=== PATIENT | female | born 1965 | race Caucasian/White ===

== ENCOUNTER 2016-02-16 12:53 | Day surgery (SDC) | payer OTHER ==
[~2016-02-16] VITALS: Ht 165.1 cm; Wt 29.9 kg
[~2016-02-16 12:53] MED LIST: AMT10 PO; ASCO10003 PO; BUSP-8 PO; CHN/1 PO; CYAN10005 PO; DAPTOmycin IV 275 MG in SODIUM CHLORIDE 0.9% 50ML 50 ML IV SCH; DIAZ2TAB PO; DRGTP50 EXT; FENT75DI2 TD; FRCT/ PO; LEVO88TA PO; LRS20 PO; MULT-506 PO; NRN/600 PO; ONDA4TAB46 PO; OXYC1TAB3 PO; PRLSR20 PO; QUET1TAB34 PO; SCPTP EXT; SERT50TA PO; SUMA100T16 PO
[2016-02-16 13:08] VITALS: BP 110/72; PULSE 82; TEMP 36.7; O2SAT 96; Ht 165.1 cm; Wt 29.9 kg
== END 2016-05-27 13:50 | disposition home or self-care (01) ==
LOC: C.MTU 12:53
PROVIDERS: ATTEND Family Medicine
DX: L72.3 Sebaceous cyst (principal)

== ENCOUNTER → 2016-08-27 | Outpatient (CLI) | payer BC, OTHER ==
[~2016-08-27] MED LIST changes: -DAPTOmycin IV 275 MG in SODIUM CHLORIDE 0.9% 50ML 50 ML IV SCH
--- NOTE | 2016-08-27 13:20 | DIAGNOSTIC IMAGING REPORT ---
LUMBAR SPINE MRI HISTORY: Pain. Congenital anomaly. DIFF AIRWAY, CONGENITAL MALFORMATION OF SPINAL COR TECHNIQUE: Multiplanar multisequence MRI of the lumbar spine was performed without the use of contrast. COMPARISON: 03/27/2010 FINDINGS: For the purpose of the report the L5-S1 disc space will be located on axial image 27 of 30. Mild disc desiccation. Moderate degenerative disc change L5-S1. L1-L2: No significant central canal or neural foraminal narrowing. L2-L3: No significant central canal or neural foraminal narrowing. L3-L4: No significant central canal or neural foraminal narrowing. L4-L5: No significant central canal or neural foraminal narrowing. L5-S1: Mild broad-based right central disc bulge. Minimal narrowing right and to lesser extent left neural foramina. Minimal impact right anterior thecal sac. IMPRESSION: Minimal disc bulge L5-S1. Mild degenerative disc change L5-S1. No change from the prior study. Electronically signed by: Aashish Loving M.D. 08/27/2016 1:19 PM Dictated Date/Time: 08/27/2016 1:15 PM
--- NOTE | 2016-08-27 13:54 | DIAGNOSTIC IMAGING REPORT ---
CERVICAL SPINE CT CT DOSE: 245.50 mGy.cm HISTORY: MALFORMATION OF SPINE TECHNIQUE: Multiaxial CT images of the cervical spine were performed and reformatted in the sagittal and coronal plane without the use of contrast. COMPARISON: Cervical spine CT 02/15/2016. FINDINGS: There are postsurgical findings consistent with a C5-C6 discectomy and anterior fusion. There are also findings consistent with a posterior craniocervical fusion with screws within the occipital condyles, C1 and C2. Resection of the posterior arch of C1 with associated bone graft material. Progressive fusion/ossification of the bone graft material. The hardware is intact. No acute fracture is present. The central canal and posterior fossa are suboptimally assessed by CT technique. There is no prevertebral edema. No acute cervical spine fractures present. There are no unexpected radiopaque foreign bodies. Straightening of the cervical spine. There appears to be evidence for prior suboccipital craniectomy. The remaining disc spaces are relatively preserved. IMPRESSION: 1.There is again noted a posterior craniocervical fusion with bilateral screws within the occipital condyles, C1 and C2. Hardware intact. Progressive fusion/ossification of the bone graft material at C1. Suboptimal evaluation of the central canal and posterior fossa due to CT technique with streak artifact. 2. No acute cervical spine fracture or subluxation. 3. Previous C5-C6 anterior discectomy and fusion. Hardware intact. Electronically signed by: John Ayala M.D. 08/27/2016 1:53 PM Dictated Date/Time: 08/27/2016 1:45 PM
--- NOTE | 2016-08-27 14:28 | DIAGNOSTIC IMAGING REPORT ---
MRI OF THE CERVICAL SPINE WITHOUT CONTRAST CLINICAL HISTORY: Malformation of spine. COMPARISON: MRI of the cervical spine May [address] of the cervical spine February 15, 2016. TECHNIQUE: Utilizing a 1.5 Meghna magnet and dedicated coil, multiplanar, multiecho imaging of the cervical spine was performed without IV contrast. FINDINGS: Postsurgical findings consistent with an anterior C5-C6 discectomy and fusion are noted. A posterior decompression is noted with bilateral screws within the occipital condyles, C1 and C2. The postoperative appearance is unchanged. Cervical cord and caliber are normal. There is no intracanalicular mass or fluid collection. Paravertebral soft tissues are unremarkable. C2-C3: Central canal and neural foramen are patent. C3-C4: The central canal and neural foramen are patent. C4-C5: The central canal and neural foramen are patent C5-C6: The central canal and neural foramen are patent. C6-C7: There is minimal disc bulge. There is minimal narrowing of the central canal. Neural foramen are patent. C7-T1: Central canal and neural foramen are patent. IMPRESSION: 1. Status post posterior decompression and fusion with bilateral screws within the occipital condyles, C1 and C2. 2. Status post C5-C6 anterior fusion. 3. Normal cervical cord and caliber. 4. Minimal disc bulge at C6-C7 with minimal central canal narrowing. Electronically signed by: Gaurang Blake M.D. 08/27/2016 2:26 PM Dictated Date/Time: 08/27/2016 2:20 PM
== END | disposition home or self-care (01) ==
LOC: C.MRI 12:00
PROVIDERS: ATTEND Family Medicine
DX: M53.2X1 Spinal instabilities, occipito-atlanto-axial region (principal); Q06.8 Other specified congenital malformations of spinal cord; Z01.818 Encounter for other preprocedural examination; Z98.1 Arthrodesis status; M47.817 Spondylosis without myelopathy or radiculopathy, lumbosacral region

== ENCOUNTER → 2016-09-17 | Outpatient (CLI) | payer BC, OTHER ==
[~2016-09-17] MED LIST changes: +GADAVIST IV PRN
--- NOTE | 2016-09-17 16:01 | DIAGNOSTIC IMAGING REPORT ---
MRI OF THE BRAIN WITHOUT AND WITH IV CONTRAST CLINICAL HISTORY: Chiari malformation status post surgery. Ataxia, memory loss, left-sided facial and arm numbness. COMPARISON STUDY: 05/21/2015 TECHNIQUE: MRI of the brain was performed from the vertex to the skull base utilizing various T1 and T2 weighted sequences. Following the IV administration of 6.5 mL of Gadavist contrast, additional enhanced images were obtained. FINDINGS: Sagittal T1, axial diffusion, proton density and T2 weighted axial, coronal FLAIR, and pre and post axial T1-weighted images were acquired. These were supplemented with post gadolinium coronal T1 weighted images. There are postsurgical changes of a suboccipital craniotomy. There is a Chiari I malformation. There is artifact secondary to occipital condylar and upper cervical screws. No intra or extra-axial mass lesions are visualized. Axial diffusion-weighted images reveal no evidence of acute or subacute infarction. There is no evidence of ventricular dilatation. Proton density T2-weighted and FLAIR images reveal no significant intraparenchymal signal abnormalities. There are no abnormal flow voids. There is no evidence of pathologic enhancement. IMPRESSION: 1. Postsurgical changes of a suboccipital craniotomy, and craniocervical fusion 2. No acute intracranial findings. No evidence of acute or subacute infarction. No evidence of intracranial mass. Electronically signed by: Carlos Ervin M.D. 09/17/2016 4:00 PM Dictated Date/Time: 09/17/2016 3:53 PM
== END | disposition home or self-care (01) ==
LOC: C.MRI 13:56
PROVIDERS: ATTEND Psychiatry & Neurology Neurology
DX: G93.5 Compression of brain (principal); R41.3 Other amnesia

== ENCOUNTER → 2016-10-30 | Outpatient (CLI) | payer BC, OTHER ==
[~2016-10-30] MED LIST changes: -GADAVIST IV PRN
[2016-10-30 18:52] LABS: URINE APPEARANCE CLEAR (CLEAR); URINE BILIRUBIN NEG (NEG); URINE COLOR YELLOW; URINE NITRITE NEG (NEG); UROBILINOGEN NEG (NEG)
[2016-10-30 19:11] LABS: MANUAL MICROSCOPIC REQUIRED? NO; REVIEW REQ? NO
== END | disposition home or self-care (01) ==
LOC: C.LABSPEC 17:29
PROVIDERS: ATTEND Family Medicine
DX: N39.0 Urinary tract infection, site not specified (principal)

== ENCOUNTER → 2016-12-30 | Outpatient (CLI) | payer BC, OTHER ==
[2016-12-30 17:03] LABS: ALT/SGPT 20 U/L (12-78); AST/SGOT 26 U/L (15-37); BLOOD UREA NITROGEN 7 mg/dl (7-18); BUN/CREATININE RATIO 10.2 (10-20); CALCIUM 8.3 mg/dl (8.5-10.1); CARBON DIOXIDE 26 mmol/L (21-32); CHLORIDE 107 mmol/L (98-107); CREATININE 0.64 mg/dl (0.60-1.20); GLUCOSE 188 mg/dl (70-99); SODIUM 139 mmol/L (136-145)
[2016-12-30 17:08] LABS: ALB/GLOB RATIO 0.7 (0.9-2); ALKALINE PHOSPHATASE 248 U/L (45-117); FERRITIN 52.1 ng/ml (8.0-388.0)
[2016-12-30 17:10] LABS: CHOLESTEROL/HDL RATIO 3.6; PHOSPHORUS 4.2 mg/dl (2.5-4.9); THYROID STIMULATING HORMONE 1.02 uIu/ml (0.300-4.500)
== END | disposition home or self-care (01) ==
LOC: C.LABPBG 13:03
PROVIDERS: ATTEND Family Medicine
DX: Z00.00 Encounter for general adult medical examination without abnormal findings (principal); E55.9 Vitamin D deficiency, unspecified; G89.29 Other chronic pain; G93.5 Compression of brain; H53.2 Diplopia; N39.0 Urinary tract infection, site not specified; M53.2X1 Spinal instabilities, occipito-atlanto-axial region; Q79.6 Ehlers-Danlos syndromes; R74.0 Nonspecific elevation of levels of transaminase and lactic acid dehydrogenase [LDH]; Z13.220 Encounter for screening for lipoid disorders

== ENCOUNTER → 2017-07-09 | Outpatient (CLI) | payer BC, OTHER ==
[2017-07-09 18:18] LABS: ALKALINE PHOSPHATASE 213 U/L (45-117); ALT/SGPT 29 U/L (12-78); AST/SGOT 30 U/L (15-37); TOTAL PROTEIN 6.4 gm/dl (6.4-8.2)
== END | disposition home or self-care (01) ==
LOC: C.LAB1850 16:27
PROVIDERS: ATTEND Internal Medicine Infectious Disease
DX: R74.0 Nonspecific elevation of levels of transaminase and lactic acid dehydrogenase [LDH] (principal); E55.9 Vitamin D deficiency, unspecified; A49.02 Methicillin resistant Staphylococcus aureus infection, unspecified site

== ENCOUNTER → 2017-08-20 | Outpatient (CLI) | payer BC, OTHER ==
--- NOTE | 2017-08-20 11:43 | DIAGNOSTIC IMAGING REPORT ---
CHEST 2 VIEWS ROUTINE CLINICAL HISTORY: Cough. COMPARISON STUDY: Chest radiograph October 13, 2015. FINDINGS: Lung volumes are normal. No pneumothorax or pleural effusion is noted. Cardiac size is normal. Mediastinal contours are normal. Postoperative findings within the upper abdomen are incidentally noted. There is asymmetric reticulonodular interstitial thickening and airspace opacities within the right lung. No cavitation is visualized. Anterior cervical spine fusion is noted. IMPRESSION: Asymmetric airspace opacities and reticulonodular interstitial thickening within the right lung which suggests an infectious process such as bronchopneumonia. Post treatment radiographs to ensure resolution are recommended. Electronically signed by: Gaurang Blake M.D. 08/20/2017 11:42 AM Dictated Date/Time: 08/20/2017 11:40 AM
== END | disposition home or self-care (01) ==
LOC: C.LAB 10:30
PROVIDERS: ATTEND Nurse Practitioner Family
DX: R05 Cough (principal)

== ENCOUNTER → 2017-11-06 | Outpatient (CLI) | payer BC, OTHER ==
[~2017-11-06] MED LIST changes: +OXYC-90 PO; -OXYC1TAB3 PO
--- NOTE | 2017-11-06 14:41 | DIAGNOSTIC IMAGING REPORT ---
CERVICAL SPINE MRI WITH FLEXION, EXTENSION, AND CSF FLOW HISTORY: NECK PAIN, HX CHIARI MALFORMATION TECHNIQUE: Utilizing 1.5 Meghna magnet axial and sagittal T2 sequences of the cervical spine were performed in the neutral, flexion, and extension views. CSF flow study was also obtained. COMPARISON STUDY: Cervical spine CT 08/27/2016 and cervical spine MRI 08/27/2016. FINDINGS: The visualized posterior fossa is unremarkable. The cervical spinal cord demonstrates a normal signal intensity. There is anterior cervical discectomy and fusion at C5-C6. There is also evidence for posterior craniocervical decompression and fusion with bilateral screws within the occipital condyles, C1, and C2. Alignment remains intact throughout flexion and extension. There is motion artifact on the flexion and extension views resulting in suboptimal evaluation. Prevertebral soft tissues and the C1-C2 interval appear intact. There is mild disc space narrowing at C4-C5 and C6-C7. C1-C2: No significant central canal narrowing. C2-C3: No significant central canal or neural foraminal narrowing. C3-C4: No significant central canal or left-sided neural foraminal narrowing. Mild right neural foraminal narrowing, unchanged. C4-C5: No severe central canal or left-sided neural foraminal narrowing. Mild right neural foraminal narrowing. C5-C6: No significant central canal or neural foraminal narrowing. C6-C7: Broad-based posterior disc bulge with ligamentum hypertrophy resulting in mild central canal narrowing. This is most pronounced on the extension views. No significant neural foraminal narrowing. C7-T1: No significant central canal or neural foraminal narrowing. CSF flow appears symmetric throughout the cervicomedullary junction and cervical spine. IMPRESSION: 1. Overall, no significant change compared to the prior study. 2. Status post posterior craniocervical decompression and fusion from the occipital condyles through C2. 3. Redemonstration of the small broad-based posterior disc bulge at C6-C7 resulting in mild central canal narrowing. This is most pronounced on the extension views. 4. The cervical spinal cord demonstrates a normal signal intensity. 4. CSF flow appears symmetric throughout the cervical medullary junction and cervical spine. Electronically signed by: John Ayala M.D. 11/06/2017 2:40 PM Dictated Date/Time: 11/06/2017 2:28 PM
== END | disposition home or self-care (01) ==
LOC: C.MRIBC 11:51
PROVIDERS: ATTEND Psychiatry & Neurology Neurology
DX: Z86.69 Personal history of other diseases of the nervous system and sense organs (principal); M50.20 Other cervical disc displacement, unspecified cervical region; M50.223 Other cervical disc displacement at C6-C7 level

== ENCOUNTER 2018-09-21 16:50 | Inpatient (IN) ==
[2018-09-21] MEDS ORDERED: SODIUM CHLORIDE 0.9% 1000ML 1,000 ML IV SCH (18:15)
[2018-09-21] MEDS ORDERED: LORazepam 0.5 MG/1 ML VIAL IV STA (18:43)
[2018-09-21 18:54] LABS: Basophils # (auto) 0.02 K/uL (0-0.2); Basophils % (auto) 0.5 %; Eosinophils # (auto) 0.06 K/uL (0-0.5); Eosinophils % (auto) 1.6 %; Hematocrit (blood only) 36.3 % (37-47); Hemoglobin 11.9 g/dL (12.0-16.0); Lymphocytes % (auto) 16.3 %; Mean Corpuscular Hgb Conc 32.8 g/dL (32-36); Mean Corpuscular Volume 94.3 fL (80-100); Mean Platelet Volume 10.3 fL (7.4-10.4); Monocytes # (auto) 0.31 K/uL (0.11-0.59); Monocytes % (auto) 8.4 %; Neutrophils # (auto) 2.69 K/uL (1.4-6.5); Neutrophils % (auto) 73.2 %; Platelet Count 332 K/uL (130-400); RDW Coefficient of Variation 13.4 % (11.5-14.5); RDW Standard Deviation 46.6 fL (36.4-46.3); Red Blood Count 3.85 M/uL (4.2-5.4); White Blood Count 3.68 K/uL (4.8-10.8)
--- NOTE | 2018-09-21 18:59 | XRay Report ---
SINGLE VIEW CHEST CLINICAL HISTORY: Fall. Weakness. FINDINGS: An AP, portable, upright chest radiograph is compared to study dated 07/30/2018. The cardiom ediastinal silhouette is unremarkable. The lungs and pleural spaces are clear. No pneumothorax is see n. The skeletal structures are osteopenic. The bony thorax is grossly intact. Fusion hardware is note d in the lower cervical spine. IMPRESSION: No active disease in the chest. Electronically signed by: Colton Henriquez M.D. 09/21/2018 6:58 PM
--- NOTE | 2018-09-21 18:59 | XRay Report ---
SINGLE VIEW PELVIS CLINICAL HISTORY: Trauma. FINDINGS: An AP, portable, supine pelvic radiograph is obtained. No prior studies are available for c omparison at the time of dictation. The skeletal structures are heterogeneously osteopenic. There is no radiographic evidence of fracture involving the hips or bony pelvis. Mild degenerative joint space narrowing is seen in the hips. There is mild degenerative sclerosis in the sacroiliac joints. The ov erlying soft tissues are normal as imaged. There are numerous pelvic phlebolith. No bowel obstruction is seen. IMPRESSION: Osteopenia with no acute bony abnormality identified. Electronically signed by: Colton Henriquez M.D. 09/21/2018 6:57 PM
[2018-09-21 19:06] LABS: INR 1.6 (0.9-1.1); Prothrombin Time 16.1 Seconds (9.0-12.0)
[2018-09-21 19:19] LABS: Alanine Aminotransferase 57 U/L (12-78); Aspartate Aminotransferase 200 U/L (15-37); BUN Creatinine Ratio 7.4 (10-20); Blood Urea Nitrogen 3 mg/dl (7-18); Calcium 7.7 mg/dl (8.5-10.1); Carbon Dioxide 19 mmol/L (21-32); Chloride 115 mmol/L (98-107); Est GFR (African American) 137.7; Est GFR (Non-African American) 118.8; Glucose 81 mg/dl (70-99); Potassium 3.8 mmol/L (3.5-5.1); Sodium 144 mmol/L (136-145)
[2018-09-21 19:30] LABS: Albumin Globulin Ratio 0.6 (0.9-2); Alkaline Phosphatase 330 U/L (45-117); Bilirubin,Total 0.5 mg/dl (0.2-1); Globulin 3.3 gm/dl (2.5-4.0); NT Pro B Type Natriuretic Pept 77 pg/ml (0-900); Total Protein 5.3 gm/dl (6.4-8.2); Troponin I < 0.015 ng/ml (0-0.045)
[2018-09-21 19:43] LABS: Lyme Ab IgG w/WB Rflx Negative (Negative); Lyme Ab IgM w/WB Rflx Negative (Negative)
--- NOTE | 2018-09-21 21:10 | Magnetic Resonance Report ---
LUMBAR SPINE MRI HISTORY: weakness, incontinence TECHNIQUE: Multiplanar multisequence MRI of the lumbar spine was performed without the use of contras t. COMPARISON: Lumbar spine MRI 08/27/2016. FINDINGS: For the purpose of the report the L5-S1 disc space will be located on axial image 27 of 30. No fracture or subluxation within the lumbar spine. Severe disc space narrowing at L5-S1 which has pr ogressed. The remaining disc spaces are preserved. The conus terminates at the T12-L1 disc space. Par aspinal soft tissues are unremarkable. No disc herniations. There is abnormal marrow edema at the S1 and S2 vertebral bodies with mild presacral edema. There is also abnormal marrow edema within the sveta ateral sacral wings. Therefore, this is consistent with a developing sacral insufficiency fracture. L1-L2: No significant central canal or neural foraminal narrowing. L2-L3: No significant central canal or neural foraminal narrowing. L3-L4: No significant central canal or neural foraminal narrowing. L4-L5: No significant central canal or neural foraminal narrowing. L5-S1: No significant central canal or neural foraminal narrowing. Small broad-based posterior disc b ulge. IMPRESSION: 1. Progressive severe disc space narrowing L5-S1. However, no significant central canal or neural for aminal narrowing. 2. There is abnormal marrow edema at the S1 and S2 vertebral bodies with mild presacral edema. There is also abnormal marrow edema within the bilateral sacral wings. Therefore, this is consistent with a developing sacral insufficiency fracture. Electronically signed by: John Ayala M.D. 09/21/2018 9:08 PM
[2018-09-21 22:25] LABS: Appearance Urine Cloudy (Clear); Bacteria Urine Automated Negative (Negative); Bilirubin Urine Negative (Negative); Blood Urine Negative (Negative); Color Urine Yellow; Epithelial Cell Urine Auto >30 /lpf (0-5); Glucose Urine UA Negative (Negative); Ketones Urine Negative (Negative); Leukocyte Esterase Urine Negative (Negative); Nitrite Urine Negative (Negative); Protein Urine Negative (Negative); Specific Gravity Urine 1.013 (1.000-1.030); Urobilinogen Urine Negative (Negative); pH Urine 5.5 (4.5-7.5)
[2018-09-21 22:47] LABS: RBC Urine Automated 0-4 /hpf (0-4)
--- NOTE | 2018-09-22 00:57 | History & Physical Report ---
Date of Service September 22, 2018 Assessment & Plan (1) Generalized weakness: Etiology unclear. Patient with diffuse progressive weakness over the last 10 days, as well as incontinence. S/P Arian en Y GBS -Check PO4, ICal, ESR, CRP, Folate -Check T4 -PT/OT evaluation -Consider Neuro evaluation - to be left to discretion of day team Present on Admission?: Yes (2) Fall: Weakness s/p fall. Patient with sacral insufficiency fracture -PT/OT evalution -Consider Ortho consult Present on Admission?: Yes (3) POTS (postural orthostatic tachycardia syndrome): Chronic -Continue home medications Present on Admission?: Yes (4) Anemia: Check iron studies. Heme negative stool in ER -CBC in AM Present on Admission?: Yes (5) EDS (Lilibeth-Danlos syndrome): Chronic. Stable -Continue to monitor Present on Admission?: Yes (6) Hypothyroid: Chronic. Low TSH -Check T4 -Continue Synthroid, may need dose adjustment (7) Abnormal LFTs: Repeat LFTs in AM Check RUQUS F/E/N- NSS at 80mL/hr, monitor electrolytes and replete as needed, regular diet as tolerated Ppx - Lovenox Code - Full Dispo - Admit to medical floor History of Present Illness Chief Complaint: weakness Primary Care Provider: Kailey Adam MD Leyla Pichardo is a 53yo C female with history of POTS, EDS presenting with diffuse weakness which started approximately 10 days ago. She had an appointment at [facility] [place] ago and afterwards felt very weak and tired which is not unusual for her following travel and doctor's appointments. She rested but continued to feel weak. Diffuse weakness, inability to walk, fall x 2. Patient also with fecal and urinary incontinence. ER Course: Ativan 0.5mg, NSS x 1L Allergies Allergy/AdvReac Type Severity Reaction Status Date / Time blue dye Allergy Intermediate joint Verified 09/21/18 19:19 swelling codeine Allergy Intermediate hives-TAKES Verified 09/21/18 19:19 OXYCONTIN AT HOME bupropion [From Wellbutrin] Allergy Unknown Unknown Verified 09/21/18 19:19 Margarine Allergy Severe ANAPHYLAXIS Uncoded 07/30/18 14:06 Home Medications Home Medications Medication Instructions Recorded Confirmed Type alprazolam [Xanax] 0.5 mg PO BID 07/30/18 09/21/18 History amitriptyline 50 mg PO HS 07/30/18 09/21/18 History ascorbic acid (vitamin C) [Vitamin 1,000 mg PO DAILY 07/30/18 09/21/18 History C] baclofen 20 mg PO TID 07/30/18 09/21/18 History bisacodyl [Dulcolax (bisacodyl)] 5 mg PO DAILY PRN 07/30/18 09/21/18 History buspirone 10 mg PO BID 07/30/18 09/21/18 History cyanocobalamin (vitamin B-12) 1,000 mcg IM MONTHLY 07/30/18 09/21/18 History fentanyl 1 patch TRANSDERMAL .[id number] 07/30/18 09/21/18 History fentanyl 1 patch TRANSDERMAL .CQ48HR 07/30/18 09/21/18 History folic acid 1 mg PO DAILY 07/30/18 09/21/18 History gabapentin 1,200 mg PO TID 07/30/18 09/21/18 History levothyroxine [Levoxyl] 100 mcg PO DAILY 07/30/18 09/21/18 History lidocaine [Lidoderm] 1 patch TOPICAL DAILY PRN 07/30/18 09/21/18 History meclizine 25 mg PO TID PRN 07/30/18 09/21/18 History midodrine 2.5 mg PO TID 07/30/18 09/21/18 History omeprazole 20 mg PO DAILY 07/30/18 09/21/18 History ondansetron 4 - 8 mg PO Q8H PRN 07/30/18 09/21/18 History oxycodone 10 mg PO 5XD PRN 07/30/18 09/21/18 History promethazine [Phenergan] 25 mg AR Q12H PRN 07/30/18 09/21/18 History sertraline 100 mg PO QAM 07/30/18 09/21/18 History sumatriptan succinate [Imitrex] 100 mg PO DIRECTED PRN MDD 200 07/30/18 09/21/18 History MG/DAY acetazolamide 250 mg PO QID 09/21/18 09/21/18 History jnebgkfaok-uiaxckfarpicp-mffe 1 tab PO Q4H PRN MDD 6 TABS 09/21/18 09/21/18 History magnesium oxide 400 mg PO BID 09/21/18 09/21/18 History pyridostigmine bromide 60 mg PO TID 09/21/18 09/21/18 History quetiapine 100 mg PO HS 09/21/18 09/21/18 History trazodone 100 mg PO HS 09/21/18 09/21/18 History Past Med/Surg History Medical History POTS (postural orthostatic tachycardia syndrome) EDS (Lilibeth-Danlos syndrome) HNP (herniated nucleus pulposus) with myelopathy, cervical (Acute 05/20/14) Surgical History History of brain surgery (Resolved) H/O: hysterectomy Hx of cholecystectomy History of Arian-en-Y gastric bypass History of abdominal surgery History of knee surgery Family History Other Cancer Diabetes Hypertension Kidney disease Lung disease Social History Feels Safe at Home: Yes Smoking Status: Current some day smoker Hx Alcohol Use: No Hx Substance Use: Yes substance use type: marijuana Review of Systems Review of Systems: All systems reviewed & are unremarkable except as noted in HPI & below + poor visual acuity with blurry vision + palpitations Patient denies chest pain, SOB, abdominal pain, nausea, vomiting, diarrhea, constipation, dysuria, myalgias, numbness/tingling/weakness, fevers, chills Physical Exam Physical Exam: General: patient resting comfortably, NAD, non-toxic in appearance, AA&O x 4 Skin: warm, dry, intact, no rashes or lesions, brown reticular pattern on abdominal wall HEENT: NC/AT, PERRL, EOMI, anicteric sclera, conjunctiva without injection, external ear normal to inspection and nontender, nares patent, moist mucus membranes, dentition intact, no oropharyngeal lesions, neck supple, trachea midline, no LAD, no thyromegaly, no JVD Heart: +S1/S2, regular, tachycardic, no m/r/g Lungs: equal air entry bilaterally, no rales/rhonchi/wheezes Abd: +BS, soft, NT/ND, no masses/organomegaly/ascites Ext: warm, 2+ pulses in UE/LE bilaterally, no clubbing/cyanosis or edema Neuro: nonfocal, patient AA&O x 4, speech intact but slow, no facial droop, moving all extremities on command with equal strength 5/5, diminished sensation to light touch on right leg medial and lateral which is baseline per patient Results & Data Vital Signs (Past 12 Hours) Vital Signs Temp Pulse Pulse Resp BP BP Pulse Ox 09/21/18 22:00 108 H 18 111/70 98 09/21/18 21:00 101 H 16 111/63 99 09/21/18 19:00 102 H 18 106/64 96 09/21/18 16:52 36.9 C 123 H 20 111/64 100 Laboratory Results Lab Results 09/21/18 09/21/18 09/21/18 Range/Units 18:50 18:50 18:50 WBC 3.68 L (4.8-10.8) K/uL RBC 3.85 L (4.2-5.4) M/uL Hgb 11.9 L (12.0-16.0) g/dL Hct 36.3 L (37-47) % MCV 94.3 (80-100) fL MCH 30.9 (25-34) pg MCHC 32.8 (32-36) g/dL RDW Std Deviation 46.6 H (36.4-46.3) fL RDW Coeff of Kevin 13.4 (11.5-14.5) % Plt Count 332 (130-400) K/uL MPV 10.3 (7.4-10.4) fL Immature Gran % (Auto) 0.0 % Neut % (Auto) 73.2 % Lymph % (Auto) 16.3 % Jasper % (Auto) 8.4 % Eos % (Auto) 1.6 % Baso % (Auto) 0.5 % Immature Gran # (Auto) 0.00 (0.00-0.02) K/uL Neut # (Auto) 2.69 (1.4-6.5) K/uL Lymph # (Auto) 0.60 L (1.2-3.4) K/uL Jasper # (Auto) 0.31 (0.11-0.59) K/uL Eos # (Auto) 0.06 (0-0.5) K/uL Baso # (Auto) 0.02 (0-0.2) K/uL PT 16.1 H (9.0-12.0) Seconds INR 1.6 H (0.9-1.1) Sodium 144 (136-145) mmol/L Potassium 3.8 (3.5-5.1) mmol/L Chloride 115 H (98-107) mmol/L Carbon Dioxide 19 L (21-32) mmol/L Anion Gap 10.0 (3-11) BUN 3 L (7-18) mg/dl Creatinine 0.41 L (0.6-1.2) mg/dl Est Cr Clr Drug Dosing Not Reportable Est GFR ( Amer) 137.7 Est GFR (Non-Af Amer) 118.8 BUN/Creatinine Ratio 7.4 L (10-20) Glucose 81 (70-99) mg/dl Calcium 7.7 L (8.5-10.1) mg/dl Magnesium 2.0 (1.8-2.4) mg/dl Total Bilirubin 0.5 (0.2-1) mg/dl AST 200 H (15-37) U/L ALT 57 (12-78) U/L Alkaline Phosphatase 330 H (45-117) U/L Troponin I < 0.015 (0-0.045) ng/ml NT-Pro-B Natriuret Pep 77 (0-900) pg/ml Total Protein 5.3 L (6.4-8.2) gm/dl Albumin 2.0 L (3.4-5.0) gm/dl Globulin 3.3 (2.5-4.0) gm/dl Albumin/Globulin Ratio 0.6 L (0.9-2) Lipase 48 L (73-393) U/L TSH 0.015 L (0.300-4.500) uIu/ml Urine Color Urine Appearance (Clear) Urine pH (4.5-7.5) Ur Specific Violet (1.000-1.030) Urine Protein (Negative) Urine Glucose (UA) (Negative) Urine Ketones (Negative) Urine Blood (Negative) Urine Nitrite (Negative) Urine Bilirubin (Negative) Urine Urobilinogen (Negative) Ur Leukocyte Esterase (Negative) Urine WBC (Auto) (0-5) /hpf Urine RBC (Auto) (0-4) /hpf U Hyaline Cast (Auto) (0-5) /lpf U Epithel Cells (Auto) (0-5) /lpf Urine Bacteria (Auto) (Negative) Urine Yeast Lyme Disease IgG Ab (Negative) Lyme Disease IgM Ab (Negative) 09/21/18 09/21/18 Range/Units 18:50 22:15 WBC (4.8-10.8) K/uL RBC (4.2-5.4) M/uL Hgb (12.0-16.0) g/dL Hct (37-47) % MCV (80-100) fL MCH (25-34) pg MCHC (32-36) g/dL RDW Std Deviation (36.4-46.3) fL RDW Coeff of Kevin (11.5-14.5) % Plt Count (130-400) K/uL MPV (7.4-10.4) fL Immature Gran % (Auto) % Neut % (Auto) % Lymph % (Auto) % Jasper % (Auto) % Eos % (Auto) % Baso % (Auto) % Immature Gran # (Auto) (0.00-0.02) K/uL Neut # (Auto) (1.4-6.5) K/uL Lymph # (Auto) (1.2-3.4) K/uL Jasper # (Auto) (0.11-0.59) K/uL Eos # (Auto) (0-0.5) K/uL Baso # (Auto) (0-0.2) K/uL PT (9.0-12.0) Seconds INR (0.9-1.1) Sodium (136-145) mmol/L Potassium (3.5-5.1) mmol/L Chloride (98-107) mmol/L Carbon Dioxide (21-32) mmol/L Anion Gap (3-11) BUN (7-18) mg/dl Creatinine (0.6-1.2) mg/dl Est Cr Clr Drug Dosing Est GFR ( Amer) Est GFR (Non-Af Amer) BUN/Creatinine Ratio (10-20) Glucose (70-99) mg/dl Calcium (8.5-10.1) mg/dl Magnesium (1.8-2.4) mg/dl Total Bilirubin (0.2-1) mg/dl AST (15-37) U/L ALT (12-78) U/L Alkaline Phosphatase (45-117) U/L Troponin I (0-0.045) ng/ml NT-Pro-B Natriuret Pep (0-900) pg/ml Total Protein (6.4-8.2) gm/dl Albumin (3.4-5.0) gm/dl Globulin (2.5-4.0) gm/dl Albumin/Globulin Ratio (0.9-2) Lipase (73-393) U/L TSH (0.300-4.500) uIu/ml Urine Color Yellow Urine Appearance Cloudy A (Clear) Urine pH 5.5 (4.5-7.5) Ur Specific Violet 1.013 (1.000-1.030) Urine Protein Negative (Negative) Urine Glucose (UA) Negative (Negative) Urine Ketones Negative (Negative) Urine Blood Negative (Negative) Urine Nitrite Negative (Negative) Urine Bilirubin Negative (Negative) Urine Urobilinogen Negative (Negative) Ur Leukocyte Esterase Negative (Negative) Urine WBC (Auto) 1-5 (0-5) /hpf Urine RBC (Auto) 0-4 (0-4) /hpf U Hyaline Cast (Auto) 1-5 (0-5) /lpf U Epithel Cells (Auto) >30 H (0-5) /lpf Urine Bacteria (Auto) Negative (Negative) Urine Yeast Not Reportable Lyme Disease IgG Ab Negative (Negative) Lyme Disease IgM Ab Negative (Negative) Diagnostic Findings SINGLE VIEW PELVIS CLINICAL HISTORY: Trauma. FINDINGS: An AP, portable, supine pelvic radiograph is obtained. No prior studies are available for comparison at the time of dictation. The skeletal structures are heterogeneously osteopenic. There is no radiographic evidence of fracture involving the hips or bony pelvis. Mild degenerative joint space narrowing is seen in the hips. There is mild degenerative sclerosis in the sacroiliac joints. The overlying soft tissues are normal as imaged. There are numerous pelvic phlebolith. No bowel obstruction is seen. IMPRESSION: Osteopenia with no acute bony abnormality identified. Electronically signed by: Colton Henriquez M.D. 09/21/2018 6:57 PM Dictated: 09/21/181855 Transcribed: 09/21/181855 LUMBAR SPINE MRI HISTORY: weakness, incontinence TECHNIQUE: Multiplanar multisequence MRI of the lumbar spine was performed without the use of contrast. COMPARISON: Lumbar spine MRI 08/27/2016. FINDINGS: For the purpose of the report the L5-S1 disc space will be located on axial image 27 of 30. No fracture or subluxation within the lumbar spine. Severe disc space narrowing at L5-S1 which has progressed. The remaining disc spaces are preserved. The conus terminates at the T12-L1 disc space. Paraspinal soft tissues are unremark able. No disc herniations. There is abnormal marrow edema at the S1 and S2 vertebral bodies with mild presacral edema. There is also abnormal marrow edema within the bilateral sacral wings. Therefore, this is consistent with a developing sacral insufficiency fracture. L1-L2: No significant central canal or neural foraminal narrowing. L2-L3: No significant central canal or neural foraminal narrowing. L3-L4: No significant central canal or neural foraminal narrowing. L4-L5: No significant central canal or neural foraminal narrowing. L5-S1: No significant central canal or neural foraminal narrowing. Small broad- based posterior disc bulge. IMPRESSION: 1. Progressive severe disc space narrowing L5-S1. However, no significant central canal or neural foraminal narrowing. 2. There is abnormal marrow edema at the S1 and S2 vertebral bodies with mild presacral edema. There is also abnormal marrow edema within the bilateral sacral wings. Therefore, this is consistent with a developing sacral insufficiency fracture. Electronically signed by: John Ayala M.D. 09/21/2018 9:08 PM Dictated: 09/21/182101 Transcribed: 09/21/182101 SINGLE VIEW CHEST CLINICAL HISTORY: Fall. Weakness. FINDINGS: An AP, portable, upright chest radiograph is compared to study dated 07/30/2018. The cardiomediastinal silhouette is unremarkable. The lungs and pleural spaces are clear. No pneumothorax is seen. The skeletal structures are osteopenic. The bony thorax is grossly intact. Fusion hardware is noted in the lower cervical spine. IMPRESSION: No active disease in the chest. Electronically signed by: Colton Henriquez M.D. 09/21/2018 6:58 PM Dictated: 09/21/181856 Transcribed: 09/21/181856 ECG Additional Comments: ST at 110, LAD, no acute ischemia Code Status & VTE Plan Code Status FULL VTE Prophylaxis Plan VTE Prophylaxis will be ordered: No (1) Fall Encounter type: initial encounter Qualified Code(s): W19.XXXA - Unspecified fall, initial encounter (2) Anemia Anemia type: unspecified type Qualified Code(s): D64.9 - Anemia, unspecified (3) Hypothyroid Hypothyroidism type: unspecified Qualified Code(s): E03.9 - Hypothyroidism, unspecified
[2018-09-22] MEDS ORDERED: MECLIZINE HCL 25 MG TAB PO PRN (02:37)
[2018-09-22] MEDS ORDERED: ONDANSETRON 4 MG OD TAB PO PRN (02:37)
[2018-09-22] MEDS ORDERED: SUMAtriptan succinate 100 MG TAB PO PRN (02:37)
[2018-09-22] MEDS ORDERED: PROMETHAZINE HCL 25 MG SUPP PR PRN (02:37)
[2018-09-22] MEDS ORDERED: BISACODYL 5 MG TABEC PO PRN (02:37)
[2018-09-22] MEDS: OXYCODONE HCL IR 5 MG TAB (IMMEDIATE RELEASE) PO PRN ×5 (03:10→21:10)
[2018-09-22] MEDS: CHECK FENTANYL PATCH PLACEMENT SCH ×6 (03:24→16:11)
[2018-09-22] MEDS: SODIUM CHLORIDE 0.9% 1000ML 1,000 ML IV SCH ×2 (03:24→16:25)
[2018-09-22] MEDS: BUTALBITAL/ACETAMIN/CAFFEINE TAB PO PRN ×4 (03:32→16:17)
[2018-09-22 03:38] LABS: C Reactive Protein 3.22 mg/dl (0-0.29); Ferritin 223.8 ng/ml (8-388); Phosphorus 3.1 mg/dl (2.5-4.9); Prealbumin 8.3 mg/dl (20-40); T4 Free Thyroxine 1.57 ng/dl (0.8-1.6)
[2018-09-22 03:56] LABS: Folate (Folic Acid) 19.86 ng/ml (>5.38)
[2018-09-22] MEDS: LEVOTHYROXINE SODIUM 100 MCG TABLET PO SCH (06:38)
[2018-09-22] MEDS: MIDODRINE HCL 2.5 MG TAB PO SCH ×3 (06:39→16:11)
--- NOTE | 2018-09-22 09:03 | Ultrasound Report ---
US liver CLINICAL HISTORY: 53 years-old Female presenting with abnormal lft. TECHNIQUE: Real-time grayscale and limited color Doppler ultrasound imaging of the abdomen limited to the right upper quadrant was performed. COMPARISON: None. FINDINGS: Pancreas: Largely obscured due to overlying bowel gas. Liver: Mildly hyperechogenic parenchyma, although the right hemidiaphragm remains visible, likely ind icating mild steatosis. The liver measures 16.4 cm in maximal sagittal dimension. No sonographic evid ence of hepatic mass. Main portal vein patent with normal directional flow. Biliary: Mild central predominant intrahepatic biliary ductal dilatation. Common bile duct measures u p to 9 mm in diameter. Gallbladder: Surgically absent. Right kidney: Normal in appearance without evidence of hydronephrosis. Ascites: None. Other: None. IMPRESSION: 1. The degree of intrahepatic and extra hepatic biliary ductal dilatation may represent a reservoir effect in the post cholecystectomy state. A distal obstruction is considered less likely. 2. Mild hepatic steatosis. Correlate with liver function tests to exclude steatohepatitis. Electronically signed by: Erik Alejo M.D. 09/22/2018 9:02 AM
[2018-09-22] MEDS: SERTRALINE HCL 100 MG TABLET PO SCH (09:45)
[2018-09-22] MEDS: acetaZOLAMIDE 250 MG TAB PO SCH ×4 (09:46→21:16)
[2018-09-22] MEDS: BACLOFEN 20 MG TAB PO SCH ×3 (09:47→21:13)
[2018-09-22] MEDS: GABAPENTIN 600 MG TAB PO SCH ×3 (09:47→21:16)
[2018-09-22] MEDS: PYRIDOSTIGMINE BROMIDE 60 MG TAB PO SCH ×3 (09:48→21:15)
[2018-09-22] MEDS: PANTOprazole 40 MG TAB PO SCH (09:49)
[2018-09-22] MEDS: ASCORBIC ACID 500 MG TAB PO SCH (09:50)
[2018-09-22] MEDS: fentaNYL 100 MCG/HR TDSY TD SCH ×2 (11:05→11:07)
[2018-09-22] MEDS: fentaNYL 12 MCG/HR TDSY TD SCH ×2 (11:06→11:07)
[2018-09-22] MEDS: ALPRAZolam 0.5 MG TABLET PO SCH ×2 (11:06→21:37)
[2018-09-22] MEDS: MAGNESIUM OXIDE 400 MG TAB PO SCH ×2 (12:31→21:13)
[2018-09-22] MEDS: FOLIC ACID 1 MG TAB PO SCH (12:32)
[2018-09-22] MEDS: ENOXAPARIN INJ 40 MG/0.4 ML SYR SQ SCH (12:45)
[2018-09-22] MEDS: QUETIAPINE FUMARATE 100 MG TABLET PO SCH (21:14)
[2018-09-22] MEDS: AMITRIPTYLINE HCL 50 MG TAB PO SCH (21:16)
[2018-09-22] MEDS: TRAZODONE HCL 100 MG TAB PO SCH (21:17)
--- NOTE | 2018-09-23 00:45 | Emergency Department Note ---
Entered by Jacob Lyons acting as a scribe for Nadine Davis DO History of Present Illness General Chief complaint: Weakness Stated complaint: WEAKNESS Time Seen by Provider: 09/21/18 17:35 Source: patient and family History of Present Illness Onset (ago): day(s) 10 Location: head (global) Pain Consistency: + other (persistent and worsening) Quality: + other (weakness) Associated symptoms: + other (fall, bladder/bowel incontinence) The patient is a 53 year old female on palliative care who presents to the Emergency Room with complaints of persistent and worsening generalized weakness for the past 10 days. The patient reports that she recently traveled for a [facility] appointment in [place]. She normally becomes weak with traveling, but the weakness has been progressively worsening. Five days ago the patient fell while in the bathroom. She states that she tried to catch herself on the doorknob with her left hand and fell onto her right hip/back region. She notes that she did not hit her head and does not think she lost consciousness. She states that she normally has physical therapy twice per week but had to cancel her second appointment last week. She also fell again but was caught by her son. She states that at baseline she is able to walk around the house, and she recently has been crawling to move around. The patient also has been having bladder incontinence for the past four days, and the at bedside reports that she had bowel incontinence this morning. The patient states that she does not feel the urge to urinate or defecate when this occurs. She notes that she has never been this weak and states that she is not eating well. She has been sleeping more often and becomes confused in the evenings per the . The patient reports chronic leg numbness and tingling unchanged from baseline, as well as chronic headaches. She notes that labs on September 16 showed low WBC. Home Medications Home Medications Medication Instructions Recorded Confirmed Type alprazolam [Xanax] 0.5 mg PO BID 07/30/18 09/21/18 History amitriptyline 50 mg PO HS 07/30/18 09/21/18 History ascorbic acid (vitamin C) [Vitamin 1,000 mg PO DAILY 07/30/18 09/21/18 History C] baclofen 20 mg PO TID 07/30/18 09/21/18 History bisacodyl [Dulcolax (bisacodyl)] 5 mg PO DAILY PRN 07/30/18 09/21/18 History buspirone 10 mg PO BID 07/30/18 09/21/18 History cyanocobalamin (vitamin B-12) 1,000 mcg IM MONTHLY 07/30/18 09/21/18 History fentanyl 1 patch TRANSDERMAL .[id number] 07/30/18 09/21/18 History fentanyl 1 patch TRANSDERMAL .[id number] 07/30/18 09/21/18 History folic acid 1 mg PO DAILY 07/30/18 09/21/18 History gabapentin 1,200 mg PO TID 07/30/18 09/21/18 History levothyroxine [Levoxyl] 100 mcg PO DAILY 07/30/18 09/21/18 History lidocaine [Lidoderm] 1 patch TOPICAL DAILY PRN 07/30/18 09/21/18 History meclizine 25 mg PO TID PRN 07/30/18 09/21/18 History midodrine 2.5 mg PO TID 07/30/18 09/21/18 History omeprazole 20 mg PO DAILY 07/30/18 09/21/18 History ondansetron 4 - 8 mg PO Q8H PRN 07/30/18 09/21/18 History oxycodone 10 mg PO 5XD PRN 07/30/18 09/21/18 History promethazine [Phenergan] 25 mg LA Q12H PRN 07/30/18 09/21/18 History sertraline 100 mg PO QAM 07/30/18 09/21/18 History sumatriptan succinate [Imitrex] 100 mg PO DIRECTED PRN MDD 200 07/30/18 09/21/18 History MG/DAY acetazolamide 250 mg PO QID 09/21/18 09/21/18 History [id number]-dcyfnnbvvlrhq-[id number] 1 tab PO Q4H PRN MDD 6 TABS 09/21/18 09/21/18 History magnesium oxide 400 mg PO BID 09/21/18 09/21/18 History pyridostigmine bromide 60 mg PO TID 09/21/18 09/21/18 History quetiapine 100 mg PO HS 09/21/18 09/21/18 History trazodone 100 mg PO HS 09/21/18 09/21/18 History Allergies Allergy/AdvReac Type Severity Reaction Status Date / Time blue dye Allergy Intermediate joint Verified 09/21/18 19:19 swelling codeine Allergy Intermediate hives-TAKES Verified 09/21/18 19:19 OXYCONTIN AT HOME bupropion [From Wellbutrin] Allergy Unknown Unknown Verified 09/21/18 19:19 Margarine Allergy Severe ANAPHYLAXIS Uncoded 07/30/18 14:06 Past Med/Surg History Family History Other Cancer Diabetes Hypertension Kidney disease Lung disease Social History Preferred Language: Kazakh Communication Ability: Effective Networker Required: No Beliefs That Will Affect Care: None Current Living Situation: Spouse and Family Other Information That Helps Us Care for You: No Feels Safe at Home: Yes Safety Concerns: Feels Safe At This Time Smoking Status: Light tobacco smoker Tobacco Type: cigarettes Do You Dip or Chew Tobacco: No Second Hand Exposure: Yes Tobacco Cessation Education Requested by Patient: No Hx Alcohol Use: No Hx Substance Use: Yes substance use type: marijuana Last Used Substance: Unknown Review of Systems See HPI for pertinent positives & negatives. and A total of 10 systems reviewed and were otherwise negative Physical Exam Vital Signs Vital Signs - 24 hr 09/21/18 16:52 09/21/18 19:00 09/21/18 21:00 Temperature 98.4 F Temperature Source Oral Sepsis Recent Fever Within 48 Hours No Sepsis New/Unexplained Change in Mental Status No Sepsis Action Taken by Nursing No Action Required Pulse Rate 123 H Pulse Rate [Finger] 102 H 101 H Pulse Rhythm [Finger] Regular Regular Pulse Strength [Finger] Normal Normal Respiratory Rate 20 18 16 Respiratory Effort / Characteristics Non-Labored Spontaneous Non-Labored Spontaneous Respiratory Depth Normal Normal Respiratory Pattern Regular Regular Blood Pressure 111/64 Blood Pressure [Right Arm] 106/64 111/63 Blood Pressure Mean 79 Blood Pressure Mean [Right Arm] 78 79 Blood Pressure Position [Right Arm] Lying Pulse Oximetry 100 96 99 Oxygen Delivery Method Room Air Room Air Room Air 09/21/18 22:00 Temperature Temperature Source Sepsis Recent Fever Within 48 Hours Sepsis New/Unexplained Change in Mental Status Sepsis Action Taken by Nursing Pulse Rate Pulse Rate [Finger] 108 H Pulse Rhythm [Finger] Regular Pulse Strength [Finger] Normal Respiratory Rate 18 Respiratory Effort / Characteristics Non-Labored Spontaneous Respiratory Depth Normal Respiratory Pattern Regular Blood Pressure Blood Pressure [Right Arm] 111/70 Blood Pressure Mean Blood Pressure Mean [Right Arm] 83 Blood Pressure Position [Right Arm] Lying Pulse Oximetry 98 Oxygen Delivery Method Room Air GENERAL: alert, well appearing, well nourished, no distress, non-toxic, wearing sunglasses HEAD: normal cephalic, atraumatic, no wagner sign, no raccoon eyes EYE EXAM: normal conjunctiva, PERRL and EOM's grossly intact OROPHARYNX: no exudate, no erythema, lips, buccal mucosa, and tongue normal and mucous membranes are dry EARS: TMs clear b/l without hemotympanum, canals without edema NECK: supple, no nuchal rigidity, no adenopathy, non-tender CHEST: stable to compression anteriorly and posteriorly LUNGS: clear to auscultation. Normal chest wall mechanics, no w/r/r HEART: no murmurs, S1 normal and S2 normal ABDOMEN: abdomen soft, non-tender, normo-active bowel sounds, no masses, no rebound or guarding. RECTAL: mildly decreased tone, no stool in rectal vault PELVIS: stable to compression anteriorly and posteriorly BACK: There is early erythema at the superior gluteal cleft suggestive of early sacral decubitus ulcer. No other evidence of trauma to the back or sacrum. UPPER EXTREMITIES: full active and passive range of motion of all joints without tenderness to palpation LOWER EXTREMITIES: full active and passive range of motion of all joints without tenderness to palpation NEURO EXAM: There is altered sensory exam of the bilateral lower extremities, however patient states this is chronic and unchanged. Otherwise cranial nerves II-XII grossly intact, normal speech, no gross weakness of arms, no gross we akness of legs. GCS: 15. Course 173: The patient was evaluated in room B10. A complete history and physical examination were performed. 2034: Patient reevaluated. No significant change. 2202: I updated the patient on results. We discussed disposition and plan. 2314: I consulted Dr. Simpson [facility] Hospitalist. The patient will be reevaluated for hospitalization. Administered Medications Acetaminophen/Butalbital/Caffeine (Fioricet) 1 tab PO Q4H PRN PRN Reason: Headache Stop: 10/22/18 02:36 Last Admin: 09/22/18 16:17 Dose: 1 tab Documented by: [id number] Admin: 09/22/18 14:34 Dose: 1 tab Documented by: [id number] Admin: 09/22/18 11:06 Dose: 1 tab Documented by: [id number] Admin: 09/22/18 03:32 Dose: 1 tab Documented by: [id number] Acetazolamide (Diamox) 250 mg PO QID CRAIG Stop: 10/22/18 08:59 Last Admin: 09/22/18 21:16 Dose: 250 mg Documented by: [id number] Admin: 09/22/18 16:18 Dose: 250 mg Documented by: [id number] Admin: 09/22/18 12:32 Dose: 250 mg Documented by: [id number] Admin: 09/22/18 09:46 Dose: 250 mg Documented by: [id number] Alprazolam (Xanax) 0.5 mg PO BID CRAIG Stop: 10/22/18 08:59 Last Admin: 09/22/18 21:37 Dose: 0.5 mg Documented by: [id number] Admin: 09/22/18 11:06 Dose: 0.5 mg Documented by: [id number] Amitriptyline HCl (Elavil) 50 mg PO HS CRAIG Stop: 10/22/18 20:59 Last Admin: 09/22/18 21:16 Dose: 50 mg Documented by: [id number] Ascorbic Acid (Vitamin C) 1,000 mg PO DAILY CRAIG Stop: 10/22/18 08:59 Last Admin: 09/22/18 09:50 Dose: 1,000 mg Documented by: [id number] Baclofen (Lioresal) 20 mg PO TID CRAIG Stop: 10/22/18 08:59 Last Admin: 09/22/18 21:13 Dose: 20 mg Documented by: [id number] Admin: 09/22/18 14:34 Dose: 20 mg Documented by: [id number] Admin: 09/22/18 09:47 Dose: 20 mg Documented by: [id number] Buspirone HCl (Buspar) 10 mg PO BID CRAIG Stop: 10/22/18 08:59 Last Admin: 09/22/18 21:14 Dose: Not Given Documented by: [id number] Admin: 09/22/18 09:46 Dose: Not Given Documented by: [id number] Enoxaparin Sodium (Lovenox) 40 mg SQ QAM CRAIG Stop: 10/22/18 08:59 Last Admin: 09/22/18 12:45 Dose: 40 mg Documented by: [id number] Fentanyl (Duragesic) 100 mcg TD Q2D@0900 CRAIG Stop: 10/06/18 08:59 Last Admin: 09/22/18 11:07 Dose: 100 mcg Documented by: [id number] Admin: 09/22/18 11:05 Dose: 100 mcg Documented by: [id number] Fentanyl (Duragesic) 12 mcg TD Q2D@0900 CRAIG Stop: 10/06/18 08:59 Last Admin: 09/22/18 11:07 Dose: 12 mcg Documented by: [id number] Admin: 09/22/18 11:06 Dose: 12 mcg Documented by: [id number] Folic Acid (Folvite) 1 mg PO DAILY CRAIG Stop: 10/22/18 08:59 Last Admin: 09/22/18 12:32 Dose: 1 mg Documented by: [id number] Gabapentin (Neurontin) 1,200 mg PO TID CRAIG Stop: 10/22/18 08:59 Last Admin: 09/22/18 21:16 Dose: 1,200 mg Documented by: [id number] Admin: 09/22/18 14:34 Dose: 1,200 mg Documented by: [id number] Admin: 09/22/18 09:47 Dose: 1,200 mg Documented by: [id number] Sodium Chloride (Nss 1000ml) 1,000 mls @ 80 mls/hr IV .[id number] CRAIG Stop: 10/22/18 02:36 Last Admin: 09/22/18 16:25 Dose: 80 mls/hr Documented by: [id number] Infusion: 09/22/18 15:54 Dose: 80 mls/hr Documented by: [id number] Admin: 09/22/18 03:24 Dose: 80 mls/hr Documented by: [id number] Levothyroxine Sodium (Synthroid) 100 mcg PO DAILYBB CRAIG Stop: 10/22/18 06:29 Last Admin: 09/22/18 06:38 Dose: 100 mcg Documented by: [id number] Magnesium Oxide (Mag-Ox) 400 mg PO BID CRAIG Stop: 10/22/18 08:59 Last Admin: 09/22/18 21:13 Dose: Not Given Documented by: [id number] Admin: 09/22/18 12:31 Dose: Not Given Documented by: [id number] Midodrine (Proamatine) 2.5 mg PO 0700,1100,1600 CRAIG Stop: 10/22/18 06:59 Last Admin: 09/22/18 16:11 Dose: 1.25 mg Documented by: [id number] Admin: 09/22/18 12:31 Dose: 1.25 mg Documented by: [id number] Admin: 09/22/18 06:39 Dose: Not Given Documented by: [id number] Miscellaneous (Fentanyl Patch Check Placement) 1 ea N/A QS [facility] Stop: 10/22/18 02:50 Last Admin: 09/22/18 16:10 Dose: 1 ea Documented by: [id number] Admin: 09/22/18 11:07 Dose: 1 ea Documented by: [id number] Admin: 09/22/18 03:24 Dose: 1 ea Documented by: [id number] Miscellaneous (Fentanyl Patch Remove & Waste) 1 ea N/A Q2D@0859 [facility] Stop: 10/22/18 08:58 Last Admin: 09/22/18 11:05 Dose: 1 ea Documented by: [id number] Cosigned by: [id number] Miscellaneous (Remove Lidoderm Patch) 1 ea N/A DAILY@2100 [facility] Stop: 10/22/18 02:49 Last Admin: 09/22/18 21:20 Dose: Not Given Documented by: [id number] Admin: 09/22/18 03:24 Dose: Not Given Documented by: [id number] Miscellaneous (Fentanyl Patch Check Placement) 1 ea N/A [facility] Stop: 10/22/18 02:50 Last Admin: 09/22/18 16:11 Dose: 1 ea Documented by: [id number] Admin: 09/22/18 11:05 Dose: 1 ea Documented by: [id number] Admin: 09/22/18 03:25 Dose: 1 ea Documented by: [id number] Miscellaneous (Fentanyl Patch Remove & Waste) 1 ea N/A Q2D@0859 [facility] Stop: 10/22/18 08:58 Last Admin: 09/22/18 11:07 Dose: 1 ea Documented by: [id number] Cosigned by: [id number] Ondansetron HCl (Zofran Odt) 4 - 8 mg PO Q8H PRN PRN Reason: Nausea Stop: 10/22/18 02:36 Last Admin: 09/22/18 14:54 Dose: 8 mg Documented by: [id number] Oxycodone HCl (Roxicodone Immediate Rel) 10 mg PO 5XDQ4H PRN PRN Reason: Pain Stop: 10/06/18 02:36 Last Admin: 09/22/18 21:10 Dose: 10 mg Documented by: [id number] Admin: 09/22/18 16:26 Dose: 10 mg Documented by: [id number] Admin: 09/22/18 12:29 Dose: 10 mg Documented by: [id number] Admin: 09/22/18 08:10 Dose: 10 mg Documented by: [id number] Admin: 09/22/18 03:10 Dose: 10 mg Documented by: [id number] Pantoprazole Sodium (Protonix) 40 mg PO DAILY CRAIG Stop: 10/22/18 08:59 Last Admin: 09/22/18 09:49 Dose: 40 mg Documented by: [id number] Pyridostigmine [place] (Mestinon) 60 mg PO TID CRAIG Stop: 10/22/18 08:59 Last Admin: 09/22/18 21:15 Dose: Not Given Documented by: [id number] Admin: 09/22/18 14:34 Dose: Not Given Documented by: [id number] Admin: 09/22/18 09:48 Dose: Not Given Documented by: [id number] Quetiapine Fumarate (Seroquel) 100 mg PO [facility] Stop: 10/22/18 20:59 Last Admin: 09/22/18 21:14 Dose: 100 mg Documented by: [id number] [facility]ert[facility]ine [facility]) [facility] [place]: 10/22/18 08:59 Last Admin: 09/22/18 09:45 Dose: Not Given Documented by: [id number] Trazodone HCl (Desyrel) 100 mg PO [facility] Stop: 10/22/18 20:59 Last Admin: 09/22/18 21:17 Dose: Not Given Documented by: [id number] Discontinued Medications Sodium Chloride (Nss 1000ml) 1,000 mls @ 125 mls/hr IV .Q8H CRAIG Stop: 10/21/18 18:14 Last Infusion: 09/22/18 01:36 Dose: 0 mls/hr Documented by: [id number] Admin: 09/21/18 18:49 Dose: 125 mls/hr Documented by: [id number] Lorazepam (Ativan) 0.5 mg in 1 mls @ 1 mls/min IV NOW STA Stop: 09/21/18 18:44 Last Admin: 09/21/18 19:40 Dose: 1 mls/min Documented by: [id number] Medical Decision Making Differential Diagnosis Differential diagnosis includes: metabolic, infection, hypo/hyperglycemia, electrolyte abnormalities, cardiac sources, intracerebral event, toxicologic, neurologic, as well as others were entertained. Medical Records Attestation: I reviewed the patient's medical records. Home Medications Current Medication List: was personally reviewed by me Laboratory Data Attestation: I reviewed the patient's lab results. Result diagrams: 09/21/18 18:50 09/21/18 18:50 Lab Results 09/21/18 09/21/18 09/21/18 Range/Units 18:50 18:50 18:50 WBC 3.68 L (4.8-10.8) K/uL RBC 3.85 L (4.2-5.4) M/uL Hgb 11.9 L (12.0-16.0) g/dL Hct 36.3 L (37-47) % MCV 94.3 (80-100) fL MCH 30.9 (25-34) pg MCHC 32.8 (32-36) g/dL RDW Std Deviation 46.6 H (36.4-46.3) fL RDW Coeff of Kevin 13.4 (11.5-14.5) % Plt Count 332 (130-400) K/uL MPV 10.3 (7.4-10.4) fL Immature Gran % (Auto) 0.0 % Neut % (Auto) 73.2 % Lymph % (Auto) 16.3 % Lamb % (Auto) 8.4 % Eos % (Auto) 1.6 % Baso % (Auto) 0.5 % Immature Gran # (Auto) 0.00 (0.00-0.02) K/uL Neut # (Auto) 2.69 (1.4-6.5) K/uL Lymph # (Auto) 0.60 L (1.2-3.4) K/uL Lamb # (Auto) 0.31 (0.11-0.59) K/uL Eos # (Auto) 0.06 (0-0.5) K/uL Baso # (Auto) 0.02 (0-0.2) K/uL PT 16.1 H (9.0-12.0) Seconds INR 1.6 H (0.9-1.1) Sodium 144 (136-145) mmol/L Potassium 3.8 (3.5-5.1) mmol/L Chloride 115 H (98-107) mmol/L Carbon Dioxide 19 L (21-32) mmol/L Anion Gap 10.0 (3-11) BUN 3 L (7-18) mg/dl Creatinine 0.41 L (0.6-1.2) mg/dl Est Cr Clr Drug Dosing Not Reportable Est GFR ( Amer) 137.7 Est GFR (Non-Af Amer) 118.8 BUN/Creatinine Ratio 7.4 L (10-20) Glucose 81 (70-99) mg/dl Calcium 7.7 L (8.5-10.1) mg/dl Magnesium 2.0 (1.8-2.4) mg/dl Total Bilirubin 0.5 (0.2-1) mg/dl AST 200 H (15-37) U/L ALT 57 (12-78) U/L Alkaline Phosphatase 330 H (45-117) U/L Troponin I < 0.015 (0-0.045) ng/ml NT-Pro-B Natriuret Pep 77 (0-900) pg/ml Total Protein 5.3 L (6.4-8.2) gm/dl Albumin 2.0 L (3.4-5.0) gm/dl Globulin 3.3 (2.5-4.0) gm/dl Albumin/Globulin Ratio 0.6 L (0.9-2) Lipase 48 L (73-393) U/L TSH 0.015 L (0.300-4.500) uIu/ml Urine Color Urine Appearance (Clear) Urine pH (4.5-7.5) Ur Specific [place] (1.000-1.030) Urine Protein (Negative) Urine Glucose (UA) (Negative) Urine Ketones (Negative) Urine Blood (Negative) Urine Nitrite (Negative) Urine Bilirubin (Negative) Urine Urobilinogen (Negative) Ur Leukocyte Esterase (Negative) Urine WBC (Auto) (0-5) /hpf Urine RBC (Auto) (0-4) /hpf U Hyaline Cast (Auto) (0-5) /lpf U Epithel Cells (Auto) (0-5) /lpf Urine Bacteria (Auto) (Negative) Urine Yeast Lyme Disease IgG Ab (Negative) Lyme Disease IgM Ab (Negative) 09/21/18 09/21/18 Range/Units 18:50 22:15 WBC (4.8-10.8) K/uL RBC (4.2-5.4) M/uL Hgb (12.0-16.0) g/dL Hct (37-47) % MCV (80-100) fL MCH (25-34) pg MCHC (32-36) g/dL RDW Std Deviation (36.4-46.3) fL RDW Coeff of Kevin (11.5-14.5) % Plt Count (130-400) K/uL MPV (7.4-10.4) fL Immature Gran % (Auto) % Neut % (Auto) % Lymph % (Auto) % Lamb % (Auto) % Eos % (Auto) % Baso % (Auto) % Immature Gran # (Auto) (0.00-0.02) K/uL Neut # (Auto) (1.4-6.5) K/uL Lymph # (Auto) (1.2-3.4) K/uL Lamb # (Auto) (0.11-0.59) K/uL Eos # (Auto) (0-0.5) K/uL Baso # (Auto) (0-0.2) K/uL PT (9.0-12.0) Seconds INR (0.9-1.1) Sodium (136-145) mmol/L Potassium (3.5-5.1) mmol/L Chloride (98-107) mmol/L Carbon Dioxide (21-32) mmol/L Anion Gap (3-11) BUN (7-18) mg/dl Creatinine (0.6-1.2) mg/dl Est Cr Clr Drug Dosing Est GFR ( Amer) Est GFR (Non-Af Amer) BUN/Creatinine Ratio (10-20) Glucose (70-99) mg/dl Calcium (8.5-10.1) mg/dl Magnesium (1.8-2.4) mg/dl Total Bilirubin (0.2-1) mg/dl AST (15-37) U/L ALT (12-78) U/L Alkaline Phosphatase (45-117) U/L Troponin I (0-0.045) ng/ml NT-Pro-B Natriuret Pep (0-900) pg/ml Total Protein (6.4-8.2) gm/dl Albumin (3.4-5.0) gm/dl Globulin (2.5-4.0) gm/dl Albumin/Globulin Ratio (0.9-2) Lipase (73-393) U/L TSH (0.300-4.500) uIu/ml Urine Color Yellow Urine Appearance Cloudy A (Clear) Urine pH 5.5 (4.5-7.5) Ur Specific [place] 1.013 (1.000-1.030) Urine Protein Negative (Negative) Urine Glucose (UA) Negative (Negative) Urine Ketones Negative (Negative) Urine Blood Negative (Negative) Urine Nitrite Negative (Negative) Urine Bilirubin Negative (Negative) Urine Urobilinogen Negative (Negative) Ur Leukocyte Esterase Negative (Negative) Urine WBC (Auto) 1-5 (0-5) /hpf Urine RBC (Auto) 0-4 (0-4) /hpf U Hyaline Cast (Auto) 1-5 (0-5) /lpf U Epithel Cells (Auto) >30 H (0-5) /lpf Urine Bacteria (Auto) Negative (Negative) Urine Yeast Not Reportable Lyme Disease IgG Ab Negative (Negative) Lyme Disease IgM Ab Negative (Negative) Imaging Data Radiologist's Impression: Radiology results as stated below per my review and the radiologist's interpretation: LUMBAR SPINE MRI HISTORY: weakness, incontinence TECHNIQUE: Multiplanar multisequence MRI of the lumbar spine was performed without the use of contrast. COMPARISON: Lumbar spine MRI 08/27/2016. FINDINGS: For the purpose of the report the L5-S1 disc space will be located on axial image 27 of 30. No fracture or subluxation within the lumbar spine. Severe disc space narrowing at L5-S1 which has progressed. The remaining disc spaces are preserved. The conus terminates at the T12-L1 disc space. Paraspinal soft tissues are unremarkable. No disc herniations. There is abnormal marrow edema at the S1 and S2 vertebral bodies with mild presacral edema. There is also abnormal marrow edema within the bilateral sacral wings. Therefore, this is consistent with a developing sacral insufficiency fracture. L1-L2: No significant central canal or neural foraminal narrowing. L2-L3: No significant central canal or neural foraminal narrowing. L3-L4: No significant central canal or neural foraminal narrowing. L4-L5: No significant central canal or neural foraminal narrowing. L5-S1: No significant central canal or neural foraminal narrowing. Small broad- based posterior disc bulge. IMPRESSION: 1. Progressive severe disc space narrowing L5-S1. However, no significant central canal or neural foraminal narrowing. 2. There is abnormal marrow edema at the S1 and S2 vertebral bodies with mild presacral edema. There is also abnormal marrow edema within the bilateral sacral wings. Therefore, this is consistent with a developing sacral insufficiency fracture. Electronically signed by: Jhon Ayala M.D. 09/21/2018 9:08 PM SINGLE VIEW CHEST CLINICAL HISTORY: Fall. Weakness. FINDINGS: An AP, portable, upright chest radiograph is compared to study dated 07/30/2018. The cardiomediastinal silhouette is unremarkable. The lungs and pleural spaces are clear. No pneumothorax is seen. The skeletal structures are osteopenic. The bony thorax is grossly intact. Fusion hardware is noted in the lower cervical spine. IMPRESSION: No active disease in the chest. Electronically signed by: Colton Henriquez M.D. 09/21/2018 6:58 PM SINGLE VIEW PELVIS CLINICAL HISTORY: Trauma. FINDINGS: An AP, portable, supine pelvic radiograph is obtained. No prior studies are available for comparison at the time of dictation. The skeletal structures are heterogeneously osteopenic. There is no radiographic evidence of fracture involving the hips or bony pelvis. Mild degenerative joint space narrowing is seen in the hips. There is mild degenerative sclerosis in the sa croiliac joints. The overlying soft tissues are normal as imaged. There are numerous pelvic phlebolith. No bowel obstruction is seen. IMPRESSION: Osteopenia with no acute bony abnormality identified. Electronically signed by: Colton Henriquez M.D. 09/21/2018 6:57 PM ECG Data Attestation: I personally reviewed and interpreted this ECG as follows: Indication: weakness Rate (beats per minute): 110 Rhythm: sinus tachycardia Findings: + other (normal intervals; T-wave flattening in V4, V5, V6, and inferior leads), + T-wave inversion (V2 and V3) and + left axis deviation; no ST elevation Comparison ECG Date: from (07/30/18) Change: the following changes noted (T-wave inversions are new) Blood Pressure Blood Pressure Findings: Normal blood pressure Blood Pressure Disposition: did not require urgent referral MDM Narrative Patient with no clear etiology of worsening weakness over the last 10 days. Patient has a long complicated medical history and multiple risk factors for weakness, however. Patient did sustain 2 subsequent falls secondary to her weakness recently. No evidence of acute infectious etiology. Given concern for possible incontinence as reported by her, patient sent for MRI of the lumbar spine. No evidence of cauda equina. No evidence of other new/acute trauma. The possible sacral fracture I suspect is more likely old. Patient's blood work does appear stable. No evidence of focal neuro deficit, I do not suspect CVA given generalized condition. Case discussed with hospitalist for additional inpatient evaluation. Patient does have prior history of thyroid dysfunction and TSH tonight was abnormal. Patient will need additional thyroid labs as a precaution. No evidence of thyroid storm or myxedema coma. Impression & Plan Generalized weakness, Fall, Back pain, Thyroid dysfunction Discharge Plan Visit Data *Final* Discharge Date/Time: 09/22/18 01:32 Chief Complaint: Weakness Stated Complaint: WEAKNESS ED Provider: Nadine Davis Discharge Problem: Generalized weakness, Fall, Back pain, Thyroid dysfunction Patient Disposition: Admitted As Inpatient Discharge Instructions Interventions: ED Discharge Assessment Last Done: 09/22/18 01:32 The scribe's documentation has been prepared under my direction and personally reviewed by me in its entirety. I confirm that the note above accurately reflects all work, treatment, procedures, and medical decision making performed by me.
[2018-09-23] MEDS: CHECK FENTANYL PATCH PLACEMENT SCH ×8 (01:16→22:12)
[2018-09-23] MEDS: SODIUM CHLORIDE 0.9% 1000ML 1,000 ML IV SCH (05:00)
[2018-09-23 06:15] LABS: Basophils # (auto) 0.02 K/uL (0-0.2); Basophils % (auto) 0.7 %; Eosinophils # (auto) 0.05 K/uL (0-0.5); Eosinophils % (auto) 1.7 %; Hematocrit (blood only) 36.4 % (37-47); Hemoglobin 11.7 g/dL (12.0-16.0); Lymphocytes # (auto) 0.69 K/uL (1.2-3.4); Lymphocytes % (auto) 24.1 %; Mean Corpuscular Hgb Conc 32.1 g/dL (32-36); Mean Corpuscular Volume 95.5 fL (80-100); Mean Platelet Volume 10.5 fL (7.4-10.4); Monocytes # (auto) 0.24 K/uL (0.11-0.59); Monocytes % (auto) 8.4 %; Neutrophils # (auto) 1.86 K/uL (1.4-6.5); Neutrophils % (auto) 65.1 %; Platelet Count 326 K/uL (130-400); RDW Coefficient of Variation 13.9 % (11.5-14.5); RDW Standard Deviation 48.7 fL (36.4-46.3); Red Blood Count 3.81 M/uL (4.2-5.4); White Blood Count 2.86 K/uL (4.8-10.8)
[2018-09-23] MEDS: MIDODRINE HCL 2.5 MG TAB PO SCH ×3 (06:45→16:01)
[2018-09-23] MEDS: LEVOTHYROXINE SODIUM 100 MCG TABLET PO SCH (06:45)
[2018-09-23 06:47] LABS: BUN Creatinine Ratio 4.7 (10-20); Calcium 7.6 mg/dl (8.5-10.1); Creatinine Clr Calc Pharmacy 157.8 ml/min; Est GFR (African American) 142.4; Est GFR (Non-African American) 122.9; Potassium 3.9 mmol/L (3.5-5.1)
--- NOTE | 2018-09-23 09:18 | Neurology Consultation ---
Date of Consultation September 23, 2018 Assessment & Plan (1) Generalized weakness: Patient presented with generalized weakness of a progressive nature over 10 days. Etiology of this is not readily apparent but on exam I do not see any focal neurologic findings. In fact, her exam had fairly intact strength and some giveaway weakness (not convinced she was giving maximum effort). I do not believe there is an underlying myopathy and her CK was largely normal (217 is not that high). Her pattern of weakness is diffuse and not proximal anyway. She does have some signs of generalized polyneuropathy as noted by some decreased sensation distally in the legs and some absent ankle reflexes. This could give her a sensory ataxia and add to her balance issues. Patient has considerable generalized fatigue and easy fatigability. There is no diagnosis of myasthenia gravis (even though she takes pyridostigmine for muscle strength). She has iron deficiency anemia which could easily add to her fatigue. Her no other specific laboratory abnormalities directly related to fatigue otherwise. Patient has a longstanding history of psychiatric issues including depression and anxiety, OCD, and bipolar disorder. She is on multiple psychiatric medications. According to the patient, her mood is stable. I cannot exclude a psychiatric origin to some of the symptoms she is displaying. (2) Incontinence: She has progressive incontinence of urine and more recently incontinence of bowel (which is new). This may be a lower motor neuron problem from her lumbosacral spine but she does not have any radicular symptomatology otherwise. This could be upper motor neuron from myelopathy. However, she does not have any other upper motor neuron signs on examination otherwise (3) Intractable headache: Patient has a longstanding history of intermittent migrainous headaches. She now has chronic comma intermittent comma mixed headache types with migraines and headaches associated with her cervical spine and intracranial pressure. She takes acetazolamide which could actually exacerbate headaches but would treat increased intracranial pressure. Overall, she feels that acetazolamide has helped. In addition acetazolamide could lead to electrolyte abnormalities. (4) History of brain surgery: Patient has a history of Chiari malformation surgery in 2010. Her lightheadedness/dizziness conceivably could be related to this as could her horizontal nystagmus, but her anatomy has been stable with subsequent imaging showing no issues that would create intracranial pressure problems. (5) Herniated nucleus pulposus with myelopathy, cervical: Patient has a history of C5-6 micro diskectomy in 2014. In 2016 she had C1 to fusion. Most recent MRI in October of 2017 showed a disc bulge at C6-7. Even though she does not have any upper motor neuron signs, a cervical myelopathy may give her incontinence and the sense of weakness and balance problems that she has been experiencing last 10 days. Her thoracic spine has never been evaluated either. (6) POTS (postural orthostatic tachycardia syndrome): Patient has a history of orthostasis/tachycardia syndrome treated with midodrine. 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 There is a relatively common syndrome of EDS, migraine headaches, and POTS. Recommendations: 1. MRI of the cervical spine with/without contrast. 2. MRI of the thoracic spine without contrast 3. Physical and occupational therapy evaluations and gait training with strengthening. 4. This patient would likely need social service evaluation and home physical therapy to help with activities of daily living and recommendations for mobility. 5. Aldolase and repeat CK 6. The patient may need EMG and nerve conduction studies of the limbs, but this would be done as an outpatient. Overall, I spent a total 160 minutes with this case including review of records, review of MRI films, direct evaluation the patient at bedside, and discussion of the case with the patient and her , who was at bedside, as well as Dr. Ng, including differential diagnosis and treatment options. History of Present Illness Reason for Consultation: Patient is a 53 year old, who i was asked to see at the [facility] of Dr. ng for neurologic consultation regarding weakness and other issues Requesting Physician: Dr. Ng Attending Physician: Franki Ng History of Present Illness This patient has a longstanding history of multiple neurologic problems, including headaches, weakness, pain in the spine and limbs, balance issues, and other. Has had migraine headaches since her teenage years. These are intermittent and variable in their intensity and frequency over time. She underwent gastric bypass procedure in 1998. She was anywhere from 280-300 lb maximum. Following this with some illnesses and gastric issues she got down to 85 lb but has been fairly stable with her weight more recently. Because of multiple symptoms such as the headaches, balance issues, spine pain, and speech issues she started seeing neurologists. She saw Dr. Waddell in early in 2010 for these symptoms. EMG and nerve conduction studies were largely unremarkable man without polyneuropathy or radiculopathy. EEG and visual evoked potentials were unremarkable. MRI of the brain showed a Chiari malformation and she underwent decompressive surgery by Dr. Garcia in June of 2010. This helped a lot of her symptoms and issues. Because of recurrence symptoms in 2013 she underwent a neurosurgical evaluation by Dr. Irving Haas a [facility] who felt there was no surgical intervention necessary and her symptoms should not be explained by the repaired Chiari anymore. In April of 2014 the patient underwent anterior cervical micro diskectomy at C5-6, by Dr. Jose acosta because of severe cervical spinal stenosis and cord compression. At that time she was having balance issues and left upper extremity radicular symptoms. These symptoms improved after the surgery as well. Patient had been seeing Dr. Noyola, in [place], over the last several years and also a Dr. Jewell, neurologist in [place]. She was given a diagnosis of a Lilibeth -Danlos syndrome, postural orthostatic tachycardic syndrome, and has been treated with midodrine which she says helps. They made the diagnosis of intermittent intracranial hypertension and have treated her with acetazolamide 250 mg 4 times a day which she says has helped. Occasionally, she has times where she feels there is intracranial hypotension. Finally, although she has not had a diagnosis of myasthenia gravis, she has been given pyridostigmine to use as needed because this occasionally helps her muscle function and strength. In October of 2015 the patient underwent a double surgery in [place], fusing C1 and C2 (for uncertain reasons), and also releasing a tethered cord in her lumbar spine. She feels these procedures have helped. I performed EMG and nerve conduction studies in August of 2013 and this revealed a right mid lumbar radiculopathy of a nonspecific, mild nature and no myasthenia gravis or generalized polyneuropathy. An MRI of the brain in August of 2016 showed no acute changes and was largely unremarkable. An MRI of the cervical spine with flexion-extension views showed a C6-7 disc bulge particularly with extension and other postoperative changes but no other significant findings. In July of 2018 EMG and nerve conduction studies by Dr. Noyola showed very mild underlying polyneuropathy but no other significant findings. Currently, the patient continues to get headaches. She will get migraine headaches about 2 times a month triggered by light or stress. She may have some spots in her vision prior to the headache but she is not clear as to how long this last (up to a day). She will get a bifrontal pressure headache feeling like it is pushing her eyes out that last up to a day or so as well. She has other kinds of headaches and has intermittent spine pain in the cervical and lumbar regions. She has a history of bipolar disorder, OCD, depression, and anxiety. She has been treated by psychiatrists and currently sees clinicians at [facility] in [facility]. She is getting buspirone, sertraline 100 mg in the morning, Seroquel 100 mg at night, and trazodone at night. She tells me that her mood has been fairly good recently and she has been stable. She gets confused particularly when she is tired. Patient has a history of fatigue which is been getting worse recently. She has a history of anemia and known iron deficiency. She claims that her clinicians will not give her iron because of her abnormal liver function tests. Patient always has a background of weakness, spine pain, balance problems and some urinary incontinence (incontinence dates to prior to the tethered cord surgery). Over the last 10 days she has been getting worse. She feels she is getting more fatigue, progressively weaker in general, having balance problems and falling more. 5 or 6 days ago she fell onto her right hip and back but did not have head trauma or loss of consciousness. Where as she was able to walk early last week, she has not been able to walk more recently. She has been crawling on the floor some. She has been a little bit short of breath more recently and her speech has been affected. She has some increased low back pain particularly after falling on her sacral spine. She arrived to the emergency room September 21 at 1652, with a temperature of 98.4, pulse 1 20s, respiratory rate 20, blood pressure 111/64, and O2 saturation 100%. Her strength is reasonable but she had some decreased sensation distally in her lower extremities. Chest x-ray was unremarkable X-ray of the pelvis showed osteopenia Lumbar spine MRI showed narrowing at L5-S1 and edema and S1-S2 bones (signifying possible early fracture versus trauma) CBC showed anemia, and Fe/TIBC was low. AST 200, AlkPhos 300, [id number], CK 217, ESR 2, TSH 0.015, Lyme neg, folate 19. Allergies Allergy/AdvReac Type Severity Reaction Status Date / Time blue dye Allergy Intermediate joint Verified 09/21/18 19:19 swelling codeine Allergy Intermediate hives-TAKES Verified 09/21/18 19:19 OXYCONTIN AT HOME bupropion [From Wellbutrin] Allergy Unknown Unknown Verified 09/21/18 19:19 Margarine Allergy Severe ANAPHYLAXIS Uncoded 07/30/18 14:06 Home Medications Home Medications Medication Instructions Recorded Confirmed Type alprazolam [Xanax] 0.5 mg PO BID 07/30/18 09/21/18 History amitriptyline 50 mg PO HS 07/30/18 09/21/18 History ascorbic acid (vitamin C) [Vitamin 1,000 mg PO DAILY 07/30/18 09/21/18 History C] baclofen 20 mg PO TID 07/30/18 09/21/18 History bisacodyl [Dulcolax (bisacodyl)] 5 mg PO DAILY PRN 07/30/18 09/21/18 History buspirone 10 mg PO BID 07/30/18 09/21/18 History cyanocobalamin (vitamin B-12) 1,000 mcg IM MONTHLY 07/30/18 09/21/18 History fentanyl 1 patch TRANSDERMAL .CQ48HR 07/30/18 09/21/18 History fentanyl 1 patch TRANSDERMAL .CQ48HR 07/30/18 09/21/18 History folic acid 1 mg PO DAILY 07/30/18 09/21/18 History gabapentin 1,200 mg PO TID 07/30/18 09/21/18 History levothyroxine [Levoxyl] 100 mcg PO DAILY 07/30/18 09/21/18 History lidocaine [Lidoderm] 1 patch TOPICAL DAILY PRN 07/30/18 09/21/18 History meclizine 25 mg PO TID PRN 07/30/18 09/21/18 History midodrine 2.5 mg PO TID 07/30/18 09/21/18 History omeprazole 20 mg PO DAILY 07/30/18 09/21/18 History ondansetron 4 - 8 mg PO Q8H PRN 07/30/18 09/21/18 History oxycodone 10 mg PO 5XD PRN 07/30/18 09/21/18 History promethazine [Phenergan] 25 mg NH Q12H PRN 07/30/18 09/21/18 History sertraline 100 mg PO QAM 07/30/18 09/21/18 History sumatriptan succinate [Imitrex] 100 mg PO DIRECTED PRN MDD 200 07/30/18 09/21/18 History MG/DAY acetazolamide 250 mg PO QID 09/21/18 09/21/18 History lsvbtyidfy-txzhwabyieswg-shyj 1 tab PO Q4H PRN MDD 6 TABS 09/21/18 09/21/18 History magnesium oxide 400 mg PO BID 09/21/18 09/21/18 History pyridostigmine bromide 60 mg PO TID 09/21/18 09/21/18 History quetiapine 100 mg PO HS 09/21/18 09/21/18 History trazodone 100 mg PO HS 09/21/18 09/21/18 History Patient History Family History Mother Seizures FH: migraines Father , in his 20s of a motor vehicle accident No problems noted. Other Cancer Diabetes Hypertension Kidney disease Lung disease Social History Preferred Language: Uzbek Communication Ability: Effective Sql Dba Required: No Beliefs That Will Affect Care: None Current Living Situation: Spouse and Family Current Living Situation Comment: Patient has 9 children ranging in age from 32-10 current occupational status: unemployed Other Information That Helps Us Care for You: No Feels Safe at Home: Yes Safety Concerns: Feels Safe At This Time Smoking Status: Light tobacco smoker Tobacco Type: cigarettes Cigarettes Per Day: One or 2 Do You Dip or Chew Tobacco: No Second Hand Exposure: Yes Tobacco Cessation Education Requested by Patient: No Hx Alcohol Use: No Hx Substance Use: Yes substance use type: marijuana Substance Use Type Other:: Medical marijuana Last Used Substance: Unknown Review of Systems Constitutional: + fatigue and + weakness; no fever Eyes: no diplopia, no eye pain and no worsening vision Ear, Nose, Mouth, Throat: no ear pain, no tinnitus, no hearing loss and no dysphagia Respiratory: no cough and no dyspnea Cardiovascular: no chest pain, no dyspnea and no palpitations Gastrointestinal: no abdominal pain, no nausea and no vomiting Genitourinary: + flank pain; no dysuria, no urinary frequency and no urinary incontinence Musculoskeletal: + back pain, + neck pain and + muscle weakness; no radicular pain, no myalgia and no muscle atrophy Integumentary: + lesions and + skin ulcer; no rash Neurologic: + gait abnormality, + falls, + generalized weakness, + tremor(s), + dizziness, + headache(s), + confusion and + memory loss; no localized weakness, no tingling, no numbness, no abnormal movements, no abnormal speech and no behavioral changes Psychiatric: no depression, no abnormal sleep pattern, no anxiety, no difficulty concentrating, no confusion and no hallucinations Endocrine: + fatigue; no flushing Hematologic / Lymphatic: no easy bleeding and no easy bruising Allergy / Immunological: no urticaria Physical Exam Physical Exam: The patient is left-handed. The patient is awake, alert, and attentive. Speech is normal without any aphasia or dysarthria. Mentation and thought processes are reasonable to conversation she does get for her to remember things.. Attention and concentration are mildly impaired and she can be tangential and lose track of the topic. Mood is normal and affect is mildly flat. General appearance and grooming are no rmal. Short and long-term memory are impaired. The discs are sharp with positive venous pulsations bilaterally. There are no exudates, hemorrhages, or blood vessel changes seen. Pupils are 4 mm bilaterally and reactive to light. Extraocular eye muscles are intact with some lateral nystagmus bilaterally. There was no rotary or horizontal nystagmus. Visual acuity and visual denton seem normal grossly to confrontation. There are no deficits to sensation in the face in all 3 distributions of the fifth cranial nerve bilaterally. Corneal reflexes are positive bilaterally. Facial strength and symmetry was normal bilaterally. Hearing seems intact grossly to voice and finger rub bilaterally. Palate moves well without asymmetry. There is normal sternocleidomastoid and trapezius (shoulder shrug) st rength bilaterally. Tongue is midline with good strength bilaterally. Neck has a full range of motion without discomfort. There are no cervical bruits bilaterally. There are no cranial or ocular bruits. Heart is without murmur. There is a regular rhythm and rate. Cervical spine is mildly tender to palpation lumbar spine is significantly tender to palpation. She has a lower lumbar spine skin ulcer which is dressed. Stance sitting up in bed is difficult for her and she has some lightheadedness. She needs the assistance of 1 to help push off to stand and her balance is very poor. Gait is very difficult and needs the assistance of at least 1. With outstretched arms there is no drift. There are no resting tremors. She has mild, course posture and action tremor bilaterally right slightly greater than left side. There is no ataxia with finger to nose testing. There is good facility in the hands. No other abnormal involuntary movements are noted. Motor strength is 4+/5 diffusely in the arms bilaterally including deltoids, biceps, triceps, brachioradialis, wrist flexors and extensors, rotor coil taper, and intrinsic hand muscles. Motor strength is 4+/5 diffusely in the legs bilaterally including hip flexors, quadriceps, hamstrings, gastrocnemius, tibialis anterior, tibialis posterior, and Peroneii muscles bilaterally. Toe extensors are normal and there is good bulk in the extensor digitorum brevis muscles bilaterally. Actually, I did not detect any true pathologic weakness and she had some giveaway weakness in various places of the arms and legs diffusely. I am not convinced she gave maximum effort. The limbs have good tone without rigidity or spasticity. There is no atrophy noted in the muscles. Muscle bulk is normal, there is no tenderness to palpation, no myotonia to percussion, and no fasciculations seen. Sensory examination reveals some decreased sensation to touch distally in the feet bilaterally. Reflexes are 1/4 in the biceps, triceps, brachioradialis, and quadriceps tendons bilaterally. Achilles tendon reflexes seem trace to absent bilaterally. Toes are downgoing with plantar stimulation bilaterally. Peripheral pulses are present and of normal quality distally in all 4 limbs. There is no peripheral edema noted in the limbs. Results & Data Vital Signs (Past 12 Hours) Vital Signs Temp Pulse Resp BP BP Pulse Ox 09/23/18 07:42 36.8 C 118 H 18 120/75 100 09/22/18 23:52 36.0 C L 107 H 20 113/75 98 Diagnostic Findings [facility] [place], [place] [phone] Magnetic Resonance Report Patient: ESTRADA WILLAMS Date: 09/21/18 MR#: [id number] [address] Acct ID:[id number]: Date: [address] Zip: [place] [id number] Age: 53Location: ED Sex: F Room/Bed: Att Phy: Diagnosis: WEAKNESS Stephanie Phy: Kailey Adam MDService Date: 09/21/18 [facility] Phy: Kailey Adam MDInterpreting Phy: John Ayala MD Admit Phy: Ordering Phy: Nadine Davis DO cc: ~ LUMBAR SPINE MRI HISTORY: weakness, incontinence TECHNIQUE: Multiplanar multisequence MRI of the lumbar spine was performed without the use of contrast. COMPARISON: Lumbar spine MRI 08/27/2016. FINDINGS: For the purpose of the report the L5-S1 disc space will be located on axial image 27 of 30. No fracture or subluxation within the lumbar spine. Severe disc space narrowing at L5-S1 which has progressed. The remaining disc spaces are preserved. The conus terminates at the T12-L1 disc space. Paraspinal soft tissues are unremarkable. No disc herniations. There is abnormal marrow edema at the S1 and S2 vertebral bodies with mild presacral edema. There is also abnormal marrow edema within the bilateral sacral wings. Therefore, this is consistent with a developing sacral insufficiency fracture. L1-L2: No significant central canal or neural foraminal narrowing. L2-L3: No significant central canal or neural foraminal narrowing. L3-L4: No significant central canal or neural foraminal narrowing. L4-L5: No significant central canal or neural foraminal narrowing. L5-S1: No significant central canal or neural foraminal narrowing. Small broad- based posterior disc bulge. IMPRESSION: 1. Progressive severe disc space narrowing L5-S1. However, no significant central canal or neural foraminal narrowing. 2. There is abnormal marrow edema at the S1 and S2 vertebral bodies with mild presacral edema. There is also abnormal marrow edema within the bilateral sacral wings. Therefore, this is consistent with a developing sacral insufficiency fracture. Electronically signed by: John Ayala M.D. 09/21/2018 9:08 PM
[2018-09-23] MEDS: acetaZOLAMIDE 250 MG TAB PO SCH ×4 (10:16→22:09)
[2018-09-23] MEDS: GABAPENTIN 600 MG TAB PO SCH ×2 (10:16→13:50)
[2018-09-23] MEDS: FOLIC ACID 1 MG TAB PO SCH (10:17)
[2018-09-23] MEDS: BACLOFEN 20 MG TAB PO SCH ×3 (10:17→22:09)
[2018-09-23] MEDS: PANTOprazole 40 MG TAB PO SCH (10:17)
[2018-09-23] MEDS: BUTALBITAL/ACETAMIN/CAFFEINE TAB PO PRN (10:21)
[2018-09-23] MEDS: OXYCODONE HCL IR 5 MG TAB (IMMEDIATE RELEASE) PO PRN ×2 (10:30→16:11)
[2018-09-23] MEDS: ALPRAZolam 0.5 MG TABLET PO SCH (10:30)
[2018-09-23] MEDS: MAGNESIUM OXIDE 400 MG TAB PO SCH ×2 (10:32→22:09)
[2018-09-23] MEDS: PYRIDOSTIGMINE BROMIDE 60 MG TAB PO SCH ×2 (10:32→13:51)
[2018-09-23] MEDS: SERTRALINE HCL 100 MG TABLET PO SCH (10:35)
[2018-09-23 10:43] LABS: Base Excess VBG -8.1 mEq/L; pH VBG 7.37 (7.36-7.41)
--- NOTE | 2018-09-23 14:15 | Orthopedic Consultation ---
Date of Consultation September 23, 2018 Assessment & Plan (1) Back pain: Long discussion with this patient's . She was sleeping during my visit. Reviewed with her her MRI findings demonstrate no evidence of any neural encroachment some normal degenerative change at L5-S1 and evidence of sacral insufficiency fracture. This clearly could account for her back pain and leg symptoms. There is nothing we can offer from a surgical standpoint. She may begin therapy most likely using a walker as tolerated. Present on Admission?: Yes History of Present Illness Reason for Consultation: Back pain Attending Physician: Franki Jordan History of Present Illness This is a 53-year-old female with significant medical history presenting with back pain and lower extremity weakness. Allergies Allergy/AdvReac Type Severity Reaction Status Date / Time blue dye Allergy Intermediate joint Verified 09/21/18 19:19 swelling codeine Allergy Intermediate hives-TAKES Verified 09/21/18 19:19 OXYCONTIN AT HOME bupropion [From Wellbutrin] Allergy Unknown Unknown Verified 09/21/18 19:19 Margarine Allergy Severe ANAPHYLAXIS Uncoded 07/30/18 14:06 Home Medications Home Medications Medication Instructions Recorded Confirmed Type alprazolam [Xanax] 0.5 mg PO BID 07/30/18 09/21/18 History amitriptyline 50 mg PO HS 07/30/18 09/21/18 History ascorbic acid (vitamin C) [Vitamin 1,000 mg PO DAILY 07/30/18 09/21/18 History C] baclofen 20 mg PO TID 07/30/18 09/21/18 History bisacodyl [Dulcolax (bisacodyl)] 5 mg PO DAILY PRN 07/30/18 09/21/18 History buspirone 10 mg PO BID 07/30/18 09/21/18 History cyanocobalamin (vitamin B-12) 1,000 mcg IM MONTHLY 07/30/18 09/21/18 History fentanyl 1 patch TRANSDERMAL .CQ48HR 07/30/18 09/21/18 History fentanyl 1 patch TRANSDERMAL .CQ48HR 07/30/18 09/21/18 History folic acid 1 mg PO DAILY 07/30/18 09/21/18 History gabapentin 1,200 mg PO TID 07/30/18 09/21/18 History levothyroxine [Levoxyl] 100 mcg PO DAILY 07/30/18 09/21/18 History lidocaine [Lidoderm] 1 patch TOPICAL DAILY PRN 07/30/18 09/21/18 History meclizine 25 mg PO TID PRN 07/30/18 09/21/18 History midodrine 2.5 mg PO TID 07/30/18 09/21/18 History omeprazole 20 mg PO DAILY 07/30/18 09/21/18 History ondansetron 4 - 8 mg PO Q8H PRN 07/30/18 09/21/18 History oxycodone 10 mg PO 5XD PRN 07/30/18 09/21/18 History promethazine [Phenergan] 25 mg UT Q12H PRN 07/30/18 09/21/18 History sertraline 100 mg PO QAM 07/30/18 09/21/18 History sumatriptan succinate [Imitrex] 100 mg PO DIRECTED PRN MDD 200 07/30/18 09/21/18 History MG/DAY acetazolamide 250 mg PO QID 09/21/18 09/21/18 History xwihtiomzy-gcwccxwqlfsgg-alxg 1 tab PO Q4H PRN MDD 6 TABS 09/21/18 09/21/18 History magnesium oxide 400 mg PO BID 09/21/18 09/21/18 History pyridostigmine bromide 60 mg PO TID 09/21/18 09/21/18 History quetiapine 100 mg PO HS 09/21/18 09/21/18 History trazodone 100 mg PO HS 09/21/18 09/21/18 History Patient History Family History Mother Seizures FH: migraines Father , in his 20s of a motor vehicle accident No problems noted. Other Cancer Diabetes Hypertension Kidney disease Lung disease Social History Preferred Language: Setswana Communication Ability: Effective Food Science Professor Required: No Beliefs That Will Affect Care: None Current Living Situation: Spouse and Family Current Living Situation Comment: Patient has 9 children ranging in age from 32-10 current occupational status: unemployed Other Information That Helps Us Care for You: No Feels Safe at Home: Yes Safety Concerns: Feels Safe At This Time Smoking Status: Light tobacco smoker Tobacco Type: cigarettes Cigarettes Per Day: One or 2 Do You Dip or Chew Tobacco: No Second Hand Exposure: Yes Tobacco Cessation Education Requested by Patient: No Hx Alcohol Use: No Hx Substance Use: Yes substance use type: marijuana Substance Use Type Other:: Medical marijuana Last Used Substance: Unknown Physical Exam Physical Exam: Patient resting comfortably at this time. Results & Data Vital Signs (Past 12 Hours) Vital Signs Temp Pulse Resp BP Pulse Ox 09/23/18 07:42 36.8 C 118 H 18 120/75 100 (1) Back pain Back pain laterality: unspecified Back pain location: back pain in unspecified location Chronicity: unspecified Qualified Code(s): M54.9 - Dorsalgia, unspecified
[2018-09-23] MEDS: ENOXAPARIN INJ 40 MG/0.4 ML SYR SQ SCH (14:20)
[2018-09-23] MEDS: ASCORBIC ACID 500 MG TAB PO SCH (14:41)
[2018-09-23 18:51] LABS: Allen Test Pos (Pos); Base Excess ABG -9.3 mEq/L (-9-1.8); HCO3 ABG 15 mmol/L (19-24); Oxygen Saturation ABG 95.8 % (90-95); PCO2 ABG 26 mmHg (35-46); PO2 ABG 81 mm/Hg (80-95); pH ABG 7.36 (7.35-7.45)
[2018-09-23 19:11] LABS: T3 Total 0.52 ng/ml (0.60-1.81)
[2018-09-23 19:12] LABS: T3 Free 2.09 pg/ml (2.3-4.2)
[2018-09-23] MEDS ORDERED: IOVERSOL 100ml IV PRN (19:17)
[2018-09-23 19:19] LABS: Albumin Level 1.9 gm/dl (3.4-5.0); Bilirubin Direct 0.4 mg/dl (0-0.2); Creatinine Clr Calc Pharmacy 153.6 ml/min; Est GFR (African American) 141.2; Est GFR (Non-African American) 121.8; Potassium 3.9 mmol/L (3.5-5.1)
[2018-09-23 19:22] LABS: Hepatitis B Surface Antigen Neg (Neg)
[2018-09-23 19:29] LABS: Bilirubin,Total 0.5 mg/dl (0.2-1); Total Protein 5.1 gm/dl (6.4-8.2)
--- NOTE | 2018-09-23 19:33 | CT Scan Report ---
CT SCAN OF THE ABDOMEN WITH IV CONTRAST CLINICAL HISTORY: Change in mental status. Biliary ductal dilatation. COMPARISON STUDY: Abdominal ultrasound dated 09/22/2018. TECHNIQUE: Following the IV administration of 94 cc of Optiray 320, CT scan of the abdomen is perfor med from the lung bases to the pelvic inlet. Images are reviewed in the axial, sagittal, and coronal planes. IV contrast was administered without complication. A dose lowering technique was utilized adh ering to the principles of ALARA. The examination is degraded by streak artifact from the arms which could not be elevated above the abdomen. CT DOSE: 216.06 mGy.cm FINDINGS: Lung bases: The heart is normal in size and without pericardial effusion. There is a small left pleur al effusion with left basilar atelectasis. The right lung base is clear. Liver: The contrast-enhanced liver is normal in size, contour, and attenuation. There is mild intrahe patic biliary ductal dilatation. The hepatic veins and portal veins are patent. Gallbladder: Surgically absent noting clips in the gallbladder fossa. Spleen: Normal in size and attenuation. Pancreas: Atrophic and grossly unremarkable. Adrenal glands: Unremarkable. Kidneys: The contrast enhanced kidneys are normal in size and without hydronephrosis. The kidneys enh ance symmetrically. Abdominal vasculature: The abdominal aorta is normal in course and caliber noting mild to moderate at herosclerotic calcification. Stomach and bowel: Postoperative changes consistent with a history of Arian-en-Y gastric bypass proced ure. No bowel obstruction is seen. Liquid stool is noted throughout the visualized colon. Peritoneum: There is no intraperitoneal free air or abdominal ascites. A midline surgical incision is noted. Lymphadenopathy: None. Skeletal structures: The skeletal structures are osteopenic. No lytic or blastic lesions are seen. Soft tissues: There is mild body wall edema. IMPRESSION: 1. Liquid stool is noted throughout the colon. Correlate clinically for evidence of a diarrheal illne ss. 2. Status post cholecystectomy. Mild intrahepatic biliary ductal dilatation is likely related to prev ious surgery. Clinical and laboratory correlation will be required. 3. Small left pleural effusion with associated left basilar atelectasis. 4. Postoperative change is consistent with a history of a Arian-en-Y gastric bypass procedure. No aida l obstruction is seen. Electronically signed by: Colton Henriquez M.D. 09/23/2018 7:32 PM
[2018-09-23 19:42] LABS: T4 Free Thyroxine 1.65 ng/dl (0.8-1.6)
[2018-09-23 19:51] LABS: Hepatitis C IgG 13Yrs+Old_Rflx Neg (Neg)
[2018-09-23] MEDS ORDERED: CEFAZOLIN 1000MG 1,000 MG/7.5 ML SYR IV SCH (21:00)
[2018-09-23] MEDS ORDERED: LACTULOSE 200 GM, WATER, STERILE IRRIG 700 ML, BARCODE IDENTIFIER 0 EA PR SCH (21:15)
[2018-09-23] MEDS: TRAZODONE HCL 100 MG TAB PO SCH (21:55)
[2018-09-23] MEDS ORDERED: LACTULOSE 200 GM, WATER, STERILE IRRIG 700 ML, BARCODE IDENTIFIER 1 EA PR SCH (22:00)
[2018-09-23] MEDS ORDERED: cefTRIAXone SODIUM 2,000 MG in DEXTROSE 5% 50 ML IV SCH (22:00)
[2018-09-23] MEDS ORDERED: UNIT DOSE COMPOUND PR SCH (22:00)
[2018-09-23] MEDS: QUETIAPINE FUMARATE 100 MG TABLET PO SCH (22:09)
--- NOTE | 2018-09-23 22:19 | Hospitalist Progress Note ---
Date of Service September 23, 2018 Assessment & Plan (1) Metabolic encephalopathy: Patient has been weak: 10 days prior to hospital stay. Etiology is unclear. Causes may be metabolic encephalopathy caused by hepatic failure, medications, or UTI Patient will be transferred to ICU for close monitoring due to low respiratory rate. ordered labs: hepatitis panel, ammonia hold fenatnyl and xanax. (2) Generalized weakness: Etiology unclear. Patient with diffuse progressive weakness over the last 10 days, as well as incontinence. S/P Arian en Y GBS -May be due to hepatic encephalopathy as during time of writing this note, ammonia level was elevated. Will order lactulose HI. D/W evening hospitalist. (3) Fall: Likely from metabolic encephalopathy (4) POTS (postural orthostatic tachycardia syndrome): Chronic -Continue home medications (5) Anemia: Check iron studies. Heme negative stool in ER will conitnue to monitor cbc (6) EDS (Lilibeth-Danlos syndrome): Chronic. Stable -Continue to monitor (7) Hypothyroid: Chronic. Low TSH -Check T4 -Continue Synthroid, may need dose adjustment (8) Abnormal LFTs: Repeat LFTs in AM Check RUQUS F/E/N- NSS at 80mL/hr, monitor electrolytes and replete as needed, regular diet as tolerated Ppx - Lovenox Spent 70 minutes of management of patient. 17:00 to 17:30 18:15: to 18:45 19:10 to 19:20 Subjective 53 yo female appears to be very confused and lethargic today. Family was not at bedside. Patient unable to provide significant history. Went to discuss case with sales project coordinator. Patient was more aroused but very confused. However moments later, she became letahrgic and RR decreased to 8 breaths/min. Patient will be transferred to ICU. Review of Systems Review of Systems: Unobtainable due to mental health condition Physical Exam Physical Exam: General: patient is lethargic, does not respond to verbal stimuli Skin: warm, dry, intact, no rashes or lesions, brown reticular pattern on abdominal wall HEENT: NC/AT, PERRL, EOMI, anicteric sclera, conjunctiva without injection, external ear normal to inspection and nontender, nares patent, moist mucus membranes, dentition intact, no oropharyngeal lesions, neck supple, trachea midline, no LAD, no thyromegaly, no JVD Heart: +S1/S2, regular, tachycardic, no m/r/g Lungs: equal air entry bilaterally, no rales/rhonchi/wheezes Abd: +BS, soft, NT/ND, no masses/organomegaly/ascites Ext: warm, 2+ pulses in UE/LE bilaterally, no clubbing/cyanosis or edema Neuro: lethargic, nonfocal, does not follow commands. Results & Data Vital Signs (Past 12 Hours) Vital Signs Temp Pulse Resp BP BP Pulse Ox 09/23/18 18:45 8 L 09/23/18 18:40 108 H 101/67 98 09/23/18 18:39 8 L 09/23/18 18:25 37.0 C 114 H 9 L 104/70 96 09/23/18 15:46 36.9 C 104 H 16 106/72 100 (1) Anemia Anemia type: unspecified type Qualified Code(s): D64.9 - Anemia, unspecified (2) Hypothyroid Hypothyroidism type: unspecified Qualified Code(s): E03.9 - Hypothyroidism, unspecified (3) Fall Encounter type: initial encounter Qualified Code(s): W19.XXXA - Unspecified fall, initial encounter
[2018-09-23 22:25] LABS: Base Excess VBG -8.6 mEq/L; HCO3 VBG 16 mmol/L; PCO2 VBG 32 mmHg (38-50); PO2 VBG 22 mmHg; pH VBG 7.33 (7.36-7.41)
[2018-09-23 22:28] LABS: Oxygen Saturation VBG < 60.0 %
[2018-09-23] MEDS ORDERED: LACTULOSE SYRUP 30 GM/45 ML UDP PO ONE (22:45)
[2018-09-23] MEDS ORDERED: ACETYLCYSTEINE 20% 200 MG/ML 30ML VIAL PO ONE (22:45)
[2018-09-23 22:47] LABS: Bilirubin Direct 0.5 mg/dl (0-0.2); Bilirubin,Total 0.8 mg/dl (0.2-1); Total Protein 5.6 gm/dl (6.4-8.2)
--- NOTE | 2018-09-23 23:15 | Critical Care Consultation ---
Date of Consultation September 23, 2018 Assessment & Plan (1) Metabolic encephalopathy: Reason Critically Ill: 53-year-old female who presents to the ICU with acute encephalopathy, metabolic acidosis, and acute liver failure. Neuro - [facility]: Negative Encephalopathy/acute liver failure/metabolic acidosis -Ammonia 106, LFTs continue to be elevated, INR 1.6 -ABG 7.36/, currently compensated metabolic acidosis, will repeat ABG in a.m. -Hepatic ultrasound showed mild steatotis -CT abdomen showed mild intrahepatic biliary ductal dilation, patient is S/P cholecystectomy from 1991 -Hepatitis panel pending, Tylenol negative - MELD 14 -Loaded with oral Mucomyst and rifaximin -Patient was unable to tolerate lactulose enema, now giving orally - will recheck VBG in a.m. - Consult to gastroenterology in a.m. -Trend LFTs and ammonia Generalized weaknesspatient has had generalized and bilateral lower extremity weakness ongoing for 2 weeks and incontinence -Unknown origin, may be secondary to metabolic encephalopathy -Sacral fracture may be contributing lower extremity weakness, Ortho consulted and not candidate for surgery per note -Cervical and thoracic MRIs pending read, will follow up -Urology consulted, will follow up recs -Patient has history of herniated nucleolus, MRI from 2018 showed Cardiac - Postural orthostatic tachycardia syndromepatient takes midodrine at home, will continue home dose - monitor on telemetry Respiratory - Maintaining sats on room air and airway, of note patient unable to be intubated with standard laryngoscope secondary to cervical herniated nucleus pulposis with myelopathy NIF of -60 2-70 per respiratory AB.36, compensated metabolic acidosis GI - See acute hepatitis above N.p.o. RENAL/LYTES - Creatinine/BUN stable, will monitor with routine BMPs Hyperchloremia IV fluids switch to lactated Ringer - Recent urinary tract with Klebsiella, antibiotics switched to Rocephin ENDO - Hypothyroidismcontinue home dose Synthroid HEME - Iron deficiency anemiaH&H stable, will monitor with routine CBCs ID - Ceftriaxone LINES/IV ACCESS - Peripheral IV x2, OGT DVT PROPHYLAXIS - Holding anticoagulants secondary to elevated INR I have personally spent 50 minutes of critical care time in the direct management of this patient. This is a life/limb threatening event. This includes time spent evaluating patient, direct bedside care, chart review, placing orders, interpretation of diagnostic studies, discussion with consultants, patient, and family members, as well as other required patient management activities. This time is exclusive of all separately billable procedures, and teaching time and separate from and in addition to any other critical care service time. Thank you for allowing us to participate in the care of this patient. Please refer to my attending physician's documentation for any further recommendations. (2) Thyroid dysfunction: (3) Abnormal LFTs: (4) Hypothyroid: (5) POTS (postural orthostatic tachycardia syndrome): (6) Herniated nucleus pulposus with myelopathy, cervical: (7) Acute liver failure: Supervising Physician Co-Signing Physician Notes I have personally evaluated and examined this patient. I agree with assessment and plan of Balbina SOTELO. I personally evaluated the patient from 1830 to 190 and I transition care to Balbina SOTELO, I am concerned of the patient's hepatic dysfunction, we will check a Tylenol level start Mucomyst and obtain advanced imaging. I have personally spent 35 minutes of critical care time in the direct management of this patient. This is a life/limb threatening event. This includes time spent evaluating patient, direct bedside care, chart review, placing orders, interpretation of diagnostic studies, discussion with consultants, patient, and/or family members regarding treatment decisions, as well as other required patient management activities. This time is exclusive of all separately billable procedures, and teaching time and separate from and in addition to any other critical care service time. History of Present Illness Attending Physician: Franki Jordan History of Present Illness Patient is a 53-year-old female with past medical history of hypothyroidism, pots, herniated nucleus pulposus, migraines, and extensive neurological and psychiatric history who initially presented to the hospital with 10-day history of generalized and bilateral lower extremity weakness and incontinence. Patient is found to have developing sacral insufficiency fracture. Ortho consulted and patient not candidate for surgical intervention. On the floor the patient was reportedly confused and in respiratory distress. Patient was also found to have elevated LFTs and ammonia, and hepatic ultrasound displayed steatosis. She now presents to the ICU with mild confusion, hemodynamically stable on room air. She denies headache, dizziness, nausea and vomiting, nuchal rigidity, shortness of breath. She does confirm reports of generalized weakness and bilateral lower extremity weakness, along with recent incontinence. She does also report generalized pain, which her confirms is chronic and she sees a specialist at the pain clinic. Patient to remain in ICU for now for evaluation and management, see plan below. Allergies Allergy/AdvReac Type Severity Reaction Status Date / Time blue dye Allergy Intermediate joint Verified 09/21/18 19:19 swelling codeine Allergy Intermediate hives-TAKES Verified 09/21/18 19:19 OXYCONTIN AT HOME bupropion [From Wellbutrin] Allergy Unknown Unknown Verified 09/21/18 19:19 Margarine Allergy Severe ANAPHYLAXIS Uncoded 07/30/18 14:06 Home Medications Home Medications Medication Instructions Recorded Confirmed Type alprazolam [Xanax] 0.5 mg PO BID 07/30/18 09/21/18 History amitriptyline 50 mg PO HS 07/30/18 09/21/18 History ascorbic acid (vitamin C) [Vitamin 1,000 mg PO DAILY 07/30/18 09/21/18 History C] baclofen 20 mg PO TID 07/30/18 09/21/18 History bisacodyl [Dulcolax (bisacodyl)] 5 mg PO DAILY PRN 07/30/18 09/21/18 History buspirone 10 mg PO BID 07/30/18 09/21/18 History cyanocobalamin (vitamin B-12) 1,000 mcg IM MONTHLY 07/30/18 09/21/18 History fentanyl 1 patch TRANSDERMAL .CQ48HR 07/30/18 09/21/18 History fentanyl 1 patch TRANSDERMAL .CQ48HR 07/30/18 09/21/18 History folic acid 1 mg PO DAILY 07/30/18 09/21/18 History gabapentin 1,200 mg PO TID 07/30/18 09/21/18 History levothyroxine [Levoxyl] 100 mcg PO DAILY 07/30/18 09/21/18 History lidocaine [Lidoderm] 1 patch TOPICAL DAILY PRN 07/30/18 09/21/18 History meclizine 25 mg PO TID PRN 07/30/18 09/21/18 History midodrine 2.5 mg PO TID 07/30/18 09/21/18 History omeprazole 20 mg PO DAILY 07/30/18 09/21/18 History ondansetron 4 - 8 mg PO Q8H PRN 07/30/18 09/21/18 History oxycodone 10 mg PO 5XD PRN 07/30/18 09/21/18 History promethazine [Phenergan] 25 mg [place] Q12H PRN 07/30/18 09/21/18 History sertraline 100 mg PO QAM 07/30/18 09/21/18 History sumatriptan succinate [Imitrex] 100 mg PO DIRECTED PRN MDD 200 07/30/18 09/21/18 History MG/DAY acetazolamide 250 mg PO QID 09/21/18 09/21/18 History lfpfjonnel-xpzboyktuwvkd-esck 1 tab PO Q4H PRN MDD 6 TABS 09/21/18 09/21/18 History magnesium oxide 400 mg PO BID 09/21/18 09/21/18 History pyridostigmine bromide 60 mg PO TID 09/21/18 09/21/18 History quetiapine 100 mg PO HS 09/21/18 09/21/18 History trazodone 100 mg PO HS 09/21/18 09/21/18 History Patient History Medical History POTS (postural orthostatic tachycardia syndrome) EDS (Lilibeth-Danlos syndrome) HNP (herniated nucleus pulposus) with myelopathy, cervical (Acute 05/20/14) Surgical History History of brain surgery (Resolved) H/O: hysterectomy Hx of cholecystectomy History of Arian-en-Y gastric bypass History of abdominal surgery History of knee surgery Family History Mother Seizures FH: migraines Father , in his 20s of a motor vehicle accident No problems noted. Other Cancer Diabetes Hypertension Kidney disease Lung disease Social History Preferred Language: Libyan Communication Ability: Effective Manager Of Regulatory Affairs Required: No Beliefs That Will Affect Care: None Current Living Situation: Spouse and Family Current Living Situation Comment: Patient has 9 children ranging in age from 32-10 current occupational status: unemployed Other Information That Helps Us Care for You: No Feels Safe at Home: Yes Safety Concerns: Feels Safe At This Time Smoking Status: Light tobacco smoker Tobacco Type: cigarettes Cigarettes Per Day: One or 2 Do You Dip or Chew Tobacco: No Second Hand Exposure: Yes Tobacco Cessation Education Requested by Patient: No Hx Alcohol Use: No Hx Substance Use: Yes substance use type: marijuana Substance Use Type Other:: Medical marijuana Last Used Substance: Unknown Review of Systems Review of Systems: All systems reviewed & are unremarkable except as noted in HPI & below Physical Exam Eyes: PERRL, conjunctivae normal, anicteric sclerae ENMT: external ear and nose normal, oropharynx normal Neck: trachea midline, no thyromegaly Respiratory: normal respiratory effort, lungs clear to auscultation symmetric chest movement Cardiovascular: Rate/Rhythm: + tachycardic Heart Sounds: normal S1 and normal S2 Vessels: no JVD Extremities: no edema Gastrointestinal (Abdomen): Abdomen is soft, flat, and nontender. Bowel sounds auscultated in all 4 quadrants Skin: no rashes, warm and dry Neurologic: PERRL, EOMI, accommodation nl, no face palsy, no dysarthria Upper extremities able to push and pull against resistance with symmetrical strength bilaterally. Lower extremities against gravity with symmetrical movement bilaterally Psychiatric: Orientation: oriented to person and oriented to place; + not oriented to time Affect: + irritable affect Results & Data Vital Signs (Past 12 Hours) Vital Signs Temp Pulse Resp BP BP Pulse Ox 09/23/18 18:45 8 L 09/23/18 18:40 108 H 101/67 98 09/23/18 18:39 8 L 09/23/18 18:25 37.0 C 114 H 9 L 104/70 96 09/23/18 15:46 36.9 C 104 H 16 106/72 100 Critical Care Time Critical Care Time: Yes (Dr. Yeh: [id number]: 35 minutes; Balbina SOTELO: 50 minutes, [id number]) Total Critical Care Time: 85 (1) Hypothyroid Hypothyroidism type: unspecified Qualified Code(s): E03.9 - Hypothyroidism, unspecified
[2018-09-23] MEDS: RIFAXIMIN 550 MG TABLET PO SCH (23:27)
[2018-09-24] MEDS: ALPRAZolam 0.5 MG TABLET PO SCH (00:12)
[2018-09-24] MEDS: GABAPENTIN 600 MG TAB PO SCH (00:12)
[2018-09-24] MEDS: AMITRIPTYLINE HCL 50 MG TAB PO SCH (00:12)
[2018-09-24] MEDS ORDERED: LACTATED RINGER'S 1,000 ML IV SCH ×2 (00:30→03:45)
--- NOTE | 2018-09-24 01:17 | Magnetic Resonance Report ---
MRI OF THE THORACIC SPINE WITHOUT IV CONTRAST CLINICAL HISTORY: Weakness. COMPARISON STUDY: MRI of the thoracic spine dated 03/28/2014. TECHNIQUE: MRI of the thoracic spine is performed utilizing various T1 and T2-weighted sequences in t he axial and sagittal planes. IV contrast was not administered for this examination. FINDINGS: Vertebral body height and alignment are maintained throughout the thoracic spine. Normal ma rrow signal intensity is preserved throughout the visualized bony structures. The transverse and spin ous processes are intact as imaged. No marrow edema or destructive bony lesion is seen. The intervert ebral discs are normal in height and signal intensity. There is no evidence of disc herniation or genie tral canal stenosis. The thoracic spinal cord is normal in morphology and signal intensity. The conus medullaris terminates at the level of L1. There is no evidence of significant neural foraminal steno sis throughout the thoracic spine. The paraspinous soft tissues are normal in appearance. There is a small left pleural effusion. The visualized lung parenchyma is grossly clear but not well assessed by MRI. IMPRESSION: 1. No osseous abnormality is identified. 2. The thoracic spinal cord is normal in morphology and signal intensity. 3. There is no disc herniation or central canal stenosis. 4. Small left pleural effusion. Electronically signed by: Colton Henriquez M.D. 09/24/2018 1:15 AM
--- NOTE | 2018-09-24 01:19 | Magnetic Resonance Report ---
MRI OF THE CERVICAL SPINE WITHOUT IV CONTRAST CLINICAL HISTORY: Weakness. COMPARISON STUDY: MRI of the cervical spine dated 11/06/2017. CT of the cervical spine dated 6. TECHNIQUE: MRI of the cervical spine is performed utilizing various T1 and T2-weighted sequences in t he axial and sagittal planes. IV contrast was not administered for this examination. FINDINGS: Cervical spine: Vertebral body height and alignment are maintained throughout the cervical spine. The atlantodental articulation appears maintained. There is straightening of the cervical lordosis. Agai n seen are postoperative changes from anterior fusion at C5-C6. There is been occipital craniectomy, with posterior fusion from the skull base through C2. The spinous processes appear intact. No destru ctive bony lesion is seen. Vertebral discs: There has been discectomy at C5-C6. Mild loss of height is noted noted at C4-C5. The remaining disc spaces are normal. Spinal cord: The cervical spinal cord is normal in morphology and signal intensity. C2-C3: Unremarkable. C3-C4: Mild facet arthropathy is of no consequence. The central canal and neural foramina are patent. C4-C5: Predominantly facet arthropathy causes mild right neural foraminal stenosis. The central canal is clear. C5-C6: The central canal and neural foramina appear clear. C6-C7: A tiny posterior disc osteophyte complex minimally effaces the ventral subarachnoid space. The re is no significant central canal stenosis. The neural foramina are clear. C7-T1: Unremarkable. Soft tissues: The prevertebral and paraspinous soft tissues are normal as imaged. Brain parenchyma: The imaged brain parenchyma at the skull base is normal in appearance. IMPRESSION: 1. There is no disc herniation or central canal stenosis. 2. The cervical spinal cord is normal in morphology and signal intensity. 3. Again seen are postoperative changes from posterior fusion at the craniocervical junction and ante rior fusion at C5-C6. Electronically signed by: Colton Henriquez M.D. 09/24/2018 1:18 AM
[2018-09-24] MEDS ORDERED: ICU PROTOCOL FOR HYPERGLYCEMIA PRN (01:52)
[2018-09-24 02:49] LABS: Basophils # (auto) 0.01 K/uL (0-0.2); Basophils % (auto) 0.2 %; Eosinophils # (auto) 0.01 K/uL (0-0.5); Eosinophils % (auto) 0.2 %; Hematocrit (blood only) 32.4 % (37-47); Hemoglobin 10.7 g/dL (12.0-16.0); Lymphocytes # (auto) 0.54 K/uL (1.2-3.4); Lymphocytes % (auto) 11.1 %; Mean Platelet Volume 10.8 fL (7.4-10.4); Monocytes # (auto) 0.32 K/uL (0.11-0.59); Monocytes % (auto) 6.6 %; Neutrophils % (auto) 81.9 %; Platelet Count 321 K/uL (130-400); RDW Coefficient of Variation 13.8 % (11.5-14.5); RDW Standard Deviation 47.7 fL (36.4-46.3); Red Blood Count 3.41 M/uL (4.2-5.4); White Blood Count 4.88 K/uL (4.8-10.8)
[2018-09-24 02:54] LABS: Base Excess VBG -7.8 mEq/L; Oxygen Saturation VBG 94.5 %; pH VBG 7.4 (7.36-7.41)
[2018-09-24 03:11] LABS: C Reactive Protein 2.42 mg/dl (0-0.29)
[2018-09-24 03:13] LABS: Alanine Aminotransferase 41 U/L (12-78); Albumin Globulin Ratio 0.5 (0.9-2); Albumin Level 1.6 gm/dl (3.4-5.0); Alkaline Phosphatase 306 U/L (45-117); BUN Creatinine Ratio 3.1 (10-20); Bilirubin,Total 0.3 mg/dl (0.2-1); Blood Urea Nitrogen 1 mg/dl (7-18); Calcium 7.2 mg/dl (8.5-10.1); Carbon Dioxide 17 mmol/L (21-32); Chloride 121 mmol/L (98-107); Creatinine Clr Calc Pharmacy 119.9 ml/min; Est GFR (African American) 130.7; Est GFR (Non-African American) 112.8; Globulin 3.2 gm/dl (2.5-4.0); Glucose 117 mg/dl (70-99); Sodium 147 mmol/L (136-145); Total Protein 4.8 gm/dl (6.4-8.2)
[2018-09-24 03:14] LABS: INR 1.9 (0.9-1.1); Prothrombin Time 18.8 Seconds (9.0-12.0)
[2018-09-24] MEDS: LACTULOSE SYRUP 30 GM/45 ML UDP PO SCH ×3 (05:17→20:53)
[2018-09-24] MEDS ORDERED: CHLORASEPTIC 1.4% SOLN 180 ML BTL MT PRN (05:22)
[2018-09-24 05:33] LABS: Potassium 3.6 mmol/L (3.5-5.1)
[2018-09-24 05:42] LABS: Bilirubin Direct 0.3 mg/dl (0-0.2)
--- NOTE | 2018-09-24 06:43 | XRay Report ---
[facility] CLINICAL HISTORY: NG tube placement COMPARISON STUDY: CT of the abdomen October 03, 2018 7:17 PM. FINDINGS: The patient status post Arian-en-Y gastric bypass. The tip of nasogastric tube projects over the gastrojejunostomy. Prominent gas-filled loops of small bowel are noted. There is gas within port ions of the colon. There are cholecystectomy clips. IMPRESSION: Tip of nasogastric tube projects over the gastrojejunostomy. Electronically signed by: Gaurang Blake M.D. 09/24/2018 6:42 AM
[2018-09-24] MEDS ORDERED: OXYCODONE HCL 5 MG/0.25 ML UDP PO PRN (07:45)
[2018-09-24] MEDS ORDERED: OXYCODONE HCL IR 5 MG TAB (IMMEDIATE RELEASE) PO STA (07:55)
[2018-09-24] MEDS: RIFAXIMIN 550 MG TABLET PO SCH ×2 (08:02→20:55)
[2018-09-24] MEDS: acetaZOLAMIDE 250 MG TAB PO SCH (08:02)
[2018-09-24] MEDS: FOLIC ACID 1 MG TAB PO SCH (08:03)
[2018-09-24] MEDS: MAGNESIUM OXIDE 400 MG TAB PO SCH ×2 (08:03→21:00)
[2018-09-24] MEDS: BACLOFEN 20 MG TAB PO SCH (08:03)
[2018-09-24] MEDS: ASCORBIC ACID 500 MG TAB PO SCH ×2 (08:04→10:48)
[2018-09-24] MEDS: ENOXAPARIN INJ 40 MG/0.4 ML SYR SQ SCH (08:05)
[2018-09-24] MEDS: SERTRALINE HCL 100 MG TABLET PO SCH ×2 (08:05→10:48)
[2018-09-24] MEDS: LEVOTHYROXINE SODIUM 100 MCG TABLET PO SCH (08:05)
[2018-09-24] MEDS: PANTOprazole 40 MG TAB PO SCH (08:05)
--- NOTE | 2018-09-24 09:03 | Neurology Progress Note ---
Date of Service September 24, 2018 Assessment & Plan (1) Generalized weakness: Patient presented with generalized weakness of a progressive nature over 10 days. Etiology of this is not readily apparent, but I suspect a general weakness from a hepatic encephalopathy and urinary tract infection. On exam I have not seen any focal neurologic findings. In fact, her exam had fairly intact strength and some giveaway weakness (not convinced she was giving maximum effort). I do not believe there is an underlying myopathy and her CK was largely normal (217 is not that high). Her pattern of weakness is diffuse and not proximal anyway. She does have some signs of generalized polyneuropathy as noted by some decreased sensation distally in the legs and some absent ankle reflexes. This could give her a sensory ataxia and add to her balance issues. Patient has considerable generalized fatigue and easy fatigability. Hepatic encephalopathy any urinary tract infection can add to this. There is no diagnosis of myasthenia gravis (even though she takes pyridostigmine for muscle strength). She has iron deficiency anemia which could easily add to her fatigue. Her no other specific laboratory abnormalities directly related to fatigue otherwise. Patient has a longstanding history of psychiatric issues including depression and anxiety, OCD, and bipolar disorder. She is on multiple psychiatric medications. According to the patient, her mood is stable. I cannot exclude a psychiatric origin to some of the symptoms she is displaying. Overall, I believe the patient is overmedicated and has significant polypharmacy. She is taking multiple narcotic medications as well in addition to benzodiazepines. (2) Incontinence: She has progressive incontinence of urine and more recently incontinence of bowel (which is new). This may be a lower motor neuron problem from her lumbosacral spine but she does not have any radicular symptomatology otherwise. She does not have any other upper motor neuron signs on examination and MRIs of the cervical and thoracic spine showed no cord lesions or myelopathy. (3) Intractable headache: Patient has a longstanding history of intermittent migrainous headaches. She now has chronic comma intermittent, mixed headache types with migraines and headaches associated with her cervical spine and intracranial pressure. She takes acetazolamide which could actually exacerbate headaches but would treat increased intracranial pressure. Overall, she feels that acetazolamide has helped. In addition acetazolamide could lead to electrolyte abnormalities. (4) History of brain surgery: Patient has a history of Chiari malformation surgery in 2010. Her lightheadedness/dizziness conceivably could be related to this as could her horizontal nystagmus, but her anatomy has been stable with subsequent imaging showing no issues that would create intracranial pressure problems. (5) Herniated nucleus pulposus with myelopathy, cervical: Patient has a history of C5-6 micro diskectomy in 2014. In 2016 she had C1 to fusion. Most recent MRI in October of 2017 showed a disc bulge at C6-7. Even though she does not have any upper motor neuron signs, a cervical myelopathy may give her incontinence and the sense of weakness and balance problems that she has been experiencing last 10 days. Her thoracic spine has never been evaluated either. (6) POTS (postural orthostatic tachycardia syndrome): Patient has a history of orthostasis/tachycardia syndrome treated with midodrine. She remains tachycardic. 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 There is a relatively common syndrome of EDS, migraine headaches, and POTS. Recommendations: 1. The patient needs to be on less medication but I will defer this to other clinicians as I did not start any of these and the patient will be going back to her regular neurologist after discharge. Caution regarding withdrawal if narcotics are decreased too much. 2. Physical and occupational therapy evaluations and gait training with strengthening. 3. This patient would likely need social service evaluation and home physical therapy to help with activities of daily living and recommendations for mobility. 4. The patient may need EMG and nerve conduction studies of the limbs (if her strength does not improve after the hepatic issues and UTI are treated), but this would be done as an outpatient and she will likely go to her regular neurologist.. Overall, I spent a total 35 minutes with this case including review of records, review of MRI films, direct evaluation the patient at bedside, and discussion of the case with the patient and her , who was at bedside, as well as Dr. Yeh, including differential diagnosis and treatment options. Subjective Overnight, the patient went to the ICU because of confusion and decreased responsiveness. Ammonia was noted to be elevated at 100 enzymes were. She also was noted to a urinary tract infection with greater than 100,000 Klebsiella pneumoniae. Patient is more alert this morning and is not complaining of pain or headache. She is not as dizzy or confused. Ammonia level was 100 has lower this morning to 81 after lactulose treatment. AST went from 200 on admission to 50 this morning and alk-phos is down from 330 to 306. She has anemia with hemoglobin of 10.7 and hematocrit of 30.4. Her pulse is in the 130s at rest. Blood pressure is 118/75 and she is afebrile. MRI of the cervical spine showed no cord impingement or significant disc abnormalities. She has postop changes at C5-6. MRI of the thoracic spine was largely unremarkable as. I reviewed all of these MRI films. Physical Exam Physical Exam: She is awake and alert. Speech is without aphasia or dysarthria. Mood seems reasonable and affect is appropriate. Thought processes are more intact today than yesterday and she is more sharp and focused. Extraocular muscles are intact without nystagmus. There is no facial droop. Coordination is normal in the limbs and strength is symmetrical. Results & Data Vital Signs (Past 12 Hours) Vital Signs Temp Pulse Resp BP Pulse Ox 09/24/18 05:01 136 H 118/75 98 09/24/18 04:00 36.5 C 134 H 116/69 99 09/24/18 03:00 36.5 C 118 H 105/65 96 09/24/18 02:35 117 H 123/68 96 09/24/18 02:00 118 H 101/64 96 09/24/18 01:00 121 H 99/67 L 100 09/24/18 00:00 36.6 C 135 H 14 119/73 98 09/23/18 23:02 136 H 11 L 112/64 100 09/23/18 23:01 139 H 21 74/59 L 90 09/23/18 22:57 36.7 C 143 H 13 120/61 100
--- NOTE | 2018-09-24 10:24 | Gastrointestinal Consultation ---
Date of Consultation September 24, 2018 Assessment & Plan (1) Generalized weakness: (2) Hyperammonemia: Given normal CT imaging, less likely cirrhosis as an etiology. Possibly medication induced or infectious etiology for encephalopathy. Will order a liver/spleen scan to evaluate portal flow to evaluate for any portal hypertension. Need to order a stat INR. If continues to rise, recommend initiation of vitamin K and consideration of referral to tertiary center. Await Hepatitis A testing as pending. Hep B and C were negative. Additional recommendations will be made pending results of testing. Supervising Physician Co-Signing Physician Notes Agree with ASHLEIGH Henson as above Patient states she is feeling better. states she is much more alert and responsive. Abd: Soft, Tender LLQ, ND, +BS Liver spleen scan was negative INR increased, but could be dietary deficiency. Need repeat INR in 4 hours Ordered PURVI, ASMA, Cerluosplamin and Anti-LKM Ab Continue supportive care History of Present Illness Reason for Consultation: encephalopathy Requesting Physician: ASHLEIGH Dixon Attending Physician: Franki Jordan History of Present Illness Patient is a 53 year-old female with a history of elevated liver panel previously evaluated by Dr. Vigil in 2016. She did become lost to follow up. GI has been consulted as the patient has been admitted to the hospital due to progressive weakness and incontinence beginning 10 days prior to admission. She has been seen by ortho as well as neurology. No acute orthopedic surgical intervention is warranted in regard to her abnormal findings on spinal imaging. Dr. Jovel has questioned possible liver etiology as well as polypharmacy. Her ammonia level was noted to be 100.4 yesterday which has decreased to 81 today with use of lactulose enema and Xifaxan. Concerning, her INR had risen to 1.9 early this morning. No repeat has been ordered. On imaging, however, she had a contrast enhanced CT that demonstrated a normal contour and attenuation of the liver not consistent with cirrhosis. Liver ultrasound with concern or steatosis. Liver panel was as follows: TB 0.8, BD 0.5, AST 74, ALT 45, and ALP 375. Currently, the patient is focused on not receiving opioid analgesics and developing pain. She denies any abdominal pain, jaundice, pruritus, dark urine, acholic stools, melena, hematochezia or n/v at present. Allergies Allergy/AdvReac Type Severity Reaction Status Date / Time blue dye Allergy Intermediate joint Verified 09/21/18 19:19 swelling codeine Allergy Intermediate hives-TAKES Verified 09/21/18 19:19 OXYCONTIN AT HOME bupropion [From Wellbutrin] Allergy Unknown Unknown Verified 09/21/18 19:19 Margarine Allergy Severe ANAPHYLAXIS Uncoded 07/30/18 14:06 Home Medications Home Medications Medication Instructions Recorded Confirmed Type alprazolam [Xanax] 0.5 mg PO BID 07/30/18 09/21/18 History amitriptyline 50 mg PO HS 07/30/18 09/21/18 History ascorbic acid (vitamin C) [Vitamin 1,000 mg PO DAILY 07/30/18 09/21/18 History C] baclofen 20 mg PO TID 07/30/18 09/21/18 History bisacodyl [Dulcolax (bisacodyl)] 5 mg PO DAILY PRN 07/30/18 09/21/18 History buspirone 10 mg PO BID 07/30/18 09/21/18 History cyanocobalamin (vitamin B-12) 1,000 mcg IM MONTHLY 07/30/18 09/21/18 History fentanyl 1 patch TRANSDERMAL .[id number] 07/30/18 09/21/18 History fentanyl 1 patch TRANSDERMAL .[id number] 07/30/18 09/21/18 History folic acid 1 mg PO DAILY 07/30/18 09/21/18 History gabapentin 1,200 mg PO TID 07/30/18 09/21/18 History levothyroxine [Levoxyl] 100 mcg PO DAILY 07/30/18 09/21/18 History lidocaine [Lidoderm] 1 patch TOPICAL DAILY PRN 07/30/18 09/21/18 History meclizine 25 mg PO TID PRN 07/30/18 09/21/18 History midodrine 2.5 mg PO TID 07/30/18 09/21/18 History omeprazole 20 mg PO DAILY 07/30/18 09/21/18 History ondansetron 4 - 8 mg PO Q8H PRN 07/30/18 09/21/18 History oxycodone 10 mg PO 5XD PRN 07/30/18 09/21/18 History promethazine [Phenergan] 25 mg IA Q12H PRN 07/30/18 09/21/18 History sertraline 100 mg PO QAM 07/30/18 09/21/18 History sumatriptan succinate [Imitrex] 100 mg PO DIRECTED PRN MDD 200 07/30/18 09/21/18 History MG/DAY acetazolamide 250 mg PO QID 09/21/18 09/21/18 History aqycrbbbwm-xmpwuixxtfmrb-zpse 1 tab PO Q4H PRN MDD 6 TABS 09/21/18 09/21/18 History magnesium oxide 400 mg PO BID 09/21/18 09/21/18 History pyridostigmine bromide 60 mg PO TID 09/21/18 09/21/18 History quetiapine 100 mg PO HS 09/21/18 09/21/18 History trazodone 100 mg PO HS 09/21/18 09/21/18 History Patient History Medical History POTS (postural orthostatic tachycardia syndrome) EDS (Lilibeth-Danlos syndrome) HNP (herniated nucleus pulposus) with myelopathy, cervical (Acute 05/20/14) Surgical History History of brain surgery (Resolved) H/O: hysterectomy Hx of cholecystectomy History of Arian-en-Y gastric bypass History of abdominal surgery History of knee surgery Family History Mother Seizures FH: migraines Father , in his 20s of a motor vehicle accident No problems noted. Other Cancer Diabetes Hypertension Kidney disease Lung disease Social History Preferred Language: Bulgarian Communication Ability: Effective Traffic Control Specialist Required: No Beliefs That Will Affect Care: None Current Living Situation: Spouse and Family Current Living Situation Comment: Patient has 9 children ranging in age from 32-10 current occupational status: unemployed Other Information That Helps Us Care for You: No Feels Safe at Home: Yes Safety Concerns: Feels Safe At This Time Smoking Status: Light tobacco smoker Tobacco Type: cigarettes Cigarettes Per Day: One or 2 Do You Dip or Chew Tobacco: No Second Hand Exposure: Yes Tobacco Cessation Education Requested by Patient: No Hx Alcohol Use: No Hx Substance Use: Yes substance use type: marijuana Substance Use Type Other:: Medical marijuana Last Used Substance: Unknown Review of Systems Constitutional: as per Subjective / HPI Eyes: no icteric sclera Ear, Nose, Mouth, Throat: no problem reported Respiratory: no cough Cardiovascular: no chest pain Gastrointestinal: as per Subjective / HPI Genitourinary: as per Subjective / HPI Musculoskeletal: as per Subjective / HPI Integumentary: no rash Neurologic: as per Subjective / HPI Psychiatric: no confusion Physical Exam Constitutional: no acute distress Eyes: + anicteric sclerae ENMT: NG intact Respiratory: normal respiratory effort, lungs clear to auscultation Cardiovascular: Rate/Rhythm: regular rhythm and + tachycardic Gastrointestinal (Abdomen): normal bowel sounds, soft, nontender, no hepatosplenomegaly Musculoskeletal: no pedal edema Skin: no rashes, warm and dry Psychiatric: A+Ox3, euthymic affect Results & Data Vital Signs (Past 12 Hours) Vital Signs Temp Pulse Resp BP Pulse Ox 09/24/18 05:01 136 H 118/75 98 09/24/18 04:00 36.5 C 134 H 116/69 99 09/24/18 03:00 36.5 C 118 H 105/65 96 09/24/18 02:35 117 H 123/68 96 09/24/18 02:00 118 H 101/64 96 09/24/18 01:00 121 H 99/67 L 100 09/24/18 00:00 36.6 C 135 H 14 119/73 98 09/23/18 23:02 136 H 11 L 112/64 100 09/23/18 23:01 139 H 21 74/59 L 90 09/23/18 22:57 36.7 C 143 H 13 120/61 100 Laboratory Results Abnormal lab results 09/23/18 09/23/18 09/23/18 Range/Units 10:31 18:34 18:34 RBC (4.2-5.4) M/uL Hgb (12.0-16.0) g/dL Hct (37-47) % RDW Std Deviation (36.4-46.3) fL MPV (7.4-10.4) fL Lymph # (Auto) (1.2-3.4) K/uL PT (9.0-12.0) Seconds INR (0.9-1.1) ABG pCO2 26 L (35-46) mmHg ABG HCO3 15 L (19-24) mmol/L ABG O2 Saturation 95.8 H (90-95) % ABG Base Excess -9.3 L (-9-1.8) mEq/L VBG pH (7.36-7.41) VBG pCO2 28 L (38-50) mmHg Sodium (136-145) mmol/L Chloride (98-107) mmol/L Carbon Dioxide (21-32) mmol/L BUN (7-18) mg/dl Creatinine (0.6-1.2) mg/dl BUN/Creatinine Ratio (10-20) Glucose (70-99) mg/dl POC Glucose (70-99) Calcium (8.5-10.1) mg/dl Direct Bilirubin (0-0.2) mg/dl AST (15-37) U/L Alkaline Phosphatase (45-117) U/L Ammonia (11-32) umol/L C-Reactive Protein (0-0.29) mg/dl Total Protein (6.4-8.2) gm/dl Albumin (3.4-5.0) gm/dl Albumin/Globulin Ratio (0.9-2) TSH (0.300-4.500) uIu/ml Free T4 (0.8-1.6) ng/dl Free T3 2.09 L (2.3-4.2) pg/ml Total T3 0.52 L (0.60-1.81) ng/ml Nasal Screen MRSA (PCR) (Negative) Acetaminophen (10-30) ug/ml 09/23/18 09/23/18 09/23/18 Range/Units 18:52 18:52 22:13 RBC (4.2-5.4) M/uL Hgb (12.0-16.0) g/dL Hct (37-47) % RDW Std Deviation (36.4-46.3) fL MPV (7.4-10.4) fL Lymph # (Auto) (1.2-3.4) K/uL PT (9.0-12.0) Seconds INR (0.9-1.1) ABG pCO2 (35-46) mmHg ABG HCO3 (19-24) mmol/L ABG O2 Saturation (90-95) % ABG Base Excess (-9-1.8) mEq/L VBG pH (7.36-7.41) VBG pCO2 (38-50) mmHg Sodium (136-145) mmol/L Chloride 121 H (98-107) mmol/L Carbon Dioxide 16 L (21-32) mmol/L BUN 2 L (7-18) mg/dl Creatinine 0.38 L (0.6-1.2) mg/dl BUN/Creatinine Ratio 5.0 L (10-20) Glucose 102 H (70-99) mg/dl POC Glucose (70-99) Calcium 8.0 L (8.5-10.1) mg/dl Direct Bilirubin 0.4 H 0.5 H (0-0.2) mg/dl AST 82 H 74 H (15-37) U/L Alkaline Phosphatase 357 H 375 H (45-117) U/L Ammonia 100.4 H (11-32) umol/L C-Reactive Protein (0-0.29) mg/dl Total Protein 5.1 L 5.6 L (6.4-8.2) gm/dl Albumin 1.9 L 2.0 L (3.4-5.0) gm/dl Albumin/Globulin Ratio (0.9-2) TSH 0.030 L (0.300-4.500) uIu/ml Free T4 1.65 H (0.8-1.6) ng/dl Free T3 (2.3-4.2) pg/ml Total T3 (0.60-1.81) ng/ml Nasal Screen MRSA (PCR) (Negative) Acetaminophen (10-30) ug/ml 09/23/18 09/23/18 09/23/18 Range/Units 22:13 22:13 23:00 RBC (4.2-5.4) M/uL Hgb (12.0-16.0) g/dL Hct (37-47) % RDW Std Deviation (36.4-46.3) fL MPV (7.4-10.4) fL Lymph # (Auto) (1.2-3.4) K/uL PT (9.0-12.0) Seconds INR (0.9-1.1) ABG pCO2 (35-46) mmHg ABG HCO3 (19-24) mmol/L ABG O2 Saturation (90-95) % ABG Base Excess (-9-1.8) mEq/L VBG pH 7.33 L (7.36-7.41) VBG pCO2 32 L (38-50) mmHg Sodium (136-145) mmol/L Chloride (98-107) mmol/L Carbon Dioxide (21-32) mmol/L BUN (7-18) mg/dl Creatinine (0.6-1.2) mg/dl BUN/Creatinine Ratio (10-20) Glucose (70-99) mg/dl POC Glucose (70-99) Calcium (8.5-10.1) mg/dl Direct Bilirubin (0-0.2) mg/dl AST (15-37) U/L Alkaline Phosphatase (45-117) U/L Ammonia (11-32) umol/L C-Reactive Protein (0-0.29) mg/dl Total Protein (6.4-8.2) gm/dl Albumin (3.4-5.0) gm/dl Albumin/Globulin Ratio (0.9-2) TSH (0.300-4.500) uIu/ml Free T4 (0.8-1.6) ng/dl Free T3 (2.3-4.2) pg/ml Total T3 (0.60-1.81) ng/ml Nasal Screen MRSA (PCR) Positive A (Negative) Acetaminophen 4 L (10-30) ug/ml 09/23/18 09/24/18 09/24/18 Range/Units 23:52 02:33 02:33 RBC 3.41 L (4.2-5.4) M/uL Hgb 10.7 L (12.0-16.0) g/dL Hct 32.4 L (37-47) % RDW Std Deviation 47.7 H (36.4-46.3) fL MPV 10.8 H (7.4-10.4) fL Lymph # (Auto) 0.54 L (1.2-3.4) K/uL PT (9.0-12.0) Seconds INR (0.9-1.1) ABG pCO2 (35-46) mmHg ABG HCO3 (19-24) mmol/L ABG O2 Saturation (90-95) % ABG Base Excess (-9-1.8) mEq/L VBG pH (7.36-7.41) VBG pCO2 (38-50) mmHg Sodium 147 H (136-145) mmol/L Chloride 121 H (98-107) mmol/L Carbon Dioxide 17 L (21-32) mmol/L BUN 1 L (7-18) mg/dl Creatinine 0.48 L (0.6-1.2) mg/dl BUN/Creatinine Ratio 3.1 L (10-20) Glucose 117 H (70-99) mg/dl POC Glucose 203 H (70-99) Calcium 7.2 L (8.5-10.1) mg/dl Direct Bilirubin (0-0.2) mg/dl AST (15-37) U/L Alkaline Phosphatase 306 H (45-117) U/L Ammonia (11-32) umol/L C-Reactive Protein 2.42 H (0-0.29) mg/dl Total Protein 4.8 L (6.4-8.2) gm/dl Albumin 1.6 L (3.4-5.0) gm/dl Albumin/Globulin Ratio 0.5 L (0.9-2) TSH (0.300-4.500) uIu/ml Free T4 (0.8-1.6) ng/dl Free T3 (2.3-4.2) pg/ml Total T3 (0.60-1.81) ng/ml Nasal Screen MRSA (PCR) (Negative) Acetaminophen (10-30) ug/ml 09/24/18 09/24/18 09/24/18 Range/Units 02:33 02:33 05:10 RBC (4.2-5.4) M/uL Hgb (12.0-16.0) g/dL Hct (37-47) % RDW Std Deviation (36.4-46.3) fL MPV (7.4-10.4) fL Lymph # (Auto) (1.2-3.4) K/uL PT 18.8 H (9.0-12.0) Seconds INR 1.9 H (0.9-1.1) ABG pCO2 (35-46) mmHg ABG HCO3 (19-24) mmol/L ABG O2 Saturation (90-95) % ABG Base Excess (-9-1.8) mEq/L VBG pH (7.36-7.41) VBG pCO2 26 L (38-50) mmHg Sodium (136-145) mmol/L Chloride (98-107) mmol/L Carbon Dioxide (21-32) mmol/L BUN (7-18) mg/dl Creatinine (0.6-1.2) mg/dl BUN/Creatinine Ratio (10-20) Glucose (70-99) mg/dl POC Glucose (70-99) Calcium (8.5-10.1) mg/dl Direct Bilirubin 0.3 H (0-0.2) mg/dl AST 50 H (15-37) U/L Alkaline Phosphatase (45-117) U/L Ammonia (11-32) umol/L C-Reactive Protein (0-0.29) mg/dl Total Protein (6.4-8.2) gm/dl Albumin (3.4-5.0) gm/dl Albumin/Globulin Ratio (0.9-2) TSH (0.300-4.500) uIu/ml Free T4 (0.8-1.6) ng/dl Free T3 (2.3-4.2) pg/ml Total T3 (0.60-1.81) ng/ml Nasal Screen MRSA (PCR) (Negative) Acetaminophen (10-30) ug/ml 09/24/18 09/24/18 Range/Units 05:10 06:10 RBC (4.2-5.4) M/uL Hgb (12.0-16.0) g/dL Hct (37-47) % RDW Std Deviation (36.4-46.3) fL MPV (7.4-10.4) fL Lymph # (Auto) (1.2-3.4) K/uL PT (9.0-12.0) Seconds INR (0.9-1.1) ABG pCO2 (35-46) mmHg ABG HCO3 (19-24) mmol/L ABG O2 Saturation (90-95) % ABG Base Excess (-9-1.8) mEq/L VBG pH (7.36-7.41) VBG pCO2 (38-50) mmHg Sodium (136-145) mmol/L Chloride (98-107) mmol/L Carbon Dioxide (21-32) mmol/L BUN (7-18) mg/dl Creatinine (0.6-1.2) mg/dl BUN/Creatinine Ratio (10-20) Glucose (70-99) mg/dl POC Glucose 105 H (70-99) Calcium (8.5-10.1) mg/dl Direct Bilirubin (0-0.2) mg/dl AST (15-37) U/L Alkaline Phosphatase (45-117) U/L Ammonia 81.0 H (11-32) umol/L C-Reactive Protein (0-0.29) mg/dl Total Protein (6.4-8.2) gm/dl Albumin (3.4-5.0) gm/dl Albumin/Globulin Ratio (0.9-2) TSH (0.300-4.500) uIu/ml Free T4 (0.8-1.6) ng/dl Free T3 (2.3-4.2) pg/ml Total T3 (0.60-1.81) ng/ml Nasal Screen MRSA (PCR) (Negative) Acetaminophen (10-30) ug/ml
--- NOTE | 2018-09-24 10:35 | Critical Care Progress Note ---
Date of Service September 24, 2018 Assessment & Plan (1) Hyperammonemia: Reason Critically Ill: 53-year-old female who presents to the ICU with acute encephalopathy, metabolic acidosis, and acute liver failure. Neuro - [facility]: Negative Encephalopathy/acute liver failure/metabolic acidosis -Ammonia 106, LFTs continue to be elevated, INR 1.6 -ABG 7.36, currently compensated metabolic acidosis, will repeat ABG in a.m. -Hepatic ultrasound showed mild steatotis -CT abdomen showed mild intrahepatic biliary ductal dilation, patient is S/P cholecystectomy from 1991 -Hepatitis panel pending, Tylenol negative - MELD 14 -Loaded with oral Mucomyst and rifaximin -Patient was unable to tolerate lactulose enema, now giving orally - will recheck VBG in a.m. - Consult to gastroenterology in a.m. -Trend LFTs and ammonia Generalized weaknesspatient has had generalized and bilateral lower extremity weakness ongoing for 2 weeks and incontinence -Unknown origin, may be secondary to metabolic encephalopathy from liver failure or from overmedication On physcial exam strength completely intact bilaterally for upper and lower limbs -Sacral fracture may be contributing lower extremity weakness, Ortho consulted and not candidate for surgery per note -Cervical and thoracic MRIs pending read, will follow up -Urology consulted, will follow up recs -Patient has history of herniated nucleolus, MRI from 2018 showed Cardiac - Postural orthostatic tachycardia syndromepatient takes midodrine at home, will continue home dose REmained tachycardic throughout day - monitor on telemetry Respiratory - Maintaining sats on room air and airway, of note patient unable to be intubated with standard laryngoscope secondary to cervical herniated nucleus pulposis with myelopathy NIF of -60 2-70 per respiratory AB.36, compensated metabolic acidosis GI - Liver Failure: Baldomero Monroe class C today, concerned for worsening hepatic failure Unknown cause, possibly NAFLD vs iatrogenic from myriad of medications she is on. Speech evaluated and recommended patient remains N.p.o. RENAL/LYTES - Creatinine/BUN stable, will monitor with routine BMPs - Recent urinary tract with Klebsiella, antibiotics switched to Rocephin ENDO - HypothyroidismDecreasing home dose of synthroid by 25% due to low TSH HEME - Iron deficiency anemiaH&H stable, will monitor with routine CBCs ID - Ceftriaxone LINES/IV ACCESS - Peripheral IV x2, OGT DVT PROPHYLAXIS - Holding anticoagulants secondary to elevated INR (2) Acute liver failure: (3) Metabolic encephalopathy: (4) Incontinence: (5) Fatigue: (6) Thyroid dysfunction: Supervising Physician Co-Signing Physician Notes Dr. Coyne was resident physician during care of patient. I separately evaluated patient for casey portions of the history and the exam. I was present during the critical portion of medical decision making, and I discussed the case with the resident. I generally agree with the findings and plan. Discontinue all acetaminophen containing medications: Concern for possible chronic Tylenol toxicity will continue Mucomyst until seen by gastroenterology Patient is not opiate tiff PDMP reviewed currently on 478 daily morphine milliequivalents Narcotic pain prescription will be based off of prescription history oxycodone 10 mg 1 tablet by mouth 3 times daily as needed with fentanyl 112 mcg/h patches Xanax 0.25 mg tablet by mouth twice daily as needed -I am very concerned of polypharmacy, there is no clear indication for high-dose chronic narcotics in the medical records at this point in addition to the benzo diazepines, she has been on half milligram of Xanax 1 tablet by mouth twice daily with monthly prescriptions for several months as well as the a forementioned narcotic prescriptions Will attempt to obtain outpatient records and prior hospitalization records Restart gabapentin at half dose, send gabapentin level, this is to prevent gabapentin withdrawal Profoundly elevated QTC: I suspect this is medication induced will stop ALL QT prolonging medications: Elavil: Zofran Discontinue all Fioricet as this is a acetaminophen containing medication In review of patient records she is taking 20 mg of baclofen 3 times daily in addition to benzodiazepines I do not feel comfortable continuing this high level dual purpose medication Discontinue BuSpar, patient currently refusing low withdrawal risk Checking post void residual volume given constellation of nonspecific neuro complaints Continue lactulose and rifaximin for hepatic encephalopathy -Hyperammonemia: We do not have carnitine, this could be secondary to Elavil which is been discontinued Unclear indication for pyridostigmine and exact diagnosis of neuromuscular disease Discontinuing Seroquel It appears patient has multiple medications for sleep: Trazodone sertraline is contraindicated in child Monroe class B and C, patient is child's class C I have reviewed the gastroenterology notes, agree if patient's synthetic function continues to climb she would benefit from transfer to tertiary/quaternary care for worsening acute liver failure. Patient reports she is on palliative care at this time we do not have an exact diagnosis of severe terminal disease that has led her to palliative care team. 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 I have personally spent 50 minutes of critical care time in the direct management of this patient. This is a life/limb threatening event. This includes time spent evaluating patient, direct bedside care, chart review, placing orders, interpretation of diagnostic studies, discussion with consultants, patient, and/or family members regarding treatment decisions, as well as other required patient management activities. This time is exclusive of all separately billable procedures, and teaching time and separate from and in addition to any other critical care service time. Subjective Leyla Pichardo is a 53 year old woman with history of cristo danlos syndrome, chiari malformation, tethered cord, chronic pain, and extreme opiate use who was sent t o the ICU for worsening hepatic failure and altered mental status. She is more oriented today, but slips in and out of being able to converse. She tells me she is having extreme back pain but denied all other symptoms this morning. acute encephalopathy" hepatic vs metabolic vs multifactorial ammonia 100.6 Compensated metabolic acidosis Metabolic acidosis likely secondary to diamox Continuing mucomyst tylenol level Review of Systems Constitutional: no fever and no chills Respiratory: no cough and no dyspnea Cardiovascular: no chest pain, no dyspnea and no palpitations Gastrointestinal: no abdominal pain, no nausea and no vomiting Physical Exam Constitutional: + thin; no acute distress and + uncomfortable Respiratory: normal respiratory effort; no respiratory distress Auscultation: lungs clear to auscultation bilaterally Gastrointestinal (Abdomen): Inspection/Auscultation: abdomen normal to inspection Percussion/Palpation: abdomen soft; abdomen nontender Results & Data Vital Signs (Past 12 Hours) Vital Signs Temp Pulse Pulse Resp BP BP Pulse Ox 09/24/18 05:01 136 H 118/75 98 09/24/18 04:00 36.5 C 134 H 116/69 99 09/24/18 03:00 36.5 C 118 H 105/65 96 09/24/18 02:35 117 H 123/68 96 09/24/18 02:00 118 H 101/64 96 09/24/18 01:00 121 H 99/67 L 100 09/24/18 00:00 36.6 C 135 H 14 119/73 98 09/23/18 23:02 136 H 11 L 112/64 100 09/23/18 23:01 139 H 21 74/59 L 90 09/23/18 22:57 36.7 C 143 H 13 120/61 100 09/23/18 18:45 8 L 09/23/18 18:40 108 H 101/67 98 09/23/18 18:39 8 L 09/23/18 18:25 37.0 C 114 H 9 L 104/70 96 Critical Care Time Critical Care Time: Yes Total Critical Care Time: 50 Time also included extensive time discussing patient transfer to [facility]. Resident Activity Tracking Resident Involvement: Resident Care Provided Care Provided: Adult Hospital Medicine
[2018-09-24] MEDS ORDERED: ALPRAZolam 0.25 MG TABLET PO PRN ×2 (10:41→10:45)
[2018-09-24] MEDS ORDERED: PHYTONADIONE 5 MG TAB PO STA (10:57)
[2018-09-24 10:58] LABS: INR 2.1 (0.9-1.1); Prothrombin Time 20.1 Seconds (9.0-12.0)
[2018-09-24] MEDS ORDERED: fentaNYL 100 MCG/HR TDSY TD SCH (11:00)
[2018-09-24] MEDS ORDERED: fentaNYL 12 MCG/HR TDSY TD SCH (11:00)
[2018-09-24] MEDS: ACETYLCYSTEINE 20% 200 MG/ML 30ML VIAL PO SCH ×4 (12:04→20:53)
[2018-09-24] MEDS: GABAPENTIN 250 MG/5 ML 470 ML BTL PO SCH ×2 (12:20→21:00)
[2018-09-24] MEDS: CHECK FENTANYL PATCH PLACEMENT SCH ×4 (13:53→16:30)
[2018-09-24] MEDS ORDERED: GABAPENTIN 250 MG/5 ML 470 ML BTL PO SCH (14:00)
[2018-09-24] MEDS ORDERED: PHYTONADIONE 5 MG in SODIUM CHLORIDE 0.9% 50 ML IV SCH (14:30)
[2018-09-24] MEDS: OXYCODONE HCL IR 5 MG TAB (IMMEDIATE RELEASE) PO PRN ×2 (15:10→23:23)
--- NOTE | 2018-09-24 16:48 | Nuclear Medicine Report ---
NM liver and spleen static CLINICAL HISTORY: 53 years-old Female presenting with encephalopathy. ?cirrhosis, history of cholecys tectomy. TECHNIQUE: Following the administration of 5.1 mCi of technetium 99m sulfur colloid, planar imaging w as performed 30 minutes after injection in multiple obliquities. COMPARISON: Correlation to CT of abdomen from 09/23/2018. FINDINGS: Expected dominant avidity of the liver with normal though lesser uptake within the splenic parenchyma . No evidence of a colloid shift to suggest hepatocellular dysfunction. No areas of photopenia or rad iotracer avidity within the liver. Faint visualization of radiotracer within the bone marrow as expected. Foci of uptake in the region o f the right antecubital fossa may relate to regional lymph node uptake. IMPRESSION: 1. No evidence of a hepatocellular dysfunction or a focal liver lesion. Electronically signed by: Erik Alejo M.D. 09/24/2018 4:46 PM
[2018-09-24 17:47] LABS: Anaplasma phagocytophila IgM <1:20 (<1:20)
[2018-09-24] MEDS: cephALEXin 500 MG CAP PO SCH (20:54)
--- NOTE | 2018-09-24 23:01 | Hospitalist Progress Note ---
Date of Service September 24, 2018 Assessment & Plan (1) Metabolic encephalopathy: This is a complex patient who has been on a gradual decline and getting weaker 10 days prior to hospitalist stay. It appears the main culprit is hepatic encephalopathy as ammonia level was elevated. Polypharmacy may be also playing a role as patient D/W intensiivist, cut back on multiple meds, such as narcotics, benzos, trazodone, sertraline (due to hepatic dysfnction) Patient is currently on lactulose. Patient's mental status has been improving. (2) Generalized weakness: May be due to early stage of hepatic encephalopathy Will continue to monitor. (3) Fall: Likely from metabolic encephalopathy (4) POTS (postural orthostatic tachycardia syndrome): Chronic Patient is currently tachycardic, may be due to withdrawal from opiates, will monitor. (5) Anemia: Check iron studies. Heme negative stool in ER will continue to monitor CBC. (6) EDS (Lilibeth-Danlos syndrome): Chronic. Stable -Continue to monitor (7) Hypothyroid: Chronic. Low TSH -Check T4 -Continue Synthroid, (8) Abnormal LFTs: Patient currently has evidence of child rizvi class B/C GI is consulted. ICU trying to transfer to tertiary center. Will continue to monitor. Ordering liver spleen test for portal hypertension. Ppx - Lovenox Spent 45 minutes in management of patient. Subjective 53 yo female currently in the ICU. Patient is more awake and alert. Patient is currently complaining of pain and is more alert today. She is concerned about being on less pain medicine. Review of Systems Review of Systems: Unobtainable due to reduced consciousness Physical Exam Physical Exam: General: patient is less lethargic today, does not appear to be in distress. Skin: warm, dry, intact, no rashes or lesions, brown reticular pattern on abdominal wall HEENT: NC/AT, PERRL, EOMI, anicteric sclera, conjunctiva without injection, external ear normal to inspection and nontender, nares patent, mucous memebranes appear dry, dentition intact, no oropharyngeal lesions, neck supple, trachea midline, no LAD, no thyromegaly, no JVD Heart: +S1/S2, regular, tachycardic, no m/r/g Lungs: equal air entry bilaterally, no rales/rhonchi/wheezes Abd: +BS, soft, NT/ND, no masses/organomegaly/ascites Ext: warm, 2+ pulses in UE/LE bilaterally, no clubbing/cyanosis or edema Neuro: more awake, nonfocal. Results & Data Vital Signs (Past 12 Hours) Vital Signs Temp Pulse BP Pulse Ox 09/24/18 18:46 121 H 09/24/18 17:00 131 H 139/72 99 09/24/18 16:29 36.8 C 124 H 132/80 100 09/24/18 16:00 123 H 09/24/18 15:00 117 H 119/71 100 09/24/18 14:00 116 H 132/65 100 09/24/18 13:00 117 H 121/75 100 09/24/18 12:01 133 H 129/78 100 (1) Anemia Anemia type: unspecified type Qualified Code(s): D64.9 - Anemia, unspecified (2) Hypothyroid Hypothyroidism type: unspecified Qualified Code(s): E03.9 - Hypothyroidism, unspecified (3) Fall Encounter type: initial encounter Qualified Code(s): W19.XXXA - Unspecified fall, initial encounter
[2018-09-25] MEDS: CHECK FENTANYL PATCH PLACEMENT SCH ×6 (00:41→16:22)
[2018-09-25] MEDS: PROMETHAZINE HCL 12.5 MG in SODIUM CHLORIDE 0.9% 50 ML IV PRN ×2 (01:45→09:43)
[2018-09-25] MEDS: ACETYLCYSTEINE 20% 200 MG/ML 30ML VIAL PO SCH ×5 (02:36→21:39)
--- NOTE | 2018-09-25 06:27 | Critical Care Progress Note ---
Date of Service September 25, 2018 Assessment & Plan (1) Opioid withdrawal: Per Dr. Yeh: Encephalopathy has largely resolved. We will continue the lactulose and rifaximin for the elevated ammonia. In discussion with [facility] and [facility] neither of which accepted patient in transfer they both believe that there is likely nutritional deficiencies which are contributing to the hepatic insufficiency as well as elevated INR. Her INR has normalized with vitamin K supplementation and her LFTs are also normalized. I am still concerned with the very significant polypharmacy and chronic heavy narcotic use without clear indication of reason for chronic opioid therapy. At this time we are continuing Xanax at half dose to prevent withdrawal, have discontinued baclofen and BuSpar we have restarted her Duragesic at home dose with oxycodone 10 mg IR for breakthrough pain at her home dose. Decreased her levothyroxine secondary to an elevated TSH and persistent tachycardia some of which I do believe is secondary to withdrawal. I have decreased her gabapentin in the setting of acute encephalopathy she was on 1200 mg 3 times daily we have cut that in half. We have discontinued Seroquel and Zoloft, we are not allowing her Imitrex which she takes as needed for headaches we have also discontinued trazodone. Now the patient complains of nausea only when she observes people inserting medication into her NG tube, when she does not realize medications are administered with the providers in the room distracting she is not nauseous. She is requesting Phenergan I am converting her Phenergan from IV to oral syrup. Again I do not believe at this time with additional laboratory analysis she is in acute liver failure and the deficiencies are likely secondary to nutritional deficiencies with poor intake secondary to gastric bypass and presumptive noncompliance with certain recommended medication regimens i.e. multivitamin supplementation. (2) Hypernatremia: (3) Hyperammonemia: Supervising Physician Co-Signing Physician Notes Dr. Coyne was resident physician during care of patient. I separately evaluated patient for casey portions of the history and the exam. I was present d uring the critical portion of medical decision making, and I discussed the case with the resident. I generally agree with the findings and plan. Encephalopathy has largely resolved. We will continue the lactulose and rifaximin for the elevated ammonia. In discussion with [facility] and [facility] hepatology neither of which accepted patient in transfer they both believe that there is likely nutritional deficiencies which are contributing to the hepatic insufficiency as well as elevated INR. Her INR has normalized with vitamin K supplementation and her LFTs are also normalized. I am still concerned with the very significant polypharmacy and chronic heavy narcotic use without clear indication of reason for chronic opioid therapy. At this time we are continuing Xanax at half dose to prevent withdrawal, have discontinued baclofen and BuSpar we have restarted her Duragesic at home dose with oxycodone 10 mg IR for breakthrough pain at her home dose. Decreased her levothyroxine secondary to an elevated TSH and persistent tachycardia some of which I do believe is secondary to withdrawal. I have decreased her gabapentin in the setting of acute encephalopathy she was on 1200 mg 3 times daily we have cut that in half. We have discontinued Seroquel and Zoloft, we are not allowing her Imitrex which she takes as needed for headaches we have also discontinued trazodone. Now the patient complains of nausea only when she observes people inserting medication into her NG tube, when she does not realize medications are administered with the providers in the room distracting she is not nauseous. She is requesting Phenergan I am converting her Phenergan from IV to oral syrup. I have discussed the case with gastroenterology, as well as the hospitalist medicine and putting her for transfer to remote telemetry. Again I do not believe at this time with additional laboratory analysis she is in acute liver failure and the deficiencies are likely secondary to nutritional deficiencies with poor intake secondary to gastric bypass and presumptive noncompliance with certain recommended medication regimens i.e. multivitamin supplementation. Mack Mayer is feeling okay today. She is still concerned about withdrawal from her narcotics, but she is mentating well. No episodes of confusion or perseveration. Review of Systems Review of Systems: All systems reviewed & are unremarkable except as noted in HPI & below Physical Exam Constitutional: + ill appearing, + cachectic and + frail appearing Respiratory: normal respiratory effort, lungs clear to auscultation Cardiovascular: RRR, no murmur, no edema Gastrointestinal (Abdomen): normal bowel sounds, soft, nontender, no hepa tosplenomegaly Results & Data Vital Signs (Past 12 Hours) Vital Signs Temp Pulse Resp BP Pulse Ox 09/25/18 06:00 123 H 20 121/73 100 09/25/18 05:00 115 H 119/64 100 09/25/18 04:00 116 H 111/73 98 09/25/18 03:00 117 H 18 121/68 100 09/25/18 02:00 121 H 117/63 99 09/25/18 00:00 37.0 C 123 H 123/64 98 09/24/18 23:00 127 H 22 117/75 98 09/24/18 22:00 129 H 20 130/72 99 09/24/18 21:00 36.8 C 122 H 20 113/73 09/24/18 19:02 123 H 123/70 100 09/24/18 18:46 121 H
[2018-09-25] MEDS: LEVOTHYROXINE SODIUM 75 MCG TABLET PO SCH (06:30)
[2018-09-25] MEDS: LACTULOSE SYRUP 30 GM/45 ML UDP PO SCH ×3 (06:30→21:42)
[2018-09-25] MEDS: OXYCODONE HCL IR 5 MG TAB (IMMEDIATE RELEASE) PO PRN ×2 (07:30→23:59)
[2018-09-25] MEDS: PANTOprazole 40 MG TAB PO SCH (09:27)
[2018-09-25] MEDS: FOLIC ACID 1 MG TAB PO SCH (09:27)
[2018-09-25] MEDS: cephALEXin 500 MG CAP PO SCH ×2 (09:28→21:19)
[2018-09-25] MEDS: ENOXAPARIN INJ 40 MG/0.4 ML SYR SQ SCH (09:28)
[2018-09-25] MEDS: RIFAXIMIN 550 MG TABLET PO SCH ×2 (09:29→21:19)
[2018-09-25] MEDS: ASCORBIC ACID 500 MG TAB PO SCH (09:29)
[2018-09-25] MEDS: GABAPENTIN 250 MG/5 ML 470 ML BTL PO SCH ×3 (09:31→21:19)
[2018-09-25] MEDS: MAGNESIUM OXIDE 400 MG TAB PO SCH ×2 (09:31→21:19)
[2018-09-25 09:59] LABS: INR 1.1 (0.9-1.1); Prothrombin Time 11.4 Seconds (9.0-12.0)
[2018-09-25 10:15] LABS: Albumin Globulin Ratio 0.5 (0.9-2); Albumin Level 1.7 gm/dl (3.4-5.0); BUN Creatinine Ratio 3.4 (10-20); Bilirubin,Total 0.4 mg/dl (0.2-1); Calcium 7.7 mg/dl (8.5-10.1); Creatinine Clr Calc Pharmacy 167.8 ml/min; Est GFR (African American) 147.9; Est GFR (Non-African American) 127.6; Globulin 3.4 gm/dl (2.5-4.0); Potassium 2.5 mmol/L (3.5-5.1); Total Protein 5.1 gm/dl (6.4-8.2)
[2018-09-25] MEDS ORDERED: POTASSIUM CHLORIDE 20 MEQ/15 ML UDC PO STA (10:15)
[2018-09-25] MEDS ORDERED: PROMETHAZINE HCL 12.5 MG/10 ML UDP PO PRN (10:15)
--- NOTE | 2018-09-25 10:31 | Gastroenterology Progress Note ---
Date of Service September 25, 2018 Assessment & Plan (1) Metabolic encephalopathy: With normal CT imaging of the liver and normal liver spleen scan, no evidence of hepatic dysfunction as etiology for encephalopathy. INR was normalized. Pending GI work up with autoantibodies and ceruloplasmin. Will sign off at this time. Supervising Physician Co-Signing Physician Notes Agree with ASHLEIGH Henson as above Abd: Soft, NT, ND, +BS No evidence of chronic liver disease on labs or imaging Ammonia may be elevated secondary to infection versus medications Continue supportive care Subjective Patient reports feeling better today. Improved strength. No episodes of confusion or mental status changes. INR has normalized overnight and was 1.1 today. Liver spleen scan was negative for hepatocellular dysfunction. Review of Systems Respiratory: no problem reported Cardiovascular: no problem reported Gastrointestinal: no problem reported Musculoskeletal: + back pain Physical Exam Constitutional: WD/WN, vitals as above Gastrointestinal (Abdomen): Inspection/Auscultation: abdomen normal to inspection and normal bowel sounds Percussion/Palpation: abdomen soft; abdomen nontender Results & Data Vital Signs (Past 12 Hours) Vital Signs Temp Pulse Resp BP Pulse Ox 09/25/18 06:00 123 H 20 121/73 100 09/25/18 05:00 115 H 119/64 100 09/25/18 04:00 116 H 111/73 98 09/25/18 03:00 117 H 18 121/68 100 09/25/18 02:00 121 H 117/63 99 09/25/18 00:00 37.0 C 123 H 123/64 98 09/24/18 23:00 127 H 22 117/75 98 Laboratory Results Abnormal lab results 09/24/18 09/25/18 Range/Units 10:30 09:06 PT 20.1 H (9.0-12.0) Seconds INR 2.1 H (0.9-1.1) Sodium 153 H (136-145) mmol/L Potassium 2.5 L* D (3.5-5.1) mmol/L Chloride 123 H (98-107) mmol/L Carbon Dioxide 20 L (21-32) mmol/L BUN 1 L (7-18) mg/dl Creatinine 0.33 L (0.6-1.2) mg/dl BUN/Creatinine Ratio 3.4 L (10-20) Glucose 114 H (70-99) mg/dl Calcium 7.7 L (8.5-10.1) mg/dl Alkaline Phosphatase 280 H (45-117) U/L Total Protein 5.1 L (6.4-8.2) gm/dl Albumin 1.7 L (3.4-5.0) gm/dl Albumin/Globulin Ratio 0.5 L (0.9-2)
[2018-09-25] MEDS ORDERED: LORazepam 1 MG/2 ML VIAL IV STA (11:23)
[2018-09-25] MEDS ORDERED: LORazepam 2 MG/4 ML VIAL ONE (11:24)
--- NOTE | 2018-09-25 13:15 | Communication Note ---
Date of service: 09/22/18 Patient was seen and examined on the date of her admission. She states that she has Lilibeth Danlos syndrome and tethered cord syndrome. She has been following with specialists that work outside of this hospital system. She states that she normally is weak and does physical therapy as an outpatient. She also reports that her weakness has worsened over the past 10 days. Up to the point where she can no longer walk. Her states that she was like this prior to working PT, but she had been improving. She is unsure what is causing this worsening. During extended conversaton, stated that will obtain a neuro consult. Her exam did not show any neurological cn findings, her strength was 5/5 but there was some giveway. Will review her outpatient records from [facility]. Spent an additonal 70 minutes in management of patient.
[2018-09-25] MEDS ORDERED: METOPROLOL TARTRATE 1 MG/ML VIAL IV STA (14:40)
[2018-09-25] MEDS ORDERED: THIAMINE HCL 100 MG in SYRINGE 9 ML IV STA (15:18)
[2018-09-25] MEDS ORDERED: IMPACT LIQD 1.0 CAL 1,000 ML BAG NG SCH (15:30)
[2018-09-25] MEDS: POTASSIUM CHLORIDE / WTR 10 MEQ/100 ML PLCT IV SCH ×4 (17:13→19:40)
[2018-09-25] MEDS: D5W AND 1/2NSS + 40MEQ KCL 40 MEQ/1,000 ML BAG IV SCH (18:09)
[2018-09-25] MEDS: METOPROLOL TARTRATE 1 MG/ML VIAL IV SCH (18:47)
[2018-09-25] MEDS ORDERED: ACETAMINOPHEN 325 MG TAB PO STA (20:48)
[2018-09-25] MEDS: POTASSIUM CHLORIDE 20 MEQ/15 ML UDC PO SCH (21:19)
--- NOTE | 2018-09-25 21:24 | XRay Report ---
XR chest 1V portable HISTORY: 53 years-old Female fever, r/o infection acute fever COMPARISON: Chest radiograph 09/21/2018, CT abdomen and pelvis 09/23/2017 TECHNIQUE: Portable AP view of the chest FINDINGS: Enteric tube is noted, distal tip projecting over the abdominal left upper quadrant within the expect ed location of the gastric lumen. Cardiomediastinal and hilar silhouettes are within normal limits. T here is no pneumothorax, large pleural effusion, focal airspace consolidation or overt pulmonary negro a. Possible trace pleural effusions. [place] over the upper abdomen. Bones appear grossly int act. IMPRESSION: No acute process. The above report was generated using voice recognition software. It may contain grammatical, syntax o r spelling errors. Electronically signed by: Troy Davis M.D. 09/25/2018 9:22 PM
--- NOTE | 2018-09-25 22:57 | Hospitalist Progress Note ---
Date of Service September 25, 2018 Assessment & Plan (1) Metabolic encephalopathy: This is a complex patient who has been on a gradual decline and getting weaker 10 days prior to hospitalist stay. It appears the main culprit is hepatic encephalopathy as ammonia level was elevated. Polypharmacy may be also playing a role as patient D/W intensiivist, cut back on multiple meds, such as narcotics, benzos, trazodone, sertraline (due to hepatic dysfnction) Patient is currently on lactulose. Patient's mental status has been improving. (2) Generalized weakness: May be due to early stage of hepatic encephalopathy Will continue to monitor. (3) Fall: Likely from metabolic encephalopathy (4) POTS (postural orthostatic tachycardia syndrome): Chronic Patient is currently tachycardic, may be due to withdrawal from opiates, will monitor. Placed patient on overnight beta blockers. (5) Anemia: hemoglobin has been relatively stable. (6) EDS (Lilibeth-Danlos syndrome): Chronic. Stable -Continue to monitor (7) Hypothyroid: Chronic. Low TSH -Check T4 -Continue Synthroid, may need dose adjustment (8) Hypernatremia: Patient is having acute hypernatremia. Likely from lactulose and GI loss. Interesting enough, creatinine has not worsened. Fluid deficit at this moment calculated at [address] on 100 ml per hour of D5 water. (9) Opioid withdrawal: Patient has been tachycardic, will continue to monitor. Placed on standing order of beta cali IV. will continue to monitor. (10) Abnormal LFTs: Has been gradually improving. Ppx - Dianex Spent 35 minutes in management of patient. Subjective Patient reports feeling better today. Patient does not appear to be complaining of significant pain while I am in the room. Nurse has explained though that patient has been tachycardic throughout the day. D/W seat covers trimmer, will transfer patient out of ICU as patient is no longer confused. Review of Systems Constitutional: + body aches; no fever Eyes: no blind spots and no discharge Ear, Nose, Mouth, Throat: no tinnitus and no dizziness Respiratory: no cough and no dyspnea Cardiovascular: no chest pain Gastrointestinal: no abdominal pain Musculoskeletal: + back pain; no loss of height Neurologic: + gait abnormality and + loss of sensation Endocrine: no fatigue Hematologic / Lymphatic: no easy bleeding Physical Exam Physical Exam: General: patient is less lethargic today, does not appear to be in distress. Skin: warm, dry, intact, no rashes or lesions, brown reticular pattern on abdominal wall HEENT: NC/AT, PERRL, EOMI, anicteric sclera, conjunctiva without injection, external ear normal to inspection and nontender, nares patent, mucous memebranes appear dry, dentition intact, no oropharyngeal lesions, neck supple, trachea midline, no LAD, no thyromegaly, no JVD Heart: +S1/S2, regular, tachycardic, no m/r/g Lungs: equal air entry bilaterally, no rales/rhonchi/wheezes Abd: +BS, soft, NT/ND, no masses/organomegaly/ascites Ext: warm, 2+ pulses in UE/LE bilaterally, no clubbing/cyanosis or edema Neuro: more awake, nonfocal. Results & Data Vital Signs (Past 12 Hours) Vital Signs Temp Pulse Pulse Resp BP BP Pulse Ox 09/25/18 19:57 38 C H 120 H 22 125/76 98 09/25/18 18:47 136 H 09/25/18 15:29 132 H 09/25/18 14:46 37.4 C 127 H 18 122/74 97 09/25/18 12:00 130 H 109/64 96 09/25/18 11:00 142 H 117/71 100 (1) Anemia Anemia type: unspecified type Qualified Code(s): D64.9 - Anemia, unspecified (2) Hypothyroid Hypothyroidism type: unspecified Qualified Code(s): E03.9 - Hypothyroidism, unspecified (3) Fall Encounter type: initial encounter Qualified Code(s): W19.XXXA - Unspecified fall, initial encounter
[2018-09-26] MEDS: ACETYLCYSTEINE 20% 200 MG/ML 30ML VIAL PO SCH ×8 (00:04→21:10)
[2018-09-26] MEDS: CHECK FENTANYL PATCH PLACEMENT SCH ×6 (00:20→16:05)
[2018-09-26] MEDS: METOPROLOL TARTRATE 1 MG/ML VIAL IV SCH ×4 (04:03→12:01)
[2018-09-26] MEDS: D5W AND 1/2NSS + 40MEQ KCL 40 MEQ/1,000 ML BAG IV SCH ×3 (04:53→16:05)
[2018-09-26] MEDS: LEVOTHYROXINE SODIUM 75 MCG TABLET PO SCH (06:04)
[2018-09-26] MEDS: LACTULOSE SYRUP 30 GM/45 ML UDP PO SCH (06:04)
[2018-09-26 07:42] LABS: INR 1.1 (0.9-1.1); Prothrombin Time 11.6 Seconds (9.0-12.0)
[2018-09-26 07:57] LABS: Albumin Level 2.1 gm/dl (3.4-5.0); BUN Creatinine Ratio 2.6 (10-20); Calcium 8.3 mg/dl (8.5-10.1); Creatinine Clr Calc Pharmacy 74.5 ml/min; Est GFR (African American) 115.5; Est GFR (Non-African American) 99.6; Potassium 3.2 mmol/L (3.5-5.1)
[2018-09-26] MEDS: RIFAXIMIN 550 MG TABLET PO SCH ×2 (07:59→21:00)
[2018-09-26] MEDS: ASCORBIC ACID 500 MG TAB PO SCH (08:01)
[2018-09-26 08:02] LABS: Albumin Globulin Ratio 0.6 (0.9-2); Bilirubin,Total 0.4 mg/dl (0.2-1); Globulin 3.5 gm/dl (2.5-4.0); Total Protein 5.6 gm/dl (6.4-8.2)
[2018-09-26] MEDS: GABAPENTIN 250 MG/5 ML 470 ML BTL PO SCH ×3 (08:04→21:10)
[2018-09-26] MEDS: cephALEXin 500 MG CAP PO SCH ×2 (08:05→20:59)
[2018-09-26] MEDS: FOLIC ACID 1 MG TAB PO SCH (08:07)
[2018-09-26] MEDS: POTASSIUM CHLORIDE 20 MEQ/15 ML UDC PO SCH ×2 (08:07→21:02)
[2018-09-26] MEDS: ENOXAPARIN INJ 40 MG/0.4 ML SYR SQ SCH (08:09)
[2018-09-26] MEDS: MAGNESIUM OXIDE 400 MG TAB PO SCH ×2 (08:09→21:01)
[2018-09-26] MEDS ORDERED: Nursing to Pharmacy Communication ONE (08:19)
[2018-09-26] MEDS ORDERED: DEXTROSE 5% 1,000 ML IV SCH ×2 (08:30→19:00)
[2018-09-26 08:51] LABS: Hematocrit (blood only) 31.5 % (37-47); Hemoglobin 10.3 g/dL (12.0-16.0); Mean Corpuscular Hgb Conc 32.7 g/dL (32-36); Mean Corpuscular Volume 94.6 fL (80-100); Mean Platelet Volume 10.4 fL (7.4-10.4); Platelet Count 335 K/uL (130-400); RDW Coefficient of Variation 14.7 % (11.5-14.5); RDW Standard Deviation 50.5 fL (36.4-46.3); Red Blood Count 3.33 M/uL (4.2-5.4); White Blood Count 4.04 K/uL (4.8-10.8)
[2018-09-26 08:59] LABS: Base Excess VBG -5.9 mEq/L; Oxygen Saturation VBG 94.7 %; pH VBG 7.48 (7.36-7.41)
[2018-09-26] MEDS ORDERED: FIBERSOURCE HN 1.2 CAL 1000 ML BAG PO SCH (09:00)
[2018-09-26 09:43] LABS: BUN Creatinine Ratio 2.9 (10-20); Calcium 8.1 mg/dl (8.5-10.1); Creatinine Clr Calc Pharmacy 89.9 ml/min; Est GFR (African American) 122.8; Potassium 3.7 mmol/L (3.5-5.1)
[2018-09-26 10:11] LABS: Appearance Urine Clear (Clear); Bilirubin Urine Negative (Negative); Blood Urine Negative (Negative); Color Urine Yellow; Glucose Urine UA Negative (Negative); Ketones Urine Trace (Negative); Leukocyte Esterase Urine Negative (Negative); Nitrite Urine Negative (Negative); Protein Urine Negative (Negative); Specific Gravity Urine 1.027 (1.000-1.030); Urobilinogen Urine Negative (Negative)
[2018-09-26] MEDS: LANSOPRAZOLE 30 MG SOLTAB NG SCH (10:26)
[2018-09-26 11:35] LABS: BUN Creatinine Ratio 2.7 (10-20); Calcium 7.7 mg/dl (8.5-10.1); Creatinine Clr Calc Pharmacy 86.9 ml/min; Est GFR (African American) 121.5; Est GFR (Non-African American) 104.8; Potassium 3.3 mmol/L (3.5-5.1)
[2018-09-26 13:45] LABS: BUN Creatinine Ratio 2.1 (10-20); Calcium 7.8 mg/dl (8.5-10.1); Creatinine Clr Calc Pharmacy 94.8 ml/min; Est GFR (Non-African American) 107.8; Magnesium 2.1 mg/dl (1.8-2.4); Phosphorus 1.6 mg/dl (2.5-4.9); Potassium 3.6 mmol/L (3.5-5.1)
[2018-09-26] MEDS ORDERED: POT PHOSPHATE MONOBASIC W/ SOD TAB PO SCH (17:00)
[2018-09-26] MEDS: OXYCODONE HCL IR 5 MG TAB (IMMEDIATE RELEASE) PO PRN (17:04)
[2018-09-26 17:06] LABS: BUN Creatinine Ratio 2.4 (10-20); Calcium 7.8 mg/dl (8.5-10.1); Creatinine Clr Calc Pharmacy 104.3 ml/min; Est GFR (Non-African American) 111.3; Potassium 3.6 mmol/L (3.5-5.1)
[2018-09-26] MEDS ORDERED: LORazepam 1 MG/2 ML VIAL IV STA (18:22)
[2018-09-26] MEDS ORDERED: POTASSIUM PHOS 3 MMOL/1 ML INFUSION IV STA ×2 (18:53→20:39)
[2018-09-26] MEDS: fentaNYL 100 MCG/HR TDSY TD SCH (19:00)
[2018-09-26] MEDS ORDERED: POTASSIUM PHOSPHATE 21 MMOL in SODIUM CHLORIDE 0.9% 500 ML IV ONE (19:00)
[2018-09-26] MEDS: fentaNYL 12 MCG/HR TDSY TD SCH (19:00)
[2018-09-26 19:57] LABS: BUN Creatinine Ratio 3.5 (10-20); Calcium 7.6 mg/dl (8.5-10.1); Est GFR (African American) 131.6; Est GFR (Non-African American) 113.6; Potassium 3.6 mmol/L (3.5-5.1)
--- NOTE | 2018-09-26 20:11 | Hospitalist Progress Note ---
Date of Service September 26, 2018 Assessment & Plan (1) Hypernatremia: Patient is having acute hypernatremia. Likely from lactulose and GI loss. Interesting enough, creatinine has mildly worsened today, still normal range. Fluid deficit at this moment calculated at [address] on 250 ml per hour of D5 water. Will check BMP q2h. Na is 165, has improved to 160 at 20:00. (2) Metabolic encephalopathy: This is a complex patient who has been on a gradual decline and getting weaker 10 days prior to hospitalist stay. It appears the main culprit is hepatic encephalopathy as ammonia level was elevated. Polypharmacy may be also playing a role as patient Currently her ammonia has improved to 44. Her confusion now may be due to her hypernatremia. Will be checking her bmp q2h. Had discussion with . D/W intensiivist, cut back on multiple meds, such as narcotics, benzos, trazodone, sertraline (due to hepatic dysfnction) Patient is currently on lactulose. Patient's mental status has been improving. (3) Generalized weakness: May be due to early stage of hepatic encephalopathy Will continue to monitor. (4) Fall: Likely from metabolic encephalopathy (5) POTS (postural orthostatic tachycardia syndrome): Chronic Patient is currently tachycardic, may be due to withdrawal from opiates, will monitor. Placed patient on overnight beta blockers. (6) Anemia: hemoglobin has been relatively stable. (7) EDS (Lilibeth-Danlos syndrome): Chronic. Stable -Continue to monitor (8) Hypothyroid: Chronic. Low TSH -Check T4 -Continue Synthroid, (9) Opioid withdrawal: Patient 's tchycardia has improved. Will cut back betablockers. Placed fentabyl q2d as this is her norm as an outpatient. Given her tremors, will try to maintain her outpatient regimen. Will also place patient on one dose of lorazepam. Due to tremors and possible seizures, had discussion with analytical lead. will transfer back to ICU. Placed on standing order of beta cali IV. will continue to monitor. (10) Abnormal LFTs: Has been gradually improving. Ppx - Lovenox Spent 150 minutes in management of patient. 7:50 to 9:00 10:00 to 10:30 13:40 to 13:55 16:05 to 16:20 18:50 to 19:10 Subjective 53 yo female appears to be more confused today. She had a rough night last night. Had multiple discussions with , who is asking for fentanyl to be switched to q2d. Explained to him that she is taking a large amount of opiates and this could be playing a rolse in her state. Ultimately understands what is being said, but requests resuming outpatient regimen. Review of Systems Review of Systems: All systems reviewed & are unremarkable except as noted in HPI & below Physical Exam Physical Exam: General: Patient is more confused today. Skin: warm, dry, intact, no rashes or lesions, brown reticular pattern on abdominal wall HEENT: NC/AT, PERRL, EOMI, anicteric sclera, conjunctiva without injection, external ear normal to inspection and nontender, nares patent, mucous memebranes appear dry, dentition intact, no oropharyngeal lesions, neck supple, trachea midline, no LAD, no thyromegaly, no JVD Heart: +S1/S2, regular, tachycardic, no m/r/g Lungs: equal air entry bilaterally, no rales/rhonchi/wheezes Abd: +BS, soft, NT/ND, no masses/organomegaly/ascites Ext: warm, 2+ pulses in UE/LE bilaterally, no clubbing/cyanosis or edema Neuro: more awake, nonfocal. Results & Data Vital Signs (Past 12 Hours) Vital Signs Temp Pulse Pulse Resp BP BP BP 09/26/18 16:00 68 09/26/18 14:55 37 C 84 18 132/78 09/26/18 12:02 37.1 C 91 H 16 137/83 09/26/18 12:01 91 H 137/83 Pulse Ox 09/26/18 16:00 09/26/18 14:55 97 09/26/18 12:02 97 09/26/18 12:01 (1) Anemia Anemia type: unspecified type Qualified Code(s): D64.9 - Anemia, unspecified (2) Hypothyroid Hypothyroidism type: unspecified Qualified Code(s): E03.9 - Hypothyroidism, unspecified (3) Fall Encounter type: initial encounter Qualified Code(s): W19.XXXA - Unspecified fall, initial encounter
[2018-09-26] MEDS ORDERED: POTASSIUM PHOSPHATE 24 MMOL in SODIUM CHLORIDE 0.9% 500 ML IV ONE (21:00)
[2018-09-26] MEDS: METOPROLOL TARTRATE 25 MG TAB PO SCH (21:06)
--- NOTE | 2018-09-26 21:18 | Critical Care Progress Note ---
Date of Service September 26, 2018 Assessment & Plan (1) Hyperammonemia: Reason Critically Ill: 53-year-old female who presents to the ICU with acute encephalopathy, metabolic acidosis, and acute liver failure. Neuro - [facility] ICU: Negative Encephalopathy/acute liver failure/metabolic acidosis -Ammonia 41.7 Improving - LFTs?transaminitis: nearly normalized - INR 1.1 -Hepatic ultrasound showed mild steatotis -CT abdomen showed mild intrahepatic biliary ductal dilation, patient is S/P cholecystectomy from 1991 -Hepatitis panel reviewed, Tylenol negative - Discontinue mucomyst Continue rifaximin -Discontinue lactulose reported possible seizure like activity. - decreased BZ dose - decreased Gabapentin dose - THere was no described post-ictal period, altered MS likely metabolic: hypernatremia Generalized weaknesspatient has had generalized and bilateral lower extremity weakness ongoing for 2 weeks and incontinence -Unknown origin, may be secondary to metabolic encephalopathy from liver failure or from overmedication On physcial exam strength completely intact bilaterally for upper and lower limbs -Sacral fracture may be contributing lower extremity weakness, Ortho consulted and not candidate for surgery per note -Cervical and thoracic MRIs reviewed -Patient has history of herniated nucleolus, MRI from 2018 showed - negative for post void residual volume Cardiac - Postural orthostatic tachycardia syndromepatient takes midodrine at home, will continue home dose REmained tachycardic throughout day - monitor on telemetry Respiratory - Maintaining sats on room air and airway, of note patient unable to be intubated with standard laryngoscope secondary to cervical herniated nucleus pulposis with myelopathy NIF of -60 2-70 per respiratory GI - transminitis: likely related to nutritional deficiiencies: improving RENAL/LYTES - Creatinine/BUN stable, - Hyperntremia Free water via NG tube - 1.5 L free water deficit. - 250Ml free water flushed via NG q6 hours - increase impact to 30mL continuous incresing by 10 mL every 4 hours to goal of 50. - UTI: finishing course with keflex ENDO - HypothyroidismDecreasing home dose of synthroid by 25% due to low TSH HEME - Iron deficiency anemiaH&H stable, will monitor with routine CBCs LINES/IV ACCESS - Peripheral IV x2, OGT DVT PROPHYLAXIS - (2) Acute liver failure: (3) Metabolic encephalopathy: (4) Incontinence: (5) Fatigue: (6) Thyroid dysfunction: Supervising Physician Co-Signing Physician Notes Dr. Coyne was resident physician during care of patient. I separately evaluated patient for casey portions of the history and the exam. I was present during the critical portion of medical decision making, and I discussed the case with the resident. I generally agree with the findings and plan. Worsening encephalopathy most likely metabolic secondary to electrolyte derangements. Holding lactulose as patient having loose stool and likely contributing to volume depletion. Hypernatremia 160-159, patient critically ill due to severe electrolyte abnormalities. I have personally spent 30 minutes of critical care time in the direct management of this patient. This is a life/limb threatening event. This includes time spent evaluating patient, direct bedside care, chart review, placing orders, interpretation of diagnostic studies, discussion with consultants, patient, and/or family members regarding treatment decisions, as well as other required patient management activities. This time is exclusive of all separately billable procedures, and teaching time and separate from and in addition to any other critical care service time. Subjective Leyla with altered mental status today and transferred back to ICU. Not able to tell me much of a subjective history. Her tells me she was sent down after having an episode of thrashing about after having an episode of diarrhea that he says was more of a tantrum for her and trying to get out of it. He said he was told it might have represented seizure activity so he was brought back to the ICU. Review of Systems Review of Systems: Unobtainable due to cognitive status Physical Exam Constitutional: + ill appearing, + thin, + cachectic and + frail appearing; no acute distress and + uncomfortable Respiratory: normal respiratory effort, lungs clear to auscultation normal respiratory effort; no respiratory distress Auscultation: lungs clear to auscultation bilaterally Cardiovascular: RRR, no murmur, no edema Gastrointestinal (Abdomen): normal bowel sounds, soft, nontender, no hepatosplenomegaly Inspection/Auscultation: abdomen normal to inspection Percussion/Palpation: abdomen soft; abdomen nontender Neurologic: Patient not participating with neuro exam, appears to voluntarily use all muscles of face and neck, eye tracking intact. Fasciculations of her facial muscles continuous. Patient's pupils equal and accommodating. Unable to assess sensation. Results & Data Vital Signs (Past 12 Hours) Vital Signs Temp Pulse Pulse Resp BP BP BP 09/26/18 16:00 68 09/26/18 14:55 37 C 84 18 132/78 09/26/18 12:02 37.1 C 91 H 16 137/83 09/26/18 12:01 91 H 137/83 Pulse Ox 09/26/18 16:00 09/26/18 14:55 97 09/26/18 12:02 97 09/26/18 12:01 Critical Care Time Critical Care Time: Yes Total Critical Care Time: 30
[2018-09-26 23:06] LABS: BUN Creatinine Ratio 4.2 (10-20); Calcium 7.7 mg/dl (8.5-10.1); Creatinine Clr Calc Pharmacy 137.2 ml/min; Est GFR (African American) 141.2; Est GFR (Non-African American) 121.8; Phosphorus 3.2 mg/dl (2.5-4.9); Potassium 4.2 mmol/L (3.5-5.1)
[2018-09-27] MEDS: CHECK FENTANYL PATCH PLACEMENT SCH ×6 (01:03→16:59)
[2018-09-27 04:49] LABS: INR 1.2 (0.9-1.1); Prothrombin Time 11.7 Seconds (9.0-12.0)
[2018-09-27 05:31] LABS: Albumin Globulin Ratio 0.6 (0.9-2); BUN Creatinine Ratio 3.1 (10-20); Bilirubin,Total 0.3 mg/dl (0.2-1); Calcium 7.6 mg/dl (8.5-10.1); Creatinine Clr Calc Pharmacy 121.3 ml/min; Est GFR (African American) 135.5; Est GFR (Non-African American) 116.9; Globulin 3.2 gm/dl (2.5-4.0); Magnesium 2.1 mg/dl (1.8-2.4); Phosphorus 3.8 mg/dl (2.5-4.9); Potassium 4.3 mmol/L (3.5-5.1); Total Protein 5.2 gm/dl (6.4-8.2)
[2018-09-27] MEDS ORDERED: LORazepam 2 MG/4 ML VIAL IV STA (06:04)
[2018-09-27] MEDS ORDERED: LORazepam 2 MG/4 ML VIAL ONE (06:05)
--- NOTE | 2018-09-27 06:21 | Progress Note ---
Date of Service September 27, 2018 Subjective Called by nurse for witnessed seizure activity. Patient with rhythmic tonic clonic movement of head and RUE. Not following commands -Ativan 2mg IV given with resolution of seizure activity Patient remained hemodynamically stable, following commands, asked nurse "what happened?", does not appear to be post-ictal Assessment/Plan: Seizure - most likely multifactorial, metabolic in setting on hypernatremia. Concern for withdrawal -Ativan PRN added for seizure activity Results & Data Vital Signs (Past 12 Hours) Vital Signs Temp Pulse Resp BP Pulse Ox 09/27/18 04:00 76 14 115/72 97 09/27/18 03:31 72 18 113/64 98 09/27/18 03:01 79 20 125/73 98 09/27/18 02:40 77 20 139/62 09/27/18 02:01 76 15 137/59 L 99 09/27/18 01:30 82 20 117/68 98 09/27/18 01:02 115 H 25 H 128/78 98 09/27/18 00:30 82 17 125/72 100 09/27/18 00:00 83 20 116/63 97 09/26/18 23:30 80 21 129/78 99 09/26/18 23:00 78 12 121/67 99 09/26/18 22:30 95 H 15 130/71 99 09/26/18 22:01 79 18 114/65 98 09/26/18 21:52 37 C 118 H 18 124/73 99 09/26/18 21:30 118 H 18 124/73 99 09/26/18 21:11 91 H 22 130/76 99 09/26/18 20:04 72 17 115/63 99
[2018-09-27] MEDS: LEVOTHYROXINE SODIUM 75 MCG TABLET PO SCH (06:35)
[2018-09-27] MEDS: POTASSIUM CHLORIDE 20 MEQ/15 ML UDC PO SCH ×2 (09:17→21:03)
[2018-09-27] MEDS: RIFAXIMIN 550 MG TABLET PO SCH ×2 (09:18→21:04)
[2018-09-27] MEDS: LANSOPRAZOLE 30 MG SOLTAB NG SCH (09:18)
[2018-09-27] MEDS: ASCORBIC ACID 500 MG TAB PO SCH (09:19)
[2018-09-27] MEDS: MAGNESIUM OXIDE 400 MG TAB PO SCH ×2 (09:20→21:02)
[2018-09-27] MEDS: METOPROLOL TARTRATE 25 MG TAB PO SCH ×2 (09:21→21:03)
[2018-09-27] MEDS: cephALEXin 500 MG CAP PO SCH ×2 (09:21→21:02)
[2018-09-27] MEDS: FOLIC ACID 1 MG TAB PO SCH (09:22)
[2018-09-27] MEDS: ENOXAPARIN INJ 40 MG/0.4 ML SYR SQ SCH (09:22)
[2018-09-27] MEDS: GABAPENTIN 250 MG/5 ML 470 ML BTL PO SCH ×4 (09:33→21:22)
--- NOTE | 2018-09-27 10:46 | Neurology Progress Note ---
Date of Service September 27, 2018 Assessment & Plan (1) Metabolic encephalopathy: Patient has an acute encephalopathy likely metabolic. She does not appear to be withdrawing currently, but her gabapentin dose on admission was very high and she was cut back to 50% of the dosage during the hospitalization. She was on fairly high doses of acetazolamide and this was stopped as well. She was on a number of psychiatric medications which were discontinued her decreased. Overall, she likely has the encephalopathy from hyponatremia. Hepatic encephalopathy is likely contributing although her ammonia is improving nicely. He may take 48 hours or so for the brain to recover once a laboratory parameter goes back to the normal range. There are no focal findings on examination and she does not appear to be seizing. She has no meningeal signs. (2) Generalized weakness: Patient presented with generalized weakness of a progressive nature over 10 days. Etiology of this was not readily apparent, but I suspected a general weakness from hepatic encephalopathy and urinary tract infection. On exam I have not seen any focal neurologic findings. In fact, her exam had fairly intact strength and some giveaway weakness (not convinced she was giving maximum effort). I do not believe there is an underlying myopathy and her CK was largely normal (217 is not that high). Her pattern of weakness was diffuse and not proximal anyway. She does have some signs of generalized polyneuropathy as noted by some decreased sensation distally in the legs and some absent ankle reflexes. This could give her a sensory ataxia and add to her balance issues. Patient has considerable generalized fatigue and easy fatigability. Hepatic encephalopathy any urinary tract infection can add to this. There is no diagnosis of myasthenia gravis (even though she takes pyridostigmine for muscle strength). She has iron deficiency anemia which could easily add to her fatigue. Her no other specific laboratory abnormalities directly related to fatigue otherwise. Patient has a longstanding history of psychiatric issues including depression and anxiety, OCD, and bipolar disorder. She is on multiple psychiatric medications. According to the patient, her mood is stable. When I 1st saw her, I could not exclude a psychiatric origin to some of the symptoms she is displaying. Overall, I believe the patient was overmedicated and has significant polypharmacy. She is taking multiple narcotic medications as well in addition to benzodiazepines. (3) Incontinence: She has progressive incontinence of urine and more recently incontinence of bowel (which is new). This may be a lower motor neuron problem from her lumbosacral spine but she does not have any radicular symptomatology otherwise. She does not have any other upper motor neuron signs on examination and MRIs of the cervical and thoracic spine showed no cord lesions or myelopathy. (4) Intractable headache: Patient has a longstanding history of intermittent migrainous headaches. She now has chronic comma intermittent, mixed headache types with migraines and headaches associated with her cervical spine and intracranial pressure. She takes acetazolamide which could actually exacerbate headaches but would treat increased intracranial pressure. Overall, she feels that acetazolamide has helped. In addition, acetazolamide could lead to electrolyte abnormalities. This was discontinued. It is possible to have a rebound hyponatremia from discontinuation of acetazolamide (rebound salt/water retention). (5) History of brain surgery: Patient has a history of Chiari malformation surgery in 2010. Her lightheadedness/dizziness conceivably could be related to this as could her horizontal nystagmus, but her anatomy has been stable with subsequent imaging showing no issues that would create intracranial pressure problems. (6) Herniated nucleus pulposus with myelopathy, cervical: Patient has a history of C5-6 micro diskectomy in 2014. In 2016 she had C1 to fusion. Most recent MRI in October of 2017 showed a disc bulge at C6-7. MRIs did not show any evidence of processes that could create myelopathy. (7) POTS (postural orthostatic tachycardia syndrome): Patient has a history of orthostasis/tachycardia syndrome treated with midodrine. She remains tachycardic. 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 There is a relatively common syndrome of EDS, migraine headaches, and POTS. Recommendations: 1. Agree with the decrease in stopping of many of her medications. Now that she is off acetazolamide, I would keep her of this and let her electrolytes equilabrate over the next several days 2. Physical and occupational therapy evaluations and gait training with strengthening. 3. This patient would likely need social service evaluation and home physical therapy to help with activities of daily living and recommendations for mobility. 4. The patient may need EMG and nerve conduction studies of the limbs (if her strength does not improve after the hepatic issues and UTI are treated), but this would be done as an outpatient and she will likely go to her regular neurologist. 5. If the patient does not make significant improvements with her mental status over the next 24 hours, I will likely recommend an MRI of the brain and EEG tomorrow. Overall, I spent a total 45 minutes with this case including review of records, direct evaluation the patient at bedside, and discussion of the case with the patient and her 2 daughters, who were at bedside, as well as Drs. Yeh and Nikki, including differential diagnosis and treatment options. Subjective The patient became more acutely confused over last evening. He was transferred to the ICU. Her sodium has been elevated over 160. She continues to have elevated ammonia, AST, and alkaline phosphatase. There is questionable seizure activity noted last evening but nursing has reported no seizures over night or this morning. The patient is tremulous consistently. She remains very confused. Patient is afebrile blood pressure is 129/72. Ammonia yesterday was 41.7 but there is no ammonia level from today. Sodium is down to 156 today calcium is low at 7.6. AST and alk-phos are still elevated but slightly better than before. Review of Systems Review of Systems: Unobtainable due to cognitive status Physical Exam Physical Exam: She is awake and alert. Her speech is sparse without dysarthria or aphasia but she speaks nonsense sentences when she does speak. She will sometimes follow one-step commands but appears otherwise confused and not following them. She does not appear to be in pain. There is some nystagmus with lateral gaze bilaterally. There is no facial droop. Tongue is midline. There are no abnormal involuntary movements including tremor, dyskinesia, myoclonic jerks, or other. She is tremulous/shivering at times. Strength is symmetrical in all 4 limbs with good tone. Toes are downgoing with plantar stimulation bilaterally and she withdraws and feels pain in the legs bilaterally. Results & Data Vital Signs (Past 12 Hours) Vital Signs Pulse Resp BP Pulse Ox 09/27/18 10:01 100 H 24 138/74 100 09/27/18 09:01 76 23 129/72 100 09/27/18 08:01 88 13 129/67 100 09/27/18 07:01 80 19 124/106 H 100 09/27/18 04:00 76 14 115/72 97 09/27/18 03:31 72 18 113/64 98 09/27/18 03:01 79 20 125/73 98 09/27/18 02:40 77 20 139/62 09/27/18 02:01 76 15 137/59 L 99 09/27/18 01:30 82 20 117/68 98 09/27/18 01:02 115 H 25 H 128/78 98 09/27/18 00:30 82 17 125/72 100 09/27/18 00:00 83 20 116/63 97 09/26/18 23:30 80 21 129/78 99 09/26/18 23:00 78 12 121/67 99
[2018-09-27 11:03] LABS: BUN Creatinine Ratio 6.3 (10-20); Creatinine Clr Calc Pharmacy 133.4 ml/min; Est GFR (African American) 135.5; Est GFR (Non-African American) 116.9; Magnesium 2.1 mg/dl (1.8-2.4); Potassium 4.2 mmol/L (3.5-5.1)
[2018-09-27 11:04] LABS: Phosphorus 2.8 mg/dl (2.5-4.9)
--- NOTE | 2018-09-27 11:48 | Critical Care Progress Note ---
Date of Service September 27, 2018 Assessment & Plan (1) Hyperammonemia: Reason Critically Ill: 53-year-old female who presents to the ICU with acute encephalopathy, metabolic acidosis, and acute liver failure. Neuro - [facility]: Positive Encephalopathy/acute liver failure/metabolic acidosis --Hyper ammonemia -Transaminitis waxing and waning ALT is been within normal limits AST mildly elevated - - INR 1. 2 -Additional 5 mg vitamin K by mouth -Hepatic ultrasound showed mild steatotis -CT abdomen showed mild intrahepatic biliary ductal dilation, patient is S/P cholecystectomy from 1991 -Hepatitis panel reviewed, Tylenol negative - Discontinue mucomyst Continue rifaximin -Discontinue lactulose -Patient should not have a urea cycle disorders as she is years from her initial gastric bypass. Does not appear to be a toxin mediated acute liver failure, I am s more inclined to consider chronic malnutrition at this time. -[email or web address] Rported possible seizure like activity. - decreased BZ dose -Change gabapentin to 600 4 times daily from 3 times daily after discussion with Dr. Jovel - THere was no described post-ictal period, altered MS likely metabolic: hypernatremia Generalized weaknesspatient has had generalized and bilateral lower extremity weakness ongoing for 2 weeks and incontinence -Unknown origin, may be secondary to metabolic encephalopathy from liver failure or from overmedication On physcial exam strength completely intact bilaterally for upper and lower limbs -Sacral fracture may be contributing lower extremity weakness, Ortho consulted and not candidate for surgery per note -Cervical and thoracic MRIs reviewed -Patient has history of herniated nucleolus, MRI from 2018 showed - negative for post void residual volume Cardiac - Postural orthostatic tachycardia syndromepatient takes midodrine at home, will continue home dose REmained tachycardic throughout day - monitor on telemetry Respiratory - Maintaining sats on room air and airway, of note patient unable to be intubated with standard laryngoscope secondary to cervical herniated nucleus pulposis with myelopathy No physical evidence of neuromuscular disease process at this time -And report with patient and family it appears some diagnoses were arrived out without fall work-up such as headaches secondary to increased ICP without performing lumbar puncture GI - transminitis: likely related to nutritional deficiiencies: improving Refeeding hypophosphatemia -Aggressive phosphate replacement -Trend LFTs, coagulation profile, ammonia checking prealbumin tomorrow -Continue with enteral nutrition -iI we continue to have issues with elevated ammonia levels consider changing tube feed formulation to form with less protein RENAL/LYTES - Creatinine/BUN stable, - Hyperntremia: Improving Free water via NG tube - 1.5 L free water deficit. - 250Ml free water flushed via NG q6 hours - increase impact to 30mL continuous incresing by 10 mL every 4 hours to goal of 50. - UTI: finishing course with keflex ENDO - HypothyroidismDecreasing home dose of synthroid by 25% due to low TSH HEME - Iron deficiency anemiaH&H stable, will monitor with routine CBCs LINES/IV ACCESS - Peripheral IV x2, OGT DVT PROPHYLAXIS -SCDs I have personally spent 40 minutes of critical care time in the direct management of this patient. This is a life/limb threatening event. This includes time spent evaluating patient, direct bedside care, chart review, placing orders, interpretation of diagnostic studies, discussion with consultants, patient, and/or family members regarding treatment decisions, as well as other required patient management activities. This time is exclusive of all separately billable procedures, and teaching time and separate from and in addition to any other critical care service time. (2) Acute liver failure: (3) Metabolic encephalopathy: (4) Incontinence: (5) Fatigue: (6) Thyroid dysfunction: Subjective No overnight events, patient remains confused to location and time Review of Systems Review of Systems: Unable to obtain due to altered sensorium Physical Exam Physical Exam: General: Alert. Tremulous Skin: Warm, dry, Head: Atraumatic Ears, nose, mouth and throat: airway patent Cardiovascular: Normal peripheral perfusion Respiratory: no respiratory distress Gastrointestinal: Non distended Musculoskeletal: No deformity Results & Data Vital Signs (Past 12 Hours) Vital Signs Pulse Resp BP Pulse Ox 09/27/18 10:01 100 H 24 138/74 100 09/27/18 09:01 76 23 129/72 100 09/27/18 08:01 88 13 129/67 100 09/27/18 07:01 80 19 124/106 H 100 09/27/18 04:00 76 14 115/72 97 09/27/18 03:31 72 18 113/64 98 09/27/18 03:01 79 20 125/73 98 09/27/18 02:40 77 20 139/62 09/27/18 02:01 76 15 137/59 L 99 09/27/18 01:30 82 20 117/68 98 09/27/18 01:02 115 H 25 H 128/78 98 09/27/18 00:30 82 17 125/72 100 09/27/18 00:00 83 20 116/63 97 Laboratory Results 09/27/18 09/27/18 09/27/18 Range/Units 10:14 04:12 04:12 PT 11.7 (9.0-12.0) Seconds INR 1.2 H (0.9-1.1) Sodium 154 H 156 H* (136-145) mmol/L Potassium 4.2 4.3 (3.5-5.1) mmol/L Chloride 122 H 128 H (98-107) mmol/L Carbon Dioxide 23 21 (21-32) mmol/L Anion Gap 9.0 7.0 (3-11) BUN 3 L 1 L (7-18) mg/dl Creatinine 0.43 L 0.43 L (0.6-1.2) mg/dl Est Cr Clr Drug Dosing 133.4 121.3 ml/min Est GFR ( Amer) 135.5 135.5 Est GFR (Non-Af Amer) 116.9 116.9 BUN/Creatinine Ratio 6.3 L 3.1 L (10-20) Glucose 111 H 106 H (70-99) mg/dl POC Glucose (70-99) Calcium 8.0 L 7.6 L (8.5-10.1) mg/dl Phosphorus 2.8 D 3.8 (2.5-4.9) mg/dl Magnesium 2.1 2.1 (1.8-2.4) mg/dl Total Bilirubin 0.3 (0.2-1) mg/dl AST 64 H (15-37) U/L ALT 30 (12-78) U/L Alkaline Phosphatase 244 H (45-117) U/L Total Protein 5.2 L (6.4-8.2) gm/dl Albumin 2.0 L (3.4-5.0) gm/dl Globulin 3.2 (2.5-4.0) gm/dl Albumin/Globulin Ratio 0.6 L (0.9-2) 09/27/18 09/26/18 09/26/18 Range/Units 00:34 22:36 19:18 PT (9.0-12.0) Seconds INR (0.9-1.1) Sodium 160 H* 159 H* (136-145) mmol/L Potassium 4.2 D 3.6 (3.5-5.1) mmol/L Chloride 132 H 133 H (98-107) mmol/L Carbon Dioxide 20 L 18 L (21-32) mmol/L Anion Gap 7.0 9.0 (3-11) BUN 2 L 2 L (7-18) mg/dl Creatinine 0.38 L 0.47 L (0.6-1.2) mg/dl Est Cr Clr Drug Dosing 137.2 111.0 ml/min Est GFR ( Amer) 141.2 131.6 Est GFR (Non-Af Amer) 121.8 113.6 BUN/Creatinine Ratio 4.2 L 3.5 L (10-20) Glucose 95 129 H (70-99) mg/dl POC Glucose 102 H (70-99) Calcium 7.7 L 7.6 L (8.5-10.1) mg/dl Phosphorus 3.2 D (2.5-4.9) mg/dl Magnesium 2.0 (1.8-2.4) mg/dl Total Bilirubin (0.2-1) mg/dl AST (15-37) U/L ALT (12-78) U/L Alkaline Phosphatase (45-117) U/L Total Protein (6.4-8.2) gm/dl Albumin (3.4-5.0) gm/dl Globulin (2.5-4.0) gm/dl Albumin/Globulin Ratio (0.9-2) 09/26/18 09/26/18 Range/Units 16:29 13:00 PT (9.0-12.0) Seconds INR (0.9-1.1) Sodium 160 H* 160 H* (136-145) mmol/L Potassium 3.6 3.6 (3.5-5.1) mmol/L Chloride 134 H 133 H (98-107) mmol/L Carbon Dioxide 19 L 22 (21-32) mmol/L Anion Gap 8.0 6.0 (3-11) BUN 1 L 1 L (7-18) mg/dl Creatinine 0.50 L 0.55 L (0.6-1.2) mg/dl Est Cr Clr Drug Dosing 104.3 94.8 ml/min Est GFR ( Amer) 129.0 125.0 Est GFR (Non-Af Amer) 111.3 107.8 BUN/Creatinine Ratio 2.4 L 2.1 L (10-20) Glucose 150 H 148 H (70-99) mg/dl POC Glucose (70-99) Calcium 7.8 L 7.8 L (8.5-10.1) mg/dl Phosphorus 1.6 L (2.5-4.9) mg/dl Magnesium 2.1 (1.8-2.4) mg/dl Total Bilirubin (0.2-1) mg/dl AST (15-37) U/L ALT (12-78) U/L Alkaline Phosphatase (45-117) U/L Total Protein (6.4-8.2) gm/dl Albumin (3.4-5.0) gm/dl Globulin (2.5-4.0) gm/dl Albumin/Globulin Ratio (0.9-2) Critical Care Time Critical Care Time: Yes Total Critical Care Time: 40
[2018-09-27] MEDS ORDERED: PHYTONADIONE 5 MG TAB PO STA (12:09)
[2018-09-27 16:57] LABS: BUN Creatinine Ratio 11.6 (10-20); Calcium 7.6 mg/dl (8.5-10.1); Creatinine Clr Calc Pharmacy 168.7 ml/min; Est GFR (African American) 146.4; Est GFR (Non-African American) 126.3; Magnesium 2.1 mg/dl (1.8-2.4); Potassium 3.9 mmol/L (3.5-5.1)
[2018-09-27 16:58] LABS: Phosphorus 2.6 mg/dl (2.5-4.9)
[2018-09-27] MEDS: OXYCODONE HCL IR 5 MG TAB (IMMEDIATE RELEASE) PO PRN (17:53)
[2018-09-27] MEDS ORDERED: LORazepam 1 MG/2 ML VIAL IV STA (19:55)
[2018-09-27] MEDS ORDERED: ACETAMINOPHEN 325 MG TAB PO STA (20:23)
[2018-09-27] MEDS: LORazepam 2 MG/4 ML VIAL IV PRN (21:09)
[2018-09-27 21:27] LABS: BUN Creatinine Ratio 12.6 (10-20); Calcium 7.6 mg/dl (8.5-10.1); Creatinine Clr Calc Pharmacy 159.3 ml/min; Est GFR (African American) 143.7; Phosphorus 2.6 mg/dl (2.5-4.9); Potassium 3.9 mmol/L (3.5-5.1)
--- NOTE | 2018-09-27 22:51 | Hospitalist Progress Note ---
Date of Service September 27, 2018 Assessment & Plan (1) Hypernatremia: Patient is having acute hypernatremia. Likely from lactulose and GI loss. Interesting enough, creatinine has mildly worsened today, still normal range. Na is 165, has improved to 158 Will defer to critical care team (2) Metabolic encephalopathy: This is a complex patient who has been on a gradual decline and getting weaker 10 days prior to hospitalist stay. It appears the main culprit is hepatic encephalopathy as ammonia level was elevated. Polypharmacy may be also playing a role as patient Currently her ammonia has improved to 44. Her confusion now may be due to her hypernatremia. Appreciate neuro input. (3) Generalized weakness: May be due to early stage of hepatic encephalopathy Will continue to monitor. (4) Fall: Likely from metabolic encephalopathy (5) POTS (postural orthostatic tachycardia syndrome): Chronic Patient is currently tachycardic, may be due to withdrawal from opiates, will monitor. Placed patient on overnight beta blockers. (6) Anemia: hemoglobin has been relatively stable. (7) EDS (Lilibeth-Danlos syndrome): Chronic. Stable -Continue to monitor (8) Hypothyroid: Chronic. Low TSH -Check T4 -Continue Synthroid, (9) Opioid withdrawal: Patient 's tchycardia has improved. Will cut back betablockers. Placed fentabyl q2d as this is her norm as an outpatient. Given her tremors, will try to maintain her outpatient regimen. (10) Abnormal LFTs: Has been gradually improving. Ppx - Lovenox Spent 35 minutes in management of patient. Discussed case with database engineer and neurologist. Subjective 53 yo female is more confused today. Does not provide signifcant history. Family is not at bedside. Review of Systems Review of Systems: Unobtainable due to mental health condition Physical Exam Physical Exam: Constitutional: WD/WN, vitals as above Alert and oriented. Eyes: PERRL, conjunctivae normal, anicteric sclerae ENMT: external ear and nose normal, oropharynx normal Neck: trachea midline, no thyromegaly Respiratory: normal respiratory effort, lungs clear to auscultation Cardiovascular: Rate/Rhythm: regular rate and + tachycardic Heart Sounds: normal S1 and normal S2; no murmur Gastrointestinal (Abdomen): Nondistended. Active bowel sounds. nontender. No rebound or guarding Musculoskeletal: no cyanosis or clubbing, extremities motor strength 5/5 Skin: no rashes, warm and dry Neurologic: CN's II-XI intact bilaterally and moves all extremities; no focal motor deficits Psychiatric: A+Ox3, euthymic affect Results & Data Vital Signs (Past 12 Hours) Vital Signs Temp Pulse Resp BP Pulse Ox 09/27/18 21:00 110 H 16 118/63 96 09/27/18 20:47 37.7 C H 123 H 25 H 99/71 L 96 09/27/18 19:00 86 19 129/75 100 09/27/18 18:01 102 H 23 108/73 100 09/27/18 17:01 37.7 C H 101 H 19 126/79 100 09/27/18 16:01 93 H 16 127/63 100 09/27/18 16:00 87 24 100 09/27/18 15:01 106 H 29 H 126/54 L 99 09/27/18 15:00 83 25 H 98 09/27/18 14:05 91 H 26 H 96/81 L 99 09/27/18 14:01 100 H 26 H 96/81 L 97 09/27/18 13:01 68 18 115/80 100 09/27/18 12:00 37.8 C H 89 24 122/65 99 (1) Fall Encounter type: initial encounter Qualified Code(s): W19.XXXA - Unspecified fall, initial encounter (2) Anemia Anemia type: unspecified type Qualified Code(s): D64.9 - Anemia, unspecified (3) Hypothyroid Hypothyroidism type: unspecified Qualified Code(s): E03.9 - Hypothyroidism, unspecified
[2018-09-27] MEDS ORDERED: SERTRALINE HCL 100 MG TABLET PO SCH (23:00)
[2018-09-28] MEDS: CHECK FENTANYL PATCH PLACEMENT SCH ×8 (00:24→23:25)
[2018-09-28] MEDS: OXYCODONE HCL IR 5 MG TAB (IMMEDIATE RELEASE) PO PRN ×2 (03:09→20:32)
[2018-09-28] MEDS: LORazepam 2 MG/4 ML VIAL IV PRN ×3 (03:09→23:22)
[2018-09-28 04:54] LABS: INR 1.2 (0.9-1.1); Prothrombin Time 12.1 Seconds (9.0-12.0)
[2018-09-28 05:02] LABS: Albumin Level 2.1 gm/dl (3.4-5.0); BUN Creatinine Ratio 16.5 (10-20); Bilirubin Direct 0.2 mg/dl (0-0.2); Calcium 7.5 mg/dl (8.5-10.1); Creatinine Clr Calc Pharmacy 173.8 ml/min; Est GFR (African American) 147.9; Est GFR (Non-African American) 127.6; Magnesium 2.2 mg/dl (1.8-2.4)
[2018-09-28 05:08] LABS: Albumin Globulin Ratio 0.8 (0.9-2); Bilirubin,Total 0.4 mg/dl (0.2-1); Globulin 2.8 gm/dl (2.5-4.0); Phosphorus 2.4 mg/dl (2.5-4.9); Total Protein 4.9 gm/dl (6.4-8.2)
[2018-09-28] MEDS: LEVOTHYROXINE SODIUM 75 MCG TABLET PO SCH (06:35)
--- NOTE | 2018-09-28 08:20 | Hospitalist Progress Note ---
Date of Service September 28, 2018 Assessment & Plan (1) Hypernatremia: acute hypernatremia is resolving. (2) Metabolic encephalopathy: This patient has been on a gradual decline and getting weaker 10 days prior to hospitalist stay. hepatic encephalopathy toxic encephalopathy , Polypharmacy may be also playing a role Neurology consult is following. (3) Generalized weakness: Multi factoral, certainly hypernatremia is main role (4) Fall: Likely from metabolic/toxic encephalopathy (5) POTS (postural orthostatic tachycardia syndrome): Chronic on beta blockers. (6) Anemia: hemoglobin has been relatively stable in the 10 gm range maybe anemia of chonic disease. (7) EDS (Lilibeth-Danlos syndrome): Chronic. Stable -Continue to monitor (8) Hypothyroid: Chronic. Low TSH -Continue Synthroid, (9) Opioid withdrawal: Patient 's tchycardia is improved Placed fentayl q2d as this is her norm as an outpatient. Given her tremors, will try to maintain her outpatient regimen. (10) Abnormal LFTs: Has been gradually improving. Ppx - Lovenox (11) Dysphagia: pt pulled ngt, not clear if safe to eat or not, will have speech eval, family concern is that if replaced will need to significantly restrain so that is will not be pulled out again Subjective this pt remains markedly altered, according to family at the bedside. She does not vocalize any pain but her family members state she is usually awake and alert and conversant. neurology is following and at this point we are focusing on metabolic issues to try to see if encephalopathy clears Review of Systems Review of Systems: Unobtainable due to cognitive status ROS: thin fatigued and weak She has no complaints of focal pain Physical Exam Physical Exam: The patient appeared thin and fatigued Vital signs as documented. Head exam is unremarkable. normocephalic, atraumatic Neck is without jugular venous distension, thyromegaly, or lymphademopathy Lungs are clear to auscultation and percussion. Cardiac exam reveals Rhythm is regular. First and second heart sounds normal. Abdominal exam reveals normal bowel sounds, no masses, no organomegaly Extremities are nonedematous and both pedal pulses are present Neurologic exam is she is awake and talking nonsense, spontaneously moves all extremities Psychologically seems anxious Skin is warm / Dry Results & Data Vital Signs (Past 12 Hours) Vital Signs Temp Pulse Resp BP Pulse Ox 09/27/18 21:00 110 H 16 118/63 96 09/27/18 20:47 37.7 C H 123 H 25 H 99/71 L 96 (1) Anemia Anemia type: unspecified type Qualified Code(s): D64.9 - Anemia, unspecified (2) Hypothyroid Hypothyroidism type: unspecified Qualified Code(s): E03.9 - Hypothyroidism, unspecified (3) Fall Encounter type: initial encounter Qualified Code(s): W19.XXXA - Unspecified fall, initial encounter
--- NOTE | 2018-09-28 08:39 | Neurology Progress Note ---
Date of Service September 28, 2018 Assessment & Plan (1) Metabolic encephalopathy: Patient has an acute encephalopathy, likely metabolic, over the last 48 hours. Does not seem to be making much in the way of improvements over last 24. She does not appear to be withdrawing currently, but she has agitation, hypertension and tachycardia. Gabapentin dose on admission was very high and she was cut back to 50% of the dosage during the hospitalization. She was on fairly high doses of acetazolamid e and this was stopped all once as well. She was on a number of psychiatric medications which were discontinued or held. Overall, she likely has the encephalopathy from hyponatremia. Hepatic encep halopathy is likely contributing. It may take 48 hours or so for the brain to recover, once a laboratory parameter goes back to the normal range. There are no focal findings on examination and she does not appear to be seizing. She has no meningeal signs. (2) Generalized weakness: Patient presented with generalized weakness of a progressive nature over 10 days. She currently does not seem to be focally generally weak Etiology of this was not readily apparent, but I suspected a general weakness from hepatic encephalopathy and urinary tract infection. On exam I have not seen any focal neurologic findings. In fact, her exam had fairly intact strength and some giveaway weakness (not convinced she was giving maximum effort). I do not believe there is an underlying myopathy and her CK was largely normal (217 is not that high). Her pattern of weakness was diffuse and not proximal anyway. She does have some signs of generalized polyneuropathy as noted by some decreased sensation distally in the legs and some absent ankle reflexes. This could give her a sensory ataxia and add to her balance issues. Patient has considerable generalized fatigue and easy fatigability. Hepatic en cephalopathy any urinary tract infection can add to this. There is no diagnosis of myasthenia gravis (even though she takes pyridostigmine for muscle strength). She has iron deficiency anemia which could easily add to her fatigue. Her no other specific laboratory abnormalities directly related to fatigue otherwise. Patient has a longstanding history of psychiatric issues including depression a nd anxiety, OCD, and bipolar disorder. She was on multiple psychiatric medications. According to the patient, her mood is stable. When I 1st saw her, I could not exclude a psychiatric origin to some of the symptoms she is displaying. Overall, I believe the patient was overmedicated and has significant polypharmacy. She is taking multiple narcotic medications as well in addition to benzodiazepines. (3) Incontinence: She has progressive incontinence of urine and more recently incontinence of bowel (which is new). This may be a lower motor neuron problem from her lumbosacral spine but she does not have any radicular symptomatology otherwise. She does not have any other upper motor neuron signs on examination and MRIs of the cervical and thoracic spine showed no cord lesions or myelopathy. (4) Intractable headache: Patient has a longstanding history of intermittent migrainous headaches. She now has chronic comma intermittent, mixed headache types with migraines and headaches associated with her cervical spine and intracranial pressure. She takes acetazolamide which could actually exacerbate headaches but would treat increased intracranial pressure. Overall, she feels that acetazolamide has helped. In addition, acetazolamide could lead to electrolyte abnormalities. This was discontinued. It is possible to have a rebound hyponatremia from discontinuation of acetazolamide (rebound salt/water retention). (5) History of brain surgery: Patient has a history of Chiari malformation surgery in 2010. Her lightheadedness/dizziness conceivably could be related to this as could her horizontal nystagmus, but her anatomy has been stable with subsequent imaging showing no issues that would create intracranial pressure problems. (6) Herniated nucleus pulposus with myelopathy, cervical: Patient has a history of C5-6 micro diskectomy in 2014. In 2016 she had C1 to fusion. Most recent MRI in October of 2017 showed a disc bulge at C6-7. MRIs did not show any evidence of processes that could create myelopathy. (7) POTS (postural orthostatic tachycardia syndrome): Patient has a history of orthostasis/tachycardia syndrome treated with midodrine. She remains tachycardic. 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 There is a relatively common syndrome of EDS, migraine headaches, and POTS. Recommendations: 1. Although I am not sure that abruptly stopping acetazolamide created any issue, now that she is off acetazolamide, it is reasonable to keep her off of this and let her electrolytes equilibrate over the next several days. It is also somewhat reasonable to restart low-dose such as 250 milligrams twice daily. 2. Physical and occupational therapy evaluations. 3. This patient would likely need social service evaluation and home physical therapy to help with activities of daily living and recommendations for mobility. 4. The patient may need EMG and nerve conduction studies of the limbs (if her strength does not improve after the hepatic issues and UTI are treated), but this would be done as an outpatient and she will likely go to her regular neurologist. 5. Obtain EEG this morning. Consider MRI of the brain depending on her clinical course (but she does not any focal deficits anything suggestive stroke). Currently, she is too agitated for an MRI anyway. Overall, I spent a total 40 minutes with this case including review of records, direct evaluation the patient at bedside, and discussion of the case with the patient, her and 1 daughter present at bedside, as well as the thread pulling machine attendant physician and [place], regarding differential diagnosis and treatment options. Subjective Patient continues to have agitation, thrashing and continuous movements without seizure activity. She will occasionally follow commands but frequently seems too confused. Patient herself does not complain of pain or headache. Temperature is 37.7, and pulse is 110. She has been tachycardic on an. Her blood pressures been somewhat high also from time to time. Currently is 140/100. I had a long conversation with the at bedside who tells me the patient was no longer taking sertraline, temazepam, or buspirone recently. She was on Seroquel 100 milligrams at bedtime as well as amitriptyline. He is somewhat concerned because other clinicians told him never stop acetazolamide abruptly". She takes a dose of Xanax daily at home and the narcotics. Physical Exam Physical Exam: She is awake and alert. Speech is without obvious aphasia or dysarthria. She is confused and will occasionally follow a 1 step command but not always. Extraocular eye muscles are intact horizontally but she does have some nystagmus horizontally as before. The patient has 4 millimeter pupils reactive bilaterally. There is no facial droop. Tongue is midline. Neck is supple. There are no abnormal involuntary movements including tremors, chorea, dyskinesia, or dystonia. Strength is symmetrical in all 4 limbs. Toes are down going to plantar stimulation bilaterally. Reflexes are symmetrical as before. Results & Data Vital Signs (Past 12 Hours) Vital Signs Temp Pulse Resp BP Pulse Ox 09/27/18 21:00 110 H 16 118/63 96 06/09/19 20:47 37.7 C H 123 H 25 H 99/71 L 96
[2018-09-28] MEDS: cephALEXin 500 MG CAP PO SCH ×2 (08:49→20:30)
[2018-09-28] MEDS: LANSOPRAZOLE 30 MG SOLTAB NG SCH (08:49)
[2018-09-28] MEDS: ASCORBIC ACID 500 MG TAB PO SCH (08:49)
[2018-09-28] MEDS: POTASSIUM CHLORIDE 20 MEQ/15 ML UDC PO SCH ×2 (08:49→23:22)
[2018-09-28] MEDS: FOLIC ACID 1 MG TAB PO SCH (08:49)
[2018-09-28] MEDS: GABAPENTIN 250 MG/5 ML 470 ML BTL PO SCH ×4 (08:49→20:35)
[2018-09-28] MEDS: METOPROLOL TARTRATE 25 MG TAB PO SCH ×2 (08:49→20:30)
[2018-09-28] MEDS: MAGNESIUM OXIDE 400 MG TAB PO SCH ×2 (08:49→20:31)
[2018-09-28] MEDS: RIFAXIMIN 550 MG TABLET PO SCH ×2 (08:49→20:32)
[2018-09-28] MEDS: ENOXAPARIN INJ 40 MG/0.4 ML SYR SQ SCH (09:14)
[2018-09-28 11:42] LABS: BUN Creatinine Ratio 17.1 (10-20); Blood Urea Nitrogen 5 mg/dl (7-18); Calcium 8.2 mg/dl (8.5-10.1); Carbon Dioxide 29 mmol/L (21-32); Chloride 111 mmol/L (98-107); Creatinine Clr Calc Pharmacy 197.7 ml/min; Est GFR (African American) > 150.0; Est GFR (Non-African American) 133.1; Glucose 77 mg/dl (70-99); Magnesium 2.3 mg/dl (1.8-2.4); Phosphorus 2.5 mg/dl (2.5-4.9); Potassium 3.7 mmol/L (3.5-5.1); Sodium 148 mmol/L (136-145)
[2018-09-28] MEDS ORDERED: METOPROLOL TARTRATE 1 MG/ML VIAL IV PRN (11:44)
--- NOTE | 2018-09-28 13:13 | Critical Care Progress Note ---
Date of Service September 28, 2018 Assessment & Plan (1) Metabolic encephalopathy: Toxic metabolic encephalopathy, likely multifactorial with major etiologic factor polypharmacy and additional contributing factors including hyperammonemia, acute liver injury. Ammonia now normal although of course encephalopathy may persist post normalization of ammonia. Neurology following. Case discussed with neurology and hospitalist service. 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 Subjective The patient is awake but still quite encephalopathic. She is moving purposefully. She is able to vocalize but not appropriately. I am only meeting her for the first time today but I am informed that she was more alert than this yesterday so we will keep her in ICU, as discussed with Dr. Fish. Review of Systems Review of Systems: Unobtainable due to cognitive status Physical Exam Constitutional: WD/WN, vitals as above + altered mental status Eyes: PERRL, conjunctivae normal, anicteric sclerae ENMT: external ear and nose normal, oropharynx normal Neck: Supple no JVD adenopathy or bruits Respiratory: normal respiratory effort, lungs clear to auscultation Cardiovascular: RRR, no murmur, no edema Gastrointestinal (Abdomen): normal bowel sounds, soft, nontender, no hepatosplenomegaly Musculoskeletal: no cyanosis or clubbing, extremities motor strength 5/5 Skin: no rashes, warm and dry Neurologic: No focality but encephalopathic Results & Data Vital Signs (Past 12 Hours) Vital Signs Temp Pulse Resp BP Pulse Ox 09/28/18 12:00 91 H 20 125/79 93 09/28/18 11:00 70 15 117/65 99 09/28/18 10:00 120 H 20 121/60 99 09/28/18 09:00 100 H 21 91 09/28/18 08:00 36.8 C 81 24 131/100 97 09/28/18 07:00 86 19 107/71 98 Laboratory Results 09/28/18 09/28/18 09/28/18 Range/Units 10:45 04:30 04:30 PT 12.1 H (9.0-12.0) Seconds INR 1.2 H (0.9-1.1) Sodium 148 H (136-145) mmol/L Potassium 3.7 (3.5-5.1) mmol/L Chloride 111 H (98-107) mmol/L Carbon Dioxide 29 (21-32) mmol/L Anion Gap 8.0 (3-11) BUN 5 L (7-18) mg/dl Creatinine 0.29 L (0.6-1.2) mg/dl Est Cr Clr Drug Dosing 197.7 ml/min Est GFR ( Amer) > 150.0 Est GFR (Non-Af Amer) 133.1 BUN/Creatinine Ratio 17.1 (10-20) Glucose 77 (70-99) mg/dl Calcium 8.2 L (8.5-10.1) mg/dl Phosphorus 2.5 (2.5-4.9) mg/dl Magnesium 2.3 (1.8-2.4) mg/dl Total Bilirubin (0.2-1) mg/dl Direct Bilirubin (0-0.2) mg/dl AST (15-37) U/L ALT (12-78) U/L Alkaline Phosphatase (45-117) U/L Ammonia 30.0 (11-32) umol/L Total Protein (6.4-8.2) gm/dl Albumin (3.4-5.0) gm/dl Globulin (2.5-4.0) gm/dl Albumin/Globulin Ratio (0.9-2) Prealbumin (20-40) mg/dl 09/28/18 09/27/18 09/27/18 Range/Units 04:30 21:01 16:30 PT (9.0-12.0) Seconds INR (0.9-1.1) Sodium 148 H 154 H 154 H (136-145) mmol/L Potassium 4.0 3.9 3.9 (3.5-5.1) mmol/L Chloride 115 H 118 H 120 H (98-107) mmol/L Carbon Dioxide 28 25 25 (21-32) mmol/L Anion Gap 5.0 10.0 9.0 (3-11) BUN 5 L 5 L 4 L (7-18) mg/dl Creatinine 0.33 L 0.36 L 0.34 L (0.6-1.2) mg/dl Est Cr Clr Drug Dosing 173.8 159.3 168.7 ml/min Est GFR ( Amer) 147.9 143.7 146.4 Est GFR (Non-Af Amer) 127.6 124.0 126.3 BUN/Creatinine Ratio 16.5 12.6 11.6 (10-20) Glucose 99 106 H 105 H (70-99) mg/dl Calcium 7.5 L 7.6 L 7.6 L (8.5-10.1) mg/dl Phosphorus 2.4 L 2.6 2.6 (2.5-4.9) mg/dl Magnesium 2.2 2.0 2.1 (1.8-2.4) mg/dl Total Bilirubin 0.4 (0.2-1) mg/dl Direct Bilirubin 0.2 (0-0.2) mg/dl AST 99 H (15-37) U/L ALT 38 (12-78) U/L Alkaline Phosphatase 221 H (45-117) U/L Ammonia (11-32) umol/L Total Protein 4.9 L (6.4-8.2) gm/dl Albumin 2.1 L (3.4-5.0) gm/dl Globulin 2.8 (2.5-4.0) gm/dl Albumin/Globulin Ratio 0.8 L (0.9-2) Prealbumin 13.0 L (20-40) mg/dl Medications Administered Home Medications Medication Instructions Recorded Confirmed Last Taken alprazolam [Xanax] 0.5 mg PO BID 07/30/18 09/21/18 07/30/18 amitriptyline 50 mg PO HS 07/30/18 09/21/18 07/29/18 ascorbic acid (vitamin C) [Vitamin 1,000 mg PO DAILY 07/30/18 09/21/18 07/30/18 C] baclofen 20 mg PO TID 07/30/18 09/21/18 07/30/18 bisacodyl [Dulcolax (bisacodyl)] 5 mg PO DAILY PRN 07/30/18 09/21/18 07/30/18 buspirone 10 mg PO BID 07/30/18 09/21/18 07/30/18 cyanocobalamin (vitamin B-12) 1,000 mcg IM MONTHLY 07/30/18 09/21/18 07/30/18 fentanyl 1 patch TRANSDERMAL .CQ48HR 07/30/18 09/21/18 09/20/18 fentanyl 1 patch TRANSDERMAL .CQ48HR 07/30/18 09/21/18 09/20/18 folic acid 1 mg PO DAILY 07/30/18 09/21/18 07/30/18 gabapentin 1,200 mg PO TID 07/30/18 09/21/18 07/30/18 levothyroxine [Levoxyl] 100 mcg PO DAILY 07/30/18 09/21/18 07/30/18 lidocaine [Lidoderm] 1 patch TOPICAL DAILY PRN 07/30/18 09/21/18 07/30/18 meclizine 25 mg PO TID PRN 07/30/18 09/21/18 07/30/18 midodrine 2.5 mg PO TID 07/30/18 09/21/18 07/30/18 omeprazole 20 mg PO DAILY 07/30/18 09/21/18 07/30/18 ondansetron 4 - 8 mg PO Q8H PRN 07/30/18 09/21/18 07/30/18 oxycodone 10 mg PO 5XD PRN 07/30/18 09/21/18 07/30/18 promethazine [Phenergan] 25 mg HI Q12H PRN 07/30/18 09/21/18 07/30/18 sertraline 100 mg PO QAM 07/30/18 09/21/18 07/30/18 sumatriptan succinate [Imitrex] 100 mg PO DIRECTED PRN MDD 200 07/30/18 09/21/18 07/30/18 MG/DAY acetazolamide 250 mg PO QID 09/21/18 09/21/18 Unknown [id number]-[id number] 1 tab PO Q4H PRN MDD 6 TABS 09/21/18 09/21/18 Unknown magnesium oxide 400 mg PO BID 09/21/18 09/21/18 Unknown pyridostigmine bromide 60 mg PO TID 09/21/18 09/21/18 Unknown quetiapine 100 mg PO HS 09/21/18 09/21/18 Unknown trazodone 100 mg PO HS 09/21/18 09/21/18 Unknown Active Medications Generic Name Dose Route Start Last Admin Trade Name Freq PRN Reason Stop Dose Admin Ascorbic Acid 1,000 mg 09/22/18 09:00 09/28/18 08:49 Vitamin C PO 10/22/18 08:59 Not Given DAILY CRAIG Cephalexin HCl 500 mg 09/24/18 21:00 09/28/18 08:49 Keflex PO 09/29/18 20:59 Not Given BID CRAIG Enoxaparin Sodium 40 mg 09/22/18 09:00 09/28/18 09:14 Lovenox SQ 10/22/18 08:59 40 mg QAM CRAIG Administration Enteral Nutritional Formula 1,000 ml 09/25/18 15:30 09/25/18 19:37 Impact 1.0 Pratik NG 10/25/18 15:29 1,000 ml UD CRAIG Administration Protocol Fentanyl 12 mcg 09/26/18 17:45 09/26/18 19:00 Duragesic TD 10/10/18 17:44 12 mcg Q2D@1745 CRAIG Administration Fentanyl 100 mcg 09/26/18 17:45 09/26/18 19:00 Duragesic TD 10/10/18 17:44 100 mcg Q2D@1745 CRAIG Administration Protocol Folic Acid 1 mg 09/22/18 09:00 09/28/18 08:49 Folvite PO 10/22/18 08:59 Not Given DAILY CRAIG Gabapentin 600 mg 09/27/18 13:00 09/28/18 11:58 Neurontin PO 10/27/18 12:59 Not Given QID CRAIG Lorazepam 2 mg in 4 mls @ 4 mls/min 09/27/18 06:17 09/28/18 03:09 Ativan IV 10/27/18 06:16 4 mls/min UD PRN Administration seizure Lactulose 30 gm 09/24/18 06:00 09/26/18 06:04 Chronulac PO 10/24/18 05:59 30 gm Q8H CRAIG Administration Lansoprazole 30 mg 09/26/18 09:00 09/28/18 08:49 Prevacid NG 10/26/18 08:59 Not Given DAILY CRAIG Levothyroxine Sodium 75 mcg 09/25/18 06:30 09/28/18 06:35 Synthroid PO 10/25/18 06:29 75 mcg DAILYBB CRAIG Administration Magnesium Oxide 400 mg 09/22/18 09:00 09/28/18 08:49 Mag-Ox PO 10/22/18 08:59 Not Given BID CRAIG Metoprolol Tartrate 12.5 mg 09/26/18 21:00 09/28/18 08:49 Lopressor PO 10/26/18 20:59 Not Given BID CRAIG Miscellaneous 1 ea 09/22/18 02:50 09/27/18 21:04 Remove Lidoderm Patch N/A 10/22/18 02:49 1 ea DAILY@2100 CRAIG Administration Miscellaneous 1 ea 09/24/18 16:00 09/28/18 08:48 Fentanyl Patch Check Placement N/A 10/24/18 15:59 1 ea QS CRAIG Administration Miscellaneous 1 ea 09/24/18 16:00 09/28/18 08:48 Fentanyl Patch Check Placement N/A 10/24/18 15:59 1 ea QS CRAIG Administration Miscellaneous 1 ea 09/26/18 17:44 09/26/18 19:00 Fentanyl Patch Remove & Waste N/A 10/26/18 17:43 1 ea Q2D@1744 CRAIG Administration Miscellaneous 1 ea 09/26/18 17:44 09/26/18 19:00 Fentanyl Patch Remove & Waste N/A 10/26/18 17:43 1 ea Q2D@1744 CRAIG Administration Oxycodone HCl 10 mg 09/24/18 10:39 09/28/18 03:09 Roxicodone Immediate Rel PO 10/08/18 10:38 10 mg Q8H PRN Administration Pain Phenol 1 sprays 09/24/18 05:22 09/24/18 21:46 Chloraseptic 1.4% [place] 10/24/18 05:21 1 sprays Q4H PRN Administration Sore Throat Potassium Chloride 20 meq 09/25/18 21:00 09/28/18 08:49 Jamia Ciel Elix PO 10/25/18 20:59 Not Given BID [facility] Pyridostigmine [place] 60 mg 09/22/18 09:00 09/23/18 13:51 Mestinon PO 10/22/18 08:59 Not Given TID [facility] Rifaximin 550 mg 09/23/18 22:45 09/28/18 08:49 Xifaxan PO 10/23/18 22:44 Not Given BID [facility] Sertraline HCl 100 mg 09/22/18 09:00 09/24/18 10:48 Zoloft PO 10/22/18 08:59 Not Given QAM [facility] Trazodone HCl 100 mg 09/22/18 21:00 09/23/18 21:55 Desyrel PO 10/22/18 20:59 Not Given HS [facility] Critical Care Time Critical Care Time: Yes Total Critical Care Time: 35
[2018-09-28] MEDS: fentaNYL 100 MCG/HR TDSY TD SCH (15:43)
[2018-09-28] MEDS: fentaNYL 12 MCG/HR TDSY TD SCH (15:45)
[2018-09-28 17:57] LABS: BUN Creatinine Ratio 15.6 (10-20); Blood Urea Nitrogen 4 mg/dl (7-18); Calcium 7.9 mg/dl (8.5-10.1); Carbon Dioxide 25 mmol/L (21-32); Chloride 112 mmol/L (98-107); Creatinine Clr Calc Pharmacy 220.6 ml/min; Est GFR (African American) > 150.0; Glucose 89 mg/dl (70-99); Magnesium 2.3 mg/dl (1.8-2.4); Potassium 3.6 mmol/L (3.5-5.1); Sodium 146 mmol/L (136-145)
[2018-09-28 17:58] LABS: Phosphorus 2.7 mg/dl (2.5-4.9)
[2018-09-28] MEDS ORDERED: HALOPERIDOL LACTATE 5 MG/ML 1 ML VIAL IV STA (22:51)
[2018-09-28 22:59] LABS: BUN Creatinine Ratio 14.6 (10-20); Blood Urea Nitrogen 4 mg/dl (7-18); Calcium 8.1 mg/dl (8.5-10.1); Carbon Dioxide 30 mmol/L (21-32); Chloride 111 mmol/L (98-107); Creatinine Clr Calc Pharmacy 212.4 ml/min; Est GFR (African American) > 150.0; Est GFR (Non-African American) 136.3; Glucose 79 mg/dl (70-99); Magnesium 2.3 mg/dl (1.8-2.4); Potassium 3.9 mmol/L (3.5-5.1); Sodium 147 mmol/L (136-145)
[2018-09-28 23:04] LABS: Phosphorus 3.4 mg/dl (2.5-4.9)
[2018-09-29 05:05] LABS: INR 1.2 (0.9-1.1)
[2018-09-29] MEDS: LORazepam 2 MG/4 ML VIAL IV PRN (05:06)
[2018-09-29 05:16] LABS: Alanine Aminotransferase 38 U/L (12-78); Albumin Level 2.1 gm/dl (3.4-5.0); Aspartate Aminotransferase 79 U/L (15-37); BUN Creatinine Ratio 13.6 (10-20); Blood Urea Nitrogen 3 mg/dl (7-18); Calcium 7.9 mg/dl (8.5-10.1); Carbon Dioxide 27 mmol/L (21-32); Chloride 110 mmol/L (98-107); Creatinine Clr Calc Pharmacy 260.7 ml/min; Est GFR (African American) > 150.0; Est GFR (Non-African American) 145.8; Glucose 71 mg/dl (70-99); Magnesium 2.2 mg/dl (1.8-2.4); Potassium 3.6 mmol/L (3.5-5.1); Sodium 143 mmol/L (136-145)
[2018-09-29 05:19] LABS: Albumin Globulin Ratio 0.7 (0.9-2); Alkaline Phosphatase 236 U/L (45-117); Bilirubin,Total 0.5 mg/dl (0.2-1); Globulin 2.9 gm/dl (2.5-4.0); Phosphorus 3.1 mg/dl (2.5-4.9)
[2018-09-29] MEDS: LEVOTHYROXINE SODIUM 75 MCG TABLET PO SCH (06:12)
[2018-09-29] MEDS: ASCORBIC ACID 500 MG TAB PO SCH (07:25)
[2018-09-29] MEDS: METOPROLOL TARTRATE 25 MG TAB PO SCH ×2 (07:25→21:22)
[2018-09-29] MEDS: GABAPENTIN 250 MG/5 ML 470 ML BTL PO SCH ×5 (07:25→19:13)
[2018-09-29] MEDS: POTASSIUM CHLORIDE 20 MEQ/15 ML UDC PO SCH ×3 (07:25→19:13)
[2018-09-29] MEDS: LANSOPRAZOLE 30 MG SOLTAB NG SCH (07:26)
[2018-09-29] MEDS: ENOXAPARIN INJ 40 MG/0.4 ML SYR SQ SCH (07:26)
[2018-09-29] MEDS: cephALEXin 500 MG CAP PO SCH (07:26)
[2018-09-29] MEDS: RIFAXIMIN 550 MG TABLET PO SCH ×2 (07:26→19:13)
[2018-09-29] MEDS: MAGNESIUM OXIDE 400 MG TAB PO SCH ×2 (07:27→19:13)
[2018-09-29] MEDS: CHECK FENTANYL PATCH PLACEMENT SCH ×6 (07:27→23:37)
[2018-09-29] MEDS: FOLIC ACID 1 MG TAB PO SCH (07:27)
--- NOTE | 2018-09-29 08:02 | Hospitalist Progress Note ---
Date of Service September 29, 2018 Assessment & Plan (1) Hypernatremia: acute hypernatremia is resolved (2) Metabolic encephalopathy: This patient has been on a gradual decline and getting weaker 10 days prior to hospitalist stay. hepatic encephalopathy toxic encephalopathy , Polypharmacy may be also playing a role Neurology consult is following, mri scan 09/29. family is not permitting lumbar puncture. (3) Generalized weakness: Multi factoral, certainly hypernatremia is main role (4) Fall: Likely from metabolic/toxic encephalopathy (5) POTS (postural orthostatic tachycardia syndrome): Chronic on beta blockers. (6) Anemia: hemoglobin has been relatively stable in the 10 gm range maybe anemia of chonic disease. (7) EDS (Lilibeth-Danlos syndrome): Chronic. Stable -Continue to monitor (8) Hypothyroid: Chronic. Low TSH -Continue Synthroid, (9) Opioid withdrawal: Patient 's tchycardia is improved Placed fentayl q2d as this is her norm as an outpatient. Given her tremors, will try to maintain her outpatient regimen. (10) Abnormal LFTs: Has been gradually improving. Ppx - Lovenox (11) Dysphagia: pt pulled ngt, swallowing cleared by speech eval, with swallowing precautions Subjective She remains with the same she is more with delirium or psychosis and neurological compromise of any weights difficult to tell her baseline her family is insistent that this is not her usual. Her family is limiting preventing any Haldol medication being used to without untoward side effect causing increased agitation, they are denying the request for lumbar puncture due to concerns for previous syrinx and warnings from neurosurgeon. We are permissive of pursuing an MRI scan of her brain other than that we may pursue psychological evaluation if no other medical causes are seen, last sodium level was 143 last ammonia level was normal Review of Systems Review of Systems: Unobtainable due to cognitive status Physical Exam Physical Exam: The patient appeared agitated and easily distracted Vital signs as documented. Head exam is unremarkable. normocephalic, atraumatic Neck is without jugular venous distension, or lymphademopathy Lungs are clear but diminished with poor cooperation and effort Cardiac exam reveals Rhythm is regular. First and second heart sounds normal. Abdominal exam reveals normal bowel sounds, soft and nontender Extremities are nonedematous and both pedal pulses are present Neurologic exam is she is alert and attempts to follow commands she is got some type of movement disorder looking type of her movements and is not oriented to place or time Skin is warm Dry Results & Data Vital Signs (Past 12 Hours) Vital Signs Temp Pulse Resp BP Pulse Ox 09/29/18 06:01 103 H 22 126/76 95 09/29/18 05:01 110 H 19 138/84 96 09/29/18 04:00 36.7 C 95 H 17 141/72 H 96 09/29/18 03:01 78 18 115/63 09/29/18 02:01 107 H 19 115/100 96 09/29/18 01:01 74 19 127/63 94 09/29/18 00:01 36.5 C 80 23 124/67 95 09/28/18 23:04 86 16 129/74 94 09/28/18 21:02 125 H 22 117/65 97 (1) Anemia Anemia type: unspecified type Qualified Code(s): D64.9 - Anemia, unspecified (2) Hypothyroid Hypothyroidism type: unspecified Qualified Code(s): E03.9 - Hypothyroidism, unspecified (3) Fall Encounter type: initial encounter Qualified Code(s): W19.XXXA - Unspecified fall, initial encounter
--- NOTE | 2018-09-29 09:40 | Neurology Progress Note ---
Date of Service September 29, 2018 Assessment & Plan (1) Metabolic encephalopathy: Patient has an acute encephalopathy, likely metabolic, over the last 3 days. She may be making some slight improvement over the last day and had some more lucid time earlier this morning. She does not appear to be withdrawing currently, but she has some tremulousness in agitation. Blood pressure and pulse are stable. Gabapentin dose on admission was very high and she was cut back to 50% of the dosage during the hospitalization. She was on fairly high doses of acetazolamide and this was stopped all once as well. She was on a number of psychiatric medications which were discontinued or held. Overall, she likely has the encephalopathy from electrolyte imbalance,, with Hepatic encephalopathy likely contributing. Sodium is markedly improved and calcium is better as well. Liver is stable with a normal ammonia. There are no focal findings on examination and she does not appear to be seizing. She has no meningeal signs and is afebrile. (2) Generalized weakness: Patient presented with generalized weakness of a progressive nature over 10 days. She currently does not seem to be focally or generally weak Etiology of this was not readily apparent, but I suspected a general weakness from hepatic encephalopathy and urinary tract infection. On exam I have not seen any focal neurologic findings. In fact, her exam had fairly intact strength and some giveaway weakness (not convinced she was giving maximum effort). I do not believe there is an underlying myopathy and her CK was largely normal (217 is not that high). Her pattern of weakness was diffuse and not proximal anyway. She does have some signs of generalized polyneuropathy as noted by some decreased sensation distally in the legs and some absent ankle reflexes. This could give her a sensory ataxia and add to her balance issues. Patient has considerable generalized fatigue and easy fatigability. Hepatic encephalopathy any urinary tract infection can add to this. There is no diagnosis of myasthenia gravis (even though she takes pyridostigmine for muscle strength). She has iron deficiency anemia which could easily add to her fatigue. Her no other specific laboratory abnormalities directly related to fatigue otherwise. Patient has a longstanding history of psychiatric issues including depression and anxiety, OCD, and bipolar disorder. She was on multiple psychiatric medications. According to the patient, her mood is stable. When I 1st saw her, I could not exclude a psychiatric origin to some of the symptoms she is displaying. Overall, I believe the patient was overmedicated and has significant polyphar yolande. She is taking multiple narcotic medications as well in addition to benzodiazepines. (3) Incontinence: She has progressive incontinence of urine and more recently incontinence of bowel (which is new). This may be a lower motor neuron problem from her lumbosacral spine but she does not have any radicular symptomatology otherwise. She does not have any other upper motor neuron signs on examination and MRIs of the cervical and thoracic spine showed no cord lesions or myelopathy. (4) Intractable headache: Patient has a longstanding history of intermittent migrainous headaches. She no w has chronic comma intermittent, mixed headache types with migraines and headaches associated with her cervical spine and intracranial pressure. She takes acetazolamide which could actually exacerbate headaches but would treat increased intracranial pressure. Overall, she feels that acetazolamide has helped. In addition, acetazolamide could lead to electrolyte abnormalities. This was discontinued. It is possible to have a rebound hyponatremia from discontinuation of acetazolamide (rebound salt/water retention). (5) History of brain surgery: Patient has a history of Chiari malformation surgery in 2010. Her lightheadedness/dizziness conceivably could be related to this as could her horizontal nystagmus, but her anatomy has been stable with subsequent imaging showing no issues that would create intracranial pressure problems. (6) Herniated nucleus pulposus with myelopathy, cervical: Patient has a history of C5-6 micro diskectomy in 2014. In 2016 she had C1 to fusion. Most recent MRI in October of 2017 showed a disc bulge at C6-7. MRIs did not show any evidence of processes that could create myelopathy. (7) POTS (postural orthostatic tachycardia syndrome): Patient has a history of orthostasis/tachycardia syndrome treated with midodrine. She remains tachycardic. 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 There is a relatively common syndrome of EDS, migraine headaches, and POTS. Recommendations: 1. Although I am not sure that abruptly stopping acetazolamide created any issue, now that she is off acetazolamide, it is reasonable to keep her off of this and let her electrolytes equilibrate over the next several days. It is also somewhat reasonable to restart low-dose such as 250 milligrams twice daily. 2. Physical and occupational therapy evaluations. 3. This patient would likely need social service evaluation and home physical therapy to help with activities of daily living and recommendations for mobility. 4. The patient may need EMG and nerve conduction studies of the limbs (if her strength does not improve after the hepatic issues and UTI are treated), but this would be done as an outpatient and she will likely go to her regular neurologist. 5. Consider MRI of the brain with without contrast. She does not have any meningeal signs or fever, so an LP is not critical Overall, I spent a total 25 minutes with this case including review of records, direct evaluation the patient at bedside, and discussion of the case with the patient, 1 daughter present at bedside, her nurse, as well as Dr. Linn, regarding differential diagnosis and treatment options. Subjective Is. She is not having seizure activity. According to the daughter, early this morning she was making more sense and was oriented to where she was. Now she is back to being confused. She is not able to follow commands very well but will make eye contact. She is talkative but not making sense. Nursing reports no other abnormal events. Calcium is improved to 7.9. AST is 79 out fossa 236. Ammonia yesterday was 30. Sodium is 143. Pulse is 101, and blood pressure 107/73. Physical Exam Physical Exam: She is awake and alert making eye contact and does not want to be manipulated with her hands. She will not follow one-step commands well. She will look and tracks some. Her speech is without aphasia or dysarthria. Is mostly nonsensical but the words are intelligible. Extraocular eye muscles seem intact and there is no facial droop. Limb strength is quite good in all 4 limbs with good tone. She has some tremulousness but no abnormal involuntary movements otherwise. Results & Data Vital Signs (Past 12 Hours) Vital Signs Temp Pulse Resp BP Pulse Ox 09/29/18 09:00 101 H 20 107/73 99 09/29/18 08:00 36.8 C 112 H 21 110/86 98 09/29/18 06:01 103 H 22 126/76 95 09/29/18 05:01 110 H 19 138/84 96 09/29/18 04:00 36.7 C 95 H 17 141/72 H 96 09/29/18 03:01 78 18 115/63 09/29/18 02:01 107 H 19 115/100 96 09/29/18 01:01 74 19 127/63 94 09/29/18 00:01 36.5 C 80 23 124/67 95 09/28/18 23:04 86 16 129/74 94
[2018-09-29] MEDS ORDERED: DEXMEDETOMIDINE HCL 200 MCG in SODIUM CHLORIDE 0.9% 48 ML IV SCH (10:15)
[2018-09-29] MEDS: DEXMEDETOMIDINE HCL 200 MCG in SODIUM CHLORIDE 0.9% 48 ML IV SCH ×5 (10:58→20:33)
[2018-09-29] MEDS: OXYCODONE HCL IR 5 MG TAB (IMMEDIATE RELEASE) PO PRN ×2 (11:29→19:13)
--- NOTE | 2018-09-29 12:36 | Critical Care Progress Note ---
Date of Service September 29, 2018 Assessment & Plan (1) Metabolic encephalopathy: Toxic metabolic encephalopathy, likely multifactorial with major etiologic factor polypharmacy and additional contributing factors including hyperammonemia, acute liver injury. Ammonia now normal although of course encephalopathy may persist post normalization of ammonia. Neurology following. Case discussed with neurology and hospitalist service. 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 Subjective Patient is alert but still markedly confused with tangential and appropriate speech. She appears to be in no distress. We have started her on Precedex to facilitate planned MRI. Neurology advises that LP is not necessary Review of Systems Review of Systems: Unable to obtain due to altered sensorium Physical Exam Constitutional: WD/WN, vitals as above + altered mental status Eyes: PERRL, conjunctivae normal, anicteric sclerae ENMT: external ear and nose normal, oropharynx normal Respiratory: normal respiratory effort, lungs clear to auscultation Cardiovascular: RRR, no murmur, no edema Gastrointestinal (Abdomen): normal bowel sounds, soft, nontender, no hepatosplenomegaly Musculoskeletal: no cyanosis or clubbing, extremities motor strength 5/5 Skin: no rashes, warm and dry Results & Data Vital Signs (Past 12 Hours) Vital Signs Temp Pulse Resp BP Pulse Ox 09/29/18 11:00 77 23 120/66 95 09/29/18 09:00 101 H 20 107/73 99 09/29/18 08:00 36.8 C 112 H 21 110/86 98 09/29/18 06:01 103 H 22 126/76 95 09/29/18 05:01 110 H 19 138/84 96 09/29/18 04:00 36.7 C 95 H 17 141/72 H 96 09/29/18 03:01 78 18 115/63 09/29/18 02:01 107 H 19 115/100 96 09/29/18 01:01 74 19 127/63 94
[2018-09-29] MEDS ORDERED: DiphenhydrAMINE HCL 50 MG/ML VIAL IV ONE (14:30)
[2018-09-29 15:22] LABS: Anti Nuclear Antibody Screen NEGATIVE (NEGATIVE); Ceruloplasmin 36 MG/DL (18-53); Liver,Kidney Microsome IgG Ab <=20.0 U (<=20.0)
[2018-09-29] MEDS ORDERED: DiphenhydrAMINE HCL 50 MG/ML VIAL IV PRN (15:25)
--- NOTE | 2018-09-29 16:04 | Magnetic Resonance Report ---
MR brain wo con HISTORY: 53 years-old Female eval for encephalitis acute confusion. History of prior suboccipital cr aniotomy with craniocervical fusion. COMPARISON: Brain MRI 09/17/2016 TECHNIQUE: Multiplanar multisequence MRI of the brain was obtained without the use of IV contrast. FINDINGS: Harness Cutter localizer images demonstrate no gross extracranial abnormality. There is no restricted diffusio n to suggest acute or subacute infarction. Study is moderately motion degraded. The midline structure s causing the corpus callosum, brainstem, optic chiasm, pituitary and pineal glands appear unremarkab le the sagittal T1 series. Postoperative changes from prior suboccipital craniotomy with craniocervic al fusion. Artifact from the hardware limits evaluation of the skull base structures. No acute intracranial hemorrhage, midline shift, abnormal extra-axial collections, hydrocephalus or i ntracranial mass. There are a few punctate foci of T2/FLAIR prolongation within subcortical white mat ter, likely of no clinical significance. The major flow voids at the level of the skull base appear p atent. Trace left mastoid effusion. Mild mucosal thickening of the ethmoid air cells. Soft tissues, s kull and orbits are unremarkable. IMPRESSION: 1. Motion degraded exam. 2. No acute intracranial abnormality identified. 3. Postoperative changes from prior suboccipital craniotomy with craniocervical fusion. The above report was generated using voice recognition software. It may contain grammatical, syntax o r spelling errors. Electronically signed by: Troy Davis M.D. 09/29/2018 4:02 PM
[2018-09-29] MEDS: fentaNYL 12 MCG/HR TDSY TD SCH (18:15)
[2018-09-29] MEDS: fentaNYL 100 MCG/HR TDSY TD SCH (18:16)
[2018-09-29] MEDS ORDERED: DEXMEDETOMIDINE HCL IV SCH ×2 (21:30)
[2018-09-29] MEDS ORDERED: SODIUM CHLORIDE 0.9% IV SCH ×2 (21:30)
[2018-09-29] MEDS: DEXMEDETOMIDINE HCL 400 MCG in 0.9 % SODIUM CHLORIDE 96 ML IV PRN (23:36)
[2018-09-30] MEDS: DEXMEDETOMIDINE HCL 400 MCG in 0.9 % SODIUM CHLORIDE 96 ML IV PRN (05:01)
[2018-09-30 05:03] LABS: INR 1.2 (0.9-1.1); Prothrombin Time 12.5 Seconds (9.0-12.0)
[2018-09-30] MEDS: LEVOTHYROXINE SODIUM 75 MCG TABLET PO SCH (05:18)
[2018-09-30] MEDS: OXYCODONE HCL IR 5 MG TAB (IMMEDIATE RELEASE) PO PRN ×3 (07:06→22:28)
[2018-09-30] MEDS: RIFAXIMIN 550 MG TABLET PO SCH (07:07)
[2018-09-30] MEDS: METOPROLOL TARTRATE 25 MG TAB PO SCH ×2 (07:07→21:04)
[2018-09-30] MEDS: POTASSIUM CHLORIDE 20 MEQ/15 ML UDC PO SCH (07:07)
[2018-09-30] MEDS: MAGNESIUM OXIDE 400 MG TAB PO SCH ×2 (07:07→21:19)
[2018-09-30] MEDS: ASCORBIC ACID 500 MG TAB PO SCH (07:08)
[2018-09-30] MEDS: ENOXAPARIN INJ 40 MG/0.4 ML SYR SQ SCH (07:08)
[2018-09-30] MEDS: LANSOPRAZOLE 30 MG SOLTAB NG SCH (07:08)
[2018-09-30] MEDS: FOLIC ACID 1 MG TAB PO SCH (07:08)
[2018-09-30] MEDS: CHECK FENTANYL PATCH PLACEMENT SCH ×6 (07:09→23:51)
[2018-09-30] MEDS: SODIUM CHLORIDE 0.9% 1000ML 1,000 ML IV SCH ×2 (07:30)
[2018-09-30] MEDS: GABAPENTIN 250 MG/5 ML 470 ML BTL PO SCH (07:31)
--- NOTE | 2018-09-30 07:41 | Hospitalist Progress Note ---
Date of Service September 30, 2018 Assessment & Plan (1) Hypernatremia: acute hypernatremia is resolved (2) Metabolic encephalopathy: hepatic encephalopathy toxic encephalopathy , Polypharmacy may be also playing a role will have psychiatry eval pts home medication list Neurology consult is following, mri scan 09/29 is negative. family did not permitting lumbar puncture. (3) Generalized weakness: Multi factoral, certainly hypernatremia was initial role now is deconditioned (4) Fall: Likely from metabolic/toxic encephalopathy (5) POTS (postural orthostatic tachycardia syndrome): Chronic on beta blockers. (6) Anemia: hemoglobin has been relatively stable in the 10 gm range maybe anemia of chronic disease. (7) EDS (Lilibeth-Danlos syndrome): Chronic. Stable -Continue to monitor (8) Hypothyroid: Chronic. Low TSH -Continue Synthroid, (9) Opioid withdrawal: Patient 's tachycardia is improved, restarted on fentanyl patches Placed fentayl q2d as this is her norm as an outpatient. (10) Abnormal LFTs: Has been gradually improving. Ppx - Lovenox (11) Dysphagia: pt pulled ngt, swallowing cleared by speech eval, with swallowing precautions, re eval 09/30 for advance of diet Subjective pt has had a remarkable recovery, she is near her baseline according to family, ICU attending has theorized polypharmacy with toxic encephalopathy compounding metabolic encephalopathy present on admission. Pt is agreeable to speaking to Psychiatrist to review her home medication regime to try to avoid future issues if able Review of Systems Review of Systems: ROS: Pt states she feels tired No double vision blurry vision No problems with speech or swallowing. speech therapy to re evaluate No palpitations, chest pain or pressure No Wheezing or breathing issues No abdominal pain nausea vomiting diarrhea changes in appetite or weight No burning urine urine frequency or changes in color No focal joint pain or muscle pain No skin rashes or oral lesions No unusual bruising or bleeding No focused back pain or numbness or loss of strength improved memory and less confusion Physical Exam Physical Exam: The patient appeared well nourished and normally developed. Vital signs as documented. Head exam is unremarkable. normocephalic, atraumatic Neck is without jugular venous distension, thyromegaly, or lymphademopathy Lungs are decreased at the bases Cardiac exam reveals Rhythm is regular. First and second heart sounds normal. Abdominal exam reveals normal bowel sounds, no masses, no organomegaly Extremities are nonedematous and both pedal pulses are present Neurologic exam is A&Ox3, no focal deficits, strength is equal bilateral but decreased Psychologically seems anxious Skin is warm / Dry Results & Data Vital Signs (Past 12 Hours) Vital Signs Temp Pulse Resp BP Pulse Ox 09/30/18 06:01 78 25 H 112/72 96 09/30/18 05:49 49 L 16 131/65 95 09/30/18 05:01 47 L 18 131/65 97 09/30/18 04:01 36.6 C 47 L 15 122/59 L 97 09/30/18 03:01 56 L 17 148/64 H 97 09/30/18 02:01 46 L 15 120/62 95 09/30/18 01:01 54 L 16 135/66 96 09/30/18 00:55 36.5 C 63 19 136/64 94 09/29/18 23:01 48 L 15 127/68 97 09/29/18 22:01 49 L 16 126/78 96 09/29/18 21:01 48 L 14 149/62 H 94 09/29/18 20:01 36.6 C 50 L 18 145/54 H 96 (1) Anemia Anemia type: unspecified type Qualified Code(s): D64.9 - Anemia, unspecified (2) Hypothyroid Hypothyroidism type: unspecified Qualified Code(s): E03.9 - Hypothyroidism, unspecified (3) Fall Encounter type: initial encounter Qualified Code(s): W19.XXXA - Unspecified fall, initial encounter
--- NOTE | 2018-09-30 08:56 | Neurology Progress Note ---
Date of Service September 30, 2018 Assessment & Plan (1) Metabolic encephalopathy: Patient has an acute encephalopathy, likely metabolic, over the last 3-4 days. She is markedly improved compared to yesterday and is more oriented following commands. He still isn't quite back to baseline however. She does not appear to be withdrawing currently, but she has some tremulousness in agitation. Blood pressure and pulse are stable. Gabapentin dose on admission was very high and she was cut back to 50% of the dosage during the hospitalization. She was on fairly high doses of acetazolamide and this was stopped all at once as well. She was on a number of psychiatric medications which were discontinued or held. Overall, she likely has the encephalopathy from electrolyte imbalance, with hepatic encephalopathy likely contributing. Sodium is markedly improved and calcium is better as well. Liver is stable with a normal ammonia. There are no focal findings on examination and she does not appear to be seizing. She has no meningeal signs and is afebrile. (2) Generalized weakness: Patient presented with generalized weakness of a progressive nature over 10 days. She currently does not seem to be focally or generally weak Etiology of this was not readily apparent, but I suspected a general weakness from hepatic encephalopathy and urinary tract infection. On exam I have not seen any focal neurologic findings. In fact, her exam had fairly intact strength and some giveaway weakness (not convinced she was giving maximum effort). I do not believe there is an underlying myopathy and her CK was largely normal (217 is not that high). Her pattern of weakness was diffuse and not proximal anyway. She does have some signs of generalized polyneuropathy as noted by some decreased sensation distally in the legs and some absent ankle reflexes. This could give her a sensory ataxia and add to her balance issues. Patient has considerable generalized fatigue and easy fatigability. Hepatic encephalopathy any urinary tract infection can add to this. There is no diagnosis of myasthenia gravis (even though she takes pyridostigmine for muscle strength). She has iron deficiency anemia which could easily add to her fatigue. Her no other specific laboratory abnormalities directly related to fatigue otherwise. Patient has a longstanding history of psychiatric issues including depression and anxiety, OCD, and bipolar disorder. She was on multiple psychiatric medications. According to the patient, her mood is stable. When I 1st saw her, I could not exclude a psychiatric origin to some of the symptoms she is displaying. Overall, I believe the patient was overmedicated and has significant polypharmacy. She is taking multiple narcotic medications as well in addition to benzodiazepines. (3) Incontinence: She has progressive incontinence of urine and more recently incontinence of bowel (which is new). This may be a lower motor neuron problem from her lumbosacral spine but she does not have any radicular symptomatology otherwise. She does not have any other upper motor neuron signs on examination and MRIs of the cervical and thoracic spine showed no cord lesions or myelopathy. (4) Intractable headache: Patient has a longstanding history of intermittent migrainous headaches. She now has chronic comma intermittent, mixed headache types with migraines and headaches associated with her cervical spine and intracranial pressure. She takes acetazolamide which could actually exacerbate headaches but would treat increased intracranial pressure. Overall, she feels that acetazolamide has helped. In addition, acetazolamide could lead to electrolyte abnormalities. This was discontinued. It is possible to have a rebound hyponatremia from discontinuation of acetazolamide (rebound salt/water retention). (5) History of brain surgery: Patient has a history of Chiari malformation surgery in 2010. Her lightheadedness/dizziness conceivably could be related to this as could her horizontal nystagmus, but her anatomy has been stable with subsequent imaging showing no issues that would create intracranial pressure problems. (6) Herniated nucleus pulposus with myelopathy, cervical: Patient has a history of C5-6 micro diskectomy in 2014. In 2016 she had C1 to fusion. Most recent MRI in October of 2017 showed a disc bulge at C6-7. MRIs did not show any evidence of processes that could create myelopathy. (7) POTS (postural orthostatic tachycardia syndrome): Patient has a history of orthostasis/tachycardia syndrome treated with midodrine. She remains tachycardic. 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 There is a relatively common syndrome of EDS, migraine headaches, and POTS. Recommendations: 1. Although I am not sure that abruptly stopping acetazolamide created any issue, now that she is off acetazolamide, it is reasonable to keep her off of this and let her electrolytes equilibrate over the next several days. If she insists (as an outpatient) on restarting I would go at 250 mg once daily titrate very slowly. 2. Physical and occupational therapy evaluations. 3. This patient would likely need social service evaluation and home physical therapy to help with activities of daily living and recommendations for mobility. 4. I see no need for additional neurologic testing at this time. There is no need for lumbar puncture. Overall, I spent a total 25 minutes with this case including review of records, direct evaluation the patient at bedside, and discussion of the case with the patient, 1 daughter present at bedside, her nurse, as well as Colton Green PA-C, regarding differential diagnosis and treatment options. Subjective The patient has some left hip pain and a very slight headache only. She has no vision issues except a little bit of photophobia. She has no dizziness or speech problems. She is much improved compared to yesterday. Nursing reports no events of significance overnight. Blood pressure is130/63 with a Pulse of 49. MRI of the brain yesterday showed no acute changes. She had the usual postop changes only. Physical Exam Physical Exam: She is awake and alert. Her speech is more focused and she will follow one-step commands and answer questions quite accurately. Her daughter is present at bedside today to verify this. She is more oriented today and although calmer she still has a little bit of tremulousness/slight agitation with some rambling on conversationally at times. Extraocular eye muscles are intact with some lateral nystagmus. There is no facial droop. Coordination is normal in the arms without ataxia. Strength is symmetrical in the limbs. Results & Data Vital Signs (Past 12 Hours) Vital Signs Temp Pulse Resp BP Pulse Ox 09/30/18 07:00 36.7 C 49 L 18 130/63 96 09/30/18 06:01 78 25 H 112/72 96 09/30/18 05:49 49 L 16 131/65 95 09/30/18 05:01 47 L 18 131/65 97 09/30/18 04:01 36.6 C 47 L 15 122/59 L 97 09/30/18 03:01 56 L 17 148/64 H 97 09/30/18 02:01 46 L 15 120/62 95 09/30/18 01:01 54 L 16 135/66 96 09/30/18 00:55 36.5 C 63 19 136/64 94 06/11/19 23:01 48 L 15 127/68 97 09/29/18 22:01 49 L 16 126/78 96 09/29/18 21:01 48 L 14 149/62 H 94 Diagnostic Findings MR brain wo con HISTORY: 53 years-old Female eval for encephalitis acute confusion. History of prior suboccipital craniotomy with craniocervical fusion. COMPARISON: Brain MRI 09/17/2016 TECHNIQUE: Multiplanar multisequence MRI of the brain was obtained without the use of IV contrast. FINDINGS: Shank Scourer localizer images demonstrate no gross extracranial abnormality. There is no restricted diffusion to suggest acute or subacute infarction. Study is moderately motion degraded. The midline structures causing the corpus callosum, brainstem, optic chiasm, pituitary and pineal glands appear unremarkable the sagittal T1 series. Postoperative changes from prior suboccipital craniotomy with craniocervical fusion. Artifact from the hardware limits evaluation of the skull base structures. No acute intracranial hemorrhage, midline shift, abnormal extra-axial collections, hydrocephalus or intracranial mass. There are a few punctate foci of T2/FLAIR prolongation within subcortical white matter, likely of no clinical significance. The major flow voids at the level of the skull base appear patent. Trace left mastoid effusion. Mild mucosal thickening of the ethmoid air cells. Soft tissues, skull and orbits are unremarkable. IMPRESSION: 1. Motion degraded exam. 2. No acute intracranial abnormality identified. 3. Postoperative changes from prior suboccipital craniotomy with craniocervical fusion. The above report was generated using voice recognition software. It may contain grammatical, syntax or spelling errors. Electronically signed by: Troy Davis M.D. 09/29/2018 4:02 PM
[2018-09-30] MEDS: GABAPENTIN 600 MG TAB PO SCH ×2 (14:11→21:04)
[2018-09-30 15:11] LABS: Albumin Level 2.2 gm/dl (3.4-5.0); BUN Creatinine Ratio 13.5 (10-20); Creatinine Clr Calc Pharmacy 172.2 ml/min; Est GFR (African American) 147.9; Est GFR (Non-African American) 127.6; Potassium 3.9 mmol/L (3.5-5.1)
[2018-09-30 15:14] LABS: Albumin Globulin Ratio 0.7 (0.9-2); Bilirubin,Total 0.5 mg/dl (0.2-1); Globulin 3.1 gm/dl (2.5-4.0); Total Protein 5.3 gm/dl (6.4-8.2)
[2018-09-30 15:35] LABS: Basophils # (auto) 0.02 K/uL (0-0.2); Basophils % (auto) 0.3 %; Eosinophils # (auto) 0.13 K/uL (0-0.5); Eosinophils % (auto) 2.3 %; Hematocrit (blood only) 35.8 % (37-47); Hemoglobin 11.2 g/dL (12.0-16.0); Immature Granulocytes # (auto) 0.02 K/uL (0.00-0.02); Immature Granulocytes % (auto) 0.3 %; Lymphocytes # (auto) 0.58 K/uL (1.2-3.4); Lymphocytes % (auto) 10.1 %; Mean Corpuscular Volume 97.8 fL (80-100); Mean Platelet Volume 11.6 fL (7.4-10.4); Monocytes # (auto) 0.51 K/uL (0.11-0.59); Monocytes % (auto) 8.9 %; Neutrophils # (auto) 4.49 K/uL (1.4-6.5); Neutrophils % (auto) 78.1 %; Platelet Count 393 K/uL (130-400); RDW Coefficient of Variation 13.2 % (11.5-14.5); RDW Standard Deviation 46.9 fL (36.4-46.3); Red Blood Count 3.66 M/uL (4.2-5.4); White Blood Count 5.75 K/uL (4.8-10.8)
[2018-09-30 15:39] LABS: Mean Corpuscular Hgb Conc 31.3 g/dL (32-36)
[2018-10-01] MEDS: LEVOTHYROXINE SODIUM 75 MCG TABLET PO SCH (06:19)
[2018-10-01] MEDS: OXYCODONE HCL IR 5 MG TAB (IMMEDIATE RELEASE) PO PRN ×2 (07:15→15:57)
[2018-10-01] MEDS: CHECK FENTANYL PATCH PLACEMENT SCH ×4 (08:27→15:58)
[2018-10-01] MEDS: METOPROLOL TARTRATE 25 MG TAB PO SCH ×2 (08:28→21:11)
[2018-10-01] MEDS: GABAPENTIN 600 MG TAB PO SCH (08:28)
[2018-10-01] MEDS: FOLIC ACID 1 MG TAB PO SCH (08:30)
[2018-10-01] MEDS: MAGNESIUM OXIDE 400 MG TAB PO SCH ×2 (08:30→21:10)
[2018-10-01] MEDS: ENOXAPARIN INJ 40 MG/0.4 ML SYR SQ SCH (08:31)
[2018-10-01] MEDS: ASCORBIC ACID 500 MG TAB PO SCH (08:31)
[2018-10-01] MEDS: LANSOPRAZOLE 30 MG SOLTAB NG SCH (08:48)
--- NOTE | 2018-10-01 09:34 | Psychiatric Consultation ---
Date of Consultation October 01, 2018 Impression / Recommendations Impression 53-year-old female admitted medically on 09/21/18 due to weakness x 10 days. Psychiatric consult service requested to assist with recommendations regarding AMS and clarifying what seems to be a rather concerning home medication regimen. Patient and family are rather limited in their willingness to allow our service to contact the patient's outpatient providers. It does appear that her current psychiatric medication regimen is far less extensive that external med rec suggests. Only confirmed psychiatric medications are quetiapine 100mg qHS and regular monthly refills of alprazolam 0.5mg BID. Pt also take amitriptyline 50mg qHS, which is presumed to be as migraine prophylaxis. Given that patient has been receiving rather high doses of pain medications, and significant quantities of narcotics - there is particular concern about the interaction between patient's pain medications and her benzodiazepine. It does not appear that patient has received the available, reduced dosage, of alprazolam 0.25mg BID prn thus far in her hospitalization. Would highly suggest discontinuation of this medication, to reduce polypharmacy and significant interactions with her pain medications. Findings and recommendations were reviewed with attending physician, along with recommendation that prescribers of all controlled substances be informed about patient's AMS and medication concerns. Will follow up with patient's regarding outpatient psychiatric medication list - and attempt to offer additional recommendations as able/available. Please reach out to our service with any additional questions or concerns. Appreciate the opportunity to participate in the care of this patient. Dr. Carmen Melgoza was directly involved in review and discussion of the patient's case and participated in medical decision making regarding treatment recommendations. CPT Code Initial Consultation: 61583 Psych History Identifying Data 53-year-old female admitted medically on 09/21/2018 due to reports of weakness, falls, and episodes of fecal and urinary incontinence which had been progressing for about 10 days prior to admission. During her hospitalization, the patient developed confusion and lethargy and was transferred to the ICU. Patient has a rather complex medical history and significant polypharmacy. Psychiatric consultation was requested to review psychiatric medications and assist primary team and other specialties and making recommendations to improve her overall co ndition. Information provided by the patient is rather unreliable due to confusion, family has been resistant to providing additional history or permitting for additional information to be obtained. Chief Complaint "See, they said you were coming. I know." History of Present Illness Leyla Pichardo is a 53-year-old female admitted medically on 09/21/2018 due to weakness x 10 days. She reportedly experienced 2 falls prior to admission and has had episodes of urinary and fecal incontinence as well. PMH of Lilibeth- Danlos syndrome, POTS, hypothyroidism, frequent migraines, and opioid dependence. Surgical history is extensive, most significant for Arian-en-Y GBS, multiple cervical spinal surgeries with diskectomy and fusion, and correction of Chiari malformation. Shortly after admission to the medical floor, patient developed confusion and lethargy and was transferred to the ICU. Pt is currentl y being treated for metabolic encephalopathy and hypernatremia, along with opioid withdrawal. Patient follows with several specialists on an outpatient basis, and multiple services were requested to make recommendations regarding patient's condition as well as her concerning outpatient medication regimen. Psychiatric consultation was requested for the same. Review of documentation, external med rec, and confirmation with pharmacies suggests that patient has recently been prescribed the following psychiatric medications: (per PDMP and external med rec) - Amitriptyline 50mg qHS (last filled 09/04/18) - ?migraine prophylaxis - Trazodone 100mg qHS (last filled 09/04/18) - Buspirone 10mg BID (last filled 09/04/18) - Alprazolam 0.5mg BID - #60 tabs (last filled 09/04/18) - Quetiapine 100mg qHS (last filled 09/04/18) - Sertraline 100mg qAM (last filled 09/04/18) - Gabapentin 1,200mg TID (last filled (09/04/18) Pt also has fentanyl a total of 112mcg q48hr (last filled 09/15/18), oxycodone 10mg #150 tabs (last filled 09/15/18), baclofen 20mg TID (last filled 09/04/18) - among other prescriptions. Pt remains rather confused and the majority of information has been provided by the patient's . Upon visits with the psychiatric nurse liaisons, was unwilling to allow for communication between our service and the patient's psychiatric prescriber. The name of her current prescriber was also not provided. had reported to liaison that the only currently prescribed psychiatric medications are alprazolam and quetiapine, stating she has not taken the other medications "for awhile." Only information provided by was that the patient sees a therapist, Dr. Shahid, in [place]. Additional collateral information was not provided. Upon assessment today, the patient is awake and alert, watching a video on a tablet. Daughter, Mehreen, is present in the room - but admits her knowledge of the patient's history is limited. Pt verbalized permission for her daughter to remain in the room during our conversation. Daughter attempts to call during our visit, but he is unfortunately unavailable. Pt admits that she remains somewhat confused, but states that she is frustrated - wanting to go home. Discussed with patient and daughter that we need to take her hospitalization in stages - what can we do to correct her confusion, and later, what can be done to prevent recurrence. This provider attempted to review the patient's psychiatric medications; however, there is limited information available presently. Daughter does provide a home med list pictured on her phone - with only quetiapine and amitriptyline listed as psychiatric medications. Alprazolam was not on the provided medication list. Attempts were made to explain to patient our role in her care and this provider requested to be informed if/when returns in order to discuss home med list further. A list was left with the daughter, requesting information about diagnoses, outpatient providers, and listed medications/any side effects. Daughter stated she would give the list to the patient's to complete. Overall, the patient describes her mood as "stable, pretty consistent" and does not verbalize any other psychiatric complaints. This provider did inform patient and daughter that the most concerning interaction with medications is the combination of yanick odiazepines and opioids - stating we would likely recommend that she remain off the alprazolam. Pt states, "you can look at my medications, but it's going to take a lot of convincing to get me to change anything." Pt and daughter denied any other needs or concerns at this time. Past Psychiatric History Previous Psych History: Documentation from this hospitalization suggests possible psychiatric diagnoses of depression, anxiety, OCD, and bipolar disorder. PDMP states her alprazolam is prescribed by Yi Dangelo PA-C at [facility]; however, patient cannot confirm this. They decline to sign releases to obtain further history. Outpatient Services: Unknown Allergies Allergy/AdvReac Type Severity Reaction Status Date / Time blue dye Allergy Intermediate joint Verified 09/21/18 19:19 swelling codeine Allergy Intermediate hives-TAKES Verified 09/21/18 19:19 OXYCONTIN AT HOME bupropion [From Wellbutrin] Allergy Unknown Unknown Verified 09/21/18 19:19 Margarine Allergy Severe ANAPHYLAXIS Uncoded 07/30/18 14:06 Home Medications Home Medications Medication Instructions Recorded Confirmed Type alprazolam [Xanax] 0.5 mg PO BID 07/30/18 09/21/18 History amitriptyline 50 mg PO HS 07/30/18 09/21/18 History ascorbic acid (vitamin C) [Vitamin 1,000 mg PO DAILY 07/30/18 09/21/18 History C] baclofen 20 mg PO TID 07/30/18 09/21/18 History bisacodyl [Dulcolax (bisacodyl)] 5 mg PO DAILY PRN 07/30/18 09/21/18 History buspirone 10 mg PO BID 07/30/18 09/21/18 History cyanocobalamin (vitamin B-12) 1,000 mcg IM MONTHLY 07/30/18 09/21/18 History fentanyl 1 patch TRANSDERMAL .CQ48HR 07/30/18 09/21/18 History fentanyl 1 patch TRANSDERMAL .CQ48HR 07/30/18 09/21/18 History folic acid 1 mg PO DAILY 07/30/18 09/21/18 History gabapentin 1,200 mg PO TID 07/30/18 09/21/18 History levothyroxine [Levoxyl] 100 mcg PO DAILY 07/30/18 09/21/18 History lidocaine [Lidoderm] 1 patch TOPICAL DAILY PRN 07/30/18 09/21/18 History meclizine 25 mg PO TID PRN 07/30/18 09/21/18 History midodrine 2.5 mg PO TID 07/30/18 09/21/18 History omeprazole 20 mg PO DAILY 07/30/18 09/21/18 History ondansetron 4 - 8 mg PO Q8H PRN 07/30/18 09/21/18 History oxycodone 10 mg PO 5XD PRN 07/30/18 09/21/18 History promethazine [Phenergan] 25 mg LA Q12H PRN 07/30/18 09/21/18 History sertraline 100 mg PO QAM 07/30/18 09/21/18 History sumatriptan succinate [Imitrex] 100 mg PO DIRECTED PRN MDD 200 07/30/18 09/21/18 History MG/DAY acetazolamide 250 mg PO QID 09/21/18 09/21/18 History rrtwqtdmqs-wpfrtcqvpnavv-zmiz 1 tab PO Q4H PRN MDD 6 TABS 09/21/18 09/21/18 History magnesium oxide 400 mg PO BID 09/21/18 09/21/18 History pyridostigmine bromide 60 mg PO TID 09/21/18 09/21/18 History quetiapine 100 mg PO HS 09/21/18 09/21/18 History trazodone 100 mg PO HS 09/21/18 09/21/18 History Patient History Medical History Opioid dependence (Chronic) POTS (postural orthostatic tachycardia syndrome) (Chronic) 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 Other Cancer Diabetes Hypertension Kidney disease Lung disease Social History Preferred Language: Albanian Communication Ability: Effective Cane Packer Required: No Beliefs That Will Affect Care: None Current Living Situation: Spouse and Family Current Living Situation Comment: Patient has 9 children ranging in age from 32-10 current occupational status: unemployed Other Information That Helps Us Care for You: No Feels Safe at Home: Yes Safety Concerns: Feels Safe At This Time Smoking Status: Light tobacco smoker Tobacco Type: cigarettes Cigarettes Per Day: One or 2 Do You Dip or Chew Tobacco: No Second Hand Exposure: Yes Tobacco Cessation Education Requested by Patient: No Hx Alcohol Use: No Hx Substance Use: Yes substance use type: marijuana Substance Use Type Other:: Medical marijuana Last Used Substance: Unknown Physical Exam Psychiatric: Orientation: alert, oriented x 3, cooperative (only superficially) and + guarded Alert and oriented, but confused with regard to personal and medical history Apperance: appropriately dressed (in hospital gown) and appropriately groomed Eye Contact: + fair eye contact (spends a good portion of interview alert/interacting, but with eyes closed) Motor Behavior: no abnormal motor movements (observed while laying in bed) Speech: normal rate/rhythm/volume of speech Affect: euthymic affect "My mood? I think it's fine, pretty stable and consistent" Remains confused, disorganized thought process Thought Content: reality based without delusions (remains confused, limited ability to engage in meaningful conversation) Suicidal Thoughts: denies suicidal thoughts Homicidal Thoughts: denies homicidal thoughts Hallucinations: no auditory hallucinations and no visual hallucinations Cognition: language grossly intact; + recent memory not intact and + remote memory not intact Estimated Intelligence: consistent with education level Insight: + impaired insight Judgement: + impaired judgement Vital Signs (Past 24 Hours): Last Vital Signs Temp 37.5 C 10/01/18 08:00 Pulse 78 10/01/18 08:00 Resp 18 10/01/18 08:00 BP 109/65 10/01/18 08:00 Pulse Ox 96 10/01/18 08:00 Review of Systems Pt reports overall confusion - unable to obtain complete ROS due to patient's AMS Results & Data Medications Administered Ascorbic Acid (Vitamin C) 1,000 mg PO DAILY [facility] Stop: 10/22/18 08:59 Last Admin: 10/01/18 08:31 Dose: 1,000 mg Documented by: [id number] Admin: 09/30/18 07:08 Dose: 1,000 mg Documented by: [id number] Admin: 09/29/18 07:25 Dose: 1,000 mg Documented by: [id number] Admin: 09/28/18 08:49 Dose: Not Given Documented by: [id number] Admin: 09/27/18 09:19 Dose: 1,000 mg Documented by: [id number] Admin: 09/26/18 08:01 Dose: 1,000 mg Documented by: [id number] Admin: 09/25/18 09:29 Dose: 1,000 mg Documented by: [id number] Admin: 09/24/18 10:48 Dose: Not Given Documented by: [id number] Admin: 09/23/18 14:41 Dose: Not Given Documented by: [id number] Admin: 09/22/18 09:50 Dose: 1,000 mg Documented by: [id number] Diphenhydramine HCl (Benadryl Syrup) 25 mg PO Q6 PRN PRN Reason: Itching Stop: 10/30/18 19:59 Last Admin: 10/01/18 00:05 Dose: 25 mg Documented by: [id number] Enoxaparin Sodium (Lovenox) 40 mg SQ QAM [facility] Stop: 10/22/18 08:59 Last Admin: 10/01/18 08:31 Dose: 40 mg Documented by: [id number] Admin: 09/30/18 07:08 Dose: 40 mg Documented by: [id number] Admin: 09/29/18 07:26 Dose: 40 mg Documented by: [id number] Admin: 09/28/18 09:14 Dose: 40 mg Documented by: [id number] Admin: 09/27/18 09:22 Dose: 40 mg Documented by: [id number] Admin: 09/26/18 08:09 Dose: 40 mg Documented by: [id number] Admin: 09/25/18 09:28 Dose: 40 mg Documented by: [id number] Admin: 09/24/18 08:05 Dose: 40 mg Documented by: [id number] Admin: 09/23/18 14:20 Dose: 40 mg Documented by: [id number] Admin: 09/22/18 12:45 Dose: 40 mg Documented by: [id number] Fentanyl (Duragesic) 12 mcg TD Q2D@1630 [facility] Stop: 10/13/18 16:29 Last Admin: 09/29/18 18:15 Dose: 12 mcg Documented by: [id number] Fentanyl (Duragesic) 100 mcg TD Q2D@1630 [facility]; Protocol Stop: 10/13/18 16:29 Last Admin: 09/29/18 18:16 Dose: 100 mcg Documented by: [id number] Folic Acid (Folvite) 1 mg PO DAILY [facility] Stop: 10/22/18 08:59 Last Admin: 10/01/18 08:30 Dose: 1 mg Documented by: [id number] Admin: 09/30/18 07:08 Dose: 1 mg Documented by: [id number] Admin: 09/29/18 07:27 Dose: 1 mg Documented by: [id number] Admin: 09/28/18 08:49 Dose: Not Given Documented by: [id number] Admin: 09/27/18 09:22 Dose: 1 mg Documented by: [id number] Admin: 09/26/18 08:07 Dose: 1 mg Documented by: [id number] Admin: 09/25/18 09:27 Dose: 1 mg Documented by: [id number] Admin: 09/24/18 08:03 Dose: 1 mg Documented by: [id number] Admin: 09/23/18 10:17 Dose: 1 mg Documented by: [id number] Admin: 09/22/18 12:32 Dose: 1 mg Documented by: [id number] Gabapentin (Neurontin) 600 mg PO TID [facility] Stop: 10/30/18 13:59 Last Admin: 10/01/18 08:28 Dose: 600 mg Documented by: [id number] Admin: 09/30/18 21:04 Dose: 600 mg Documented by: [id number] Admin: 09/30/18 14:11 Dose: 600 mg Documented by: [id number] Lansoprazole (Prevacid) 30 mg NG DAILY [facility] Stop: 10/26/18 08:59 Last Admin: 10/01/18 08:48 Dose: Not Given Documented by: [id number] Admin: 09/30/18 07:08 Dose: 30 mg Documented by: [id number] Admin: 09/29/18 07:26 Dose: 30 mg Documented by: [id number] Admin: 09/28/18 08:49 Dose: Not Given Documented by: [id number] Admin: 09/27/18 09:18 Dose: 30 mg Documented by: [id number] Admin: 09/26/18 10:26 Dose: 30 mg Documented by: [id number] Levothyroxine Sodium (Synthroid) 75 mcg PO DAILYBB [facility] Stop: 10/25/18 06:29 Last Admin: 10/01/18 06:19 Dose: 75 mcg Documented by: [id number] Admin: 09/30/18 05:18 Dose: 75 mcg Documented by: [id number] Admin: 09/29/18 06:12 Dose: 75 mcg Documented by: [id number] Admin: 09/28/18 06:35 Dose: 75 mcg Documented by: [id number] Admin: 09/27/18 06:35 Dose: 75 mcg Documented by: [id number] Admin: 09/26/18 06:04 Dose: 75 mcg Documented by: [id number] Admin: 09/25/18 06:30 Dose: 75 mcg Documented by: [id number] Magnesium Oxide (Mag-Ox) 400 mg PO BID [facility] Stop: 10/22/18 08:59 Last Admin: 10/01/18 08:30 Dose: 400 mg Documented by: [id number] Admin: 09/30/18 21:19 Dose: 400 mg Documented by: [id number] Admin: 09/30/18 07:07 Dose: 400 mg Documented by: [id number] Admin: 09/29/18 19:13 Dose: 400 mg Documented by: [id number] Admin: 09/29/18 07:27 Dose: 400 mg Documented by: [id number] Admin: 09/28/18 20:31 Dose: 400 mg Documented by: [id number] Admin: 09/28/18 08:49 Dose: Not Given Documented by: [id number] Admin: 09/27/18 21:02 Dose: 400 mg Documented by: [id number] Admin: 09/27/18 09:20 Dose: 400 mg Documented by: [id number] Admin: 09/26/18 21:01 Dose: 400 mg Documented by: [id number] Admin: 09/26/18 08:09 Dose: 400 mg Documented by: [id number] Admin: 09/25/18 21:19 Dose: 400 mg Documented by: [id number] Admin: 09/25/18 09:31 Dose: 400 mg Documented by: [id number] Admin: 09/24/18 21:00 Dose: 400 mg Documented by: [id number] Admin: 09/24/18 08:03 Dose: 400 mg Documented by: [id number] Admin: 09/23/18 22:09 Dose: 400 mg Documented by: [id number] Admin: 09/23/18 10:32 Dose: Not Given Documented by: [id number] Admin: 09/22/18 21:13 Dose: Not Given Documented by: [id number] Admin: 09/22/18 12:31 Dose: Not Given Documented by: [id number] Metoprolol Tartrate (Lopressor) 12.5 mg PO BID [facility] Stop: 10/26/18 20:59 Last Admin: 10/01/18 08:28 Dose: 12.5 mg Documented by: [id number] Admin: 09/30/18 21:04 Dose: 12.5 mg Documented by: [id number] Admin: 09/30/18 07:07 Dose: 12.5 mg Documented by: [id number] Admin: 09/29/18 21:22 Dose: Not Given Documented by: [id number] Admin: 09/29/18 07:25 Dose: 12.5 mg Documented by: [id number] Admin: 09/28/18 20:30 Dose: 12.5 mg Documented by: [id number] Admin: 09/28/18 08:49 Dose: Not Given Documented by: [id number] Admin: 09/27/18 21:03 Dose: 12.5 mg Documented by: [id number] Admin: 09/27/18 09:21 Dose: 12.5 mg Documented by: [id number] Admin: 09/26/18 21:06 Dose: 12.5 mg Documented by: [id number] Miscellaneous (Remove Lidoderm Patch) 1 ea N/A DAILY@2100 [facility] Stop: 10/22/18 02:49 Last Admin: 09/30/18 21:22 Dose: Not Given Documented by: [id number] Admin: 09/29/18 19:32 Dose: 1 ea Documented by: [id number] Admin: 09/28/18 21:14 Dose: Not Given Documented by: [id number] Admin: 09/27/18 21:04 Dose: 1 ea Documented by: [id number] Admin: 09/26/18 21:12 Dose: 1 ea Documented by: [id number] Admin: 09/25/18 21:20 Dose: 1 ea Documented by: [id number] Admin: 09/24/18 20:56 Dose: 1 ea Documented by: [id number] Admin: 09/23/18 21:56 Dose: Not Given Documented by: [id number] Admin: 09/22/18 21:20 Dose: Not Given Documented by: [id number] Admin: 09/22/18 03:24 Dose: Not Given Documented by: [id number] Miscellaneous (Fentanyl Patch Check Placement) 1 ea N/A QS [facility] Stop: 10/24/18 15:59 Last Admin: 10/01/18 08:27 Dose: 1 ea Documented by: [id number] Admin: 09/30/18 23:48 Dose: 1 ea Documented by: [id number] Admin: 09/30/18 16:05 Dose: 1 ea Documented by: [id number] Admin: 09/30/18 07:09 Dose: 1 ea Documented by: [id number] Admin: 09/29/18 23:37 Dose: 1 ea Documented by: [id number] Admin: 09/29/18 15:00 Dose: 1 ea Documented by: [id number] Admin: 09/29/18 07:27 Dose: 1 ea Documented by: [id number] Admin: 09/28/18 23:25 Dose: 1 ea Documented by: [id number] Admin: 09/28/18 15:46 Dose: 1 ea Documented by: [id number] Admin: 09/28/18 08:48 Dose: 1 ea Documented by: [id number] Admin: 09/28/18 00:24 Dose: 1 ea Documented by: [id number] Admin: 09/27/18 16:59 Dose: 1 ea Documented by: [id number] Admin: 09/27/18 09:15 Dose: 1 ea Documented by: [id number] Admin: 09/27/18 01:03 Dose: 1 ea Documented by: [id number] Admin: 09/26/18 16:05 Dose: 1 ea Documented by: [id number] Admin: 09/26/18 07:57 Dose: 1 ea Documented by: [id number] Admin: 09/26/18 00:20 Dose: 1 ea Documented by: [id number] Admin: 09/25/18 16:22 Dose: 1 ea Documented by: [id number] Admin: 09/25/18 09:25 Dose: 1 ea Documented by: [id number] Admin: 09/25/18 00:41 Dose: 1 ea Documented by: [id number] Admin: 09/24/18 16:30 Dose: 1 ea Documented by: [id number] Miscellaneous (Fentanyl Patch Check Placement) 1 ea N/A QS [facility] Stop: 10/24/18 15:59 Last Admin: 10/01/18 08:28 Dose: 1 ea Documented by: [id number] Admin: 09/30/18 23:51 Dose: 1 ea Documented by: [id number] Admin: 09/30/18 16:06 Dose: 1 ea Documented by: [id number] Admin: 09/30/18 07:09 Dose: 1 ea Documented by: [id number] Admin: 09/29/18 23:37 Dose: 1 ea Documented by: [id number] Admin: 09/29/18 15:01 Dose: 1 ea Documented by: [id number] Admin: 09/29/18 07:28 Dose: 1 ea Documented by: [id number] Admin: 09/28/18 23:25 Dose: 1 ea Documented by: [id number] Admin: 09/28/18 15:46 Dose: 1 ea Documented by: [id number] Admin: 09/28/18 08:48 Dose: 1 ea Documented by: [id number] Admin: 09/28/18 00:24 Dose: 1 ea Documented by: [id number] Admin: 09/27/18 16:59 Dose: 1 ea Documented by: [id number] Admin: 09/27/18 09:15 Dose: 1 ea Documented by: [id number] Admin: 09/27/18 01:03 Dose: 1 ea Documented by: [id number] Admin: 09/26/18 16:05 Dose: 1 ea Documented by: [id number] Admin: 09/26/18 07:57 Dose: 1 ea Documented by: [id number] Admin: 09/26/18 00:20 Dose: 1 ea Documented by: [id number] Admin: 09/25/18 16:22 Dose: 1 ea Documented by: [id number] Admin: 09/25/18 09:26 Dose: 1 ea Documented by: [id number] Admin: 09/25/18 00:41 Dose: 1 ea Documented by: [id number] Admin: 09/24/18 16:30 Dose: 1 ea Documented by: [id number] Miscellaneous (Fentanyl Patch Remove & Waste) 1 ea N/A Q2D@1629 [facility] Stop: 10/29/18 16:28 Last Admin: 09/29/18 18:19 Dose: 1 ea Documented by: [id number] Cosigned by: [id number] Miscellaneous (Fentanyl Patch Remove & Waste) 1 ea N/A Q2D@1629 [facility] Stop: 10/29/18 16:28 Last Admin: 09/29/18 18:18 Dose: 1 ea Documented by: [id number] Cosigned by: [id number] Oxycodone HCl (Roxicodone Immediate Rel) 10 mg PO Q8H PRN PRN Reason: Pain Stop: 10/08/18 10:38 Last Admin: 10/01/18 07:15 Dose: 10 mg Documented by: [id number] Admin: 09/30/18 22:28 Dose: 10 mg Documented by: [id number] Admin: 09/30/18 14:11 Dose: 10 mg Documented by: [id number] Admin: 09/30/18 07:06 Dose: 10 mg Documented by: [id number] Admin: 09/29/18 19:13 Dose: 10 mg Documented by: [id number] Admin: 09/29/18 11:29 Dose: 10 mg Documented by: [id number] Admin: 09/28/18 20:32 Dose: 10 mg Documented by: [id number] Admin: 09/28/18 03:09 Dose: 10 mg Documented by: [id number] Admin: 09/27/18 17:53 Dose: 10 mg Documented by: [id number] Admin: 09/26/18 17:04 Dose: 10 mg Documented by: [id number] Admin: 09/25/18 23:59 Dose: 10 mg Documented by: [id number] Admin: 09/25/18 07:30 Dose: 10 mg Documented by: [id number] Admin: 09/24/18 23:23 Dose: 10 mg Documented by: [id number] Admin: 09/24/18 15:10 Dose: 10 mg Documented by: [id number] Pyridostigmine [place] (Mestinon) 60 mg PO TID [facility] Stop: 10/22/18 08:59 Last Admin: 09/23/18 13:51 Dose: Not Given Documented by: [id number] Admin: 09/23/18 10:32 Dose: Not Given Documented by: [id number] Admin: 09/22/18 21:15 Dose: Not Given Documented by: [id number] Admin: 09/22/18 14:34 Dose: Not Given Documented by: [id number] Admin: 09/22/18 09:48 Dose: Not Given Documented by: [id number] Sertraline HCl (Zoloft) 100 mg PO QAM [facility] Stop: 10/22/18 08:59 Last Admin: 09/24/18 10:48 Dose: Not Given Documented by: [id number] Admin: 09/23/18 10:35 Dose: Not Given Documented by: [id number] Admin: 09/22/18 09:45 Dose: Not Given Documented by: [id number] Trazodone HCl (Desyrel) 100 mg PO HS [facility] Stop: 10/22/18 20:59 Last Admin: 09/23/18 21:55 Dose: Not Given Documented by: [id number] Admin: 09/22/18 21:17 Dose: Not Given Documented by: [id number]
--- NOTE | 2018-10-01 09:43 | Pain Management Consultation ---
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 Patient admitted with generalized weakness and encephalopathy which is likely metabolic with concern over polypharmacy. Patient on chronic opiate therapy in the outpatient setting reportedly for treatment of chronic pain associated with Lilibeth-Danlos syndrome and prior craniocervical spine surgery per the 's report. All of her opiates were discontinued upon admission except for fentanyl. She remains on fentanyl 112 mcg every 48 hours. Oxycodone 10 mg has been resumed at every 8 H which had previously been up to 5 times daily in the outpatient setting. There is concern about her chronic opiate therapy contributing to her general well-being and cognitive function with unclear reason for her current level of opiate therapy. Please ensure the patient has Narcan available upon discharge due to her current opiate burden. She needs to discuss further weaning of her opiate therapy with her prescribing physicians in the outpatient setting. Patient's reports that they have been weaning her opiates although upon review of PDMP there appears to be no recent changes to her opiate therapies. Patient should undergo close/immediate follow-up upon discharge with her prescribing physician of her opiate therapies. 2. Consider resuming baclofen at 10 mg twice daily initially as long as there are no contraindications as the patient has reportedly been utilizing baclofen 20 mg 3 times daily chronically in the outpatient setting which they feel has been efficacious at diminishing the frequency and severity of her pain complaints. 3. Patient is not a candidate for interventional treatment 4. Patient will remain on gabapentin 600 mg 3 times daily Present on Admission?: Yes History of Present Illness Attending Physician: Jero Linn MD History of Present Illness Mrs. Willams is a 53-year-old white female who was admitted due to generalized weakness and change in mental status secondary to encephalopathy likely metabolic in nature. Patient has history of POTS and Lilibeth-Danlos syndrome with history of prior Chiari malformation surgery and cervical spine procedure. Patient has been on chronic opiate therapy in the outpatient setting with fentanyl 112 mcg every 72 hours and oxycodone 10 mg prescribed 5 times daily. Patient has remained on fentanyl during this admission but her oxycodone was held initially along with baclofen and gabapentin diminished dosing due to the encephalopathy. Oxycodone has been resumed at 10 mg every 8 hours and fentanyl remains at 112 mcg every 72 hours. Baclofen has continued to be held per the patient's which she feels is typically very helpful at diminishing her pain. Her pain is fairly diffuse and nonspecific in the cervical region, upper extremities and lower extremities in nondermatomal patterns. They relate her pain complaints to her chronic diagnosis of Lilibeth Danlos syndrome. She denies pain suggestive of neuropathy. The patient has no specific complaint of headache at this time. Her pain largely ranges between a 2-10/10. She reports her pain is minimal at today's visit rating at a 2-3/10. Again pain is nonspecific and nonradicular in nature. She denies any overt spasm or muscular tightness. Patient's reports that she is typically ambulatory but has had progressive weakness over the past 10 days and has been utilizing a wheelchair for ambulatory activity. She denies any specific localized abdominal pain or axial low back pain. Plan of care discussed with Dr. Martinez. Pain Assessment Full Body Front + Back: 1. Axial cervical thoracic spine 2. Generalized occipital and shoulder/scapular regions 3. Right lower extremity nondermatomal pattern 4. Left lower extremity nondermatomal pattern Pain scale - at its best (0-10): 2 Pain scale - at its worst (0-10): 10 Allergies Allergy/AdvReac Type Severity Reaction Status Date / Time blue dye Allergy Intermediate joint Verified 09/21/18 19:19 swelling codeine Allergy Intermediate hives-TAKES Verified 09/21/18 19:19 OXYCONTIN AT HOME bupropion [From Wellbutrin] Allergy Unknown Unknown Verified 09/21/18 19:19 Margarine Allergy Severe ANAPHYLAXIS Uncoded 07/30/18 14:06 Home Medications Home Medications Medication Instructions Recorded Confirmed Type alprazolam [Xanax] 0.5 mg PO BID 07/30/18 09/21/18 History amitriptyline 50 mg PO HS 07/30/18 09/21/18 History ascorbic acid (vitamin C) [Vitamin 1,000 mg PO DAILY 07/30/18 09/21/18 History C] baclofen 20 mg PO TID 07/30/18 09/21/18 History bisacodyl [Dulcolax (bisacodyl)] 5 mg PO DAILY PRN 07/30/18 09/21/18 History buspirone 10 mg PO BID 07/30/18 09/21/18 History cyanocobalamin (vitamin B-12) 1,000 mcg IM MONTHLY 07/30/18 09/21/18 History fentanyl 1 patch TRANSDERMAL .CQ48HR 07/30/18 09/21/18 History fentanyl 1 patch TRANSDERMAL .CQ48HR 07/30/18 09/21/18 History folic acid 1 mg PO DAILY 07/30/18 09/21/18 History gabapentin 1,200 mg PO TID 07/30/18 09/21/18 History levothyroxine [Levoxyl] 100 mcg PO DAILY 07/30/18 09/21/18 History lidocaine [Lidoderm] 1 patch TOPICAL DAILY PRN 07/30/18 09/21/18 History meclizine 25 mg PO TID PRN 07/30/18 09/21/18 History midodrine 2.5 mg PO TID 07/30/18 09/21/18 History omeprazole 20 mg PO DAILY 07/30/18 09/21/18 History ondansetron 4 - 8 mg PO Q8H PRN 07/30/18 09/21/18 History oxycodone 10 mg PO 5XD PRN 07/30/18 09/21/18 History promethazine [Phenergan] 25 mg [place] Q12H PRN 07/30/18 09/21/18 History sertraline 100 mg PO QAM 07/30/18 09/21/18 History sumatriptan succinate [Imitrex] 100 mg PO DIRECTED PRN MDD 200 07/30/18 09/21/18 History MG/DAY acetazolamide 250 mg PO QID 09/21/18 09/21/18 History wlzsfsryiy-lanmeufkuonnp-vkxm 1 tab PO Q4H PRN MDD 6 TABS 09/21/18 09/21/18 History magnesium oxide 400 mg PO BID 09/21/18 09/21/18 History pyridostigmine bromide 60 mg PO TID 09/21/18 09/21/18 History quetiapine 100 mg PO HS 09/21/18 09/21/18 History trazodone 100 mg PO HS 09/21/18 09/21/18 History Pain History Pain Intensity Pain scale - at its best (0-10): 2 Pain scale - at its worst (0-10): 10 Patient History Medical History Opioid dependence (Chronic) POTS (postural orthostatic tachycardia syndrome) (Chronic) 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 Beliefs That Will Affect Care: None Current Living Situation: Spouse and Family Current Living Situation Comment: Patient has 9 children ranging in age from 32-10 current occupational status: unemployed Other Information That Helps Us Care for You: No Feels Safe at Home: Yes Safety Concerns: Feels Safe At This Time Smoking Status: Light tobacco smoker Tobacco Type: cigarettes Cigarettes Per Day: One or 2 Do You Dip or Chew Tobacco: No Second Hand Exposure: Yes Tobacco Cessation Education Requested by Patient: No Hx Alcohol Use: No Hx Substance Use: Yes substance use type: marijuana Substance Use Type Other:: Medical marijuana Last Used Substance: Unknown Physical Exam Physical Exam: General: Patient lying quietly in exam room in no acute distress. Most of history gained from discussion with . Patient is able to answer directed questions although is somewhat tangential in description of pain complaints reporting that its "warm outside" multiple times. Head: Normocephalic and atraumatic. ENT: No evidence of nasal or oral mucosal lesions. Mucous membranes are moist. Neck: Supple without adenopathy. Diminished range of motion in all planes. Well-healed midline surgical incision over the upper and mid cervical spine. Paravertebral and trapezius spasm was appreciated bilaterally. Chest: Moderately tender to palpation over the costosternal junction. Abdomen: Soft and nondistended. No organomegaly. Bowel sounds active. Fentanyl patches in place in the left lower quadrant. Back/spine: Loss of lordosis. No focal tenderness over the thoracolumbar spine. No focal facet or SI joint tenderness. Minimally tender in the paravertebral musculature and the lumbosacral region. Upper extremities: Strength testing 4/5 with handgrip and opposition. No evidence of thenar atrophy. Trisha sign negative bilaterally. Lower extremities: SLR negative. Strength testing 4/5 with dorsi and plantar flexion. Sensation reportedly intact without focal deficit. No evidence of edema, erythema or skin breakdown. Neurologic: Cranial nerves grossly intact. Ambulatory function not witnessed. Results Diagnostic Review MRI: non enhanced and reports reviewed MRI Findings: [place], [place] [phone] Magnetic Resonance Report Patient: ESTRADA WILLAMS Date: 09/22/18 MR#: [id number]: [address] [facility] Acct ID:[id number]: Date: 1965[facility] Zip: [place] [id number] Age: 53Location: 1E Sex: F Room/Bed: [facility] Att Phy: Jero Linn MDDiagnosis: WEAKNESS, FALLS Stephanie Phy: Kailey Adam MDService Date: 09/29/18 Fam Phy: Kailey Adam MDInterpreting Phy: Kevin Davis Admit Phy: Aydee Simpson D.O. Ordering Phy: Jero Linn MD cc: ~ MR brain wo con HISTORY: 53 years-old Female eval for encephalitis acute confusion. History of prior suboccipital craniotomy with craniocervical fusion. COMPARISON: Brain MRI 09/17/2016 TECHNIQUE: Multiplanar multisequence MRI of the brain was obtained without the use of IV contrast. FINDINGS: Mumps Developer localizer images demonstrate no gross extracranial abnormality. There is no restricted diffusion to suggest acute or subacute infarction. Study is moderately motion degraded. The midline structures causing the corpus callosum, brainstem, optic chiasm, pituitary and pineal glands appear unremarkable the sagittal T1 series. Postoperative changes from prior suboccipital craniotomy with craniocervical fusion. Artifact from the hardware limits evaluation of the skull base structures. No acute intracranial hemorrhage, midline shift, abnormal extra-axial collections, hydrocephalus or intracranial mass. There are a few punctate foci of T2/FLAIR prolongation within subcortical white matter, likely of no clinical significance. The major flow voids at the level of the skull base appear patent. Trace left mastoid effusion. Mild mucosal thickening of the ethmoid air cells. Soft tissues, skull and orbits are unremarkable. IMPRESSION: 1. Motion degraded exam. 2. No acute intracranial abnormality identified. 3. Postoperative changes from prior suboccipital craniotomy with craniocervical fusion. The above report was generated using voice recognition software. It may contain grammatical, syntax or spelling errors. Electronically signed by: Troy Davis M.D. 09/29/2018 4:02 PM Dictated: 09/29/18 155 Transcribed: 09/29/18 [address] [place], [place] [phone] Magnetic Resonance Report Patient: ESTRADA WILLAMS Date: 09/22/18 MR#: [id number]: [address] [facility] Acct ID:[id number]: Date: 1965[facility] Zip: [place] [address] Age: 53Location: 1E Sex: F Room/Bed: [address] Phy: Franki Jordan M.D.Diagnosis: WEAKNESS, FALLS Stephanie Phy: Kailey Adam MDService Date: 09/23/18 Fam Phy: Kailey Adam MDInterpreting Phy: Colton Henriquez MD Admit Phy: Aydee Simpson D.O. Ordering Phy: Franki Jordan M.D. cc: ~ MRI OF THE CERVICAL SPINE WITHOUT IV CONTRAST CLINICAL HISTORY: Weakness. COMPARISON STUDY: MRI of the cervical spine dated 11/06/2017. CT of the cervical spine dated 02/15/2016. TECHNIQUE: MRI of the cervical spine is performed utilizing various T1 and T2-weighted sequences in the axial and sagittal planes. IV contrast was not administered for this examination. FINDINGS: Cervical spine: Vertebral body height and alignment are maintained throughout the cervical spine. The atlantodental articulation appears maintained. There is straightening of the cervical lordosis. Again seen are postoperative changes from anterior fusion at C5-C6. There is been occipital craniectomy, with posterior fusion from the skull base through C2. The spinous processes appear intact. No destructive bony lesion is seen. Vertebral discs: There has been discectomy at C5-C6. Mild loss of height is noted noted at C4-C5. The remaining disc spaces are normal. Spinal cord: The cervical spinal cord is normal in morphology and signal intensity. C2-C3: Unremarkable. C3-C4: Mild facet arthropathy is of no consequence. The central canal and neural foramina are patent. C4-C5: Predominantly facet arthropathy causes mild right neural foraminal stenosis. The central canal is clear. C5-C6: The central canal and neural foramina appear clear. C6-C7: A tiny posterior disc osteophyte complex minimally effaces the ventral subarachnoid space. There is no significant central canal stenosis. The neural foramina are clear. C7-T1: Unremarkable. Soft tissues: The prevertebral and paraspinous soft tissues are normal as imaged. Brain parenchyma: The imaged brain parenchyma at the skull base is normal in appearance. IMPRESSION: 1. There is no disc herniation or central canal stenosis. 2. The cervical spinal cord is normal in morphology and signal intensity. 3. Again seen are postoperative changes from posterior fusion at the craniocervical junction and anterior fusion at C5-C6. Electronically signed by: Colton Henriquez M.D. 09/24/2018 1:18 AM Dictated: 09/23/182124 Transcribed: 09/23/182124
[2018-10-01] MEDS: GABAPENTIN 300 MG CAP PO SCH ×2 (15:43→21:10)
[2018-10-01] MEDS: fentaNYL 12 MCG/HR TDSY TD SCH (15:58)
[2018-10-01] MEDS: fentaNYL 100 MCG/HR TDSY TD SCH (15:58)
--- NOTE | 2018-10-01 16:29 | Hospitalist Progress Note ---
Date of Service October 01, 2018 Assessment & Plan (1) Hypernatremia: acute hypernatremia is resolved (2) Metabolic encephalopathy: hepatic encephalopathy toxic encephalopathy , Polypharmacy may be also playing a role will have psychiatry eval pts home medication list Neurology consult is following, mri scan 09/29 is negative. family did not permitting lumbar puncture. however now the states it can be done under flouro guidance, pt however is improved and the value would be for opening pressure as pt states she has had issues with that in the past (3) Generalized weakness: Multi factoral, initially hypernatremia was initial role now is deconditioned (4) Fall: Likely from metabolic/toxic encephalopathy (5) POTS (postural orthostatic tachycardia syndrome): Chronic on beta blockers. (6) Anemia: hemoglobin has been relatively stable in the 10 gm range maybe anemia of chronic disease. (7) EDS (Lilibeth-Danlos syndrome): Chronic. Stable -Continue to monitor (8) Hypothyroid: Chronic. Low TSH -Continue Synthroid, (9) Opioid withdrawal: Patient 's tachycardia is improved, restarted on fentanyl patches Placed fentayl q2d as this is her norm as an outpatient. (10) Abnormal LFTs: Has been gradually improving. Ppx - Lovenox (11) Dysphagia: pt pulled ngt, swallowing cleared by speech eval, with swallowing precautions, re eval 09/30 for advance of diet Subjective Patient is much more awake and alert than previously however her family states she is not in her usual condition. With a long discussion about her home medications including baclofen and Diamox etc. I personally phoned her neurologist in [place], Dr. Cheatham, and a release of information has been signed to obtain the most recent office visit and med reconciliation. Review of Systems Review of Systems: ROS: Thin frail mildly confused No double vision blurry vision No problems with speech or swallowing No palpitations, chest pain or pressure No Wheezing or breathing issues No abdominal pain nausea vomiting diarrhea changes in appetite or weight No burning urine urine frequency or changes in color No focal joint pain or muscle pain No skin rashes or oral lesions No unusual bruising or bleeding Generalized weakness Family states although more alert she is not as clear as usual Physical Exam Physical Exam: The patient appeared chronically ill and somewhat frail Vital signs as documented. Head exam is unremarkable. normocephalic, atraumatic Neck is without jugular venous distension, thyromegaly, or lymphademopathy Lungs are clear to auscultation and percussion. Cardiac exam reveals Rhythm is regular. First and second heart sounds normal. Abdominal exam reveals normal bowel sounds, no masses, no organomegaly Extremities are nonedematous and both pedal pulses are present Neurologic exam is A&Ox3, she has decreased strength of movement and some intention tremor Psychologically seems to be mildly delirious at times Skin is warm Dry without bruises or lesions Results & Data Vital Signs (Past 12 Hours) Vital Signs Temp Pulse Resp BP Pulse Ox 10/01/18 15:08 37.1 C 86 16 112/68 94 10/01/18 08:00 37.5 C 78 18 109/65 96 PG Care Time/CCT Total # of Minutes Spent Total Time Spent with Patient: Total time spent is greater than 50% in coordination of care (as documented) at patient's floor/unit and/or counseling patient: (1) Anemia Anemia type: unspecified type Qualified Code(s): D64.9 - Anemia, unspecified (2) Hypothyroid Hypothyroidism type: unspecified Qualified Code(s): E03.9 - Hypothyroidism, unspecified (3) Fall Encounter type: initial encounter Qualified Code(s): W19.XXXA - Unspecified fall, initial encounter
[2018-10-01] MEDS: acetaZOLAMIDE 250 MG TAB PO SCH (21:10)
[2018-10-02] MEDS: CHECK FENTANYL PATCH PLACEMENT SCH ×6 (00:22→15:27)
[2018-10-02] MEDS: OXYCODONE HCL IR 5 MG TAB (IMMEDIATE RELEASE) PO PRN ×2 (00:23→08:57)
[2018-10-02] MEDS: LEVOTHYROXINE SODIUM 75 MCG TABLET PO SCH (05:32)
[2018-10-02] MEDS: FOLIC ACID 1 MG TAB PO SCH (08:49)
[2018-10-02] MEDS: GABAPENTIN 300 MG CAP PO SCH ×3 (08:49→23:04)
[2018-10-02] MEDS: acetaZOLAMIDE 250 MG TAB PO SCH (08:49)
[2018-10-02] MEDS: METOPROLOL TARTRATE 25 MG TAB PO SCH ×2 (08:49→23:04)
[2018-10-02] MEDS: ENOXAPARIN INJ 40 MG/0.4 ML SYR SQ SCH (08:50)
[2018-10-02] MEDS: ASCORBIC ACID 500 MG TAB PO SCH (08:50)
[2018-10-02] MEDS: MAGNESIUM OXIDE 400 MG TAB PO SCH ×2 (08:50→23:04)
[2018-10-02] MEDS: LANSOPRAZOLE 30 MG SOLTAB NG SCH (08:50)
[2018-10-02 10:43] LABS: Albumin Globulin Ratio 0.7 (0.9-2); Albumin Level 2.1 gm/dl (3.4-5.0); BUN Creatinine Ratio 19.8 (10-20); Bilirubin,Total 0.2 mg/dl (0.2-1); Calcium 7.7 mg/dl (8.5-10.1); Creatinine Clr Calc Pharmacy 162.4 ml/min; Est GFR (Non-African American) 125.1; Globulin 2.9 gm/dl (2.5-4.0); Potassium 3.1 mmol/L (3.5-5.1)
[2018-10-02] MEDS ORDERED: POTASSIUM CHLORIDE 10 MEQ / 100ML WTR IV STA (11:40)
[2018-10-02] MEDS ORDERED: MAGNESIUM SULFATE / D5W 1 GM/100 ML BAG IV ONE (12:00)
[2018-10-02] MEDS: POTASSIUM CHLORIDE / WTR 10 MEQ/100 ML PLCT IV SCH ×3 (12:51→15:24)
[2018-10-02] MEDS ORDERED: SODIUM CHLORIDE 0.45 % 1,000 ML IV SCH (13:00)
--- NOTE | 2018-10-02 13:06 | Hospitalist Progress Note ---
Date of Service October 02, 2018 Assessment & Plan (1) Hypernatremia: hypernatremia is slightly recurrent since starting diamox, will stop again and use 1/2 nss for 500 ml, check labs in am (2) Metabolic encephalopathy: hepatic encephalopathy toxic encephalopathy , Polypharmacy may be also playing a role will have psychiatry eval pts home medication list Neurology consult is following, mri scan 09/29 is negative. family did not permitting lumbar puncture. however now the states it can be done under flouro guidance, pt however is improved and the value would be for opening pressure as pt states she has had issues with that in the past she has some slight worsening in mental clarity with worsening of sodium (3) Generalized weakness: Multi factorial, initially hypernatremia was initial role now is deconditioned, not clear if family wants rehab or not (4) Fall: Likely from metabolic/toxic encephalopathy (5) POTS (postural orthostatic tachycardia syndrome): Chronic on beta blockers. (6) Anemia: hemoglobin has been relatively stable, anemia of chronic disease. (7) EDS (Lilibeth-Danlos syndrome): Chronic. Stable -Continue to monitor family requests baclofen for this, but with encephalpathy will not pursue (8) Hypothyroid: Chronic. Low TSH -Continue Synthroid, (9) Opioid withdrawal: Patient 's tachycardia is improved, restarted on fentanyl patches Placed fentayl q2d as this is her norm as an outpatient. (10) Abnormal LFTs: recheck ammonia is normal Ppx - Lovenox (11) Dysphagia: swallowing cleared by speech eval, with swallowing precautions, re eval 09/30 for advance of diet Subjective this pt is slightly more confused today and more agitated, she is accompanied by her daughter at the bedside. her sodium is elevated and potassium is lower, I informed her daughter that we will stop diamox and follow, recheck urine and give 500 ml fluid. Review of Systems Review of Systems: ROS: well nourished well developed. No double vision blurry vision No problems with speech or swallowing No palpitations, chest pain or pressure No Wheezing or breathing issues No abdominal pain nausea vomiting diarrhea No burning urine urine frequency or changes in color No focal joint pain or muscle pain No skin rashes or oral lesions No unusual bruising or bleeding No focused back pain or numbness general decrease in strength Physical Exam Physical Exam: The patient appeared thin and mildly agitated Vital signs as documented. Head exam is unremarkable. normocephalic, atraumatic Neck is without jugular venous distension, thyromegaly, or lymphademopathy Lungs are clear to auscultation and percussion. Cardiac exam reveals Rhythm is regular. First and second heart sounds normal. Abdominal exam reveals normal bowel sounds, no masses, no organomegaly Extremities are nonedematous and both pedal pulses are present Neurologic exam is A&Ox3, no focal deficits, strength is diminished but globally reduced Psychologically seems anxious and depressed Skin is warm / Dry Results & Data Vital Signs (Past 12 Hours) Vital Signs Temp Pulse Resp BP Pulse Ox 10/02/18 07:11 37.2 C 79 18 105/63 96 PG Care Time/CCT Total # of Minutes Spent Total Time Spent with Patient: Total time spent is greater than 50% in coordination of care (as documented) at patient's floor/unit and/or counseling patient: (1) Anemia Anemia type: unspecified type Qualified Code(s): D64.9 - Anemia, unspecified (2) Hypothyroid Hypothyroidism type: unspecified Qualified Code(s): E03.9 - Hypothyroidism, unspecified (3) Fall Encounter type: initial encounter Qualified Code(s): W19.XXXA - Unspecified fall, initial encounter
[2018-10-02] MEDS: POTASSIUM CHLORIDE 20 MEQ TABCR PO SCH (23:04)
[2018-10-02] MEDS ORDERED: HALOPERIDOL LACTATE 5 MG/ML 1 ML VIAL IM STA (23:23)
[2018-10-03] MEDS ORDERED: LORazepam 1 MG/2 ML VIAL IV STA ×2 (00:09→04:50)
[2018-10-03] MEDS: CHECK FENTANYL PATCH PLACEMENT SCH ×6 (00:11→16:09)
--- NOTE | 2018-10-03 04:59 | Family Medicine Progress Note ---
Date of Service October 03, 2018 Assessment & Plan (1) Agitation: patient was acutely agitated-- fighting, kicking staff. -patients daughter stated an allergy to Haldol -provided Ativan, one time dosing Results & Data Vital Signs (Past 12 Hours) Vital Signs Temp Pulse Resp BP Pulse Ox 10/02/18 23:00 36.8 C 79 20 110/59 L 95
[2018-10-03] MEDS ORDERED: OLANZapine 10 MG/2.1 ML SDV IM STA (05:23)
[2018-10-03] MEDS: LEVOTHYROXINE SODIUM 75 MCG TABLET PO SCH (06:11)
[2018-10-03 06:20] LABS: BUN Creatinine Ratio 12.2 (10-20); Calcium 8.4 mg/dl (8.5-10.1); Creatinine Clr Calc Pharmacy 109.3 ml/min; Est GFR (African American) 127.3; Est GFR (Non-African American) 109.9; Potassium 4.1 mmol/L (3.5-5.1)
[2018-10-03] MEDS: GABAPENTIN 600 MG TAB PO SCH ×3 (08:31→22:16)
[2018-10-03] MEDS: METOPROLOL TARTRATE 25 MG TAB PO SCH ×2 (08:35→22:15)
[2018-10-03] MEDS: LANSOPRAZOLE 30 MG SOLTAB NG SCH (08:37)
[2018-10-03] MEDS: FOLIC ACID 1 MG TAB PO SCH (08:42)
[2018-10-03] MEDS: POTASSIUM CHLORIDE 20 MEQ TABCR PO SCH ×2 (08:42→22:18)
[2018-10-03] MEDS: ASCORBIC ACID 500 MG TAB PO SCH (08:43)
[2018-10-03] MEDS: MAGNESIUM OXIDE 400 MG TAB PO SCH ×2 (08:43→22:16)
[2018-10-03] MEDS: ENOXAPARIN INJ 40 MG/0.4 ML SYR SQ SCH (08:43)
[2018-10-03] MEDS ORDERED: DiphenhydrAMINE HCL 50 MG/ML VIAL IV STA (11:12)
[2018-10-03 12:07] LABS: Albumin Level 2.3 gm/dl (3.4-5.0); Bilirubin Direct 0.1 mg/dl (0-0.2); Bilirubin,Total 0.3 mg/dl (0.2-1); Total Protein 5.6 gm/dl (6.4-8.2)
--- NOTE | 2018-10-03 13:09 | Hospitalist Progress Note ---
Date of Service October 03, 2018 Assessment & Plan (1) Hypernatremia: hypernatremia is slightly recurrent since starting diamox, did stop again and is slightly improved after hydration but her mental status still altered (2) Metabolic encephalopathy: Encephalopathy has returned of undetermined origin. Attempted to use IV Benadryl as this seemed to help her in the past. We will have neurology reevaluate the patient hepatic encephalopathy toxic encephalopathy , Polypharmacy may be also playing a role will have psychiatry eval pts home medication list mri scan 09/29 is negative. family did not permitting lumbar puncture. however now the states it can be done under flouro guidance, pt however is improved and the value would be for opening pressure as pt states she has had issues with that in the past (3) Generalized weakness: Multi factorial, initially hypernatremia was initial role now is deconditioned, not clear if family wants rehab or not (4) Fall: Likely from metabolic/toxic encephalopathy (5) POTS (postural orthostatic tachycardia syndrome): Chronic on beta blockers. Low-dose metoprolol (6) Anemia: hemoglobin has been relatively stable, anemia of chronic disease. (7) EDS (Lilibeth-Danlos syndrome): Chronic. Stable -Continue to monitor family requests baclofen for this, but with encephalpathy will not pursue (8) Hypothyroid: Chronic. Low TSH -Continue Synthroid, (9) Opioid withdrawal: Patient 's tachycardia is improved, restarted on fentanyl patches Placed fentayl q2d as this is her norm as an outpatient. (10) Abnormal LFTs: recheck ammonia is normal repeat LFTs on 10/03 Ppx - Lovenox (11) Dysphagia: swallowing cleared by speech eval, with swallowing precautions, re eval 09/30 for advance of diet Subjective this pt has now returned to being markedly confused, her daughter is at the bedside, she was given oral benadryl, no significant lab abnormalities. I did speak to Dr Waddell and he will review chart and follow for improvement of decline Review of Systems Review of Systems: Unobtainable due to cognitive status Physical Exam Physical Exam: The patient appeared thin and in moderate distress Vital signs as documented. Head exam is unremarkable. normocephalic, atraumatic Neck is without jugular venous distension, thyromegaly, or lymphademopathy Lungs are clear but diminished at the bases Cardiac exam reveals Rhythm is regular. Abdominal exam reveals normal bowel sounds, no masses, no organomegaly Extremities are nonedematous and both pedal pulses are present Neurologic exam is she is attempting to make conversation she is got coarse dystonic type movements Psychologically seems confused and anxious Skin is warm / Dry PG Care Time/CCT Total # of Minutes Spent Total Time Spent with Patient: Total time spent is greater than 50% in coordination of care (as documented) at patient's floor/unit and/or counseling patient: (1) Fall Encounter type: initial encounter Qualified Code(s): W19.XXXA - Unspecified fall, initial encounter (2) Anemia Anemia type: unspecified type Qualified Code(s): D64.9 - Anemia, unspecified (3) Hypothyroid Hypothyroidism type: unspecified Qualified Code(s): E03.9 - Hypothyroidism, unspecified
[2018-10-03] MEDS: OXYCODONE HCL IR 5 MG TAB (IMMEDIATE RELEASE) PO PRN ×2 (13:37→22:20)
[2018-10-03] MEDS: fentaNYL 12 MCG/HR TDSY TD SCH (16:09)
[2018-10-03] MEDS: fentaNYL 100 MCG/HR TDSY TD SCH (16:09)
[2018-10-03] MEDS ORDERED: QUETIAPINE FUMARATE 25 MG TABLET PO ONE (19:00)
[2018-10-03] MEDS: IMIPENEM/CILASTATIN SODIUM 500 MG in DEXTROSE 5% 100 ML IV SCH ×2 (21:13→23:58)
[2018-10-04] MEDS: CHECK FENTANYL PATCH PLACEMENT SCH ×6 (00:12→17:01)
[2018-10-04] MEDS: LEVOTHYROXINE SODIUM 75 MCG TABLET PO SCH (05:43)
[2018-10-04] MEDS: IMIPENEM/CILASTATIN SODIUM 500 MG in DEXTROSE 5% 100 ML IV SCH ×3 (05:48→19:41)
[2018-10-04 06:48] LABS: Hematocrit (blood only) 31.4 % (37-47); Hemoglobin 9.9 g/dL (12.0-16.0); Mean Corpuscular Hgb Conc 31.5 g/dL (32-36); Mean Corpuscular Volume 97.5 fL (80-100); Mean Platelet Volume 10.7 fL (7.4-10.4); Platelet Count 325 K/uL (130-400); RDW Coefficient of Variation 13.9 % (11.5-14.5); RDW Standard Deviation 48.6 fL (36.4-46.3); Red Blood Count 3.22 M/uL (4.2-5.4); White Blood Count 3.95 K/uL (4.8-10.8)
[2018-10-04 07:25] LABS: BUN Creatinine Ratio 14.6 (10-20); Calcium 7.6 mg/dl (8.5-10.1); Creatinine Clr Calc Pharmacy 171.9 ml/min; Est GFR (African American) 147.9; Est GFR (Non-African American) 127.6; Potassium 3.4 mmol/L (3.5-5.1)
[2018-10-04] MEDS: POTASSIUM CHLORIDE 20 MEQ TABCR PO SCH ×2 (08:56→20:51)
[2018-10-04] MEDS: ASCORBIC ACID 500 MG TAB PO SCH (08:56)
[2018-10-04] MEDS: GABAPENTIN 600 MG TAB PO SCH ×3 (08:57→20:51)
[2018-10-04] MEDS: MAGNESIUM OXIDE 400 MG TAB PO SCH ×2 (08:57→20:51)
[2018-10-04] MEDS: LANSOPRAZOLE 30 MG SOLTAB NG SCH (08:57)
[2018-10-04] MEDS: FOLIC ACID 1 MG TAB PO SCH (08:58)
[2018-10-04] MEDS: METOPROLOL TARTRATE 25 MG TAB PO SCH ×2 (08:59→20:50)
[2018-10-04] MEDS: ENOXAPARIN INJ 40 MG/0.4 ML SYR SQ SCH (08:59)
[2018-10-04] MEDS: OXYCODONE HCL IR 5 MG TAB (IMMEDIATE RELEASE) PO PRN ×2 (09:27→17:38)
[2018-10-04] MEDS: ALPRAZolam 0.5 MG TABLET PO PRN ×2 (10:46→20:04)
--- NOTE | 2018-10-04 11:45 | Ultrasound Report ---
RENAL ULTRASOUND CLINICAL HISTORY: recurrent uti eval for anatomical issue COMPARISON STUDY: CT of the abdomen September 23, 2018. TECHNIQUE: Sonography of the kidneys and the urinary bladder was performed. FINDINGS: The right kidney measures 11.4 cm in maximal dimension and the left measures 11.5 cm per th ere is no hydronephrosis. Renal echogenicity, size and cortical thickness are normal. No calculi or m asses are identified. A Beltre balloon is present within the bladder. The bladder suboptimally assesse d as it is collapsed. There is possible debris within the bladder. In addition, there is possible ant erior bladder wall thickening which could be due to underdistention. IMPRESSION: 1. Normal sonographic appearance of the kidneys. No hydronephrosis. 2. Apparent anterior bladder wall thickening. This is likely due to underdistention bladder. However, wall thickening, mass or debris within the bladder could appear similar. The findings could be corre lated with urinalysis and urine cytology. Electronically signed by: Gaurang Blake M.D. 10/04/2018 11:43 AM
--- NOTE | 2018-10-04 16:12 | Hospitalist Progress Note ---
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 family did not permitting lumbar puncture. however now the states it can be done under flouro guidance, pt however is improved and the value would be for opening pressure as pt states she has had issues with that in the past Patient has been sleep deprived in ER in part of her encephalopathy may be worsened from this she did respond to a dose of at bedtime Seroquel and as needed alprazolam having had a opposite reaction to Lorazepam when used (3) Generalized weakness: Multi factorial, initially hypernatremia was initial role now is deconditioned, with recurrence of her encephalopathy her deconditioning is worsened and likely rehab may be in the future (4) Fall: Likely from metabolic/toxic encephalopathy (5) POTS (postural orthostatic tachycardia syndrome): Chronic on beta blockers. Low-dose metoprolol seem to have issues although her she has been but restricted for majority of her hospital stay (6) Anemia: hemoglobin continues to be acceptable, anemia of chronic disease. (7) EDS (Lilibeth-Danlos syndrome): Chronic. Stable -Continue to monitor family had requested baclofen for this, but with encephalpathy will not pursue (8) Hypothyroid: Chronic. Low TSH -Continue Synthroid, (9) Opioid withdrawal: Patient 's tachycardia is improved, restarted on fentanyl patches Placed fentayl q2d as this is her norm as an outpatient. (10) Abnormal LFTs: recheck ammonia is normal repeat LFTs on 10/03 Ppx - Lovenox (11) Dysphagia: swallowing cleared by speech eval, with swallowing precautions, re eval 09/30 for advance of diet Subjective Patient remains mildly confused with coarse dyskinetic movements however from my subjective opinion slightly improved from 1 day prior. Her and family is at the bedside and they also believe she is slightly improved Review of Systems Review of Systems: Unobtainable due to cognitive status Physical Exam Physical Exam: The patient appeared chronically ill confused and delirious Vital signs as documented. Head exam is unremarkable. normocephalic, atraumatic Neck is without jugular venous distension, thyromegaly, or lymphademopathy Lungs are clear poor coordination of effort to exam she does speak in partial sentences no coughing Cardiac exam reveals Rhythm is regular. First and second heart sounds normal. Abdominal exam reveals normal bowel sounds, no masses, no organomegaly Extremities are nonedematous and both pedal pulses are present Neurologic exam is is awake she attempts to provide conversation she can attempt to follow commands but she is coarse dyskinetic movements she is confused Skin is warm / Dry Results & Data Vital Signs (Past 12 Hours) Vital Signs Temp Pulse Resp BP Pulse Ox 10/04/18 15:57 37.2 C 89 20 117/72 93 PG Care Time/CCT Total # of Minutes Spent Total Time Spent with Patient: Total time spent is greater than 50% in coordination of care (as documented) at patient's floor/unit and/or counseling patient: (1) Fall Encounter type: initial encounter Qualified Code(s): W19.XXXA - Unspecified fall, initial encounter (2) Anemia Anemia type: unspecified type Qualified Code(s): D64.9 - Anemia, unspecified (3) Hypothyroid Hypothyroidism type: unspecified Qualified Code(s): E03.9 - Hypothyroidism, unspecified
[2018-10-04] MEDS: LIDOCAINE 5% 1 PATCH TD PRN (17:00)
[2018-10-04] MEDS: QUETIAPINE FUMARATE 25 MG TABLET PO SCH (21:00)
[2018-10-05] MEDS: CHECK FENTANYL PATCH PLACEMENT SCH ×8 (00:16→22:59)
[2018-10-05] MEDS: IMIPENEM/CILASTATIN SODIUM 500 MG in DEXTROSE 5% 100 ML IV SCH ×5 (01:09→23:57)
[2018-10-05] MEDS: OXYCODONE HCL IR 5 MG TAB (IMMEDIATE RELEASE) PO PRN ×3 (03:18→23:56)
[2018-10-05] MEDS: LEVOTHYROXINE SODIUM 75 MCG TABLET PO SCH (05:34)
[2018-10-05] MEDS: ALPRAZolam 0.5 MG TABLET PO PRN ×2 (05:38→13:08)
[2018-10-05 07:57] LABS: Hematocrit (blood only) 34.4 % (37-47); Hemoglobin 10.7 g/dL (12.0-16.0); Mean Corpuscular Hgb Conc 31.1 g/dL (32-36); Mean Corpuscular Volume 99.4 fL (80-100); Mean Platelet Volume 10.5 fL (7.4-10.4); Platelet Count 314 K/uL (130-400); RDW Coefficient of Variation 13.9 % (11.5-14.5); Red Blood Count 3.46 M/uL (4.2-5.4); White Blood Count 4.22 K/uL (4.8-10.8)
[2018-10-05 08:23] LABS: BUN Creatinine Ratio 24.1 (10-20); Blood Urea Nitrogen 7 mg/dl (7-18); Calcium 8.2 mg/dl (8.5-10.1); Carbon Dioxide 29 mmol/L (21-32); Chloride 110 mmol/L (98-107); Creatinine Clr Calc Pharmacy 195.6 ml/min; Est GFR (African American) > 150.0; Est GFR (Non-African American) 133.1; Glucose 73 mg/dl (70-99); Potassium 4.5 mmol/L (3.5-5.1); Sodium 143 mmol/L (136-145)
[2018-10-05] MEDS: FOLIC ACID 1 MG TAB PO SCH (09:00)
[2018-10-05] MEDS: GABAPENTIN 600 MG TAB PO SCH ×3 (09:00→20:18)
[2018-10-05] MEDS: MAGNESIUM OXIDE 400 MG TAB PO SCH ×2 (09:01→20:20)
[2018-10-05] MEDS: POTASSIUM CHLORIDE 20 MEQ TABCR PO SCH (09:01)
[2018-10-05] MEDS: ENOXAPARIN INJ 40 MG/0.4 ML SYR SQ SCH (09:01)
[2018-10-05] MEDS: LANSOPRAZOLE 30 MG SOLTAB NG SCH (09:01)
[2018-10-05] MEDS: ASCORBIC ACID 500 MG TAB PO SCH (09:01)
[2018-10-05] MEDS: METOPROLOL TARTRATE 25 MG TAB PO SCH ×2 (09:01→20:22)
--- NOTE | 2018-10-05 10:43 | Infectious Disease Consult ---
Date of Consultation October 05, 2018 Assessment & Plan (1) Metabolic encephalopathy: unclear significance of citrobacter in urine culture, doubt related to underlying encephalopathy/change in mental status. she is on day 3 of imipenem, would stop abx after todays last dose. doubt uti as cause for current clinical presentation, this was discussed with family member at bedside. no new ID recs. History of Present Illness Attending Physician: Franki Jordan pt admitted with change in mental staus, confusion, family member present during my exam and states confusion continues. hard to obtain history from patient due to pressured speech. has had extensive inpatient workup, multiple imaging studies, psych and neuro evals. has h/o polysubstance abuse, UDS in 12/2017 + thc, barbs, opiates, benzos, no uds done this admission. MRI brain, c-spine, t- spine, l-spine negative this admision, multiple liver imaging studies negative as well. has prabhakar in place. ua done on 09/26 negative. blood cultures on 09/25 and 09/27 negative and final. wbc normal this admission. afebrile. 10/02 urince culture growing citrobacter, was placed on Imipenem emperically on 10/03 and ID was consulted for antiboitic approval. she is on day 3 abx, isolate is ctx resistant only. afebrile. no ua to accompany culture. prabhakar remains in place. she does admit to local irritation at prabhakar site, states diffuse abd pain, eating breakfast on my exam without difficulty. no n/v/d. states difuse body itching for 6 weeks, no rash. no cp, sob, cough, langley. states increased weakness. remaining ros reviewed and are negative. Allergies Allergy/AdvReac Type Severity Reaction Status Date / Time blue dye Allergy Intermediate joint Verified 09/21/18 19:19 swelling codeine Allergy Intermediate hives-TAKES Verified 09/21/18 19:19 OXYCONTIN AT HOME bupropion [From Wellbutrin] Allergy Unknown Unknown Verified 09/21/18 19:19 Margarine Allergy Severe ANAPHYLAXIS Uncoded 07/30/18 14:06 Home Medications Home Medications Medication Instructions Recorded Confirmed Type alprazolam [Xanax] 0.5 mg PO BID 07/30/18 09/21/18 History amitriptyline 50 mg PO HS 07/30/18 09/21/18 History ascorbic acid (vitamin C) [Vitamin 1,000 mg PO DAILY 07/30/18 09/21/18 History C] baclofen 20 mg PO TID 07/30/18 09/21/18 History bisacodyl [Dulcolax (bisacodyl)] 5 mg PO DAILY PRN 07/30/18 09/21/18 History buspirone 10 mg PO BID 07/30/18 09/21/18 History cyanocobalamin (vitamin B-12) 1,000 mcg IM MONTHLY 07/30/18 09/21/18 History fentanyl 1 patch TRANSDERMAL .[id number] 07/30/18 09/21/18 History fentanyl 1 patch TRANSDERMAL .CQ48HR 07/30/18 09/21/18 History folic acid 1 mg PO DAILY 07/30/18 09/21/18 History gabapentin 1,200 mg PO TID 07/30/18 09/21/18 History levothyroxine [Levoxyl] 100 mcg PO DAILY 07/30/18 09/21/18 History lidocaine [Lidoderm] 1 patch TOPICAL DAILY PRN 07/30/18 09/21/18 History meclizine 25 mg PO TID PRN 07/30/18 09/21/18 History midodrine 2.5 mg PO TID 07/30/18 09/21/18 History omeprazole 20 mg PO DAILY 07/30/18 09/21/18 History ondansetron 4 - 8 mg PO Q8H PRN 07/30/18 09/21/18 History oxycodone 10 mg PO 5XD PRN 07/30/18 09/21/18 History promethazine [Phenergan] 25 mg UT Q12H PRN 07/30/18 09/21/18 History sertraline 100 mg PO QAM 07/30/18 09/21/18 History sumatriptan succinate [Imitrex] 100 mg PO DIRECTED PRN MDD 200 07/30/18 09/21/18 History MG/DAY acetazolamide 250 mg PO QID 09/21/18 09/21/18 History [id number] 1 tab PO Q4H PRN MDD 6 TABS 09/21/18 09/21/18 History magnesium oxide 400 mg PO BID 09/21/18 09/21/18 History pyridostigmine bromide 60 mg PO TID 09/21/18 09/21/18 History quetiapine 100 mg PO HS 09/21/18 09/21/18 History trazodone 100 mg PO HS 09/21/18 09/21/18 History Patient History Medical History Opioid dependence (Chronic) POTS (postural orthostatic tachycardia syndrome) (Chronic) 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 Other Cancer Diabetes Hypertension Kidney disease Lung disease Social History Preferred Language: Tongan Communication Ability: Effective Tape Transferrer Required: No Beliefs That Will Affect Care: None Current Living Situation: Spouse and Family Current Living Situation Comment: Patient has 9 children ranging in age from 32-10 current occupational status: unemployed Other Information That Helps Us Care for You: No Feels Safe at Home: Yes Safety Concerns: Feels Safe At This Time Smoking Status: Light tobacco smoker Tobacco Type: cigarettes Cigarettes Per Day: One or 2 Do You Dip or Chew Tobacco: No Second Hand Exposure: Yes Tobacco Cessation Education Requested by Patient: No Hx Alcohol Use: No Hx Substance Use: Yes substance use type: marijuana Substance Use Type Other:: Medical marijuana Last Used Substance: Unknown Review of Systems Review of Systems: All systems reviewed & are unremarkable except as noted in HPI & below Physical Exam Constitutional: WD/WN, vitals as above Eyes: PERRL, conjunctivae normal, anicteric sclerae ENMT: external ear and nose normal, oropharynx normal Neck: normal visual inspection Respiratory: normal respiratory effort, lungs clear to auscultation Cardiovascular: RRR, no murmur, no edema Gastrointestinal (Abdomen): normal bowel sounds, soft, nontender, no hepatosplenomegaly Musculoskeletal: no cyanosis or clubbing, extremities motor strength 5/5 Skin: no rashes, warm and dry Psychiatric: Orientation: alert and oriented x 3 Affect: + anxious affect Results & Data Vital Signs (Past 12 Hours) Vital Signs Temp Pulse Resp BP BP Pulse Ox 10/05/18 07:44 36.9 C 86 18 102/52 L 97 10/04/18 23:19 36.6 C 88 16 105/67 96 Laboratory Results Microbiology 10/03/18 19:20 Blood Aerobic Blood Culture - Preliminary No growth in Aerobic bottle after 24 hours. 10/03/18 19:20 Blood Anaerobic Blood Culture - Final 10/03/18 19:27 Blood Aerobic Blood Culture - Preliminary No growth in Aerobic bottle after 24 hours. 10/03/18 19:27 Blood Anaerobic Blood Culture - Preliminary No growth in Anaerobic bottle after 24 hours. 10/02/18 13:25 Urine,Indwelling Cath Urine Culture - Final Citrobacter braakii 09/27/18 20:55 Blood Aerobic Blood Culture - Final No growth in Aerobic bottle after 5 days. 09/27/18 20:55 Blood Anaerobic Blood Culture - Final No growth in Anaerobic bottle after 5 days. 09/27/18 21:01 Blood Aerobic Blood Culture - Final No growth in Aerobic bottle after 5 days. 09/27/18 21:01 Blood Anaerobic Blood Culture - Final No growth in Anaerobic bottle after 5 days. 09/25/18 21:13 Blood Aerobic Blood Culture - Final No growth in Aerobic bottle after 5 days. 09/25/18 21:13 Blood Anaerobic Blood Culture - Final No growth in Anaerobic bottle after 5 days. 09/25/18 21:25 Blood Aerobic Blood Culture - Final No growth in Aerobic bottle after 5 days. 09/25/18 21:25 Blood Anaerobic Blood Culture - Final 09/22/18 10:15 Blood Blood Parasites Smear - Final 09/21/18 22:15 Urine,Clean Catch Urine Culture - Final Klebsiella pneumoniae
[2018-10-05] MEDS: LIDOCAINE 5% 1 PATCH TD PRN (15:13)
[2018-10-05] MEDS: fentaNYL 12 MCG/HR TDSY TD SCH (16:37)
[2018-10-05] MEDS: fentaNYL 100 MCG/HR TDSY TD SCH (16:37)
[2018-10-05] MEDS: QUETIAPINE FUMARATE 25 MG TABLET PO SCH (20:19)
--- NOTE | 2018-10-05 22:55 | Hospitalist Progress Note ---
Date of Service October 05, 2018 Assessment & Plan (1) Hypernatremia: hypernatremia did become mildly recurrent since starting diamox, her sodium is now returned to normal level on 10/04 (2) Metabolic encephalopathy: Encephalopathy has improved over course of past few days. It appears patient has been waxing and waning for past week. Patient did have citrobacter in urine, but currently doubt this was cause of her encephalopathy as she already has multiple reasons for this: poor nutrition, being in the hopsital, polypharmacy and recovering from hepatic encephalopathy. Patient is no longer on antibiotics as ID recommend to stop it. Toxic encephalopathy , Polypharmacy may be also playing a role will have psychiatry eval pts home medication list mri scan 09/29 is negative. family did not permitting lumbar puncture. however now the states it can be done under flouro guidance, pt however is improved and the value would be for opening pressure as pt states she has had issues with that in the past Patient has been sleep deprived in ER in part of her encephalopathy may be worsened from this she did respond to a dose of at bedtime Seroquel and as needed alprazolam having had a opposite reaction to Lorazepam when used On 10/05 patient appears to be improving. Will continue to monitor. (3) Generalized weakness: Multi factorial, initially hypernatremia was initial role now is deconditioned, with recurrence of her encephalopathy her deconditioning is worsened and likely rehab may be in the future (4) Fall: Likely from metabolic/toxic encephalopathy (5) POTS (postural orthostatic tachycardia syndrome): Chronic on beta blockers. Low-dose metoprolol seem to have issues although her she has been but restricted for majority of her hospital stay (6) Anemia: hemoglobin continues to be acceptable, anemia of chronic disease. (7) EDS (Lilibeth-Danlos syndrome): Chronic. Stable -Continue to monitor family had requested baclofen for this, but with encephalopathy will not pursue. Will continue to monitor. (8) Hypothyroid: Chronic. Low TSH -Continue Synthroid, (9) Opioid withdrawal: Patient 's tachycardia is improved, restarted on fentanyl patches Placed fentayl q2d as this is her norm as an outpatient. (10) Abnormal LFTs: LFTs are better. Amonia is normal. Ppx - Lovenox (11) Dysphagia: swallowing cleared by speech eval, with swallowing precautions, re eval 09/30 for advance of diet Spent 35 minutes in management of patient. Subjective 53 yo female who reports feeling better. She does not recall her hospital stay to the full extent, but understands that she was confused. Her daughter is at bedisde and is updated. Her also appears later in the visit and is also updated. Patient reports feeling weak. Review of Systems Review of Systems: ROS: well nourished well developed. No double vision blurry vision No problems with speech or swallowing No palpitations, chest pain or pressure No Wheezing or breathing issues No abdominal pain nausea vomiting diarrhea No burning urine urine frequency or changes in color No focal joint pain or muscle pain No skin rashes or oral lesions No unusual bruising or bleeding No focused back pain or numbness general decrease in strength Constitutional: + body aches; no fever Musculoskeletal: + back pain; no loss of height Neurologic: + gait abnormality and + loss of sensation Physical Exam Physical Exam: The patient appeared chronically ill, she no longer appears delirious and is having more of a conversation. Vital signs as documented. Head exam is unremarkable. normocephalic, atraumatic Neck is without jugular venous distension, thyromegaly, or lymphademopathy Lungs are clear poor coordination of effort to exam she does speak in partial sentences no coughing Cardiac exam reveals Rhythm is regular. First and second heart sounds normal. Abdominal exam reveals normal bowel sounds, no masses, no organomegaly Extremities are nonedematous and both pedal pulses are present Neurologic exam is is awake she attempts to provide conversation she can attempt to follow commands but she is coarse dyskinetic movements she is confused Skin is warm / Dry Results & Data Vital Signs (Past 12 Hours) Vital Signs Temp Pulse Resp BP Pulse Ox 10/05/18 20:22 102 H 113/75 10/05/18 15:38 36.6 C 92 H 20 91/52 L 97 (1) Anemia Anemia type: unspecified type Qualified Code(s): D64.9 - Anemia, unspecified (2) Hypothyroid Hypothyroidism type: unspecified Qualified Code(s): E03.9 - Hypothyroidism, unspecified (3) Fall Encounter type: initial encounter Qualified Code(s): W19.XXXA - Unspecified fall, initial encounter
[2018-10-06] MEDS: ALPRAZolam 0.5 MG TABLET PO PRN (04:39)
[2018-10-06] MEDS: LEVOTHYROXINE SODIUM 75 MCG TABLET PO SCH (05:31)
[2018-10-06] MEDS: IMIPENEM/CILASTATIN SODIUM 500 MG in DEXTROSE 5% 100 ML IV SCH (06:38)
[2018-10-06] MEDS: GABAPENTIN 600 MG TAB PO SCH ×3 (07:46→20:17)
[2018-10-06] MEDS: MAGNESIUM OXIDE 400 MG TAB PO SCH ×2 (07:46→20:17)
[2018-10-06] MEDS: LANSOPRAZOLE 30 MG SOLTAB NG SCH (07:46)
[2018-10-06] MEDS: FOLIC ACID 1 MG TAB PO SCH (07:47)
[2018-10-06] MEDS: ASCORBIC ACID 500 MG TAB PO SCH (07:47)
[2018-10-06] MEDS: METOPROLOL TARTRATE 25 MG TAB PO SCH ×2 (07:47→20:17)
[2018-10-06] MEDS: CHECK FENTANYL PATCH PLACEMENT SCH ×6 (07:48→23:25)
[2018-10-06] MEDS: ENOXAPARIN INJ 40 MG/0.4 ML SYR SQ SCH (07:49)
[2018-10-06 08:14] LABS: Hematocrit (blood only) 39.9 % (37-47); Hemoglobin 12.4 g/dL (12.0-16.0); Mean Corpuscular Hgb Conc 31.1 g/dL (32-36); Mean Corpuscular Volume 100.3 fL (80-100); Mean Platelet Volume 10.8 fL (7.4-10.4); Platelet Count 407 K/uL (130-400); RDW Coefficient of Variation 13.9 % (11.5-14.5); RDW Standard Deviation 50.8 fL (36.4-46.3); Red Blood Count 3.98 M/uL (4.2-5.4); White Blood Count 4.49 K/uL (4.8-10.8)
[2018-10-06 08:46] LABS: BUN Creatinine Ratio 29.8 (10-20); Calcium 8.7 mg/dl (8.5-10.1); Creatinine Clr Calc Pharmacy 138.3 ml/min; Est GFR (African American) 137.7; Est GFR (Non-African American) 118.8; Potassium 4.2 mmol/L (3.5-5.1)
[2018-10-06] MEDS: OXYCODONE HCL IR 5 MG TAB (IMMEDIATE RELEASE) PO PRN ×2 (12:56→21:23)
[2018-10-06] MEDS: QUETIAPINE FUMARATE 25 MG TABLET PO SCH (20:17)
--- NOTE | 2018-10-06 22:52 | XRay Report ---
XR hip LT 2-3V w pelvis HISTORY: 53 years-old Female acute fall with L hip pain acute left hip pain status post fall COMPARISON: Pelvis radiographs 09/21/2018 TECHNIQUE: Portable AP view of the pelvis with 2 views of the left hip FINDINGS: No acute fracture, dislocation, or avascular necrosis. Mild degenerative changes about the bilateral femoral acetabular joints. Mohler are noted projecting over the midline lower abdomen. Multiple pelv ic basin calcifications are noted suggestive of probable phleboliths. IMPRESSION: No acute fracture or dislocation. The above report was generated using voice recognition software. It may contain grammatical, syntax o r spelling errors. Electronically signed by: Troy Davis M.D. 10/06/2018 10:51 PM
--- NOTE | 2018-10-06 23:00 | Hospitalist Progress Note ---
Date of Service October 06, 2018 Assessment & Plan (1) Hypernatremia: hypernatremia did become mildly recurrent since starting diamox, her sodium is now returned to normal level on 10/04 (2) Metabolic encephalopathy: Encephalopathy has improved over course of past few days. It appears patient has been waxing and waning for past week. Patient did have citrobacter in urine, but currently doubt this was cause of her encephalopathy as she already has multiple reasons for this: poor nutrition, being in the hopsital, polypharmacy and recovering from hepatic encephalopathy. Patient is no longer on antibiotics as ID recommend to stop it. Toxic encephalopathy , Polypharmacy may be also playing a role will have psychiatry eval pts home medication list mri scan 09/29 is negative. family did not permitting lumbar puncture. however now the states it can be done under flouro guidance, pt however is improved and the value would be for opening pressure as pt states she has had issues with that in the past Patient has been sleep deprived in ER in part of her encephalopathy may be worsened from this she did respond to a dose of at bedtime Seroquel and as needed alprazolam having had a opposite reaction to Lorazepam when used This appears to be resolving. Will continue to monitor. (3) Generalized weakness: Multi factorial, initially hypernatremia was initial role now is de conditioned, with recurrence of her encephalopathy her deconditioning is worsened and likely rehab may be in the future Patient will likely need rehab at discharge (4) Fall: Likely from metabolic/toxic encephalopathy (5) POTS (postural orthostatic tachycardia syndrome): Chronic on beta blockers. Low-dose metoprolol seem to have issues although her she has been but restricted for majority of her hospital stay (6) Anemia: hemoglobin continues to be acceptable, anemia of chronic disease. (7) EDS (Lilibeth-Danlos syndrome): Chronic. Stable -Continue to monitor family had requested baclofen for this, but with encephalopathy will not pursue Patient's family asking for something for inflammation. Explained that we may be able to start a prednisone taper. Will reassess in AM as this may worsen her insomnia in the evening if started late. (8) Hypothyroid: Chronic. Low TSH -Continue Synthroid, (9) Opioid withdrawal: Patient 's tachycardia is improved, restarted on fentanyl patches Placed fentayl q2d as this is her norm as an outpatient. (10) Abnormal LFTs: recheck ammonia is normal repeat LFTs on 10/03 Ppx - Lovenox (11) Dysphagia: swallowing cleared by speech eval, with swallowing precautions, re kristen 09/30 for advance of diet Spent 35 minutes in management of patient. This included discussion with . Subjective Patient continues to be improving mentally. is concerned about her pain in her body which is chronic, but he is worried that this may lead to subluxation or worsening of her Ehrlers Danlos syndrome. though states that he wants a medicine for inflammation, and is asking for baclofen for his . Explained to that baclofen is not an antiinflammatory medicine. Offered NSAIDs, he explained these may cause hives. Offered prednisone, which he states does help with her pain. Will consider in AM. Review of Systems Review of Systems: All systems reviewed & are unremarkable except as noted in HPI & below Physical Exam Physical Exam: The patient appeared chronically ill, she appears less confused . Vital signs as documented. Head exam is unremarkable. normocephalic, atraumatic Neck is without jugular venous distension, thyromegaly, or lymphadenopathy Lungs are clear poor coordination of effort to exam she does speak in partial sentences no coughing Cardiac exam reveals Rhythm is regular. First and second heart sounds normal. Abdominal exam reveals normal bowel sounds, no masses, no organomegaly Extremities are nonedematous and both pedal pulses are present Neurologic exam is is awake she attempts to provide conversation she can attempt to follow commands but she is coarse dyskinetic movements she is less confused Skin is warm / Dry Results & Data Vital Signs (Past 12 Hours) Vital Signs Temp Pulse Resp BP Pulse Ox 10/06/18 22:51 36.7 C 88 18 107/70 99 10/06/18 15:40 88 20 118/67 93 PG Care Time/CCT Total # of Minutes Spent Total Time Spent with Patient: Total time spent is greater than 50% in coordination of care (as documented) at patient's floor/unit and/or counseling patient: (1) Anemia Anemia type: unspecified type Qualified Code(s): D64.9 - Anemia, unspecified (2) Hypothyroid Hypothyroidism type: unspecified Qualified Code(s): E03.9 - Hypothyroidism, unspecified (3) Fall Encounter type: initial encounter Qualified Code(s): W19.XXXA - Unspecified fall, initial encounter
--- NOTE | 2018-10-07 05:26 | Progress Note ---
Date of Service October 07, 2018 Subjective Nurse called at 22:10 reporting pt fell a few minutes ago and complaining of L hip pain, bumping heading and abrasions on elbows Pt was reported to be at baseline mental status Pt was evaluated: reported getting out of bed, falling on side of bed and bumping head against chair Exam: CV: RRR no m/r/g PULM: CTAB equal breath sounds bilaterally Abdomen: +BS, NTTP in all quadrants MSK: L hip moderately TTP, no bruising noted; L side of head/scalp mildly TTP - no lacerations or scalp lesions noted SKIN: bilateral elbows mild abrasions without bleeding Plan: L hip XR ordered - no fx or dislocation noted; consider CT head if pt's mental status worsens from baseline Results & Data Vital Signs (Past 12 Hours) Vital Signs Temp Pulse Resp BP BP Pulse Ox 10/06/18 22:51 36.7 C 88 18 107/70 99 10/06/18 22:05 102 H 20 106/72 98 PG Care Time/CCT Total # of Minutes Spent Total Time Spent with Patient: Total time spent is greater than 50% in coordination of care (as documented) at patient's floor/unit and/or counseling patient:
[2018-10-07 05:55] LABS: Hematocrit (blood only) 40.3 % (37-47); Hemoglobin 12.8 g/dL (12.0-16.0); Mean Corpuscular Hgb Conc 31.8 g/dL (32-36); Mean Corpuscular Volume 98.3 fL (80-100); Mean Platelet Volume 10.5 fL (7.4-10.4); Platelet Count 411 K/uL (130-400); RDW Coefficient of Variation 13.7 % (11.5-14.5); RDW Standard Deviation 49.1 fL (36.4-46.3); White Blood Count 6.34 K/uL (4.8-10.8)
[2018-10-07] MEDS: LEVOTHYROXINE SODIUM 75 MCG TABLET PO SCH (05:59)
[2018-10-07] MEDS: OXYCODONE HCL IR 5 MG TAB (IMMEDIATE RELEASE) PO PRN ×2 (06:04→14:49)
[2018-10-07] MEDS: MAGNESIUM OXIDE 400 MG TAB PO SCH ×2 (09:09→21:09)
[2018-10-07] MEDS: GABAPENTIN 600 MG TAB PO SCH ×3 (09:09→21:06)
[2018-10-07] MEDS: FOLIC ACID 1 MG TAB PO SCH (09:10)
[2018-10-07] MEDS: LANSOPRAZOLE 30 MG SOLTAB NG SCH (09:10)
[2018-10-07] MEDS: METOPROLOL TARTRATE 25 MG TAB PO SCH ×2 (09:10→21:09)
[2018-10-07] MEDS: ASCORBIC ACID 500 MG TAB PO SCH (09:10)
[2018-10-07] MEDS: ENOXAPARIN INJ 40 MG/0.4 ML SYR SQ SCH (09:11)
[2018-10-07] MEDS: CHECK FENTANYL PATCH PLACEMENT SCH ×4 (09:12→16:46)
[2018-10-07] MEDS ORDERED: predniSONE 20 MG TAB PO STA (10:08)
--- NOTE | 2018-10-07 11:31 | XRay Report ---
XR cervical spine w flex/ext (7 views) CLINICAL HISTORY: Neck pain status post trauma COMPARISON STUDY: 08/09/2014 FINDINGS: The examination is somewhat limited from a technical standpoint. There are postsurgical seth nges at the C5-6 level. Postsurgical changes are also present at the occipitocervical junction. No ac moapa fractures are visualized. There is no instability on flexion or extension. The anterior arch of t he C1 vertebra is not clearly visualized. Please correlate with surgical history. IMPRESSION: 1. Postsurgical changes 2. No fractures or subluxations identified 3. No evidence of instability on flexion or extension 4. Anterior C1 arch is not clearly visualized. Please correlate with prior surgical history. Electronically signed by: Carlos Ervin M.D. 10/07/2018 11:30 AM
[2018-10-07] MEDS: fentaNYL 12 MCG/HR TDSY TD SCH (16:51)
[2018-10-07] MEDS: fentaNYL 100 MCG/HR TDSY TD SCH (16:51)
[2018-10-07] MEDS: ALPRAZolam 0.5 MG TABLET PO PRN (16:51)
[2018-10-07] MEDS: QUETIAPINE FUMARATE 25 MG TABLET PO SCH (21:06)
--- NOTE | 2018-10-07 22:30 | Hospitalist Progress Note ---
Date of Service October 07, 2018 Assessment & Plan (1) Hypernatremia: hypernatremia did become mildly recurrent since starting diamox, her sodium is now returned to normal level on 10/04 (2) Metabolic encephalopathy: Encephalopathy has improved over course of past few days. It appears patient has been waxing and waning for past week. Patient did have citrobacter in urine, but currently doubt this was cause of her encephalopathy as she already has multiple reasons for this: poor nutrition, being in the hopsital, polypharmacy and recovering from hepatic encephalopathy. Patient is no longer on antibiotics as ID recommend to stop it. Toxic encephalopathy , Polypharmacy may be also playing a role will have psychiatry eval pts home medication list mri scan 09/29 is negative. family did not permitting lumbar puncture. however now the states it can be done under flouro guidance, pt however is improved and the value would be for opening pressure as pt states she has had issues with that in the past Patient has been sleep deprived in ER in part of her encephalopathy may be worsened from this she did respond to a dose of at bedtime Seroquel and as needed alprazolam having had a opposite reaction to Lorazepam when used This appears to be resolving. Will continue to monitor. Overnight patient fell, ordered x-rays of cervical spine, with flexion and extension. It was normal. Patient did receive 4 doses of benadyrl in past 24 hours. This likely led to patient being more confused, which likely led to the fall. This was explained to patient and family. (3) Generalized weakness: Multi factorial, initially hypernatremia was initial role now is deconditioned, with recurrence of her encephalopathy her deconditioning is worsened and likely rehab may be in the future Patient will likely need rehab at discharge. Will be placed in AM. (4) Fall: Likely from metabolic/toxic encephalopathy (5) POTS (postural orthostatic tachycardia syndrome): Chronic on beta blockers. Low-dose metoprolol seem to have issues although her she has been but restricted for majority of her hospital stay (6) Anemia: hemoglobin continues to be acceptable, anemia of chronic disease. (7) EDS (Lilibeth-Danlos syndrome): Chronic. Stable -Continue to monitor family had requested baclofen for this, but with encephalopathy will not pursue Patient's family asking for something for inflammation. Ordered prednisone this AM. Will reassess in AM. Likely will be a prednisone taper. (8) Hypothyroid: Chronic. Low TSH -Continue Synthroid, (9) Opioid withdrawal: Patient 's tachycardia is improved, restarted on fentanyl patches Placed fentayl q2d as this is her norm as an outpatient. (10) Abnormal LFTs: LFTs are better. Ammonia is normal. Ppx - Lovenox (11) Dysphagia: swallowing cleared by speech eval, with swallowing precautions, re eval 09/30 for advance of diet Spent 65 minutes in management of patient. This included discussion with and multiple visits. 8:00 to 8:25 9:30 to 9:50 12:00 to 12:20 Subjective Patient reports feeling anxious today. Overnight patient had a fall out of bed. Patient reports feeling back to her baseline. Her is at bedside and states she normally is anxious. Her is concerned that she may need a medicine for inflammation. We had a discussion earlier yesterday about starting an NSAID but he states it causes her hives. Prednisone was to be given the next day (today) this may affect her sleep (as it would have been given at PM). was under the impression that an NSAID was to be given yesterday, I apologized for miscommunication. though reinterates that NSAIDs do not help with pain. This discussion was done in the presence of the charge nurse: Kathrin. Review of Systems Review of Systems: All systems reviewed & are unremarkable except as noted in HPI & below Physical Exam Physical Exam: The patient appeared chronically ill, she appears back to her baseline. Vital signs as documented. Head exam is unremarkable. normocephalic, atraumatic Neck is without jugular venous distension, thyromegaly, or lymphadenopathy Lungs are clear poor coordination of effort to exam she does speak in partial sentences no coughing Cardiac exam reveals Rhythm is regular. First and second heart sounds normal. Abdominal exam reveals normal bowel sounds, no masses, no organomegaly Extremities are nonedematous and both pedal pulses are present Neurologic exam is is awake she is able to communicate well. Skin is warm / Dry Results & Data Vital Signs (Past 12 Hours) Vital Signs Pulse BP 10/07/18 21:20 105 H 108/72 PG Care Time/CCT Total # of Minutes Spent Total Time Spent: 65 Total Time Spent with Patient: Total time spent is greater than 50% in coordination of care (as documented) at patient's floor/unit and/or counseling patient: Prolonged Care Time Prolonged Care Time: Yes 65 (1) Anemia Anemia type: unspecified type Qualified Code(s): D64.9 - Anemia, unspecified (2) Hypothyroid Hypothyroidism type: unspecified Qualified Code(s): E03.9 - Hypothyroidism, unspecified (3) Fall Encounter type: initial encounter Qualified Code(s): W19.XXXA - Unspecified fall, initial encounter
[2018-10-08] MEDS: CHECK FENTANYL PATCH PLACEMENT SCH ×4 (00:03→07:49)
[2018-10-08] MEDS: OXYCODONE HCL IR 5 MG TAB (IMMEDIATE RELEASE) PO PRN (05:53)
[2018-10-08] MEDS: LEVOTHYROXINE SODIUM 75 MCG TABLET PO SCH (05:54)
[2018-10-08 07:16] LABS: Hemoglobin 10.9 g/dL (12.0-16.0); Mean Corpuscular Hgb Conc 31.1 g/dL (32-36); Mean Corpuscular Volume 99.2 fL (80-100); Mean Platelet Volume 10.4 fL (7.4-10.4); Platelet Count 353 K/uL (130-400); RDW Coefficient of Variation 13.6 % (11.5-14.5); RDW Standard Deviation 48.6 fL (36.4-46.3); Red Blood Count 3.53 M/uL (4.2-5.4); White Blood Count 4.92 K/uL (4.8-10.8)
[2018-10-08] MEDS: MAGNESIUM OXIDE 400 MG TAB PO SCH (07:33)
[2018-10-08] MEDS: METOPROLOL TARTRATE 25 MG TAB PO SCH (07:35)
[2018-10-08] MEDS: ALPRAZolam 0.5 MG TABLET PO PRN (07:35)
[2018-10-08] MEDS: GABAPENTIN 600 MG TAB PO SCH (07:35)
[2018-10-08] MEDS: LANSOPRAZOLE 30 MG SOLTAB NG SCH (07:36)
[2018-10-08] MEDS: ASCORBIC ACID 500 MG TAB PO SCH (07:36)
[2018-10-08] MEDS: FOLIC ACID 1 MG TAB PO SCH (07:36)
[2018-10-08] MEDS: ENOXAPARIN INJ 40 MG/0.4 ML SYR SQ SCH (07:37)
[2018-10-08] MEDS ORDERED: OXYCODONE HCL IR 5 MG TAB (IMMEDIATE RELEASE) PO SCH ×2 (11:00)
--- NOTE | 2018-10-16 10:50 | Discharge Summary ---
Date of Service October 08, 2018 Admission HPI Per Admitting Provider Leyla Pichardo is a 53-year-old female admitted medically on 09/21/2018 due to weakness x 10 days. She reportedly experienced 2 falls prior to admission and has had episodes of urinary and fecal incontinence as well. PMH of Lilibeth- Danlos syndrome, POTS, hypothyroidism, frequent migraines, and opioid dependence. Surgical history is extensive, most significant for Arian-en-Y GBS, multiple cervical spinal surgeries with diskectomy and fusion, and correction of Chiari malformation. Shortly after admission to the medical floor, patient developed confusion and lethargy and was transferred to the ICU. Pt is currently being treated for metabolic encephalopathy and hypernatremia, along with opioid withdrawal. Patient follows with several specialists on an outpatient basis, and multiple services were requested to make recommendations regarding patient's condition as well as her concerning outpatient medication regimen. Psychiatric consultation was requested for the same. Review of documentation, external med rec, and confirmation with pharmacies suggests that patient has recently been prescribed the following psychiatric medications: (per PDMP and external med rec) - Amitriptyline 50mg qHS (last filled 09/04/18) - ?migraine prophylaxis - Trazodone 100mg qHS (last filled 09/04/18) - Buspirone 10mg BID (last filled 09/04/18) - Alprazolam 0.5mg BID - #60 tabs (last filled 09/04/18) - Quetiapine 100mg qHS (last filled 09/04/18) - Sertraline 100mg qAM (last filled 09/04/18) - Gabapentin 1,200mg TID (last filled (09/04/18) Pt also has fentanyl a total of 112mcg q48hr (last filled 09/15/18), oxycodone 10mg #150 tabs (last filled 09/15/18), baclofen 20mg TID (last filled 09/04/18) - among other prescriptions. Pt remains rather confused and the majority of information has been provided by the patient's . Upon visits with the psychiatric nurse liaisons, was unwilling to allow for communication between our service and the patient's psychiatric prescriber. The name of her current prescriber was also not provided. had reported to liaison that the only currently prescribed psychiatric medications are alprazolam and quetiapine, stating she has not taken the other medications "for awhile." Only information provided by was that the patient sees a therapist, Dr. Shahid, in [place]. Additional collateral information was not provided. Upon assessment today, the patient is awake and alert, watching a video on a tablet. Daughter, Mehreen, is present in the room - but admits her knowledge of the patient's history is limited. Pt verbalized permission for her daughter to remain in the room during our conversation. Daughter attempts to call during our visit, but he is unfortunately unavailable. Pt admits that she remains somewhat confused, but states that she is frustrated - wanting to go home. Discussed with patient and daughter that we need to take her hospitalization in stages - what can we do to correct her confusion, and later, what can be done to prevent recurrence. This provider attempted to review the patient's psychiatric medications; however, there is limited information available presently. Daughter does provide a home med list pictured on her phone - with only quetiapine and amitriptyline listed as psychiatric medications. Alprazolam was not on the provided medication list. Attempts were made to explain to patient our role in her care and this provider requested to be informed if/when returns in order to discuss home med list further. A list was left with the daughter, requesting information about diagnoses, outp atient providers, and listed medications/any side effects. Daughter stated she would give the list to the patient's to complete. Overall, the patient describes her mood as "stable, pretty consistent" and does not verbalize any other psychiatric complaints. This provider did inform patient and daughter that the most concerning interaction with medications is the combination of benzodiazepines and opioids - stating we would likely recommend that she remain off the alprazolam. Pt states, "you can look at my medications, but it's going to take a lot of convincing to get me to change anything." Pt and daughter denied any other needs or concerns at this time. Principal Diagnosis hepatic encephalopathy Discharge Exam The patient appeared chronically ill, she appears back to her baseline. Vital signs as documented. Head exam is unremarkable. normocephalic, atraumatic Neck is without jugular venous distension, thyromegaly, or lymphadenopathy Lungs are clear poor coordination of effort to exam she does speak in partial sentences no coughing Cardiac exam reveals Rhythm is regular. First and second heart sounds normal. Abdominal exam reveals normal bowel sounds, no masses, no organomegaly Extremities are nonedematous and both pedal pulses are present Neurologic exam is is awake she is able to communicate well. Skin is warm / Dry Discharge Data Allergies Allergy/AdvReac Type Severity Reaction Status Date / Time blue dye Allergy Intermediate joint Verified 09/21/18 19:19 swelling codeine Allergy Intermediate hives-TAKES Verified 09/21/18 19:19 OXYCONTIN AT HOME bupropion [From Wellbutrin] Allergy Unknown Unknown Verified 09/21/18 19:19 Margarine Allergy Severe ANAPHYLAXIS Uncoded 07/30/18 14:06 Consultations 09/22/18 01:34 ED Decision to Admit Stat 09/22/18 02:37 Consult Case Management - Discharge Planning Routine 09/22/18 11:03 Consult Neurology Routine 09/22/18 14:43 Consult Orthopedic Surgery Routine 09/23/18 23:09 Consult [employer] Routine 09/24/18 01:53 Consult Case Management - Discharge Planning Routine 09/24/18 06:41 Consult Gastroenterology Routine 09/30/18 08:30 Consult Pain Management Routine 09/30/18 14:05 Consult Psychiatry Routine 10/01/18 14:23 Consult Health Information Management Routine 10/03/18 18:51 Consult Infectious Diseases Routine Ordered Studies 09/21/18 18:09 MR lumbar spine wo con Stat 09/22/18 02:37 US liver Routine 09/23/18 17:46 MR cervical spine wo con Routine MR thoracic spine wo con Routine 09/23/18 18:00 CT abdomen w IV con Routine 09/29/18 10:01 MR brain wo con Routine 10/04/18 10:24 US renal/blad retro comp Routine Hospital Course (1) Hypernatremia: hypernatremia did become mildly recurrent since starting diamox, her sodium is now returned to normal level on 10/04 (2) Metabolic encephalopathy: Encephalopathy has improved over course of past few days. It appears patient has been waxing and waning for past week. Patient did have citrobacter in urine, but currently doubt this was cause of her encephalopathy as she already has multiple reasons for this: poor nutrition, being in the hopsital, polypharmacy and recovering from hepatic encephalopathy. Patient is no longer on antibiotics as ID recommend to stop it. Toxic encephalopathy , Polypharmacy may be also playing a role will have psychiatry eval pts home medication list mri scan 09/29 is negative. family did not permitting lumbar puncture. however now the states it can be done under flouro guidance, pt however is improved and the value would be for opening pressure as pt states she has had issues with that in the past Patient has been sleep deprived in ER in part of her encephalopathy may be worsened from this she did respond to a dose of at bedtime Seroquel and as needed alprazolam having had a opposite reaction to Lorazepam when used This appears to be resolving. Will continue to monitor. Overnight of 10/06 to 10/07 patient fell, ordered x-rays of cervical spine, with flexion and extension. It was normal. Patient did receive 4 doses of benadyrl in past 24 hours. This likely led to patient being more confused, which likely led to the fall. This was explained to patient and family. On 10/08, Patient again felt back to baseline. (3) Generalized weakness: Multi factorial, initially hypernatremia was initial role now is deconditioned, with recurrence of her encephalopathy her deconditioning is worsened and likely rehab may be in the future Patient will likely need rehab at discharge. (4) Fall: Likely from metabolic/toxic encephalopathy (5) POTS (postural orthostatic tachycardia syndrome): Chronic on beta blockers. Low-dose metoprolol seem to have issues although her she has been but restricted for majority of her hospital stay (6) Anemia: hemoglobin continues to be acceptable, anemia of chronic disease. (7) EDS (Lilibeth-Danlos syndrome): Chronic. Stable -Continue to monitor family had requested baclofen for this, but with encephalopathy will not pursue Patient's family asking for something for inflammation. Ordered prednisone this AM. Will reassess in AM. Likely will be a prednisone taper. (8) Hypothyroid: Chronic. Low TSH -Continue Synthroid, (9) Opioid withdrawal: Patient 's tachycardia is improved, restarted on fentanyl patches Placed fentayl q2d as this is her norm as an outpatient. (10) Abnormal LFTs: LFTs are better. Ammonia is normal. Ppx - Lovenox (11) Dysphagia: swallowing cleared by speech eval, with swallowing precautions, re eval 09/30 for advance of diet Discussed case with family at bedside. Total Time Total Time Spent Total Time Spent (In Minutes): 31 Total Time Includes: Examination of the Patient, Discharge Planning and Medication Reconciliation Discharge Plan Discharge Items Patient Disposition: Transfer Inpatient Rehab Fac Reason For Visit: WEAKNESS, FALLS Discharge Diagnosis: hepatic encephalopathy Discharge Goals: Decrease discomfort Activity: As commented below Activity Comment: Gradually improve activty with physticla therapy. Non-emergency contact: Primary Care Provider Call non-emergency contact if: you have any medication questions Follow-up/Referrals: Kailey Adam MD [Primary Care Provider] - Diet: Regular Diet Texture: Dental soft (bite-sized) Liquid Consistency: [place] thick Diet Comment: extra gravy with meals Addtl Provider Instructions: Recommend followup with Rheumatology, PCP appointment, and Neurology within one and 2 weeks. Most of her specialists are at [facility]. As per pain medicine team: She needs to discuss further weaning of her opiate therapy with her prescribing physicians in the outpatient setting. Patient's reports that they have been weaning her opiates although upon review of PDMP there appears to be no recent changes to her opiate therapies. Patient should undergo close/immediate follow-up upon discharge with her prescribing physician of her opiate therapies. Taper prednisone for next 6 days. Consult french binding folder as an outpatient. Prescriptions: New quetiapine 25 mg Tablet 50 mg PO HS Qty: 30 RF: 0 gabapentin 600 mg Tablet 600 mg PO TID Qty: 90 RF: 0 levothyroxine [Synthroid] 75 mcg Tablet 75 mcg PO DAILYBB Qty: 30 RF: 0 oxycodone 5 mg Tablet 10 mg PO Q8H PRN (Reason: pain) Qty: 30 RF: 0 metoprolol tartrate 25 mg Tablet 12.5 mg PO BID Qty: 60 RF: 0 prednisone 10 mg tablet 10 mg PO DAILY Qty: 12 RF: 0 Continued sumatriptan succinate [Imitrex] 100 mg Tablet 100 mg PO DIRECTED MDD 200 MG/DAY PRN (Reason: Migraine Headache) RF: 0 ondansetron 8 mg tablet,disintegrating 4 - 8 mg PO Q8H PRN (Reason: Nausea) RF: 0 ascorbic acid (vitamin C) [Vitamin C] 500 mg Tablet 1,000 mg PO DAILY RF: 0 cyanocobalamin (vitamin B-12) 1,000 mcg/mL solution 1,000 mcg IM MONTHLY RF: 0 lidocaine [Lidoderm] 5 % Adhesive Patch,Medicated 1 patch TOPICAL DAILY PRN (Reason: Pain) RF: 0 omeprazole 20 mg Capsule,Delayed Release(Dr/Ec) 20 mg PO DAILY RF: 0 folic acid 1 mg Tablet 1 mg PO DAILY RF: 0 bisacodyl [Dulcolax (bisacodyl)] 5 mg Tablet,Delayed Release (Dr/Ec) 5 mg PO DAILY PRN (Reason: Constipation) RF: 0 magnesium oxide 400 mg (241.3 mg magnesium) tablet 400 mg PO BID RF: 0 fentanyl 100 mcg/hr Patch 72 Hour 1 patch TRANSDERMAL .CQ48HR Qty: 15 RF: 0 fentanyl 12 mcg/hr Patch 72 Hour 1 patch TRANSDERMAL .CQ48HR Qty: 15 RF: 0 Changed baclofen 20 mg Tablet 10 mg PO BID Qty: 30 RF: 0 alprazolam [Xanax] 0.5 mg Tablet 0.25 mg PO BID PRN (Reason: anxiety) Qty: 10 RF: 0 Discontinued gabapentin 600 mg Tablet 1,200 mg PO TID RF: 0 sertraline 100 mg Tablet 100 mg PO QAM RF: 0 amitriptyline 50 mg Tablet 50 mg PO HS RF: 0 levothyroxine [Levoxyl] 100 mcg Tablet 100 mcg PO DAILY RF: 0 meclizine 25 mg Tablet 25 mg PO TID PRN (Reason: Dizziness) RF: 0 buspirone 10 mg tablet 10 mg PO BID RF: 0 midodrine 2.5 mg Tablet 2.5 mg PO TID RF: 0 oxycodone 10 mg Tablet 10 mg PO 5XD PRN (Reason: Pain) RF: 0 acetazolamide 250 mg tablet 250 mg PO QID RF: 0 lqlpiagsla-jezlomywhnrcr-jedk 50-325-40 mg tablet 1 tab PO Q4H MDD 6 TABS PRN (Reason: Headache) RF: 0 pyridostigmine bromide 60 mg tablet 60 mg PO TID RF: 0 quetiapine 100 mg tablet 100 mg PO HS RF: 0 trazodone 100 mg tablet 100 mg PO HS RF: 0 No Action BD Luer-Manolo Syringe 3 mL 25 x 5/8" syringe .ROUTE .MEDSUPPLY Qty: 4 RF: 0 lancets 30 gauge misc .ROUTE .MEDSUPPLY Qty: 100 RF: 0 OneTouch Ultra Blue Test Strip strip .ROUTE .MEDSUPPLY Qty: 100 RF: 0 potassium chloride 10 mEq tablet,ER particles/crystals PO Qty: 60 RF: 0 Venofer 50 mg iron/2.5 mL solution IV .Three times a year a RF: 0 buspirone 5 mg tablet PO .TAKE 1/2 TABLET BY M RF: 0 midodrine 2.5 mg tablet PO .Take one tab up to 3 RF: 0 pyridoxine (vitamin B6) 250 mg tablet PO .TAKE 1 TABLET DAILY RF: 0 silver sulfadiazine 1 % cream topical .APPLY AND RUB IN A Qty: 1 RF: 0 Stand-Alone Forms: [facility] Discharge Orders: Discharge Order (Routine); Ordered 10/08/18 Ordered By: Franki Jordan Skilled Items Patient informed of condition?: Yes DNR: No Discharge Level of Care: Acute rehab Communicable Disease: No Discharge Prognosis: Improving Admission Data Admit Date/Time: 09/22/18 00:44 Attending Provider: Franki Jordan Admit Provider: Aydee Simpson Primary Care Provider: Kailey Adam Other Providers: Franki Jordan ; Aydee Simpson ; John Jovel III ; Bryant Cesar ; Jose Luis Yeh ; Bertin Vigil ; Carmen Melgoza ; Sylvia Yost ; Bulmaro Edwards Service: Medical Other Interventions: Discharge Summary Assessment (RN) Last Done: 10/08/18 09:55 DC Date/Time DO NOT enter until pt leaves facility: 10/08/18 11:42
== END 2018-10-08 11:42 | DRG 441 ==
LOC: ED 16:50 → SUATTDRO 09-22 00:44 → 4E 09-22 00:44 → 1E 09-23 18:47 → 2W 09-25 14:40 → 1E 09-26 18:55 → 4E 09-30 13:23

== ENCOUNTER 2023-08-27 17:05 | Observation (INO) ==
--- NOTE | 2023-08-27 17:13 | ED Triage Note ---
Date of Service August 27, 2023 Provider in Triage Author: Iman Long History of Present Illness This patient was briefly evaluated while in triage. An abbreviated physical exam was performed. This patient is a 58-year-old Female who presents to the ED for evaluation of "needing to have my bladder checked." Pt states she believes she is having kidney issues. states confusion, hallucinations, quiet, struggling with ADL, taking meds. Pt has a cervical spinal fusion, wears a hard collar. LKW yesterday, fall with head strike. Physical Exam CONSTITUTIONAL: in no acute pain or distress, resting comfortably SKIN: pink, warm, dry CARDIAC: regular rate and rhythm RESPIRATORY: in no respiratory distress, lungs clear to auscultation ABDOMEN: no TTP MSK: 5/5 strength throughout NEURO: alert and oriented. Slow to answer questions. Initial orders for labs and / or imaging were placed and patient was placed in the waiting area until a bed is available. Please see further documentation for the full ED course.
--- NOTE | 2023-08-27 18:19 | CT Scan Report ---
HEAD CT NONCONTRAST CT DOSE: HISTORY: Fall. neuro deficit, acute stroke suspected TECHNIQUE: Multiaxial CT images of the head were performed without the use of intravenous contrast. A utomated exposure control was utilized for this study. A dose lowering technique was utilized adheri ng to the principles of ALARA. Comparison: Head CT 02/15/2016. Findings: The paranasal sinuses and mastoid air cells are clear. The calvarium and skull base are int act. The ventricles and sulci are within normal limits. There is no mass, hematoma, midline shift, or acute infarct. Prior suboccipital craniectomy with posterior fusion hardware within the upper cervic al spine. Impression: No acute intracranial abnormality. ACT 112: Negative or not required by law. Electronically signed by: John Ayala M.D. 08/27/2023 6:16 PM
[2023-08-27] MEDS ORDERED: NICOTINE 21 MG/24 HR TDSY TD STA (18:21)
--- NOTE | 2023-08-27 18:21 | Emergency Department Note ---
Impression & Plan Acute confusion, Fall, Tachycardia, Acute dehydration ED Provider Note NAME: ESTRADA WILLAMS AGE: 58 SEX: F : 1965 ARRIVES VIA: Walk-In INFORMANT: [Patient][] ED PROVIDER(S): [Colton Holman MD] CHIEF COMPLAINT: Confusion HISTORY OF PRESENT ILLNESS: The patient is a 58-year-old female with a history of liver disease and an elevated ammonia level. She since yesterday has had some occasional confusion and at times, seems to talk to people that are not present. As per the , the patient is under some increased stress and he wonders if her confusion could just be stress related. The patient is apparently trying to stop smoking and the wonders if this may be part of her issue--she may be withdrawing. The patient does have a history of POTS. She receives IV hydration via a feeding tube when needed. The is concerned that there could be a component of dehydration present today. There has been no fever, no cough or congestion. No urinary complaints. Last evening, the patient did fall. She injured her head. The patient does have a history of neck issues and wears a collar at baseline for support. She did not complain of increased neck pain since falling. PMHx/PSHx/Social Hx: See Below PHYSICAL EXAM: GENERAL: Patient is in no acute distress. HEENT: Mucous membranes are dry. There is a small 2 cm to 3 cm contusion to the lateral aspect of the right face just adjacent to the eye. No bony step-off. NECK: No stridor, no adenopathy, no meningismus, trachea is midline. LUNGS: Clear to auscultation bilaterally, no wheeze, no rhonchi, breath sounds equal. HEART: Tachycardic, regular rhythm, no murmurs. ABDOMEN: Soft, nontender, no peritonitis. EXTREMITIES: No cyanosis, full range of motion of all the joints without pain or difficulty. NEUROLOGIC: Awake and alert, no acute motor or sensory deficits, no focal weakness. Poor historian, slight confusion noted. SKIN: No jaundice, no diaphoresis. DIFFERENTIAL DIAGNOSIS: Dehydration, elevated ammonia level, renal or liver failure, UTI, intracranial injury, among others. EMERGENCY DEPARTMENT PROCEDURES: MEDICAL DECISION MAKING: There is no leukocytosis or concerning anemia. There is a normal platelet count. No coagulopathy. Renal panel testing suggests some mild acidosis and dehydration. Alk phos was somewhat elevated but the remaining liver enzymes were unremarkable. Ammonia level was not elevated. ECG showed a sinus tachycardia, no ischemia. Cardiac enzyme testing x 1 was not consistent with acute cardiac injury. Urinalysis showed dehydration, no infection. Urine tox was positive for opiates, barbiturates, marijuana. Chest x-ray did not show pneumonia or pneumothorax. Brain CT showed no acute bleed or mass effect. C- spine CT showed no acute fracture. On exam, the patient was tachycardic, she appeared dehydrated, she seemed somewhat confused. The patient was aggressively managed given her presentation, her fall and the tachycardia. She received IV saline, 1.5 L. She was ordered for IV lactated Ringer's, 1 L. She was ordered for nicotine patch. The patient's heart rate has improved, she seems to be more interactive and possibly more appropriate in her behavior and mentation. At this point, I do think further care is warranted. The reason for her presentation is not clear but I do think a large part of her presentation is from dehydration. She may be having some withdrawal from nicotine. I spoke with the patient and case management. Admission was felt warranted. The on-call hospitalist was consulted. Prior/Outside records/notes reviewed: None ECG per my interpretation: Indication was tachycardia. The ECG shows a sinus tachycardia with a rate of 119. There is some baseline artifact. There is no acute ST elevation, no PVCs. The QTc is 447. Continuous Cardiac Monitoring per my interpretation: An order was placed for continuous cardiac monitoring. The monitor shows a rate of 118 with sinus tachycardia. Imaging/x-ray results per my interpretation: Chest x-ray does not show mediastinal widening, pneumonia or pneumothorax. Chronic Medical/Social conditions affecting care: Care/Management discussed with: Case management, the on-call hospitalist. Level of care consideration(s): After review of the information above and other included data: --I believe the patient requires escalation of care to admission Critical Care Note: I have personally spent 42 minutes of critical care time in the direct management of this patient. This includes bedside care, interpretation of diagnostic studies, and testing, discussion with consultants, patient, and family members, and other required patient management activities. This 42 minutes is in excess of all separately billable procedures. 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 Weight loss, unintentional Opioid dependence Hyperammonemia Metabolic encephalopathy Hypothyroid POTS (postural orthostatic tachycardia syndrome) HNP (herniated nucleus pulposus) with myelopathy, cervical (05/20/14) EDS (Lilibeth-Danlos syndrome) Surgical History H/O carpal tunnel repair H/O: hysterectomy History of abdominal surgery History of brain surgery History of cervical spinal surgery History of knee surgery History of Arian-en-Y gastric bypass Hx of cholecystectomy Family History Mother Seizures FH: migraines Arthritis Cancer Colon cancer Diabetes Heart disease Hypoglossal nerve injury Recurrent bacterial infection Father Colon cancer Sister Cancer Ovarian cancer Other Hypertension Kidney disease Lung disease Denies family history of Prostate cancer Myocardial infarction Breast cancer Social History (Updated 09/11/22 @ 16:27 by ALICIA Fernández) Smoking Status: Current every day smoker Tobacco Type: Cigarettes Cigarettes Per Day: One or 2; Second Hand Exposure: Yes; Do You Dip or Chew Tobacco: No; Hx Alcohol Use: No Hx Substance Use: Yes Last Used Substance: Unknown Substance Use Type Other:: Medical marijuana Preferred Language: Amharic Communication Ability: Effective Visual Impairment: No Limitations Hearing Ability: Normal Audio Visual Production Specialist Required: No Beliefs That Will Affect Care: None marital status: Current Living Situation: Spouse and Family Current Living Situation Comment: Patient has 9 children ranging in age from 32-10 current occupational status: unemployed Feels Safe at Home: Yes Childhood Exposure to Second-Hand Smoke: No Diet: Pureed and Soft Physical Activity Frequency: Does not Exercise Seatbelt Use: always Sunscreen Use: Yes Assistive Devices: Denture - Upper, Denture - Lower and Walker Allergies Allergies Allergy/AdvReac Type Severity Reaction Status Date / Time haloperidol [From Haldol] Allergy Severe psychosis Verified 08/27/23 20:52 blue dye Allergy Intermediate joint Verified 08/27/23 20:52 swelling codeine Allergy Intermediate hives-TAKES Verified 08/27/23 20:52 OXYCONTIN AT HOME bupropion [From Wellbutrin] Allergy Unknown Unknown Verified 08/27/23 20:52 gabapentin [From Neurontin] AdvReac Mild Confusion Verified 08/27/23 20:52 Margarine Allergy Severe ANAPHYLAXIS Uncoded 08/27/23 20:52 Home Meds Home Medications Medication Instructions Recorded Confirmed blood sugar diagnostic #100 ea 10/14/18 12/12/22 lancets 30 gauge #100 ea 10/14/18 12/12/22 neck collar ##1 12/12/18 09/11/22 sumatriptan succinate 100 mg 100 mg PO UD PRN Migraine Headache 12/14/18 12/12/22 tablet (Imitrex) [id number] 1 tab PO Q6H PRN 03/01/19 12/12/22 50 mg-325 mg-40 mg tablet lidocaine 5 % topical patch 2 patch topical .COMPLEX PRN Pain 03/01/19 12/12/22 (Lidoderm) multivitamin (Daily Multi-Vitamin 1 tab PO TID 03/01/19 12/12/22 tablet) baclofen 20 mg tablet 20 mg PO QID 05/28/22 12/12/22 quetiapine 25 mg tablet 25 mg PO QID 05/28/22 12/12/22 oxycodone 10 mg tablet 10 mg PO .COMPLEX PRN pain 07/30/23 07/30/23 Previous Rx's Medication Instructions Recorded alprazolam 0.5 mg tablet (Xanax) 0.25 mg (1/2 x 0.5 mg) PO BID PRN 10/08/18 anxiety #10 tabs fentanyl 100 mcg/hr transdermal 1 patch transdermal Q48H #15 ea 05/06/19 patch gauze bandage 4" X 2.5 yard #5 ea 06/05/21 (Rolled Gauze) miscellaneous medical supply 3 ea miscellaneous DAILY PRN 06/05/21 personal hygiene #3 ea miscellaneous medical supply 100 ea miscellaneous PRN #100 ea 06/05/21 miscellaneous medical supply 100 ea miscellaneous PRN 06/05/21 incontinenience #100 ea non-adherent bandage 3" X 4" #10 ea 06/05/21 transparent dressings 2" X 2 3/4" #100 ea 06/05/21 (Tegaderm) syringe with needle 3 mL 25 x 5/8" #4 ea 06/22/21 hydrocolloid dressing 42" X 42" #5 ea 06/27/21 ondansetron 8 mg disintegrating 8 mg PO TID Nausea #90 tabs 04/24/22 tablet mupirocin 2 % topical ointment 1 applic topical BID #22 grams 12/12/22 omeprazole 20 mg capsule,delayed See Rx Instructions .Route 02/12/23 release .COMPLEX #90 caps bisacodyl 5 mg tablet,delayed See Rx Instructions .Route 05/18/23 release .COMPLEX #30 tabs levothyroxine 75 mcg tablet See Rx Instructions .Route 05/19/23 .COMPLEX #30 tabs folic acid 1 mg tablet 1 mg PO DAILY #30 tabs 06/18/23 cyanocobalamin (vitamin B-12) See Rx Instructions .Route 07/30/23 1,000 mcg/mL injection solution .COMPLEX #10 mL nystatin 100,000 unit/gram topical 1 applic topical BID #15 grams 07/30/23 cream silver sulfadiazine 1 % topical 1 applic topical BID #20 grams 07/30/23 cream miscellaneous medical supply 1 ea miscellaneous DAILY #1 ea 08/21/23 miscellaneous medical supply 1 ea miscellaneous DAILY #1 ea 08/21/23 miscellaneous medical supply 1 ea miscellaneous DAILY #1 ea 08/21/23 miscellaneous medical supply 1 ea miscellaneous DAILY #1 ea 08/21/23 nicotine (polacrilex) 4 mg buccal 4 mg buccal Q2H PRN nicotine 08/23/23 lozenge cravings #72 ea Results & Data (ED) Vital Signs Vital Signs - 24 hr 08/27/23 17:09 08/27/23 19:31 08/27/23 19:31 Temperature 36.7 C Temperature Source Temporal Artery Scan Pulse Rate 133 H Pulse Rate [Right Finger] 97 H Pulse Rhythm [Right Finger] Regular Pulse Strength [Right Finger] Normal Respiratory Rate 20 18 Respiratory Effort / Characteristics Non-Labored Spontaneous Non-Labored Respiratory Depth Normal Normal Respiratory Pattern Regular Blood Pressure 139/63 Blood Pressure [Left Arm] 147/88 H Blood Pressure Mean 88 Blood Pressure Mean [Left Arm] 107 Blood Pressure Position [Left Arm] Lying Pulse Oximetry 97 99 Oxygen Delivery Method Room Air Room Air Sepsis Recent Fever Within 48 Hours No Sepsis New/Unexplained Change in Mental Status N/A Sepsis Action Taken by Nursing No Action Required 08/27/23 19:35 Temperature Temperature Source Pulse Rate 93 H Pulse Rate [Right Finger] Pulse Rhythm [Right Finger] Pulse Strength [Right Finger] Respiratory Rate Respiratory Effort / Characteristics Respiratory Depth Respiratory Pattern Blood Pressure Blood Pressure [Left Arm] Blood Pressure Mean Blood Pressure Mean [Left Arm] Blood Pressure Position [Left Arm] Pulse Oximetry Oxygen Delivery Method Sepsis Recent Fever Within 48 Hours Sepsis New/Unexplained Change in Mental Status Sepsis Action Taken by Nursing Laboratory Data 08/27/23 17:30 08/27/23 17:30 Lab Results 08/27/23 08/27/23 08/27/23 Range/Units 17:30 17:34 18:40 WBC 5.95 (4.8-10.8) K/ul RBC 4.66 (4.20-5.40) M/uL Hgb 14.6 (12.0-16.0) g/dl Hct 43.3 (37.0-47.0) % MCV 92.9 (80.0-100.0) fL MCH 31.3 (25.0-34.0) pg MCHC 33.7 (32.0-36.0) g/dL RDW Std Deviation 43.9 (36.4-46.3) fL RDW Coeff of Kevin 12.9 (11.5-14.5) % Plt Count 367 (130-400) K/uL MPV 10.8 (9.4-12.4) fL Immature Gran % (Auto) 0.2 % Neut % (Auto) 73.4 % Lymph % (Auto) 19.2 % Terry % (Auto) 6.1 % Eos % (Auto) 0.3 % Baso % (Auto) 0.8 % Neut # (Auto) 4.37 (1.40-6.50) K/uL Lymph # (Auto) 1.14 L (1.20-3.40) K/uL Terry # (Auto) 0.36 (0.11-0.59) K/uL Eos # (Auto) 0.02 (0.00-0.50) K/uL Baso # (Auto) 0.05 (0.00-0.20) K/uL Immature Gran # (Auto) 0.01 (0.01-0.20) K/uL PT 10.5 (9.0-12.0) Seconds INR 1.0 (0.9-1.1) APTT 27 (21-31) Seconds PTT Ratio 1.0 Sodium 137 (136-145) mmol/L Potassium 3.9 (3.5-5.1) mmol/L Chloride 101 (98-107) mmol/L Carbon Dioxide 20 L (21-32) mmol/L Anion Gap 16 H (3-11) BUN 3 L (6-23) mg/dl Creatinine 0.53 L (0.6-1.2) mg/dl Est Cr Clr Drug Dosing 104.1 ml/min Est GFR ( Amer) 122.2 ml/min Est GFR (Non-Af Amer) 105.4 ml/min BUN/Creatinine Ratio 5.7 L (10-20) Glucose 90 (70-99(Fasting)) mg/dl POC Glucose 96 (70-99) mg/dl Calcium 9.0 (8.6-10.3) mg/dl Magnesium 2.0 (1.7-2.4) mg/dl Total Bilirubin 0.5 (0.2-1.0) mg/dl AST 19 (13-39) U/L ALT 11 (7-52) U/L Alkaline Phosphatase 159 H (34-104) U/L Ammonia 17.0 L (18-72) umol/L Troponin I High Sens 3.1 (0-14) pg/ml Total Protein 7.4 (6.0-8.3) gm/dl Albumin 4.5 (3.4-5.0) gm/dl Globulin 2.9 (2.5-4.0) gm/dl Albumin/Globulin Ratio 1.6 (0.9-2) Urine Color Yellow Urine Appearance Clear (Clear) Urine pH 5.5 (4.5-7.5) Ur Specific [place] 1.010 (1.000-1.030) Urine Protein Negative (Negative) Urine Glucose (UA) Negative (Negative) Urine Ketones 3+ H (Negative) Urine Blood Negative (Negative) Urine Nitrite Negative (Negative) Urine Bilirubin Negative (Negative) Urine Urobilinogen Negative (Negative) Ur Leukocyte Esterase Negative (Negative) Urine Opiates Screen Pos H (Neg) Ur Methadone, Qual Neg (Neg) Urine Barbiturates Pos H (Neg) Ur Phencyclidine (PCP) Neg (Neg) U Amphetamin/Meth Scrn Neg (Neg) MDMA (Ecstasy) Screen Neg (Neg) U Benzodiazepines Scrn Neg (Neg) Ur Cocaine Metabolite Neg (Neg) U Marijuana (THC) Screen Pos H (Neg) Administered Medications Lactated Ringer's (Lr) 1,000 mls @ 999 mls/hr IV .Q1H1M ONE Stop: 08/27/23 21:28 Last Admin: 08/27/23 21:00 Dose: 999 mls/hr Documented By: [facility] [place] Discontinued Medications Sodium Chloride (Nss) 500 mls @ 999 mls/hr IV .Q31M ONE Stop: 08/27/23 18:08 Last Infusion: 08/27/23 20:48 Dose: Infused Documented By: [facility] [place] Admin: 08/27/23 18:39 Dose: 999 mls/hr Documented By: [facility] [place] Sodium Chloride (Nss) 1,000 mls @ 999 mls/hr IV .Q1H1M ONE Stop: 08/27/23 19:08 Last Infusion: 08/27/23 20:48 Dose: Infused Documented By: [facility] [place] Admin: 08/27/23 18:39 Dose: 999 mls/hr Documented By: [facility] [place] Imaging Data Radiologist's Impression: Head CT 08/27/23 17:[address] DOSE: HISTORY: Fall. neuro deficit, acute stroke suspected TECHNIQUE: Multiaxial CT images of the head were performed without the use of intravenous contrast. Automated exposure control was utilized for this study. A dose lowering technique was utilized adhering to the principles of ALARA. Comparison: Head CT 02/15/2016. Findings: The paranasal sinuses and mastoid air cells are clear. The calvarium and skull base are intact. The ventricles and sulci are within normal limits. There is no mass, hematoma, midline shift, or acute infarct. Prior suboccipital craniectomy with posterior fusion hardware within the upper cervical spine. Impression: No acute intracranial abnormality. ACT 112: Negative or not required by law. Electronically signed by: John Ayala M.D. 08/27/2023 6:[address] 08/27/23 17:[address] DOSE: 1029.65 mGy.cm HISTORY: fall TECHNIQUE: Multiaxial CT images of the cervical spine were performed and reformatted in the sagittal and coronal plane without the use of contrast. A dose lowering technique was utilized adhering to the principles of ALARA. COMPARISON: Cervical spine CT 08/27/2016 FINDINGS: No fractures. No subluxation. Prevertebral soft tissues and the C1-C2 interval are intact. No pneumothorax. Prior C5-C6 ACDF. The hardware appears intact. There is also posterior craniocervical fusion with screws within the occipital condyles, C1, and C2 with resection of the posterior arch of C1. The hardware is intact. Prior suboccipital craniectomy is also noted. IMPRESSION: 1. No fractures within the cervical spine. 2. Postoperative changes as described above. The hardware appears intact. ACT 112: Negative or not required by law. Electronically signed by: John Ayala M.D. 08/27/2023 6:23 PM Chest X-Ray 08/27/23 17:39 XR chest 1V portable HISTORY: Weakness. COMPARISON: Chest 09/25/2018. FINDINGS: The lungs are clear. Cardiac silhouette is normal in size. No pleural effusions. No pneumothorax. IMPRESSION: No acute process. ACT 112: Negative or not required by law. Electronically signed by: John Ayala M.D. 08/27/2023 6:54 PM Discharge Plan Visit Data Chief Complaint: Confusion Stated Complaint: TROUBLE WALKING AND REMEMBERING, DIZZY ED Provider: Colton Holman Discharge Problem: Acute confusion, Fall, Tachycardia, Acute dehydration Forms Stand Alone Forms: [facility] REQQI Prescriptions Prescriptions: No Action sumatriptan succinate [Imitrex] 100 mg tablet 100 mg PO UD MDD 200 MG/DAY PRN (Reason: Migraine Headache) Patient Comments: Take at on-set, may repeat in 2 hours if needed. No more than 2 tablets in 24 hours. lidocaine [Lidoderm] 5 % adhesive patch,medicated 2 patch TOPICAL .COMPLEX PRN (Reason: Pain) Patient Comments: 2 patch TOPICAL 2 PATCHES ON FOR 12 HRS and OFF FOR 12 HOURS PRN; APPLY TO EACH HIP, NECK OR UPPER BACK Rx Instructions: 2 patch TOPICAL 2 PATCHES ON FOR 12 HRS and OFF FOR 12 HOURS PRN; APPLY TO EACH HIP, NECK OR UPPER BACK [id number]-fwkwtvzfebnhr-svcf 50-325-40 mg tablet 1 tab PO Q6H PRN Patient Comments: UP TO 6 TABLETS DAILY multivitamin [Daily Multi-Vitamin] tablet 1 tab PO TID fentanyl 100 mcg/hr patch 72 hour 1 patch TD Q48H Qty: 15 0RF (DME) syringe with needle 3 mL 25 x 5/8" syringe See Dose Instructions .ROUTE .MEDSUPPLY Qty: 4 0RF Rx Instructions: weekly for Vit B12 (DME) hydrocolloid dressing 42 X 42 " bandage See Rx Instructions .Route Qty: 5 1RF Rx Instructions: dsg change BID ondansetron 8 mg tablet,disintegrating 8 mg PO TID Qty: 90 3RF baclofen 20 mg tablet 20 mg PO QID omeprazole 20 mg capsule,delayed release(DR/EC) See Rx Instructions .ROUTE .COMPLEX Qty: 90 5RF Dose Instruction: TAKE ONE CAPSULE BY MOUTH EVERY DAY Rx Instructions: TAKE ONE CAPSULE BY MOUTH EVERY DAY bisacodyl 5 mg tablet,delayed release (DR/EC) See Rx Instructions .ROUTE .COMPLEX Qty: 30 5RF Dose Instruction: TAKE ONE TABLET BY MOUTH EVERY DAY NEEDED FOR CONSTIPATION Rx Instructions: TAKE ONE TABLET BY MOUTH EVERY DAY NEEDED FOR CONSTIPATION levothyroxine 75 mcg tablet See Rx Instructions .ROUTE .COMPLEX Qty: 30 5RF Dose Instruction: TAKE ONE TABLET BY MOUTH EVERY DAY Rx Instructions: TAKE ONE TABLET BY MOUTH EVERY DAY folic acid 1 mg tablet 1 mg PO DAILY Qty: 30 5RF miscellaneous medical supply [facility] 1 ea miscellaneous DAILY Qty: 1 0RF Rx Instructions: Neck Brace miscellaneous medical supply [facility] 1 ea miscellaneous DAILY Qty: 1 0RF Rx Instructions: Transport Chair miscellaneous medical supply [facility] 1 ea miscellaneous DAILY Qty: 1 0RF Rx Instructions: Bedside Commode miscellaneous medical supply [facility] 1 ea miscellaneous DAILY Qty: 1 0RF Rx Instructions: Lifted Toilet Seat nicotine (polacrilex) 4 mg lozenge 4 mg buccal Q2H PRN (Reason: nicotine cravings) Qty: 72 1RF Rx Instructions: Max 5 lozenges/6h, 20 lozenges/24 h (DME) lancets [address] [facility] [place] See Dose Instructions .ROUTE .MEDSUPPLY Qty: 100 Rx Instructions: As directed (DME) OneTouch Ultra Blue Test Strip strip See Dose Instructions .ROUTE .MEDSUPPLY Qty: 100 Rx Instructions: As directed (DME) neck collar misc See Dose Instructions .ROUTE .MEDSUPPLY Qty: 1 Rx Instructions: As directed mupirocin 2 % ointment 1 applic topical BID Qty: 22 1RF (DME) transparent dressings [Tegaderm] 2 X 2 3/4 " bandage See Rx Instructions .Route Qty: 100 2RF Rx Instructions: As directed (DME) non-adherent bandage 3 X 4 " bandage See Rx Instructions .Route Qty: 10 2RF Rx Instructions: As directed (DME) Rolled Gauze 4 X 2.5 "-yard bandage See Rx Instructions .Route Qty: 5 2RF Rx Instructions: As directed miscellaneous medical supply Misc 100 ea miscellaneous PRN Qty: 100 5RF Rx Instructions: Adult Pull Ups-Prevail Size-M miscellaneous medical supply [facility] 3 ea miscellaneous DAILY PRN (Reason: personal hygiene) Qty: 3 10RF Rx Instructions: Ready Bath-Luxe miscellaneous medical supply Misc 100 ea miscellaneous PRN Qty: 100 2RF Rx Instructions: Masks for infection control quetiapine 25 mg tablet 25 mg PO QID silver sulfadiazine 1 % cream 1 applic topical BID Qty: 20 1RF nystatin 100,000 unit/gram cream 1 applic topical BID Qty: 15 1RF cyanocobalamin (vitamin B-12) 1,000 mcg/mL solution See Rx Instructions .ROUTE .COMPLEX Qty: 10 1RF Dose Instruction: inject ONCE WEEKLY Rx Instructions: inject ONCE WEEKLY oxycodone 10 mg tablet 10 mg PO .COMPLEX PRN (Reason: pain) Rx Instructions: 15 mg PO 6 times daily PRN; TAKE NO MORE THAN 6 TABLETS DAILY or 30mg 6 times a day PRN depending on pain level Prescribed by pain management. alprazolam [Xanax] 0.5 mg Tablet 0.25 mg PO BID PRN (Reason: anxiety) Qty: 10 0RF Referrals Referrals: Kailey Adam MD [Primary Care Provider] - Discharge Problem: Fall Qualifiers: Encounter type: initial encounter Qualified Code(s): W19.XXXA - Unspecified fall, initial encounter
[2023-08-27 18:24] LABS: Basophils # (auto) 0.05 K/uL (0.00-0.20); Basophils % (auto) 0.8 %; Eosinophils # (auto) 0.02 K/uL (0.00-0.50); Eosinophils % (auto) 0.3 %; Hematocrit (blood only) 43.3 % (37.0-47.0); Hemoglobin 14.6 g/dl (12.0-16.0); Immature Granulocytes # (auto) 0.01 K/uL (0.01-0.20); Immature Granulocytes % (auto) 0.2 %; Lymphocytes # (auto) 1.14 K/uL (1.20-3.40); Lymphocytes % (auto) 19.2 %; Mean Corpuscular Hemoglobin 31.3 pg (25.0-34.0); Mean Corpuscular Hgb Conc 33.7 g/dL (32.0-36.0); Mean Corpuscular Volume 92.9 fL (80.0-100.0); Mean Platelet Volume 10.8 fL (9.4-12.4); Monocytes # (auto) 0.36 K/uL (0.11-0.59); Monocytes % (auto) 6.1 %; Neutrophils # (auto) 4.37 K/uL (1.40-6.50); Neutrophils % (auto) 73.4 %; Platelet Count 367 K/uL (130-400); RDW Coefficient of Variation 12.9 % (11.5-14.5); RDW Standard Deviation 43.9 fL (36.4-46.3); Red Blood Count 4.66 M/uL (4.20-5.40); White Blood Count 5.95 K/ul (4.8-10.8)
--- NOTE | 2023-08-27 18:25 | CT Scan Report ---
CERVICAL SPINE CT CT DOSE: 1029.65 mGy.cm HISTORY: fall TECHNIQUE: Multiaxial CT images of the cervical spine were performed and reformatted in the sagittal and coronal plane without the use of contrast. A dose lowering technique was utilized adhering to th e principles of ALARA. COMPARISON: Cervical spine CT 08/27/2016 FINDINGS: No fractures. No subluxation. Prevertebral soft tissues and the C1-C2 interval are intact. No pneumothorax. Prior C5-C6 ACDF. The hardware appears intact. There is also posterior craniocervica l fusion with screws within the occipital condyles, C1, and C2 with resection of the posterior arch o f C1. The hardware is intact. Prior suboccipital craniectomy is also noted. IMPRESSION: 1. No fractures within the cervical spine. 2. Postoperative changes as described above. The hardware appears intact. ACT 112: Negative or not required by law. Electronically signed by: John Ayala M.D. 08/27/2023 6:23 PM
[2023-08-27 18:31] LABS: Partial Thromboplastin Time 27 Seconds (21-31); Prothrombin Time 10.5 Seconds (9.0-12.0)
[2023-08-27] MEDS: SODIUM CHLORIDE 0.9% 1,000 ML IV ONE (18:39)
[2023-08-27] MEDS: SODIUM CHLORIDE 0.9% 500 ML IV ONE (18:39)
[2023-08-27 18:40] LABS: Albumin Globulin Ratio 1.6 (0.9-2); Albumin Level 4.5 gm/dl (3.4-5.0); BUN Creatinine Ratio 5.7 (10-20); Bilirubin,Total 0.5 mg/dl (0.2-1.0); Creatinine Clr Calc Pharmacy 104.1 ml/min; Est GFR (African American) 122.2 ml/min; Est GFR (Non-African American) 105.4 ml/min; Globulin 2.9 gm/dl (2.5-4.0); Potassium 3.9 mmol/L (3.5-5.1); Total Protein 7.4 gm/dl (6.0-8.3)
[2023-08-27 18:46] LABS: Troponin I High Sensitivity 3.1 pg/ml (0-14)
--- NOTE | 2023-08-27 18:55 | XRay Report ---
XR chest 1V portable HISTORY: Weakness. COMPARISON: Chest 09/25/2018. FINDINGS: The lungs are clear. Cardiac silhouette is normal in size. No pleural effusions. No pneumot horax. IMPRESSION: No acute process. ACT 112: Negative or not required by law. Electronically signed by: John Ayala M.D. 08/27/2023 6:54 PM
[2023-08-27 19:34] LABS: Appearance Urine Clear (Clear); Bilirubin Urine Negative (Negative); Blood Urine Negative (Negative); Color Urine Yellow; Glucose Urine UA Negative (Negative); Ketones Urine 3+ (Negative); Leukocyte Esterase Urine Negative (Negative); Nitrite Urine Negative (Negative); Protein Urine Negative (Negative); Urobilinogen Urine Negative (Negative); pH Urine 5.5 (4.5-7.5)
[2023-08-27 20:12] LABS: Amphetamines+Metham, Urine Neg (Neg); Barbiturates, Urine Pos (Neg); Benzodiazepine, Urine Neg (Neg); Cocaine, Urine Neg (Neg); MDMA (Ecstacy), Urine Neg (Neg); Marijuana, Urine Pos (Neg); Methadone, Urine Neg (Neg); Opiate, Urine Pos (Neg); Phencyclidine, Urine Neg (Neg)
[2023-08-27] MEDS: LACTATED RINGER'S 1,000 ML IV ONE (21:00)
[2023-08-27] MEDS: BACLOFEN 20 MG TAB PO STA (22:08)
[2023-08-27] MEDS: BUTALBITAL/ASPIRIN/CAFFEINE 1 TAB TAB PO STA (22:09)
[2023-08-27] MEDS: NICOTINE 14 MG/24 HR PATCH TD SCH (22:15)
[2023-08-27] MEDS: oxyCODONE HCL IR 5 MG TAB (IMMEDIATE RELEASE) PO STA (22:15)
--- NOTE | 2023-08-27 22:28 | History & Physical Report ---
Date of Service August 27, 2023 Assessment & Plan (1) Acute confusion: Plan: 58yo female with history of EDS, POTS, Chronic pain and Bipolar presenting with several days of generalized weakness, gait instability and confusion. Acute metabolic encephalopathy present on admission. Likely secondary to medications effects + dehydration. Patient is on multiple medications that are sedating including Xanax, Baclofen, Butalbital, Fentanyl, Oxycodone and Seroquel. In addition she has been taking quite a bit of Benadryl for treatment of a skin rash. Suspect some degree of anti-cholinergic toxicity contributing to patient's presenting symptoms - confusion, gait instability and weakness. She has had decreased liquid intake over the last few days as well. Appears somewhat dry on exam. -Admit to medical -Will hold further Benadryl and monitor patient's mental state. -IVF with LR at 80mL/hr -Frequent orientation (2) Severe protein-calorie malnutrition: Plan: Patient with PEG tube in place. She receives Peptamen 3 cans TID. Follows with [facility] Nutrition -Nutrition consultation placed (3) Chronic pain: Plan: Patient with chronic pain. She is on Fentanyl patch as well as Oxycodone and Baclofen. She follows with Pain management -Continue Baclofen 20mg po QID -Continue Fentanyl patch - due to be changed tomorrow -Continue Oxycodone as written -Narcan PRN -Migraines - she is on Fioricet q 6 hours PRN. Per discussion with it seems like she is getting this scheduled. Will order for PRN PDMP independently reviewed. Patient receives her medications from [facility] in [place], [place] (4) Anxiety: Plan: Chronic. Patient is on Alprazolam 0.25mg po BID PRN anxiety -Will continue for now - cautious use of Benzos with her chronic longstanding opiates. In the long run patient may benefit from Hydroxyzine PRN (not currently due to concern for anticholinergic toxicity) or Buspirone PRN to help manage her anxiety Plan Hypothyroidism - chronic. last TSH on 08/20/23 elevated at 4.87 -Continue Synthroid -Check TSH with T4 reflex GERD - chronic. Stable. Patient on Omeprazole -Protonix while inpatient -Resume Omeprazole on DC History of Present Illness Chief Complaint: confusion Primary Care Provider: MD Leyla Blankenship is a 58yo female with history of POTS, EDS, Bipolar and chronic pain presenting from home with her for two days of weakness, fatigue and increased confusion. Her symptoms started a little bit on the evening of 08/25/23 and progressively worsened over the last several days. She has generalized weakness, gait instability and confusion. She has fallen several times at home - did hit the corner of her left eye. Her reports some nausea but no vomiting, diarrhea, chest pain, cough, SOB or urinary symptoms. He reports she has been eating well overall. She takes some things by mouth but has a G-tube in place and takes Peptamen. states they use three cans of Peptamen three times daily. She also drinks a lot of Gatorade - typically 8 bottles daily. She follows with Nutrition at [facility]. She had her G-tube replaced on 08/22/23. She has not been sleeping well - thinks that maybe she hasn't slept for several days. reports she has had some decrease in her fluid intake as well over the last two days - only taking 3 bottles of Gatorade daily instead of her usual 8/day. She and her have both had rashes recently - small dark spots on their skin. She has been taking quite a bit of Benadryl (25mg pills x 5 twice daily = 250mg of Benadryl daily) During the encounter patient is somnolent, poor historian. She answers some questions but other times will stare blankly or drift off to sleep when questioned. Allergies Allergy/AdvReac Type Severity Reaction Status Date / Time haloperidol [From Haldol] Allergy Severe psychosis Verified 08/27/23 20:52 blue dye Allergy Intermediate joint Verified 08/27/23 20:52 swelling codeine Allergy Intermediate hives-TAKES Verified 08/27/23 20:52 OXYCONTIN AT HOME bupropion [From Wellbutrin] Allergy Unknown Unknown Verified 08/27/23 20:52 gabapentin [From Neurontin] AdvReac Mild Confusion Verified 08/27/23 20:52 Margarine Allergy Severe ANAPHYLAXIS Uncoded 08/27/23 20:52 Home Medications Medication Instructions Recorded Confirmed Type alprazolam 0.5 mg tablet (Xanax) 0.25 mg (1/2 x 0.5 mg) PO BID PRN 10/08/18 08/27/23 Rx anxiety #10 tabs blood sugar diagnostic #100 ea 10/14/18 12/12/22 History lancets 30 gauge #100 ea 10/14/18 12/12/22 History neck collar ##1 12/12/18 09/11/22 History fffirsutij-zrlhdbovzzwkh-pmzixdkm 1 tab PO Q6H PRN MIGRAINES 03/01/19 08/27/23 History 50 mg-325 mg-40 mg tablet lidocaine 5 % topical patch 2 patch topical .COMPLEX PRN Pain 03/01/19 08/27/23 History (Lidoderm) multivitamin (Daily Multi-Vitamin 1 tab PO TID 03/01/19 08/27/23 History tablet) fentanyl 100 mcg/hr transdermal 1 patch transdermal Q48H #15 ea 05/06/19 08/27/23 Rx patch gauze bandage 4" X 2.5 yard #5 ea 06/05/21 12/12/22 Rx (Rolled Gauze) miscellaneous medical supply 3 ea miscellaneous DAILY PRN 06/05/21 12/12/22 Rx personal hygiene #3 ea miscellaneous medical supply 100 ea miscellaneous PRN #100 ea 06/05/21 12/12/22 Rx miscellaneous medical supply 100 ea miscellaneous PRN 06/05/21 12/12/22 Rx incontinenience #100 ea non-adherent bandage 3" X 4" #10 ea 06/05/21 12/12/22 Rx transparent dressings 2" X 2 3/4" #100 ea 06/05/21 12/12/22 Rx (Tegaderm) syringe with needle 3 mL 25 x 5/8" #4 ea 06/22/21 12/12/22 Rx hydrocolloid dressing 42" X 42" #5 ea 06/27/21 12/12/22 Rx ondansetron 8 mg disintegrating 8 mg PO TID Nausea #90 tabs 04/24/22 08/27/23 Rx tablet baclofen 20 mg tablet 20 mg PO QID 05/28/22 08/27/23 History quetiapine 25 mg tablet 25 mg PO QAM PRN SLEEP 05/28/22 08/27/23 History folic acid 1 mg tablet 1 mg PO DAILY #30 tabs 06/18/23 08/27/23 Rx nystatin 100,000 unit/gram topical 1 applic topical BID #15 grams 07/30/23 08/27/23 Rx cream silver sulfadiazine 1 % topical 1 applic topical BID #20 grams 07/30/23 08/27/23 Rx cream miscellaneous medical supply 1 ea miscellaneous DAILY #1 ea 08/21/23 Rx miscellaneous medical supply 1 ea miscellaneous DAILY #1 ea 08/21/23 Rx miscellaneous medical supply 1 ea miscellaneous DAILY #1 ea 08/21/23 Rx miscellaneous medical supply 1 ea miscellaneous DAILY #1 ea 08/21/23 Rx nicotine (polacrilex) 4 mg buccal 4 mg buccal Q2H PRN nicotine 08/23/23 08/27/23 Rx lozenge cravings #72 ea bisacodyl 5 mg tablet,delayed 5 mg PO DAILY PRN Constipation 08/27/23 08/27/23 History release cyanocobalamin (vitamin B-12) 1,000 mcg subcut WK 08/27/23 08/27/23 History 1,000 mcg/mL injection solution levothyroxine 75 mcg tablet 75 mcg PO DAILY 08/27/23 08/27/23 History omeprazole 20 mg capsule,delayed 20 mg PO DAILY 08/27/23 08/27/23 History release oxycodone 15 mg tablet See Rx Instructions .Route .COMPLEX 08/27/23 08/27/23 History oxycodone 30 mg tablet See Rx Instructions .Route .COMPLEX 08/27/23 08/27/23 History quetiapine 50 mg tablet 50 mg PO PM PRN Sleep 08/27/23 08/27/23 History Past Med/Surg History Medical History G tube feedings At risk for difficult airway on pre-intubation assessment [place]-axial instability Chronic constipation Chronic pain Current every day smoker Hydromyelia Occipital neuralgia 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 Weight loss, unintentional Opioid dependence Hyperammonemia Metabolic encephalopathy Hypothyroid POTS (postural orthostatic tachycardia syndrome) HNP (herniated nucleus pulposus) with myelopathy, cervical (05/20/14) EDS (Lilibeth-Danlos syndrome) Surgical History H/O carpal tunnel repair History of cervical spinal surgery History of knee surgery History of abdominal surgery x 5 History of Arian-en-Y gastric bypass Hx of cholecystectomy H/O: hysterectomy History of brain surgery Family History Mother Seizures FH: migraines Arthritis Cancer Colon cancer Diabetes Heart disease Hypoglossal nerve injury Recurrent bacterial infection Father , in his 20s of a motor vehicle accident Colon cancer Sister Cancer Ovarian cancer Other Hypertension Kidney disease Lung disease Denies family history of Prostate cancer Myocardial infarction Breast cancer Social History Smoking Status: Current every day smoker Tobacco Type: Cigarettes Cigarettes Per Day: 1-2 cigarettes a day; Second Hand Exposure: Yes; Do You Dip or Chew Tobacco: No; Tobacco Cessation Education Requested by Patient: No Hx Alcohol Use: Yes Hx Substance Use: Yes Last Used Substance: Unknown Substance Use Type Other:: Medical marijuana Preferred Language: [place] Communication Ability: Effective Visual Impairment: No Limitations Hearing Ability: Normal 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 Beliefs That Will Affect Care: None marital status: Current Living Situation: Spouse Current Living Situation Comment: pt lives at home with children and current occupational status: unemployed Other Information That Helps Us Care for You: No Feels Safe at Home: Yes Safety Concerns: Feels Safe At This Time Childhood Exposure to Second-Hand Smoke: No Diet: Pureed and Soft Physical Activity Frequency: Does not Exercise Seatbelt Use: always Sunscreen Use: Yes Assistive Devices: Cane, Denture - Upper and Wheelchair Review of Systems Review of Systems: All systems reviewed & are unremarkable except as noted in HPI & below Physical Exam Physical Exam: General: patient frail and thin in appearance, resting comfortably, NAD, somnolent but arousable, oriented to person and location, inattentive Skin: warm, dry, intact, some dark lesions on abdominal wall HEENT: small bruise on corner of right eye, PERRL, EOMI, anicteric sclera, conjunctiva without injection, external ear normal to inspection and nontender, nares patent, dry mucus membranes, dentition intact, no oropharyngeal lesions, neck supple, trachea midline, no LAD, no thyromegaly, no JVD Heart: +S1/S2, regular, no m/r/g Lungs: equal air entry bilaterally, no rales/rhonchi/wheezes Abd: +BS, soft, mildly tender with deep palpation with no rebound/guarding, PEG tube in place, no masses/organomegaly/ascites Ext: warm, 2+ pulses in UE/LE bilaterally, no clubbing/cyanosis or edema Neuro: nonfocal, patient AA&O x 2 Results & Data Results & Data Vital Signs (Past 12 Hours) Vital Signs Temp Pulse Pulse Resp BP BP Pulse Ox 08/27/23 21:30 88 16 131/92 08/27/23 21:00 94 H 18 126/83 08/27/23 20:30 93 H 13 144/83 H 08/27/23 20:00 93 H 21 145/97 H 100 08/27/23 19:35 93 H 08/27/23 19:31 147/88 H 08/27/23 19:31 97 H 18 99 08/27/23 17:09 36.7 C 133 H 20 139/63 97 O2 Del Method 08/27/23 21:30 08/27/23 21:00 08/27/23 20:30 08/27/23 20:00 08/27/23 19:35 08/27/23 19:31 08/27/23 19:31 Room Air 08/27/23 17:09 Room Air Laboratory Results Laboratory Results WBC 5.95 K/ul (4.8-10.8) 08/27/23 17:30 RBC 4.66 M/uL (4.20-5.40) 08/27/23 17:30 Hgb 14.6 g/dl (12.0-16.0) 08/27/23 17:30 Hct 43.3 % (37.0-47.0) 08/27/23 17:30 MCV 92.9 fL (80.0-100.0) 08/27/23 17:30 MCH 31.3 pg (25.0-34.0) 08/27/23 17:30 MCHC 33.7 g/dL (32.0-36.0) 08/27/23 17:30 RDW Std Deviation 43.9 fL (36.4-46.3) 08/27/23 17:30 RDW Coeff of Kevin 12.9 % (11.5-14.5) 08/27/23 17:30 Plt Count 367 K/uL (130-400) 08/27/23 17:30 MPV 10.8 fL (9.4-12.4) 08/27/23 17:30 Immature Gran % (Auto) 0.2 % 08/27/23 17:30 Neut % (Auto) 73.4 % 08/27/23 17:30 Lymph % (Auto) 19.2 % 08/27/23 17:30 [place] % (Auto) 6.1 % 08/27/23 17:30 Eos % (Auto) 0.3 % 08/27/23 17:30 Baso % (Auto) 0.8 % 08/27/23 17:30 Neut # (Auto) 4.37 K/uL (1.40-6.50) 08/27/23 17:30 Lymph # (Auto) 1.14 K/uL (1.20-3.40) L 08/27/23 17:30 [place] # (Auto) 0.36 K/uL (0.11-0.59) 08/27/23 17:30 Eos # (Auto) 0.02 K/uL (0.00-0.50) 08/27/23 17:30 Baso # (Auto) 0.05 K/uL (0.00-0.20) 08/27/23 17:30 Immature Gran # (Auto) 0.01 K/uL (0.01-0.20) 08/27/23 17:30 PT 10.5 Seconds (9.0-12.0) 08/27/23 17:30 INR 1.0 (0.9-1.1) 08/27/23 17:30 APTT 27 Seconds (21-31) 08/27/23 17:30 PTT Ratio 1.0 08/27/23 17:30 Sodium 137 mmol/L (136-145) 08/27/23 17:30 Potassium 3.9 mmol/L (3.5-5.1) 08/27/23 17:30 Chloride 101 mmol/L (98-107) 08/27/23 17:30 Carbon Dioxide 20 mmol/L (21-32) L 08/27/23 17:30 Anion Gap 16 (3-11) H 08/27/23 17:30 BUN 3 mg/dl (6-23) L 08/27/23 17:30 Creatinine 0.53 mg/dl (0.6-1.2) L 08/27/23 17:30 Est Cr Clr Drug Dosing 104.1 ml/min 08/27/23 17:30 Est GFR ( Amer) 122.2 ml/min 08/27/23 17:30 Est GFR (Non-Af Amer) 105.4 ml/min 08/27/23 17:30 BUN/Creatinine Ratio 5.7 (10-20) L 08/27/23 17:30 Glucose 90 mg/dl (70-99(Fasting)) 08/27/23 17:30 POC Glucose 96 mg/dl (70-99) 08/27/23 17:34 Calcium 9.0 mg/dl (8.6-10.3) 08/27/23 17:30 Magnesium 2.0 mg/dl (1.7-2.4) 08/27/23 17:30 Total Bilirubin 0.5 mg/dl (0.2-1.0) 08/27/23 17:30 AST 19 U/L (13-39) 08/27/23 17:30 ALT 11 U/L (7-52) 08/27/23 17:30 Alkaline Phosphatase 159 U/L (34-104) H 08/27/23 17:30 Ammonia 17.0 umol/L (18-72) L 08/27/23 17:30 Troponin I High Sens 3.1 pg/ml (0-14) 08/27/23 17:30 Total Protein 7.4 gm/dl (6.0-8.3) 08/27/23 17:30 Albumin 4.5 gm/dl (3.4-5.0) 08/27/23 17:30 Globulin 2.9 gm/dl (2.5-4.0) 08/27/23 17:30 Albumin/Globulin Ratio 1.6 (0.9-2) 08/27/23 17:30 Urine Color Yellow 08/27/23 18:40 Urine Appearance Clear (Clear) 08/27/23 18:40 Urine pH 5.5 (4.5-7.5) 08/27/23 18:40 Ur Specific [place] 1.010 (1.000-1.030) 08/27/23 18:40 Urine Protein Negative (Negative) 08/27/23 18:40 Urine Glucose (UA) Negative (Negative) 08/27/23 18:40 Urine Ketones 3+ (Negative) H 08/27/23 18:40 Urine Blood Negative (Negative) 08/27/23 18:40 Urine Nitrite Negative (Negative) 08/27/23 18:40 Urine Bilirubin Negative (Negative) 08/27/23 18:40 Urine Urobilinogen Negative (Negative) 08/27/23 18:40 Ur Leukocyte Esterase Negative (Negative) 08/27/23 18:40 Urine Opiates Screen Pos (Neg) H 08/27/23 18:40 Ur Methadone, Qual Neg (Neg) 08/27/23 18:40 Urine Barbiturates Pos (Neg) H 08/27/23 18:40 Ur Phencyclidine (PCP) Neg (Neg) 08/27/23 18:40 U Amphetamin/Meth Scrn Neg (Neg) 08/27/23 18:40 MDMA (Ecstasy) Screen Neg (Neg) 08/27/23 18:40 U Benzodiazepines Scrn Neg (Neg) 08/27/23 18:40 Ur Cocaine Metabolite Neg (Neg) 08/27/23 18:40 U Marijuana (THC) Screen Pos (Neg) H 08/27/23 18:[address] 08/27/23 17:[address] DOSE: HISTORY: Fall. neuro deficit, acute stroke suspected TECHNIQUE: Multiaxial CT images of the head were performed without the use of intravenous contrast. Automated exposure control was utilized for this study. A dose lowering technique was utilized adhering to the principles of ALARA. Comparison: Head CT 02/15/2016. Findings: The paranasal sinuses and mastoid air cells are clear. The calvarium and skull base are intact. The ventricles and sulci are within normal limits. There is no mass, hematoma, midline shift, or acute infarct. Prior suboccipital craniectomy with posterior fusion hardware within the upper cervical spine. Impression: No acute intracranial abnormality. ACT 112: Negative or not required by law. Electronically signed by: John Ayala M.D. 08/27/2023 6:[address] 08/27/23 17:[address] DOSE: 1029.65 mGy.cm HISTORY: fall TECHNIQUE: Multiaxial CT images of the cervical spine were performed and reformatted in the sagittal and coronal plane without the use of contrast. A dose lowering technique was utilized adhering to the principles of ALARA. COMPARISON: Cervical spine CT 08/27/2016 FINDINGS: No fractures. No subluxation. Prevertebral soft tissues and the C1-C2 interval are intact. No pneumothorax. Prior C5-C6 ACDF. The hardware appears intact. There is also posterior craniocervical fusion with screws within the occipital condyles, C1, and C2 with resection of the posterior arch of C1. The hardware is intact. Prior suboccipital craniectomy is also noted. IMPRESSION: 1. No fractures within the cervical spine. 2. Postoperative changes as described above. The hardware appears intact. ACT 112: Negative or not required by law. Electronically signed by: John Ayala M.D. 08/27/2023 6:23 PM Chest X-Ray 08/27/23 17:39 XR chest 1V portable HISTORY: Weakness. COMPARISON: Chest 09/25/2018. FINDINGS: The lungs are clear. Cardiac silhouette is normal in size. No pleural effusions. No pneumothorax. IMPRESSION: No acute process. ACT 112: Negative or not required by law. Electronically signed by: John Ayala M.D. 08/27/2023 6:54 PM ECG Additional Comments: EKG with ST at 119, left axis deviation ,WC=810, QRS=68, BHx=170, ,no acute ischemic changes PG Care Time/CCT Total # of Minutes Spent Total Time Spent with Patient: Total time spent is greater than 50% in coordination of care (as documented) at patient's floor/unit and/or counseling patient: Coding Level of Care Code 62223 INT INP/OBS CARE 3/75MIN Diagnoses Acute confusion R41.0 Severe protein-calorie malnutrition E43 Chronic pain G89.29 Anxiety F41.9
--- OUTSIDE RECORDS SUMMARY | 2023-08-27 23:15 | External Medical Summary | Summary of Care ---
Author Name Unknown Organization [facility] Address [address] [place] [address] Phone [phone] Care Team Providers Care Telecom Analyst Name Role Phone Kailey Adam MD Primary Care Provider Encounter Details Date Type Department Care Team (Late st Contact Info) Description 07/02/[address] [facility], Operating Room, [facility] - 4th Floor [address] [facility] [place] [id number] Eagle Encinas MD [address] [place] [address] Allergies Active Allergy Reactions Criticality Noted Date Comments Blue Dyes (Parenteral) Edema airway High 07/13/2013 Codeine Hives 06/17/2013 Gabapentin Psych complications High 08/22/2023 Hydrocodone-Acetaminophen Anaphylaxis High 4 documented as of this encounter (statuses as of 08/22/2023) Medications Medication Sig Dispensed Refills Start Date End Date Status FOLIC ACID 1 MG PO TABS take once daily 0 Active levothyroxine (LEVOXYL) 75 MCG Tablet take once a day 0 Active CYANOCOBALAMIN 1000 MCG/ML IJ SOLN Inject into a large muscle once a week. 0 Active fentaNYL (DURAGESIC) 100 MCG/HR Place 1 Patch topically on the skin every other day. 0 Active lidocaine (LIDODERM) 5 % Place 1 Patch topically on the skin every 12 hours as needed. 0 Active Magnesium 400 MG Capsule Take 1 Capsule by mouth in the morning. 0 Active omeprazole (PRILOSEC) 20 MG CPDR Take 1 Capsule by mouth in the morning. 0 Active QUEtiapine (SEROQUEL) 50 MG Tablet Take 1 Tablet by mouth at bedtime. 0 Active ALPRAZolam (XANAX) 0.5 MG Tablet Take 1 Tablet by mouth 2 times a day as needed. 0 0 Active Baclofen 20 MG Tablet TAKE ONE TABLET BY MOUTH THREE TIMES DAILY DIRECTED 0 0 Active BISACODYL EC 5 MG TBEC TAKE ONE TABLET BY MOUTH DAILY NEEDED FOR CONSTIPATION 0 0 Active Multivitamin Adult Oral Tablet Take 1 Tab by mouth daily. 0 Active diphenhydrAMINE HCl 25 MG Oral Capsule Take 1 Capsule by mouth every 6 hours as needed for Itching. 0 Active fentaNYL 75 MCG/HR Transdermal Patch 72 Hour (Duragesic) Place topically on the skin 1 Patch every other day . 0 Active Mupirocin 2 % External Ointment (Bactroban) Apply topically to affected area 2 times a day . Apply to wounds twice daily 22 g 0 2 Active Additional Information Patient not taking.Reported on 05/22/2022 Triamcinolone Acetonide 0.1 % External Cream (Aristocort) Apply topically to affected area 2 times a day . Apply to open wounds twice daily 30 g 0 2 Active Additional Information Patient not taking.Reported on 05/22/2022 Peptamen 1.5 Oral LiquidIndications:S evere protein-calorie malnutrition (HCC),On tube feeding diet Start at 50 mL/hour x24 hours with goal to increase to 62 mL/hour x24 hours (6 cartons daily) 52250 mL 12 2 Active Ondansetron 8 MG Oral Tablet Disintegrating (Zofran) Place 1 Tablet under the tongue in the morning and 1 Tablet at noon and 1 Tablet in the evening. 0 3 Active SSD 1 % External Cream APPLY TOPICALLY TWICE DAILY 0 3 Active buPROPion HCl ER (SR) 150 MG Oral Tablet Extended Release 12 Hour (Wellbutrin SR) Take 1 Tablet by mouth in the morning. 0 Active gabapentin (NEURONTIN) 300 MG Capsule TAKE TWO CAPSULES BY MOUTH THREE TIMES DAILY 0 0 08/22/19 24 Discontinued documented as of this encounter (statuses as of 08/22/2023) Active Problems Problem Noted Date Diagnosed Date Erythema ab igne 05/31/2021 Opioid dependence 05/31/2021 Medical marijuana use 05/27/2021 On tube feeding diet 01/29/2021 Difficult intubation 01/26/2021 Overview: Patient with history of chiari malformation with ataxia post repair. NO neck extension. glidescope or fiberoptic intubation only. Patient wears med alert bracelet. 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 Acquired hypothyroidism 01/03/2021 H/O gastric bypass 11/17/2013 Diarrhea 11/17/2013 Tobacco use 11/17/2013 Post-traumatic headache 09/01/2013 Cervicalgia 09/01/2013 Occipital neuralgia 09/01/2013 documented as of this encounter (statuses as of 08/22/2023) Resolved Problems Problem Noted Date Diagnosed Date Resolved Date Encounter for feeding tube placement 01/29/2021 01/29/2021 On total parenteral nutrition (TPN) 01/12/2021 01/29/2021 documented as of this encounter (statuses as of 08/22/2023) Immunizations Name Administration Dates Next Due 07/19/2015, 6,05/03/2014,05/03/19 15,02/21/2014,02/21/2014,01/24/2014,01/24,01/24/2014,11/17/2013,11/17/2013,,10/04/2013,09/14/2013,09/14/2013 Seasonal Influenza, PF, 6 M & above, IM , (FluLaval or Fluzone) 05/31/2021,01/29/2021(Deferred: Patient Refused - provider made aware) documented as of this encounter Social History Tobacco Use Types Packs/Day Years Used Date Smoking Tobacco: Former Cigarettes 20 0 01/03/2001 - 01/03/2021 Smokeless Tobacco: Never Comments:2-4 cigarettes a mo nth Alcohol Use Standard Drinks/Week Comments No 0 (1 standard drink = 0.6 oz pur e alcohol) Sex and Gender Information Value Date Recorded Sex Assigned at Not on file Gender Identity Not on file Sexual Orientation Not on file Job Start Date Occupation Industry Not on file Not on file Not on file documented as of this encounter Functional Status Functional Status Response Date of Assess ment Are you deaf or do you have serious difficulty h earing? No 05/27/2021 Are you blind or do you have serious difficulty seeing, even when wearing glasses? No 05/27/2021 Do you have serious difficul ty walking or climbing stairs? (5 years old or older) Yes 05/28/2021 Do you have difficulty dress ing or bathing? (5 years old or older) Yes 05/27/2021 Because of a physical, menta l, or emotional condition, do you have difficulty doing errands alone such as visiting a doctor s office or shopping? (15 years old or older) Yes 05/27/19 Cognitive Status Response Date of Assessm ent Because of a physical, menta l, or emotional condition, do you have serious difficulty concentrating, remembering, or making decisions? (5 years old or older) No 05/27/2021 documented as of this encounter Miscellaneous Notes * Telephone Encounter - Eagle Encinas MD - 07/03/2023 7:57 AM EDT Spoke to pt for about 1-1/2 hour in the evening. Pt repetitively reported Need for antibiotics Need for pain control Was "cranky" during ride home from hospital yesterday (stated once only) Maltreatment by female nurse on transport between [facility] and OR 6 prior to the procedure How she was given MRSA during a "dirty" placement of a g-tube 2 years ago The need for replacement of the gastrostomy every three months The limitations of her PCP Dr. Adam The virtues of Dr. Yeni Corley documented in this encounter Plan of Treatment Upcoming Encounters Date Type Department Care Team (Late st Contact Info) Description 08/28/2023 2:20 PM EDT Telemedicine Nutrition & Weight Management, [place] [address] [place], [place] [phone] Kay Valle RDN [address] [place] [address] 09/01/2023 1:00 PM EDT Telemedicine Pall[facility], [facility] [address] [facility] [address]th [place] [address] Amaya Campoverde MD [address], [place] [phone] Scheduled Procedures Name Priority Associated Diagnoses Date/Ti me PERCUTANEOUS REPLACE GASTROSTOMY OR CECOSTOMY TUBE WITH FLUORO On tube feeding diet 08/22/2023 11:08 AM EDT Health Maintenance Due Date Last Done Comments HIV Screening 1981 Hepatitis C Screening 1984 DTaP,Tdap,and Td Vaccines (1 - Tdap) 1985 Hepatitis B (1 of 3 - 19+ 3-dose series) 1985 Mammogram 2006 Cologuard 2011 Colonoscopy 2011 Colorectal Cancer Screening 2011 Fecal Occult Blood Test 2011 Sigmoidoscopy 2011 Zoster Vaccines (1 of 2) 2016 Depression Screening 07/18/2016 07/19/2015 COVID-19 Vaccine ( season) 2022 Influenza Vaccine (FLU shot) (Season Ended) 2023 05/31/2021 TSH 08/19/2024 08/20/2023, 02/20, 01/03/2021, Additional history exists Lipid Panel 05/09/2026 05/09/2021, 12/20, 11/17/2014 GARDASIL-HPV IMMUNIZATION SERIES Aged Out No longer eligible based on patient's age to complete this topic MENINGOCOCCAL (MENACTRA/MENVEO) Aged Out No longer eligible based on patient's age to complete this topic Pneumococcal Vaccine: Pediatrics (0 to 5 Years) and At-Risk Patients (6 to 64 Years) Aged Out No longer eligible based on patient's age to complete this topic documented as of this encounter Medical Devices Implanted Type Area Solar/Renewable Energy Sales Device Identifier Shelf Expiration Date Model / Serial / Lot Cath Drainage 12fr [id number] - [id number] Implanted:Qty: 1 on 01/26/2021 at [facility] : INTRV RAD 11/21/2023 [id number] / / [id number] Cath [employer] - [id number] Implanted:Qty: 1 on 01/26/2021 at [facility] : [employer] [id number] 11/14/2023 [id number] / / [id number] Stent [employer] [id number] - [id number] Implanted:Qty: 1 on 05/28/2021 by Judah Hutchinson MD at ENDOSCOPY [facility] [place] [employer] : ENDOSCOPY 11/14/2021 [id number] / / documented as of this encounter Advance Directives Latest Code Status on File Code Status Date Activated Date Inactivated Comments Full Code 05/27/2021 8:31 PM 05/31/2021 8:44 PM This o rder reflects the patients wishes and were consensually agreed upon. Question Answer Comments Discussion of Advance Directives occurred with: Patient Code Status History Code Status Date Activated Date Inactivated Comments Full Code 01/03/2021 6:31 PM 01/29/2021 5:46 PM This order reflects the patients wishes and were consensually agreed upon. Question Answer Comments Discussion of Advance Directives occurred with: Patient Does the patient have a Living Will? No Does the patient have Health Care Power of Patient Registration Supervisor? No Care Teams Telecom Analyst Relationship Specialty Start Date End Date Kailey Adam MD [address] [place] [address] PCP - General Family Medicine 10/20/18 documented as of this encounter
--- OUTSIDE RECORDS SUMMARY | 2023-08-27 23:15 | External Medical Summary | Summary of Care ---
Author Name Unknown Organization [facility] Address [address] [facility] [place] [address] Phone [phone] Care Team Providers Care Dry Cell Assembly Machine Tender Name Role Phone Kailey Adam MD Primary Care Provider Reason for Visit * Auth/Cert Specialty Diagnoses / Procedures Referred By Maryana dang Referred To Contact Diagnoses On tube feeding diet On tube feeding diet [Z78.9] Procedures IR TUBE REPLACEMENT GASTROSTOMY PERCUTANEOUS OR CECOSTOMY PERCUTANEOUS REPLACE GASTROSTOMY OR CECOSTOMY TUBE WITH FLUORO Eagle Encinas MD [address] [place] [address] Or [facility] [address] [place] [address] Referral ID Status Reason Start Date Expiration Date Visits Re quested Visits Authorized [id number] Encounter Details Date Type Department Care Team (Latest Contact Info) Description 08/22/2023 9:54 AM EDT - 08/22/2023 12:15 PM EDT Hospital Encounter OR [facility], Operating Room, [facility] - 4th Floor [address] [address] Eagle Encinas MD [address] [place] [address] Discharge Disposition: Home - Self Care Allergies Active Allergy Reactions Criticality Noted Date Comments Blue Dyes (Parenteral) Edema airway High 07/13/2013 Codeine Hives 06/17/2013 Gabapentin Psych complications High 08/22/2023 Hydrocodone-Acetaminophen Anaphylaxis High 4 documented as of this encounter (statuses as of 08/23/2023) Medications Medication Sig Dispensed Refills Start Date [...] 62 mL/hour x24 hours (6 cartons daily) 20725 mL 12 2 Active Ondansetron 8 MG [...] as of this encounter (statuses as of 08/23/2023) Active Problems Problem Noted Date Diagnosed Date [...] as of this encounter (statuses as of 08/23/2023) Resolved Problems Problem Noted Date Diagnosed Date Resolved Date Encounter for feeding tube placement 01/29/2021 01/29/2021 On total parenteral nutrition (TPN) 01/12/2021 01/29/2021 documented as of this encounter (statuses as of 08/23/2023) Immunizations Name Administration Dates Next Due 07/19/2015, [...] on file documented as of this encounter Last Filed Vital Signs Vital Sign Reading Time Taken Comments Blood Pressure 95/49 08/22/2023 11:58 AM EDT Pulse 82 08/22/2023 11:58 AM EDT Temperature 36.1 C (97 F) 08/22/2023 11:58 AM EDT Respiratory Rate 16 08/22/2023 11:58 AM EDT Oxygen Saturation 95% 08/22/2023 11:58 AM EDT Inhaled Oxygen Concentration - - Weight - - Height - - Body Mass Index - - documented in this encounter Functional Status Functional Status Response [...] No 05/27/2021 documented as of this encounter Discharge Instructions * Discharge Instr - AVS* Eagle Encinas MD - 08/22/2023 12:05 PM EDT Discharge Date: 08/22/2023 Provider: Dr. Eagle Encinas If you are experiencing any problems related to your procedure, please contact Interventional Radiology at [phone] during normal business hours: Friday- Friday 7:30 am - 4 pm. If a problem occursoutside of normal business hours, please call the hospital metal coater operator at [phone] and ask for theInterventional Radiologist studio control operator. Contact scheduling for Interventional Radiology at [phone] during normal business hours: Friday-Friday, 7:30 am - 4 pm. The information below provides you with the instructions and the list of medications you need to betaking following discharge from the hospital. If you have any questions, please ask before leaving.Please carry this letter with you when you see your doctor in the clinic. If you have questions, you can reach us at the numbers above. SPECIAL INSTRUCTIONS Gastrostomy or Gastro-Jejunostomy (G or G-J Tube) or Jejunostomy (J Tube) You have been discharged with a feeding tube. The feeding tube was inserted through your abdominal wall and into your stomach to provide you with food, fluids, and medication. Your tube may move in and out slightly. If the tube comes out all the way, don't put it back in. Call your doctor. You needto keep the skin around the feeding tube dry and clean. This helps prevent soreness and infection. The mouth also needs to be cleansed, even though food is not taken through. Home Care You must not eat or drink anything for 6 hours. If you experience pain or discomfort at the site you may take acetaminophen (Tylenol) or your preferred pain medicine as directed. Avoid strenuous activity for 24 to 48 hours after the procedure. Do not lift anything heavier than 10 pounds for 3 days after the procedure. Gradually increase your activity after 24 to 48 hours after the procedure. When showering, please cover your site with plastic wrap to avoid getting it wet. Please DO NOT take a bath, soak in a hot tub, or swim. The three round anchors will automatically fall off within 14 days. If they do not completely fall off in 14 days, please contact Interventional Radiology. Cleaning the Skin Gently wash the skin around the feeding tube daily. Please follow these steps: Wash your hands. Wet a soft cloth or gauze with warm, soapy water. Gently wipe the skin around the feeding tube. Also wipe the bolster and the base of the feeding tube. Rinse well with clear, warm water. Pat dry with a soft cloth. Cleaning Under the Bolster When you wash the skin, clean and check under the bolster. Please follow these steps: Gently lift the bolster just enough to get a cotton swab under it. Be careful not to pull on the feeding tube. Check for redness, swelling, bleeding, or leakage around the opening. Dip a cotton swab in warm water and gently clean under the bolster. Pat the skin dry. Apply a protective skin barrier or antibacterial ointment if your health care provider tells you to. Gently push the bolster back against the skin. Wash your hands. Medications and Flushing the Tube Flush the tube with 30 mL warm water daily if not currently being used for medications or feeds. Your tube should be flushed before and after every use. Take medications in the following order (each mixed in about 15 mL warm water) Liquid medicines first Medicines that need to be dissolved second Thick medicines last Take each medicine by itself. Never mix medicines together in the syringe. Flush the tube with 5 mL or more warm water between all medications. Flush the tube with 30 mL warm water after all medications have been given. Some medicines may not be mixed with feeding formula. Ask your doctor how long you should wait to start feeding after taking medications. Keep your tube clamped between feedings. Additional Resource [email or web address] Follow Up An appointment will be made for you to have your tube changed approximately every 3-6 months for routine care. If you do not hear from a computer processing scheduler, call Interventional Radiology at [phone] during normal business hours: Friday through Friday 8 am to 4:30 pm to schedule an appointment. The first exchange will take place in Interventional Radiology. After the first exchange, GI Nutrition will take over the care of the feeding tube including routine exchanges in their office. When to Call Interventional Radiology Call Interventional Radiology right away if you have any of the following: If your tube becomes dislodged, try to replace the tube and tape it to hold it in place. This will keep the tract open until we can exchange the tube. If you cannot place the tube back in, that is okay. This is not a medical emergency and you do not need to go to the ER. Please either call the IR Provider on-call or call us during normal business hours at the numbers provided above. This is something that should be addressed within 24 hours, particularly if you are dependent on your tube for medication administration. Fever above 100 degrees Fahrenheit Increased bleeding, redness, swelling, warmth, or discharge at the incision site. Constant or increasing pain, numbness, coldness, or tingling around the incision area. The tube feels loose, comes out or the size of the opening where the tube enters the skin increases. Red, rough tissue develops around the tube site. You see blood around the tube, in stool, or in contents of the stomach. The tube becomes clogged or blocked and you cannot clear it. You start to cough, choke, or vomit while feeding. You have a bloated or rigid abdomen (belly feels hard when gently pressed.) You have diarrhea. If at any time you experience any of the following or feel you are having a medical emergency, [id number] for emergency assistance. Chest Pain Sudden, severe shortness of breath Rapid heart rate Sudden onset of weakness Coughing up blood See your referring physician for follow-up appointment. Do not smoke or use tobacco products in any way! If you feel suicidal or homicidal, please call the crisis hotline at [phone]-HMEL ([phone]) MODERATE SEDATION You may have received medication that made you comfortable/sedated you during your procedure. This is considered moderate sedation. This medication was given to relax you. You may also not remember having the procedure done. It may take up to 24 hours for this medication to be out of your system. Because of this, you should observe the following for the next 24 hours: Do not drink alcohol or take depressant drugs. Do not operate any type of machinery that requires hand-eye coordination. Do not sign any legal papers or documents. Do not make any financial decisions. You should be in the presence of an adult for the remainder of the day. If you are experiencing any problems related to your procedure, you should contact the Interventional Radiology physician unless otherwise directed. Driving: You may resume driving 2 day . Diet: You may resume your current diet as tolerated. Return to work or school: You may return to school or work 2 days after the procedure, unless otherwise instructed by the physician. documented in this encounter H&P Notes * Eagle Encinas MD - 08/22/2023 10:59 AM EDT HISTORY & PHYSICAL - Interventional Radiology Service [facility] [address] Name: Leyla Pichardo Location: [facility] Date: 08/22/2023 Time: 11:00 AM CHIEF COMPLAINT: Routine exchange feeding tube HISTORY OF PRESENT ILLNESS: Routine feeding tube exchange Past Medical History: Diagnosis Date Chiari malformation Diarrhea Gastric bypass status for obesity Headache(784.0) Hx of gastric bypass Hypoglycemia Hypothyroid Insomnia Past Surgical History: Procedure Laterality Date EGD, FLEXIBLE, DIAGNOSTIC N/A 01/10/2021 ESOPHAGOGASTRODUODENOSCOPY (EGD), FLEXIBLE, TRANSORAL, DIAGNOSTIC performed by Marily Downs MD [facility] EGD, FLEXIBLE, DIAGNOSTIC N/A 09/06/2021 ESOPHAGOGASTRODUODENOSCOPY (EGD), FLEXIBLE, TRANSORAL, DIAGNOSTIC performed by Judah Hutchinson MD at ENDOSCOPY [facility] EGD, W/ENDOSCOPIC US N/A 05/28/2021 ESOPHAGOGASTRODUODENOSCOPY (EGD), FLEXIBLE, TRANSORAL, ENDOSCOPIC ULTRASOUND performed by Judah Brenner MD at ENDOSCOPY [facility] GASTRIC BYPASS FOR OBESITY IR GASTROINTESTINAL OSTOMY 01/26/2021 IR GASTROINTESTINAL OSTOMY 05/29/2021 IR GASTROINTESTINAL OSTOMY 09/19/2021 IR GASTROINTESTINAL OSTOMY 09/13/2022 IR GASTROINTESTINAL OSTOMY 12/16/2022 IR TUBE REPLACEMENT GASTROSTOMY PERCUTANEOUS OR CECOSTOMY N/A 02/15/2022 PERCUTANEOUS REPLACE GASTROSTOMY OR CECOSTOMY TUBE WITH FLUORO performed by Juan Antonio Carter MD at OR [facility] IR TUBE REPLACEMENT GASTROSTOMY PERCUTANEOUS OR CECOSTOMY N/A 05/22/2022 PERCUTANEOUS REPLACE GASTROSTOMY OR CECOSTOMY TUBE WITH FLUORO performed by Aashish Morin DO at OR [facility] IR TUBE REPLACEMENT GASTROSTOMY PERCUTANEOUS OR CECOSTOMY Left 03/19/2023 PERCUTANEOUS REPLACE GASTROSTOMY OR CECOSTOMY TUBE WITH FLUORO performed by Bryant Mo DO at OR [facility] IR TUBE REPLACEMENT GASTROSTOMY PERCUTANEOUS OR CECOSTOMY Left 07/02/2023 PERCUTANEOUS REPLACE GASTROSTOMY OR CECOSTOMY TUBE WITH FLUORO performed by Eagle Encinas MD at OR [facility] Social History Socioeconomic History Marital status: Spouse name: Not on file Number of children: Not on file Years of education: Not on file Highest education level: Not on file Occupational History Not on file Tobacco Use Smoking status: Former Current packs/day: 0.00 Types: Cigarettes Start date: 01/03/2001 Quit date: 01/03/2021 Years since quittin.6 Smokeless tobacco: Never Tobacco comments: 2-4 cigarettes a month Vaping Use Vaping Use: Some days Substances: Nicotine Substance and Sexual Activity Alcohol use: No Drug use: Yes Types: Marijuana Comment: Medical cannabis Sexual activity: Not on file Other Topics Concern Not on file Social History Narrative Not on file Social Determinants of Health Financial Resource Strain: Not on file Food Insecurity: Not on file Transportation Needs: Not on file Physical Activity: Not on file Stress: Not on file Social Connections: Not on file Intimate Partner Violence: Not on file Housing Stability: Not on file No family history on file. Review of patient's allergies indicates: Allergen Reactions Blue Dyes (Parenteral) Edema airway Neurontin [Gabapentin] Psych complications Vicodin [Hydrocodone-Acetaminophen] Anaphylaxis Codeine Hives Current Facility-Administered Medications Medication Dose Route Frequency Provider Last Rate Last Admin isolyte-S pH 7.4 infusion Intravenous Continuous Eagle Encinas MD 10 mL/hr at 08/22/23 1025 New Bag at 08/22/23 1025 REVIEW OF SYSTEMS: Constitutional: (-) fever chills sweats or weight loss Cardiovascular: (-) negative: no chest pain, dyspnea, syncope, or palpitations Pulmonary: (-) negative: no cough, wheezing, or shortness of breath Abdominal/GI: (-) negative: no pain, heartburn, dysphagia, bleeding, change in bowel habits, nauseaor vomiting OBJECTIVE: BP 105/95 | Pulse 78 | Temp 36.1 C (97 F) (Temporal Artery) | Resp 16 | LMP (LMP Unknown) | SpO2 95% PHYSICAL EXAM: Constitutional: no acute distress CV: normal rate and rhythm, no murmur, gallops or rub Chest: normal respiratory effort, lungs clear to auscultation and percussion, breath sounds normal Abdomen: normal: soft, bowel sounds normal, no masses, tenderness or organomegaly LABS: CBC Results: PT INR Results: Results for orders placed or performed in visit on 05/09/21 PT INR Result Value Ref Range Prothrombin Time 13.8 11.5 - 14.6 seconds INR 1.04 0.84 - 1.14 Results for orders placed or performed in visit on 04/30/21 PT INR Result Value Ref Range Prothrombin Time 13.0 11.5 - 14.6 seconds INR 0.96 0.84 - 1.14 Results for orders placed or performed during the hospital encounter of 01/03/21 PT INR Result Value Ref Range Prothrombin Time 11.9 11.5 - 14.6 seconds INR 0.87 0.84 - 1.14 BUN Results: Lab Results Component Value Date/Time BUN - [facility] 6 08/20/2023 12:15 PM BUN - [facility] 4 (L) 09/04/2022 10:27 AM BUN - [facility] 5 (L) 03/13/2022 10:19 AM BUN - [facility] 10 01/06/2019 10:00 AM BUN - [facility] 7 12/30/2018 09:51 AM BUN - [facility] 4 (L) 11/11/2018 11:20 AM BUN - [facility] 4 (L) 11/11/2018 11:20 AM BUN - [facility] 4 (L) 11/11/2018 11:20 AM BUN - [facility] 4 (L) 11/11/2018 11:20 AM Creatinine Results: Lab Results Component Value Date/Time CREATININE - [facility] 0.5 08/20/2023 12:15 PM CREATININE - [facility] 0.5 09/04/2022 10:27 AM CREATININE - [facility] 0.5 03/13/2022 10:19 AM CREATININE - [facility] 0.5 01/06/2019 10:00 AM CREATININE - [facility] 0.5 12/30/2018 09:51 AM CREATININE - [facility] 0.6 11/11/2018 11:20 AM CREATININE - [facility] 0.6 11/11/2018 11:20 AM CREATININE - [facility] 0.6 11/11/2018 11:20 AM CREATININE - [facility] 0.6 11/11/2018 11:20 AM CREATININE-[facility] 0.5 07/10/2016 06:45 AM CREATININE-[facility] 0.5 07/10/2016 06:45 AM Potassium Results: Lab Results Component Value Date/Time POTASSIUM - [facility] 4.3 08/20/2023 12:15 PM POTASSIUM - [facility] 3.6 09/04/2022 10:27 AM POTASSIUM - [facility] 4.8 03/13/2022 10:19 AM POTASSIUM - [facility] 5.6 (H) 01/06/2019 10:00 AM POTASSIUM - [facility] 5.3 (H) 12/30/2018 09:51 AM POTASSIUM - [facility] 5.9 (H) 11/11/2018 11:20 AM POTASSIUM - [facility] 5.9 (H) 11/11/2018 11:20 AM POTASSIUM - [facility] 5.9 (H) 11/11/2018 11:20 AM POTASSIUM - [facility] 5.9 (H) 11/11/2018 11:20 AM POTASSIUM-[facility] 4.5 07/10/2016 06:45 AM POTASSIUM-[facility] 4.5 07/10/2016 06:45 AM INFORMED CONSENT: Yes PRE-SEDATION ASSESSMENT IMPRESSION/PLAN: Feeding tube exchange Eagle Encinas MD documented in this encounter Nursing Notes * David Campoverde RN - 08/22/2023 12:14 PM EDT [address] [address] [facility] Discharge Note Name: Leyla Pichardo Date: 08/22/2023 Time: 12:14 PM Discharge Disposition: Home Responsible adult as escort home: spouse Transport Mode: Wheelchair Accompanied by: Hilaria Campoverde RN To: Car Belongings with patient: Yes Patient meets criteria to be transferred or discharged. * Jairo Dailey RN - 08/22/2023 11:28 AM EDT Pt condition was reassessed by Dr. Eagle Encinas immediately prior to start of moderate sedation and procedure. documented in this encounter OR Notes * OR Surgeon - Eagle Encinas MD - 08/22/2023 12:15 PM EDT Procedure: Gastrostomy catheter check and exchange. August 22, 2023 INDICATION: [Gastrostomy tube needed for feeding. Routine exchange. ATTENDING (OPERATING PHYSICIAN): [Ce] CONSENT: After a detailed discussion of the procedure, risks, benefits and alternative treatment options, informed consent was obtained. TIME OUT: A time out procedure was performed. The patient's identification was verified. Informed consent with agreement of procedure, site and position was obtained. All necessary equipment was available prior to procedure. CONTRAST: IV Optiray 320 COMPLICATIONS: None. ANESTHESIA: Consious sedation SEDATION TIME: [id number] trained observer: Akash MEDICATIONS: See MAR PROCEDURE DESCRIPTION: [The existing gastrostomy was examined fluoroscopically projected over the expected location of the stomach. Contrast was injected confirming intraluminal position. The gastrostomy was deflated and replaced over a wire for a new gastrostomy (14 [place] by 3.5 cm russell casey G-tube). Contrast was injected confirming position. The procedure was performed by Dr. Encinas Findings: [Original gastrojejunostomy catheter with patent lumens and in appropriate positions.][Newly exchanged gastrojejunostomy catheter confirming the same.] Impression: Successful gastrojejunostomy catheter check and exchange. PLAN: Flush tube with 20-30 mL of water before and after each feeding and each medication. Medications should be in liquid form if possible and if not available in liquid form they should be finely crushed, mixed in warm water and administered individually. Routine maintenance change by IR in [6] months. * Operative Report Brief - Eagle Encinas MD - 08/22/2023 12:01 PM EDT PROCEDURE NOTE - Interventional Radiology [facility] [address] Name: Leyla Pichardo Location: OR [facility]/[place] Date: 08/22/2023 Time: 12:01 PM PROCEDURE: gastrostomy product introduction manager: Dr. Eagle Encinas ANESTHESIA: conscious sedation COMPLICATIONS: none SPECIMEN: none ESTIMATED BLOOD LOSS: negligible FINDINGS: gastrostomy patent * OR Surgeon - Eagle Encinas MD - 08/22/2023 12:01 PM EDT Procedure: Gastrostomy catheter check and exchange. August 22, 2023 INDICATION: [Gastrostomy tube needed for feeding. Routine exchange. ATTENDING (OPERATING PHYSICIAN): [Ce] CONSENT: After a detailed discussion of the procedure, risks, benefits and alternative treatment options, informed consent was obtained. TIME OUT: A time out procedure was performed. The patient's identification was verified. Informed consent with agreement of procedure, site and position was obtained. All necessary equipment was available prior to procedure. CONTRAST: IV Optiray 320 COMPLICATIONS: None. ANESTHESIA: [conscious sedation [id number]: trained observer: Akash] SEDATION TIME: N/A MEDICATIONS: See MAR PROCEDURE DESCRIPTION: [The existing gastrostomy was examined fluoroscopically projected over the expected location of the stomach. Contrast was injected confirming intraluminal position. The gastrostomy was deflated and replaced over a wire for a new gastrostomy (14 [place] by 3.5 cm russell casey G-tube). Contrast was injected confirming position. The procedure was performed by Dr. Encinas Findings: [Original gastrojejunostomy catheter with patent lumens and in appropriate positions.][Newly exchanged gastrojejunostomy catheter confirming the same.] Impression: Successful gastrojejunostomy catheter check and exchange. PLAN: Flush tube with 20-30 mL of water before and after each feeding and each medication. Medications should be in liquid form if possible and if not available in liquid form they should be finely crushed, mixed in warm water and administered individually. Routine maintenance change by IR in [6] months. documented in this encounter Miscellaneous Notes * Sedation Note - Eagle Encinas MD - 08/22/2023 12:04 PM EDT S Post Sedation Evaluation: Cardiovascular status: acceptable, BP returned to baseline, and hemodynamically stable Level of consciousness: awake and alert Airway patency: patent Distress - NAD Hydration status - well hydrated Nausea/vomiting - not present Pain Evaluation Pain Assessment Flowsheet Row Most Recent Value Pain Assessment Scale [facility] Scale 0-10 Pain Score 5 (moderate pain) Vital Signs: Temp: 36.1 C (97 F) (08/21 1158) BP: 95/49 (08/21 1158) Pulse: 82 (08/21 1158) Resp: 16 (08/21 1158) SpO2: 95 % (08/21 1158) I have personally examined the patient, prescribed the necessary medications as charted, and certify that Leyla Sandhuw is recovered for safe discharge from my face to face care. * Pre-Sedation Assessment - Eagle Encinas MD - 08/22/2023 11:02 AM EDT PRE-SEDATION ASSESSMENT PRE-SEDATION ASSESSMENT: Feeding Tube Exchange Level of sedation planned: Minimal Patient's allergies reviewed: Yes H&P Review / Interval Note Documentation: There is no H&P on file. Difficulty with sedation / anesthesia: No Sleep apnea: No History of snoring: No History of difficult intubation: No Decreased ROM neck flexion/extension: No Tracheal deviation: No Decreased ability to open mouth / TMJ: No Loose teeth / dentures / partial: No Congenital deformities / abnormalities: No Dysphagia: No Mallampati Classification: II - soft palate, uvula, fauces visible Chest: Clear Heart: Regular Rhythm ASA Risk Stratification (Select One): ASA 2 - Mild systemic disease, no functional limitations The patient was identified and the procedure verified: Yes The patient was reevaluated immediately prior to the sedation: 08/22/2023 11:03 AM documented in this encounter Plan of Treatment Upcoming Encounters Date Type Department Care Team (Late st Contact Info) Description 08/28/2023 2:20 PM EDT Telemedicine Nutrition & Weight Management, [place] [address] [place] [address] Kay Valle RDN [address] [place] [address] 09/01/2023 1:00 PM EDT Telemedicine Palliative Medicine, [facility] [address] [facility] 5th [place] [address] Amaya Campoverde MD [address] [place] [address] Health Maintenance Due Date Last Done Comments HIV Screening 1981 Hepatitis C Screening 1984 DTaP,Tdap,and Td Vaccines (1 - Tdap) 1985 Hepatitis B (1 of 3 - 19+ 3-dose series) 1985 Mammogram 2006 Cologuard 2011 Colonoscopy 2011 Colorectal Cancer Screening 2011 Fecal Occult Blood Test 2011 Sigmoidoscopy 2011 Zoster Vaccines (1 of 2) 2016 Depression Screening 07/18/2016 07/19/2015 COVID-19 Vaccine (1 - season) 2022 Influenza Vaccine (FLU shot) (Season [...] this encounter Medical Devices Implanted Type Area Turbine Engine Assembler Device Identifier Shelf Expiration Date Model / Serial / Lot Cath Drainage 12fr [id number] - [id number] Implanted:Qty: 1 on 01/26/2021 at [facility] [employer] : INTRV RAD 11/21/2023 [id number] / / [id number] Cath [employer] - [id number] Implanted:Qty: 1 on 01/26/2021 at [facility] [employer] : [employer] [id number] 11/14/2023 [id number] / / [id number] Stent [employer] [id number] - [id number] Implanted:Qty: 1 on 05/28/2021 by Judah Hutchinson MD at [facility] [facility] : ENDOSCOPY 11/14/2021 [id number] / / documented as of this encounter Procedures Procedure Name Priority Date/Time Associated Diagnosis Comments IR INTERVENTIONAL RADIOLOGY PROCEDURE IN OR Routine 08/22/2023 11:44 AM EDT documented in this encounter Results * IR INTERVENTIONAL RADIOLOGY PROCEDURE IN OR (08/22/2023 11:44 AM EDT) 08/22/2023 12:4 8 PM EDT Impressions [facility] - 08/22/2023 12:46 PM EDT IMPRESSION: Successful gastrojejunostomy catheter check and exchange. PLAN: Flush tube with 20-30 mL of water before and after each feeding and each medication. Medications should be in liquid form if possible and if not available in liquid form they should be finely crushed, mixed in warm water and administered individually. Routine maintenance change by IR in 6 months. Narrative [facility] - 08/22/2023 12:46 PM EDT PROCEDURE: Gastrostomy catheter check and exchange. August 22, 2023 INDICATION: Gastrostomy tube needed for feeding. Routine exchange. ATTENDING (OPERATING PHYSICIAN): Ce CONSENT: After a detailed discussion of the procedure, risks, benefits and alternative treatment options, informed consent was obtained. TIME OUT: A time out procedure was performed. The patient's identification was verified. Informed consent with agreement of procedure, site and position was obtained. All necessary equipment was available prior to procedure. CONTRAST: IV Optiray 320 COMPLICATIONS: None. ANESTHESIA: Conscious sedation SEDATION TIME: 9364-3070 trained observer: Akash MEDICATIONS: See MAR PROCEDURE DESCRIPTION: The existing gastrostomy was examined fluoroscopically projected over the expected location of the stomach. Contrast was injected confirming intraluminal position. The gastrostomy was deflated and replaced over a wire for a new gastrostomy (14 [place] by 3.5 cm russell casey G-tube). Contrast was injected confirming position. The procedure was performed by Dr. Encinas FINDINGS: Original gastrojejunostomy catheter with patent lumens and in appropriate positions.Newly exchanged gastrojejunostomy catheter confirming the same. Procedure Note Eagle Encinas MD - 08/22/2023 PROCEDURE: Gastrostomy catheter check and exchange. August 22, 2023 INDICATION: Gastrostomy tube needed for feeding. Routine exchange. ATTENDING (OPERATING PHYSICIAN): Ce CONSENT: After a detailed discussion of the procedure, risks, benefits andalternative treatment options, informed consent was obtained. TIME OUT: A time out procedure was performed. The patient's identificationwas verified. Informed consent with agreement of procedure, site andposition was obtained. All necessary equipment was available prior toprocedure. CONTRAST: IV Optiray 320 COMPLICATIONS: None. ANESTHESIA: Conscious sedation SEDATION TIME: 6314-0387 trained observer: Akash MEDICATIONS: See MAR PROCEDURE DESCRIPTION: The existing gastrostomy was examinedfluoroscopically projected over the expected location of the stomach.Contrast was injected confirming intraluminal position. The gastrostomywas deflated and replaced over a wire for a new gastrostomy (14 [place] by3.5 cm russell casey G-tube). Contrast was injected confirming position. The procedure was performed by Dr. Encinas FINDINGS: Original gastrojejunostomy catheter with patent lumens and in appropriatepositions.Newly exchanged gastrojejunostomy catheter confirming thesame. IMPRESSION IMPRESSION: Successful gastrojejunostomy catheter check and exchange. PLAN: Flush tube with 20-30 mL of water before and after each feeding andeach medication. Medications should be in liquid form if possible and ifnot available in liquid form they should be finely crushed, mixed in warmwater and administered individually. Routine maintenance change by IR in 6months. Eagle TRIANA ES [facility] documented in this encounter Administered Medications Inactive Administered Medications - up to 3 most recent administrations Medication Order MAR Action Action Date Dose Rate Site ceFAZolin in dextrose (Ancef) ivpb 2 g 2 g, IV Piggyback, ONCE, 1 dose, On Fri08/22/23 at 1215, Intra-Op New Bag 08/22/2023 12:15 PM EDT 2 g 100 mL/hr isolyte-S pH 7.4 infusion Intravenous, at 10 mL/hr, Plasma-LYTE 148, isolyte-S, and isolyte-S pH 7.4 are considered equivalent - including for MAR barcode scanning., CONTINUOUS, Starting on Fri08/22/23 at 1045, Until Fri08/22/23 at 1616 New Bag 08/22/2023 10:25 AM EDT 10 mL/hr documented in this encounter Active and Recently Administered Medications Times are shown in EDT. Scheduled Medication Order 08/20/2023 08/21/2023 08/22/2023 ceFAZolin in dextrose (Ancef) ivpb 2 g 2 g, IV Piggyback, ONCE, 1 dose, On Fri08/22/23 at 1215, Intra-Op 1215 (New Bag - Prov ider: Lindsay Bustos RN) Continuous Medication Order 08/20/2023 08/21/2023 08/22/2023 isolyte-S pH 7.4 infusion Intravenous, at 10 mL/hr, Plasma-LYTE 148, isolyte-S, and isolyte-S pH 7.4 are considered equivalent - including for MAR barcode scanning., CONTINUOUS, Starting on Fri08/22/23 at 1045, Until Fri08/22/23 at 1616 1025 (New Bag - Prov ider: David Campoverde RN) PRN Medication Order 08/20/2023 08/21/2023 08/22/2023 fentaNYL (PF) inj (CANCELED) ONCE PRN INTRA PROCEDURE, Starting on Fri08/22/23 at 1134, Until Fri08/22/23 at 1142, Intra-Op 1134 (Entry Error - Provider: Lindsay Bustos RN)1136 (Given - Provider: Lindsay Bustos RN) Ioversol (Optiray 320) inj (CANCELED) ONCE PRN INTRA PROCEDURE, Starting on Fri08/22/23 at 1137, Until Fri08/22/23 at 1142, Intra-Op 1137 (Given - Provid er: Eagle Encinas MD) midazolam (Versed) 2 MG/2ML inj (CANCELED) ONCE PRN INTRA PROCEDURE, Starting on Fri08/22/23 at 1134, Until Fri08/22/23 at 1142, Intra-Op 1134 (Entry Error - Provider: Lindsay Bustos RN)1136 (Given - Provider: Lindsay Bustos RN) documented in this encounter Advance Directives Latest Code Status [...] the patient have Health Care Power of Managing Principal? No Care Teams Dry Cell Assembly Machine Tender Relationship Specialty Start Date End Date Kailey Adam MD [address] [place] [address] PCP - General Family Medicine 10/20/18 documented as of this encounter"
--- OUTSIDE RECORDS SUMMARY | 2023-08-27 23:16 | External Medical Summary | Summary of Care ---
Author Name Unknown Organization [facility] Address [address] [place] [address] Phone [phone] Care Team Providers Care Childcare Attendant Name Role Phone Kailey Adam MD Primary Care Provider Reason for Visit * Reason Onset Date Comments Scheduling 06/17/2023 Gastrostomy tube exchange Encounter Details Date Type Department Care Team ([facility] st Contact Info) Description 06/17/2023 Telephone Radiology, [address] [address] Eleanor Eaton, RN Scheduling (Gastrostomy tube exchange) Allergies Active Allergy Reactions Criticality Noted Date Comments Blue Dyes (Parenteral) Edema airway High 07/13/2013 Codeine Hives 06/17/2013 Hydrocodone-Acetaminophen Anaphylaxis High 4 documented as of this encounter (statuses as of 06/30/2023) Medications Medication Sig Dispensed Refills Start Date End Date Status FIORICET 50-300-40 MG PO CAPS Take 1 Capsule by mouth every 4 hours as needed for Headache or Pain, Mild. 0 Active FOLIC ACID 1 MG PO TABS take [...] Tablet by mouth at bedtime. 0 Active SUMAtriptan Succinate 100 MG Tablet Take 1 Tablet by mouth every 2 hours as needed for Migraine. 0 Active ALPRAZolam (XANAX) 0.5 MG Tablet Take 1 Tablet by mouth 2 times a day as needed. 0 06/07/2019 Active Baclofen 20 MG Tablet TAKE ONE TABLET BY MOUTH THREE TIMES DAILY DIRECTED 0 06/07/2019 Active BISACODYL EC 5 MG TBEC TAKE ONE TABLET BY MOUTH DAILY NEEDED FOR CONSTIPATION 0 06/07/2019 Active gabapentin (NEURONTIN) 300 MG Capsule TAKE TWO CAPSULES BY MOUTH THREE TIMES DAILY 0 06/07/2019 Active oxyCODONE HCl 10 MG Oral Tablet (Roxicodone) Take 1 Tablet by mouth every 8 hours as needed for Pain, Breakthrough. 0 Active oxyCODONE HCl 20 MG Oral Tablet Take by mouth every 4 hours as needed for Pain, Moderate or Pain, Severe. 0 Active Multivitamin Adult Oral Tablet Take 1 Tab by mouth daily. 0 Active diphenhydrAMINE HCl 25 MG Oral Capsule Take 1 Capsule by mouth every 6 hours as needed for Itching. 0 Active oxyCODONE HCl 15 MG Oral Tablet (Roxicodone) Take 1 Tablet by mouth every 8 hours as needed for Pain, Severe. 0 Active fentaNYL 75 MCG/HR Transdermal Patch 72 Hour (Duragesic) Place topically on the skin 1 Patch every other day . 0 Active Mupirocin 2 % External Ointment (Bactroban) Apply topically to affected area 2 times a day . Apply to wounds twice daily 22 g 0 05/31/2021 Active Additional Information Patient not taking.Reported on 05/22/2022 Triamcinolone Acetonide 0.1 % External Cream (Aristocort) Apply topically to affected area 2 times a day . Apply to open wounds twice daily 30 g 0 05/31/2021 Active Additional Information Patient not taking.Reported on 05/22/2022 Peptamen 1.5 Oral LiquidIndications:Sev ere protein-calorie malnutrition (HCC),On tube feeding diet Start at 50 mL/hour x24 hours with goal to increase to 62 mL/hour x24 hours (6 cartons daily) 58520 mL 12 01/31/2022 Active Ondansetron 8 MG Oral Tablet Disintegrating (Zofran) Place 1 Tablet under the tongue in the morning and 1 Tablet at noon and 1 Tablet in the evening. 0 04/22/2022 Active SSD 1 % External Cream APPLY TOPICALLY TWICE DAILY 0 12/12/2022 Active documented as of this encounter (statuses as of 06/30/2023) Active Problems Problem Noted Date Diagnosed Date [...] as of this encounter (statuses as of 06/30/2023) Resolved Problems Problem Noted Date Diagnosed Date Resolved Date Encounter for feeding tube placement 01/29/2021 01/29/2021 On total parenteral nutrition (TPN) 01/12/2021 01/29/2021 documented as of this encounter (statuses as of 06/30/2023) Immunizations Name Administration Dates Next Due 07/19/2015, 6,05/03/2014,05/03/19 15,02/21/2014,02/21/2014,01/24/2014,01/24,01/24/2014,11/17/2013,11/17/2013,,10/04/2013,09/14/2013,09/14/2013 Seasonal Influenza, PF, 6 M & above, IM , (FluLaval or Fluzone) 05/31/2021,01/29/2021(Deferred: Patient Refused - provider made aware) documented as of this encounter Social History Tobacco Use Types Packs/Day Years Used Date Smoking Tobacco: Former Cigarettes 20 0 01/03/2001 - 01/03/2021 Smokeless Tobacco: Never Comments:2-4 cigarettes a mo [facility] Alcohol Use Standard Drinks/Week Comments No 0 [...] encounter Miscellaneous Notes * Telephone Encounter - Eleanor Eaton RN - 06/30/2023 2:30 PM EDT Patient called to discuss G-tube. States that she feels that yesterday the tube "pulled out" of itscorrect placement. She states that she "fed it back through and taped it down". Wants to try to have G-tube exchange sooner than Friday because she is afraid that tube will pull out completely. Patient is unable to come tomorrow. Rescheduled patient for procedure on Friday07/02/23. Patient verbalizes understanding of all previously given instructions. * Telephone Encounter - Eleanor Eaton RN - 06/17/2023 3:21 PM EST Patient called to schedule g-tube exchange with Dr. Encinas. Patient is scheduled for procedure on 07/04/23. This is the date that patient prefers. Patient was offered MAC sedation for procedure, however patient declined stating, "I think I will be fine with what they always give me and if I get anesthesia I may have to stay longer. The best thing for me is to get moving and get home." Patient is transitioning from continuous to bolus feedings. Assured patient that we have the type of G-tube she wants for bolus feedings. Patient requests low- profile button style of tube. Informed patient that we may not have the button- type tube in the exact size she needs. Patient states she is ok with using the standard type of tube this time if we need to, but requests that we order the low-profile button tube in her specific size for the next scheduled exchange. Patient identified by: name/birthdate Person taught: Patient METHOD: Lecture-telephone interview Patient Preferred Learning Methods: Lecture-Telephone interview PATIENT EDUCATION SCREENING Education Screening: Patient Motivation Level: Asks Questions and Eager to Learn Language Barrier: no Physical Barrier: N/A LEARNING NEED: Health history interview completed, pre op information given, and questions answeredvia telephone interview. OUTCOME: State / Describe / Explain PATIENT INSTRUCTIONS GIVEN: - Medication Instructions Reviewed - NPO Instructions Reviewed, pt to stop eating 8 hours prior to procedure and stop drinking 2 hoursprior to procedure. -Research Executive required Location and check-in instructions Verbalizes understanding of education: Yes Procedure date at time of Imaging Encounter: 07/04/23 Does the patient have a yellow bar? Did not The Patient was given the opportunity to ask questions concerning the procedure. Signature: Eleanor Eaton RN 06/17/2023 documented in this encounter Plan of Treatment Upcoming Encounters Date Type Department Care Team (Latest Contact Info) Description 07/02/2023 2:42 PM EDT Hospital Encounter OR [facility], Operating Room, [facility] - 4th Floor [address] [place], [place] [address] [address] Eagle Encinas MD [address] [place] [address] 07/02/2023 2:42 PM EDT - 07/02/2023 3:28 PM EDT Surgery OR [facility], Operating Room, [facility] - 4th Floor [address] [place] [address] Eagle Encinas MD [address] [facility] [place] [address] PERCUTANEOUS REPLACE GASTROSTOMY OR CECOSTOMY TUBE WITH FLUORO 08/06/2023 4:00 PM EDT [facility] [address] [place] [address] Yeni Corley MD [address] [place] [address] 08/19/2023 8:20 AM EDT [facility] [address] [place] [address] Kay Valle RDN [address] [place] [address] Scheduled Procedures Name Priority Associated Diagnoses Date/Ti me PERCUTANEOUS REPLACE GASTROSTOMY OR CECOSTOMY TUBE WITH FLUORO On tube feeding diet 07/02/2023 2:42 PM EDT Health Maintenance Due Date Last Done Comments HIV Screening 1981 Hepatitis C Screening 1984 DTaP,Tdap,and Td Vaccines (1 - Tdap) 1985 Hepatitis B (1 of 3 - 19+ 3-dose series) 1985 Mammogram 2006 Cologuard 2011 Colonoscopy 2011 Colorectal Cancer Screening 2011 Fecal Occult Blood Test 2011 Sigmoidoscopy 2011 Zoster Vaccines (1 of 2) 2016 Depression Screening 07/18/2016 07/19/2015 COVID-19 Vaccine ( - 2022-2 4 season) 2022 Influenza Vaccine (FLU shot) (#1) 2022 05/31/2021 TSH 03/13/2023 03/13/2022, 01/03/2021, 11/17/2014 Lipid Panel 05/09/2026 05/09/2021, 01/05/2021, 11/17/2014 GARDASIL-HPV IMMUNIZATION SERIES Aged Out No longer eligible b ased on patient's age to complete this topic MENINGOCOCCAL (MENACTRA/MENVEO) Aged Out No longer eligible b ased on patient's age to complete this topic Pneumococcal Vaccine: Pediatrics (0 to 5 Years) and At-Risk Patients (6 to 64 Years) Aged Out No longer eligible b ased on patient's age to complete this topic documented as of this encounter Medical Devices Implanted Type Area Forest Pathology Professor Device Identifier Shelf Expiration Date Model / Serial / Lot Cath Drainage 12fr [id number] - [id number] Implanted:Qty: 1 on 01/26/2021 at [facility] : INTRV RAD 11/21/2023 [id number] / / [id number] Cath [employer] - [id number] Implanted:Qty: 1 on 01/26/2021 at [facility] : [employer] [id number] 11/14/2023 [id number] / / [id number] Stent Axios [id number] - [id number] Implanted:Qty: 1 on 05/28/2021 by Judah Hutchinson MD at ENDOSCOPY [facility] : ENDOSCOPY 11/14/2021 [id number] / / documented as of this encounter [...] the patient have Health Care Power of Counter Installer? No Care Teams Childcare Attendant Relationship Specialty Start Date End Date Kailey Adam MD [address] [place] [address] PCP - General Family Medicine 10/20/18 documented as of this encounter
--- OUTSIDE RECORDS SUMMARY | 2023-08-27 23:16 | External Medical Summary | Summary of Care ---
Author Name Unknown Organization [facility] Address [address] [place] [address] Phone [phone] Care Team Providers Care Mica Miner Name Role Phone Kailey Adam MD Primary Care Provider Reason for Referral * Precert (Within 10 days (routine)) - Pending Review Specialty Diagnoses / Procedures Referred By Maryana dang Referred To Contact Radiology Diagnoses On tube feeding diet Procedures IR GASTROINTESTINAL OSTOMY Eagle Encinas MD [address] [place] [address] Referral ID Status Reason Start Date Expiration Date V isits Requested Visits Authorized [id number] Pending Review 06/11/2023 50 50 Encounter Details Date Type Department Care Team (Late st Contact Info) Description 06/11/2023 Orders Only [facility] OUTPATIENT DO NOT DELETE USED FOR ZLABPROG AND AYGSLOP1 Eagle Encinas MD [address] [facility] [place] [address] On tube feeding diet* Allergies Active Allergy Reactions Criticality Noted Date Comments Blue Dyes (Parenteral) Edema airway High 07/13/2013 Codeine Hives 06/17/2013 Hydrocodone-Acetaminophen Anaphylaxis High 4 documented as of this encounter (statuses as of 06/11/2023) Medications Medication Sig Dispensed Refills Start Date [...] 62 mL/hour x24 hours (6 cartons daily) [address] mL 12 01/31/2022 Active Ondansetron 8 MG Oral Tablet Disintegrating (Zofran) Place 1 Tablet under the tongue in the morning and 1 Tablet at noon and 1 Tablet in the evening. 0 04/22/2022 Active SSD 1 % External Cream APPLY TOPICALLY TWICE DAILY 0 12/12/2022 Active documented as of this encounter (statuses as of 06/11/2023) Active Problems Problem Noted Date Diagnosed Date [...] as of this encounter (statuses as of 06/11/2023) Resolved Problems Problem Noted Date Diagnosed Date Resolved Date Encounter for feeding tube placement 01/29/2021 01/29/2021 On total parenteral nutrition (TPN) 01/12/2021 01/29/2021 documented as of this encounter (statuses as of 06/11/2023) Immunizations Name Administration Dates Next Due 07/19/2015, [...] (15 years old or older) Yes 05/27/19 22 Cognitive Status Response Date of Assessm ent Because of a physical, menta l, or emotional condition, do you have serious difficulty concentrating, remembering, or making decisions? (5 years old or older) No 05/27/2021 documented as of this encounter Plan of Treatment Upcoming Encounters Date Type Department Care Team (Late st Contact Info) Description 06/24/2023 11:40 AM EST Telemedicine Nutrition & Weight Management, [facility] [address] [place] [address] Yeni Corley MD [address] [place] [address] 08/19/2023 8:20 AM EDT Telemedicine Nutrition & Weight Management, [facility] [address] [place] [address] Kay Valle RDN [address] [place] [address] Scheduled Orders Name Type Priority Associated Diagnoses Order Schedule IR GASTROINTESTINAL OSTOMY Medical Imaging Routine On tube feeding diet 50 Occurrences starting 06/11/2023 until 07/09/2024 Health Maintenance Due Date Last Done Comments HIV Screening 1981 Hepatitis C Screening 1984 DTaP,Tdap,and Td Vaccines (1 - Tdap) 1985 Hepatitis B (1 of 3 - 19+ 3-dose series) 1985 Mammogram 2006 Cologuard 2011 Colonoscopy 2011 Colorectal Cancer Screening 2011 Fecal Occult Blood Test 2011 Sigmoidoscopy 2011 Zoster Vaccines (1 of 2) 2016 Depression Screening 07/18/2016 07/19/2015 COVID-19 Vaccine (1 - 2022-2 4 season) 2022 Influenza Vaccine [...] this encounter Medical Devices Implanted Type Area Landfill Attendant Device Identifier Shelf Expiration Date Model / Serial / Lot Cath Drainage 12fr [id number] - [id number] Implanted:Qty: 1 on 01/26/2021 at [facility] : INTRV RAD 11/21/2023 [id number] / / [id number] Cath [employer] - [id number] Implanted:Qty: 1 on 01/26/2021 at [facility] : [employer] [id number] 11/14/2023 [id number] / / [id number] Stent Axios [id number] - [id number] Implanted:Qty: 1 on 05/28/2021 by Judah Hutchinson MD at [facility] [employer] : ENDOSCOPY 11/14/2021 [id number] / / documented as of this encounter Visit Diagnoses Diagnosis On tube feeding diet- Primary documented in this encounter Advance Directives Latest [...] the patient have Health Care Power of Cloud Services Architect? No Care Teams Mica Miner Relationship Specialty Start Date End Date Kailey Adam MD [address] [place] [address] PCP - General Family Medicine 10/20/18 documented as of this encounter
--- OUTSIDE RECORDS SUMMARY | 2023-08-27 23:16 | External Medical Summary | Summary of Care ---
Author Name Unknown Organization [facility] Address [address] [place] [address] Phone [phone] Care Team Providers Care General Duty Nurse Name Role Phone Kailey Adam MD Primary Care Provider Reason for Referral * Evaluate & Treat - Unlimited Visits (Within 30 days (routine)) - Pending Review Specialty Diagnoses / Procedures Referred By Maryana dang Referred To Contact Hospice and Palliative Medicine / Palliative Medicine Diagnoses On tube feeding diet H/O gastric bypass Moderate malnutrition (HCC) Yeni Corley MD [address] [place] [address] Referral ID Status Reason Start Date Expiration Date Visits Requested Visits Authorized [id number] Pending Review Specialty Services Required 06/23/[phone] Question Answer Referral Priority Within 30 days (routine) Where should this appointment be scheduled? [facility] Reason for Referral: Other - Specify in Comments - Re-establish with palliative for ongoing goals of care Palliative Medicine To Address: Goals of Care Referral Location Office Encounter Details Date Type Department Care Team (Late st Contact Info) Description 05/23/2023 9:40 AM EST Telemedicine Nutrition & Weight Management, [facility] [address] [place] [address] Yeni Corley MD [address] [place] [address] On tube feeding diet*; H/O gastric bypass; Moderate malnutrition (HCC) Allergies Active Allergy Reactions Criticality Noted Date Comments Blue Dyes (Parenteral) Edema airway High 07/13/2013 Codeine Hives 06/17/2013 Hydrocodone-Acetaminophen Anaphylaxis High 4 documented as of this encounter (statuses as of 06/23/2023) Medications Medication Sig Dispensed Refills Start Date [...] 62 mL/hour x24 hours (6 cartons daily) 71441 mL 12 01/31/2022 Active Ondansetron 8 MG Oral Tablet Disintegrating (Zofran) Place 1 Tablet under the tongue in the morning and 1 Tablet at noon and 1 Tablet in the evening. 0 04/22/2022 Active SSD 1 % External Cream APPLY TOPICALLY TWICE DAILY 0 12/12/2022 Active documented as of this encounter (statuses as of 06/23/2023) Active Problems Problem Noted Date Diagnosed Date [...] as of this encounter (statuses as of 06/23/2023) Resolved Problems Problem Noted Date Diagnosed Date Resolved Date Encounter for feeding tube placement 01/29/2021 01/29/2021 On total parenteral nutrition (TPN) 01/12/2021 01/29/2021 documented as of this encounter (statuses as of 06/23/2023) Immunizations Name Administration Dates Next Due 07/19/2015, [...] Sign Reading Time Taken Comments Blood Pressure - - Pulse - - Temperature - - Respiratory Rate - - Oxygen Saturation - - Inhaled Oxygen Concentration - - Weight 58.1 kg (128 lb) 05/23/2023 12:26 PM EST pt reported Height 165.1 cm (5' 5") 05/23/2023 12:26 PM EST Body Mass Index 21.3 05/23/2023 12:26 PM EST documented in this encounter Functional Status Functional [...] No 05/27/2021 documented as of this encounter Progress Notes * Yeni Corley MD - 06/23/2023 8:09 PM EST MALNUTRITION/BARIATRIC CLINIC RETURN After connecting to the patient via telephone, the patient was identified by name and date of . Patient was then informed that this was a telephone call only visit. The patient agreed to participate. Visit Disposition: Routine follow-up Total call duration was 40 minutes. Referring Physician: Kailey Adam MD Source of information: Patient Available records reviewed: Recent provider visits, Imaging and Labs Reason for Referral: Malnutrition HPI: Leyla Pichardo is a 58 year old female with a PMH of Ehler-Danlos Syndrome, Chronic Pain, spina bifida , Chiari Malformation s/p multiple surgeries, s/p open RYGB (1998 in [place]) c/b bowel obstructions 2/2 adhesions requiring multiple abdominal surgeries, malnutrition s/p P-TEG [percutaneous transe sophageal jejunostomy] (placed by IR on 01/26/21), chronic headaches, POTS, hypothyroidism. She has hx of GI surgeries, but no prior surgical records in chart to confirm She was admitted 01/03/21-01/29/21 for a scheduled admission due to ongoing weight loss and plan forfeeding tube placement. GI and MIS were consulted to place tube, but did not feel safe placing PEG tube due to Arian-en-Y and multiple bowel surgeries. IR was consulted for PEG placement, they recommended PTEG placement due to multiple clogging of the core flow. She was started on TPN to bridge until tube placement. She underwent PTEG placement by IR on 01/26/21. Tolerated tube feeds well and PICCline removed prior to discharge. Feeding Tube was successful replaced by IR and functioning well Current wt = 128 lbs pt reported Since then has been trying to sustain nutrition via po Formula Cartons 3-5x, gatorade, some food Overall has been Feeling well with nutrition and health progress. Has noticed wt gain. Denies any issues with tube feeds. MVI chewable B12 shots weekly Want to be more independent. Wondering if able to convert to G-tube for quality of life. - [employer] care company = [employer] [phone] REVIEW OF SYSTEMS: All other review of systems are negative except for as stated above. WEIGHT HISTORY: Wt Readings from Last 8 Encounters: 05/23/23 58.1 kg (128 lb) 05/23/23 58.1 kg (128 lb) 03/19/23 56.7 kg (125 lb) 01/03/23 56.7 kg (125 lb) 05/22/22 50.8 kg (112 lb) 02/15/22 49.9 kg (110 lb 0.2 oz) 09/06/21 49.9 kg (110 lb 1.6 oz) 07/20/21 46.3 kg (102 lb) Body mass index is 21.3 kg/m. Lowest body weight is 85 pounds (self reported) on 12/27/2020 Highest body weight is : - per chart = 149 pounds 09/01/2013 - per pt > 300 lb prior to RYGB Usual BW: hard to say since her wt loss surgery and followed by poor nutrition, she is not sure Past Medical History: Diagnosis Date Chiari malformation Diarrhea Gastric bypass status for obesity Headache(784.0) Hx of gastric bypass Hypoglycemia Hypothyroid Insomnia Past Surgical History: Procedure Laterality Date EGD, FLEXIBLE, DIAGNOSTIC N/A 01/10/2021 ESOPHAGOGASTRODUODENOSCOPY (EGD), FLEXIBLE, TRANSORAL, DIAGNOSTIC performed by Marily Downs MD [facility] EGD, FLEXIBLE, DIAGNOSTIC N/A 09/06/2021 ESOPHAGOGASTRODUODENOSCOPY (EGD), FLEXIBLE, TRANSORAL, DIAGNOSTIC performed by Judah Hutchinson MD at [facility]COPY [facility] EGD, W/ENDOSCOPIC US N/A 05/28/2021 ESOPHAGOGASTRODUODENOSCOPY (EGD), FLEXIBLE, TRANSORAL, ENDOSCOPIC ULTRASOUND performed by Judah Brenner MD at [facility]COPY [facility] GASTRIC BYPASS FOR OBESITY IR GASTROINTESTINAL OSTOMY 01/26/2021 IR GASTROINTESTINAL OSTOMY 05/29/2021 IR GASTROINTESTINAL OSTOMY 09/19/2021 IR GASTROINTESTINAL OSTOMY 09/13/2022 IR GASTROINTESTINAL OSTOMY 12/16/2022 IR TUBE REPLACEMENT GASTROSTOMY PERCUTANEOUS OR CECOSTOMY N/A 02/15/2022 PERCUTANEOUS REPLACE GASTROSTOMY OR CECOSTOMY TUBE WITH FLUORO performed by Juan Antonio Carter MD at OR [facility] IR TUBE REPLACEMENT GASTROSTOMY PERCUTANEOUS OR CECOSTOMY N/A 05/22/2022 PERCUTANEOUS REPLACE GASTROSTOMY OR CECOSTOMY TUBE WITH FLUORO performed by Aashish Morin DO at OR [facility] IR TUBE REPLACEMENT GASTROSTOMY PERCUTANEOUS OR CECOSTOMY Left 03/19/2023 PERCUTANEOUS REPLACE GASTROSTOMY OR CECOSTOMY TUBE WITH FLUORO performed by Bryant Mo DO at OR [facility] Social History Socioeconomic History Marital status: Spouse name: Not on file Number of children: Not on file Years of education: Not on file Highest education level: Not on file Occupational History Not on file Tobacco Use Smoking status: Former Current packs/day: 0.00 Types: Cigarettes Start date: 01/03/2001 Quit date: 01/03/2021 Years since quittin.4 Smokeless tobacco: Never Tobacco comments: 2-4 cigarettes [...] Allergen Reactions Blue Dyes (Parenteral) Edema airway Vicodin [Hydrocodone-Acetaminophen] Anaphylaxis Codeine Hives Current Outpatient Medications Medication Sig Dispense Refill FIORICET 50-300-40 MG PO CAPS Take 1 Capsule by mouth every 4 hours as needed for Headache or Pain,Mild. FOLIC ACID 1 MG PO TABS take once daily levothyroxine (LEVOXYL) 75 MCG Tablet take once a day CYANOCOBALAMIN 1000 MCG/ML IJ SOLN Inject into a large muscle once a week. fentaNYL (DURAGESIC) 100 MCG/HR Place 1 Patch topically on the skin every other day. lidocaine (LIDODERM) 5 % Place 1 Patch topically on the skin every 12 hours as needed. (Patient nottaking: Reported on 03/19/2023) Magnesium 400 MG Capsule Take 1 Capsule by mouth in the morning. omeprazole (PRILOSEC) 20 MG CPDR Take 1 Capsule by mouth in the morning. QUEtiapine (SEROQUEL) 50 MG Tablet Take 1 Tablet by mouth at bedtime. SUMAtriptan Succinate 100 MG Tablet Take 1 Tablet by mouth every 2 hours as needed for Migraine. ALPRAZolam (XANAX) 0.5 MG Tablet Take 1 Tablet by mouth 2 times a day as needed. Baclofen 20 MG Tablet TAKE ONE TABLET BY MOUTH THREE TIMES DAILY DIRECTED BISACODYL EC 5 MG TBEC TAKE ONE TABLET BY MOUTH DAILY NEEDED FOR CONSTIPATION gabapentin (NEURONTIN) 300 MG Capsule TAKE TWO CAPSULES BY MOUTH THREE TIMES DAILY oxyCODONE HCl 10 MG Oral Tablet (Roxicodone) Take 1 Tablet by mouth every 8 hours as needed for Pain, Breakthrough. oxyCODONE HCl 20 MG Oral Tablet Take by mouth every 4 hours as needed for Pain, Moderate or Pain, Severe. Multivitamin Adult Oral Tablet Take 1 Tab by mouth daily. diphenhydrAMINE HCl 25 MG Oral Capsule Take 1 Capsule by mouth every 6 hours as needed for Itching. oxyCODONE HCl 15 MG Oral Tablet (Roxicodone) Take 1 Tablet by mouth every 8 hours as needed for Pain, Severe. fentaNYL 75 MCG/HR Transdermal Patch 72 Hour (Duragesic) Place topically on the skin 1 Patch every other day . (Patient not taking: Reported on 05/22/2022) Mupirocin 2 % External Ointment (Bactroban) Apply topically to affected area 2 times a day . Apply to wounds twice daily (Patient not taking: Reported on 05/22/2022) 22 g 0 Triamcinolone Acetonide 0.1 % External Cream (Aristocort) Apply topically to affected area 2 times a day . Apply to open wounds twice daily (Patient not taking: Reported on 05/22/2022) 30 g 0 Peptamen 1.5 Oral Liquid Start at 50 mL/hour x24 hours with goal to increase to 62 mL/hour x24 hours (6 cartons daily) 04862 mL 12 Ondansetron 8 MG Oral Tablet Disintegrating (Zofran) Place 1 Tablet under the tongue in the morningand 1 Tablet at noon and 1 Tablet in the evening. SSD 1 % External Cream APPLY TOPICALLY TWICE DAILY No current facility-administered medications for this visit. Current TPN order: None Cycled: N/A Current EN formula/hours: Peptamen 1.5 @ 62 ml/hr continuous (6 cartons daily) - tolerating Current Diet: Per RDN visit today EXERCISE HISTORY: Minimal, mostly laying in bed Able to bear weight more and attempt walking PHYSICAL EXAMINATION: PN Access: No EN Access: transesophageal (P-TEG) feeding tube Filed Vitals: 05/23/23 1226 Weight: 58.1 kg (128 lb) Height: 1.651 m (5' 5") Constitution: no acute distress, chronically ill appearing, laying in bed HEENT: appears normocephalic and atraumatic, normal sclera Cardiovascular: appears perfused Lungs: appears to have normal respiratory effort, talking comfortably with no distress or work of breathing. No audible cough or wheeze. Extremities: b/l UE appear normal with normal tone as she holds the phone up in her hands Skin: no visible rashes on face Neuro: awake, alert, appropriately interactive, normal speech Psych: calm mood and affect Labs/IMAGING: Reviewed in [facility] ASSESSMENT AND PLAN: MALNUTRITION: Ms. Pichardo is a 58 year old female with a past medical history listed above, who presents to the GI Nutrition department for follow up. Malnutrition s/p P-TEG Tube feedings - Cont tube feeds as above -Given weight and nutrition so far, pt is doing relatively well. For her quality of life (to be less attached for continuous feeds) she is wondering if she is able to convert PTEG to G-tube. Our teamhas no issue with this for optimizing her quality of life. She wants to be more independent since her has cancer, to care for herself and him. Counseled pt that the IR would have to be the ones who can determine if the coversion/procedure would be possible. Will send message to them. Pt prefers [place] location; closer to home. -Pt also requesting to meet back with Palliative. Will place referral. -Continue RDN recs and f/u s/p open RYGB (1998 in [place]) c/b bowel obstructions 2/2 adhesions requiring multiple abdominal surgeries - MVI chewable BID - B12 1000 mcg shots weekly - Ca 9585-4960 mg daily - Vit D3 1000 IU daily until 25 (OH)D > 30 ng/mL - BOLD Labs due : 02/2024 RTC 3-6 mon Time spent: 30 minutes were spent in the care of this patient. More than half of my time was spent on counseling the patient about his/her nutritional status and coordinating care with the staff.. Yeni Corley MD [facility] for Nutrition and Weight Management documented in this encounter Plan of Treatment Upcoming Encounters Date Type Department Care Team (Latest Contact Info) Description 07/04/2023 11:30 AM EDT Hospital Encounter OR [facility], Operating Room, [facility] - 4th Floor [address] [place] [address] Eagle Encinas MD [address] [place] [id number] 07/04/2023 11:30 AM EDT - 07/04/2023 12:16 PM EDT Surgery OR [facility], Operating Room, [facility] - 4th Floor [address] [place] [address] Eagle Encinas MD [address] [place] [address] [place] [address] PERCUTANEOUS REPLACE GASTROSTOMY OR CECOSTOMY TUBE WITH FLUORO 08/06/2023 4:00 PM EDT Telemedicine Nutrition & Weight Management, [address] [address] Yeni Corley MD [facility] [place] [address] 08/19/2023 8:20 AM EDT Telemedicine Nutrition & Weight Management, [address] [address] Kay Valle, [place] [address] [place] [address] Scheduled Procedures Name Priority Associated Diagnoses Date/Ti me PERCUTANEOUS REPLACE GASTROSTOMY OR CECOSTOMY TUBE WITH FLUORO On tube feeding diet 07/04/2023 11:30 AM EDT Scheduled Referrals Name Type Priority Associated Diagnoses Orde r Schedule PALLIATIVE CARE REFERRAL OP Referral Within 30 days (routine) On tube feeding diet H/O gastric bypass Moderate malnutrition (HCC) Ordered: 06/23/2023 Health Maintenance Due Date Last Done Comments [...] this encounter Medical Devices Implanted Type Area Wealth Management Director Device Identifier Shelf Expiration Date Model / Serial / Lot Cath Drainage 12fr [id number] - [id number] Implanted:Qty: 1 on 01/26/2021 at [facility] : INTRV RAD 11/21/2023 [id number] / / [id number] [employer] - [id number] Implanted:Qty: 1 on 01/26/2021 at [facility] : [employer] [id number] 11/14/2023 [id number] / / [id number] [employer] [id number] - [id number] Implanted:Qty: 1 on 05/28/2021 by Judah Hutchinson MD at [facility] : [facility]COPY 11/14/2021 [id number] / / documented as of this encounter Visit Diagnoses Diagnosis On tube feeding diet- Primary H/O gastric bypass Bariatric surgery status Moderate malnutrition (HCC) Malnutrition of moderate degree On tube feeding diet documented in this encounter Advance Directives Latest [...] the patient have Health Care Power of Drier And Evaporator Operator? No Care Teams General Duty Nurse Relationship Specialty Start Date End Date Kailey Adam MD [address] [place] [address] PCP - General Family Medicine 10/20/18 documented as of this encounter
--- OUTSIDE RECORDS SUMMARY | 2023-08-27 23:16 | External Medical Summary | Summary of Care ---
Author Name Unknown Organization [facility] Address [address] [facility] [place] [address] Phone [phone] Care Team Providers Care Ampoule Filler And Sealer Name Role Phone Kailey Adam MD Primary Care Provider Reason for Visit * Auth/Cert Specialty Diagnoses / Procedures Referred By Maryana dang Referred To Contact Diagnoses On tube feeding diet On tube feeding diet [Z78.9] Procedures IR TUBE REPLACEMENT GASTROSTOMY PERCUTANEOUS OR CECOSTOMY PERCUTANEOUS REPLACE GASTROSTOMY OR CECOSTOMY TUBE WITH FLUORO Eagle Encinas MD [address] [place] [address] [facility] [address] [place] [address] Referral ID Status Reason Start Date Expiration Date Visits Re quested Visits Authorized [id number] Encounter Details Date Type Department Care Team (Latest Contact Info) Description 07/02/2023 1:49 PM EDT - 07/02/2023 3:54 PM EDT Hospital Encounter OR [facility], Operating Room, [facility] - 4th Floor [address] [address] Eagle Encinas MD [address] [address] Discharge Disposition: Home - Self Care Allergies Active Allergy Reactions Criticality Noted Date Comments Blue Dyes (Parenteral) Edema airway High 07/13/2013 Codeine Hives 06/17/2013 Hydrocodone-Acetaminophen Anaphylaxis High 4 documented as of this encounter (statuses as of 07/03/2023) Medications Medication Sig Dispensed Refills Start Date [...] DAILY NEEDED FOR CONSTIPATION 0 0 Active gabapentin (NEURONTIN) 300 MG Capsule TAKE TWO CAPSULES BY MOUTH THREE TIMES DAILY 0 0 Active Multivitamin Adult Oral Tablet [...] not taking.Reported on 05/22/2022 Peptamen 1.5 Oral LiquidIndications:Marily koch protein-calorie malnutrition (HCC),On tube feeding diet Start at 50 mL/hour x24 hours with goal to increase to 62 mL/hour x24 hours (6 cartons daily) [address]201 mL 12 2 Active Ondansetron 8 MG [...] by mouth in the morning. 0 Active FIORICET 50-300-40 MG PO CAPS Take 1 Capsule by mouth every 4 hours as needed for Headache or Pain, Mild. 0 07/02/19 24 Discontinued SUMAtriptan Succinate 100 MG Tablet Take 1 Tablet by mouth every 2 hours as needed for Migraine. 0 07/02/19 24 Discontinued oxyCODONE HCl 10 MG Oral Tablet (Roxicodone) Take 1 Tablet by mouth every 8 hours as needed for Pain, Breakthrough. 0 07/02/19 24 Discontinued oxyCODONE HCl 20 MG Oral Tablet Take by mouth every 4 hours as needed for Pain, Moderate or Pain, Severe. 0 07/02/19 24 Discontinued oxyCODONE HCl 15 MG Oral Tablet (Roxicodone) Take 1 Tablet by mouth every 8 hours as needed for Pain, Severe. 0 07/02/19 24 Discontinued documented as of this encounter (statuses as of 07/03/2023) Active Problems Problem Noted Date Diagnosed Date [...] as of this encounter (statuses as of 07/03/2023) Resolved Problems Problem Noted Date Diagnosed Date Resolved Date Encounter for feeding tube placement 01/29/2021 01/29/2021 On total parenteral nutrition (TPN) 01/12/2021 01/29/2021 documented as of this encounter (statuses as of 07/03/2023) Immunizations Name Administration Dates Next Due 07/19/2015, [...] Sign Reading Time Taken Comments Blood Pressure 95/62 07/02/2023 3:52 PM EDT Pulse 55 07/02/2023 3:52 PM EDT Temperature 36 C (96.8 F) 07/02/2023 3:52 PM EDT Respiratory Rate 16 07/02/2023 3:52 PM EDT Oxygen Saturation 97% 07/02/2023 3:52 PM EDT Inhaled Oxygen Concentration - - Weight 58.1 kg (128 lb) 07/02/2023 2:04 PM EDT Height 165.1 cm (5' 5") 07/02/2023 2:04 PM EDT Body Mass Index 21.3 07/02/2023 2:04 PM EDT documented in this encounter Functional Status Functional [...] Instr - AVS* Eagle Encinas MD - 07/02/2023 3:11 PM EDT Discharge Date: 07/02/2023 Provider: Dr. Eagle Encinas If you are experiencing any problems related to your procedure, please contact Interventional Radiology at [phone] during normal business hours: Friday- Friday 7:30 am - 4 pm. If a problem occursoutside of normal business hours, please call the hospital computer operator at [phone] and ask for theInterventional Radiologist steel division supervisor. Contact scheduling for Interventional Radiology at [phone] during normal business hours: Friday-Friday, 7:30 am [...] is not taken through. Home Care You may resume normal diet as tolerated. If you experience pain or discomfort at [...] If you do not hear from a home health scheduler, call Interventional Radiology at [phone] during normal business hours: Friday through Friday [...] feel you are having a medical emergency, [email or web address] for emergency assistance. Chest Pain Sudden, severe shortness of breath Rapid heart rate Sudden onset of weakness Coughing up blood See your referring physician for follow-up appointment. Do not smoke or use tobacco products in any way! If you feel suicidal or homicidal, please call the crisis hotline at [phone] ([phone]) MODERATE SEDATION You may have received medication [...] directed. Driving: You may resume driving 2 days . Diet: You may resume your current diet as tolerated. Return to work or school: You may return to school or work 2 days days after the procedure, unless otherwise instructed by the physician. documented in this encounter Progress Notes * Eagle Encinas MD - 07/02/2023 3:10 PM EDT [address] [address] OUTPATIENT SURGERY DISCHARGE SUMMARY NOTE Name: Leyla Pichardo Location: [facility] Date: 07/02/2023 Time: 3:11 PM Surgery Date: 07/02/2023 Procedure: Procedure(s): PERCUTANEOUS REPLACE GASTROSTOMY OR CECOSTOMY TUBE WITH FLUORO Left Surgeon: Surgeon(s): Eagle Encinas MD Discharge Diagnosis: gastrostomy exchange After examination of this patient, I have determined she is ready for discharge to home when the patient meets criteria. Discharge instructions were given to the patient. documented in this encounter H&P Notes * Eagle Encinas MD - 07/02/2023 2:10 PM EDT HISTORY & PHYSICAL - Interventional Radiology Service [facility] [facility] [place] [address] Name: Leyla Pichardo Location: OR [facility]/OR Date: 07/02/2023 Time: 2:10 PM CHIEF COMPLAINT: Gastrostomy exchange HISTORY OF PRESENT ILLNESS: gastrostomy exchange. Balloon popped on Sat after catheter fell out. Tract maintained by since Sat. 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 unable to keep up with oral nutrition had a percutaneous gastrostomy tube placed for enteral access Past Surgical History: Procedure Laterality Date EGD, FLEXIBLE, DIAGNOSTIC N/A 01/10/2021 ESOPHAGOGASTRODUODENOSCOPY (EGD), FLEXIBLE, TRANSORAL, DIAGNOSTIC performed [facility] [place], FLEXIBLE, DIAGNOSTIC N/A 09/06/2021 ESOPHAGOGASTRODUODENOSCOPY (EGD), FLEXIBLE, TRANSORAL, DIAGNOSTIC performed by Judah Hutchinson MD at [facility] [place]GD, W/ENDOSCOPIC US N/A 05/28/2021 ESOPHAGOGASTRODUODENOSCOPY (EGD), FLEXIBLE, TRANSORAL, ENDOSCOPIC ULTRASOUND performed by Judah Brenner MD at [facility] GASTRIC BYPASS FOR OBESITY IR GASTROINTESTINAL OSTOMY 01/26/2021 IR GASTROINTESTINAL OSTOMY 05/29/2021 IR GASTROINTESTINAL OSTOMY 09/19/2021 IR GASTROINTESTINAL OSTOMY 09/13/2022 IR GASTROINTESTINAL OSTOMY 12/16/2022 IR TUBE REPLACEMENT GASTROSTOMY PERCUTANEOUS OR CECOSTOMY N/A 02/15/2022 PERCUTANEOUS REPLACE GASTROSTOMY OR CECOSTOMY TUBE WITH FLUORO performed by Juan Antonio Carter MD at OR [facility] IR TUBE REPLACEMENT GASTROSTOMY PERCUTANEOUS OR CECOSTOMY N/A 05/22/2022 PERCUTANEOUS REPLACE GASTROSTOMY OR CECOSTOMY TUBE WITH FLUORO performed by Aashish Morin DO at OR [facility] IR TUBE REPLACEMENT GASTROSTOMY PERCUTANEOUS OR CECOSTOMY Left 03/19/2023 PERCUTANEOUS REPLACE GASTROSTOMY OR CECOSTOMY TUBE WITH FLUORO performed by Bryant Mo DO at OR [facility] Social History Socioeconomic History Marital [...] airway Vicodin [Hydrocodone-Acetaminophen] Anaphylaxis Codeine Hives Current Facility-Administered Medications Medication Dose Route Frequency Provider Last Rate Last Admin isolyte-S pH 7.4 infusion Intravenous Continuous Eagle Encinas MD REVIEW OF SYSTEMS: Constitutional: (-) fever chills sweats or weight loss Cardiovascular: (-) negative: no chest pain, dyspnea, syncope, or palpitations Pulmonary: (-) negative: no cough, wheezing, or shortness of breath Abdominal/GI: (-) negative: no pain, heartburn, dysphagia, bleeding, change in bowel habits, nauseaor vomiting OBJECTIVE: BP 97/57 | Pulse 63 | Temp 36.1 C (97 F) (Temporal Artery) | Resp 18 | Ht 1.651 m (5' 5") | Wt 58.1 kg (128 lb) | LMP (LMP Unknown) | SpO2 94% | BMI 21.30 kg/m | BSA 1.63 m PHYSICAL EXAM: Constitutional: no acute distress CV: [...] Results Component Value Date/Time BUN - [facility] 4 (L) 09/04/2022 10:27 AM BUN - [facility] 5 (L) 03/13/2022 10:19 AM BUN - [facility] 9 08/24/2021 09:33 AM BUN - [facility] 10 01/06/2019 10:00 AM BUN - [facility] 7 12/30/2018 09:51 AM BUN - [facility] 4 (L) 11/11/2018 11:20 AM BUN - [facility] 4 (L) 11/11/2018 11:20 AM BUN - [facility] 4 (L) 11/11/2018 11:20 AM BUN - [facility] 4 (L) 11/11/2018 11:20 AM Creatinine Results: Lab Results Component Value Date/Time CREATININE - [facility] 0.5 09/04/2022 10:27 AM CREATININE - [facility] 0.5 03/13/2022 10:19 AM CREATININE - [facility] 0.5 08/24/2021 09:33 AM CREATININE - [facility] 0.5 01/06/2019 10:00 AM CREATININE - [facility] 0.5 12/30/2018 09:51 AM CREATININE - [facility] 0.6 11/11/2018 11:20 AM CREATININE - [facility] 0.6 11/11/2018 11:20 AM CREATININE - [facility] 0.6 11/11/2018 11:20 AM CREATININE - [facility] 0.6 11/11/2018 11:20 AM CREATININE-[facility] 0.5 07/10/2016 06:45 AM CREATININE-[facility] 0.5 07/10/2016 06:45 AM Potassium Results: Lab Results Component Value Date/Time POTASSIUM - [facility] 3.6 09/04/2022 10:27 AM POTASSIUM - [facility] 4.8 03/13/2022 10:19 AM POTASSIUM - [facility] 5.0 08/24/2021 09:33 AM POTASSIUM - [facility] 5.6 (H) 01/06/2019 10:00 AM POTASSIUM - [facility] 5.3 (H) 12/30/2018 09:51 AM POTASSIUM - [facility] 5.9 (H) 11/11/2018 11:20 AM POTASSIUM - [facility] 5.9 (H) 11/11/2018 11:20 AM POTASSIUM - [facility] 5.9 (H) 11/11/2018 11:20 AM POTASSIUM - [facility] 5.9 (H) 11/11/2018 11:20 AM POTASSIUM-[facility] 4.5 07/10/2016 06:45 AM POTASSIUM-[facility] 4.5 07/10/2016 06:45 AM INFORMED CONSENT: Yes PRE-SEDATION ASSESSMENT: Gastrostomy Exchange Level of sedation planned: Moderate Patient's allergies reviewed: Yes H&P Review / Interval Note Documentation: There is no H&P on file. Difficulty with sedation / anesthesia: No Sleep apnea: No History of snoring: Yes History of difficult intubation: No Decreased ROM neck flexion/extension: No Tracheal deviation: No Decreased ability to open mouth / TMJ: No Loose teeth / dentures / partial: No Congenital deformities / abnormalities: No Dysphagia: No Mallampati Classification: II - soft palate, uvula, fauces visible Chest: Clear Heart: Regular Rhythm Adequate Vascular Access: Yes ASA Risk Stratification (Select One): ASA 2 - Mild systemic disease, no functional limitations The patient was identified and the procedure verified: Yes IMPRESSION/PLAN: Gastrostomy exchange Eagle Encinas MD documented in this encounter Nursing Notes * Jairo Dailey RN - 07/02/2023 2:52 PM EDT Pt condition was reassessed by Dr. Eagle Encinas immediately prior to start of moderate sedation and procedure. documented in this encounter OR Notes * OR Surgeon - Eagle Encinas MD - 07/02/2023 3:34 PM EDT Procedure: [Fluoro]-guided percutaneous gastrostomy exchange. July 02, 2023 INDICATION: [Gastrostomy exchange. Catheter fell out Sat. Tract maintained by .] ATTENDING (OPERATING PHYSICIAN): [Ce] CONSENT: After a detailed discussion of the procedure, risks, benefits and alternative treatment options, informed consent was obtained. TIME OUT: A time out procedure was performed. The patient's identification was verified. Informed consent with agreement of procedure, site and position was obtained. All necessary equipment was available prior to procedure. CONTRAST: IV Optiray 320. COMPLICATIONS: None. ANESTHESIA: [Local lidocaine.] [IV Versed.] [IV Fentanyl.] SEDATION TIME: [Start to end: [7688-5555]. Qualified nurse sedation observer [Eleanor Barbosa, RN.] MEDICATIONS: See MAR PROCEDURE DESCRIPTION: The patient was placed supine on the fluoroscopy table and prepped and draped in the usual sterile fashion. Initial fluoroscopic examination demonstrates that the gastrostomy is projected over the expected location of the gastric remnant. Contrast was injected confirming rugal folds. The old catheter was removed over a Amplatz wire. The stoma length was measured at 3.25 cm.A new low-profile gastrostomy was placed into the stomach. Contrast was injected confirming position within the stomach. The balloon was inflated with 5 mL dilute contrast. The patient tolerated the procedure well The procedure was performed by Dr Encinas. Findings: Gastrostomy in good position Impression: Successful percutaneous placement of a low-profile gastrostomy catheter. * Operative Report Brief - Eagle Encinas MD - 07/02/2023 3:09 PM EDT PROCEDURE NOTE - Interventional Radiology [facility]-[address] [address] Name: Leyla Pichardo Location: OR [facility]/OR Date: 07/02/2023 Time: 3:09 PM PROCEDURE: gastrostomy public health epidemiologist: Dr. Eagle Encinas ANESTHESIA: conscious sedation COMPLICATIONS: none SPECIMEN: none ESTIMATED BLOOD LOSS: negligible FINDINGS: gastrostomy in good position documented in this encounter Miscellaneous Notes * Sedation Note - Eagle Encinas MD - 07/02/2023 3:10 PM EDT S Post Sedation Evaluation: Cardiovascular status: acceptable, BP returned to baseline, and hemodynamically stable Level of consciousness: awake and alert Airway patency: patent Distress - NAD Hydration status - well hydrated Nausea/vomiting - not present Pain Evaluation Pain Assessment Flowsheet Row Most Recent Value Pain Assessment Scale [facility] Adult Scale 0-10 Pain Score 0 (no pain) Vital Signs: Temp: 36.1 C (97 F) (07/01 1404) BP: 89/50 (07/01 1500) Pulse: 54 (07/01 1500) Resp: 15 (07/01 1500) SpO2: 95 % (07/01 1500) I have personally examined the patient, prescribed the necessary medications as charted, and certify that Leyla Pichardo is recovered for safe discharge from my face to face care. documented in this encounter Plan of Treatment Upcoming Encounters Date Type Department Care Team (Late st Contact Info) Description 08/06/2023 4:00 PM EDT Telemedicine Nutrition & Weight Management, [address] [address] Yeni Corley MD [address] [place] [id number] 08/19/2023 8:20 AM EDT Telemedicine Nutrition & Weight Management, [address] [address] ToriKay Bam, WALLY [address] [place] [address] Health Maintenance Due Date Last Done Comments [...] this encounter Medical Devices Implanted Type Area Bellhop Device Identifier Shelf Expiration Date Model / Serial / Lot Cath Drainage 12fr [id number] - [id number] Implanted:Qty: 1 on 01/26/2021 at [facility] [employer] : INTRV RAD 11/21/2023 [id number] / / [id number] Cath Amplatz [employer] - [id number] Implanted:Qty: 1 on 01/26/2021 at [facility] [address] [employer] : [employer]ASCULAR [employer] [id number] 11/14/2023 [id number] / / [id number] Stent [employer] [id number] - [id number] Implanted:Qty: 1 on 05/28/2021 by Judah Hutchinson MD at [facility] [employer] : ENDOSCOPY 11/14/2021 [id number] / / documented as of this encounter Procedures Procedure Name Priority Date/Time Associated Diagnosis Comments GLUCOSE METER, POINT OF CARE [place] 07/02/2023 2:19 PM EDT IR INTERVENTIONAL RADIOLOGY PROCEDURE IN OR Routine 07/02/2023 2:15 PM EDT documented in this encounter Results * GLUCOSE METER, POINT OF CARE (07/02/2023 2:19 PM EDT) Glucose Meter 74 70 - 120 mg/dL 07/02/2023 2:21 PM EDT [facility] Blood Whole blood specimen / Unknown 07/02/2023 2:19 PM EDT 07/02/2023 2:21 PM EDT Eagle Encinas MD LAB POINT OF CARE TE ST DOCKED DEVICE UNSOLICITED RESULTS [facility] [address] [place] [address] * IR INTERVENTIONAL RADIOLOGY PROCEDURE IN OR (07/02/2023 2:15 PM EDT) 07/02/2023 3:36 PM EDT Impressions [facility] - 07/02/2023 3:34 PM EDT IMPRESSION: Successful percutaneous placement of a low-profile gastrostomy catheter. Narrative [facility] - 07/02/2023 3:34 PM EDT PROCEDURE: Fluoro-guided percutaneous gastrostomy exchange. July 02, 2023 INDICATION: Gastrostomy exchange. Catheter fell out Sat. Tract maintained by . ATTENDING (OPERATING PHYSICIAN): Ce CONSENT: After a detailed discussion of the procedure, risks, benefits and alternative treatment options, informed consent was obtained. TIME OUT: A time out procedure was performed. The patient's identification was verified. Informed consent with agreement of procedure, site and position was obtained. All necessary equipment was available prior to procedure. CONTRAST: IV Optiray 320. COMPLICATIONS: None. ANESTHESIA: Local lidocaine. IV Versed. IV Fentanyl. SEDATION TIME: Start to end: [id number]. Qualified nurse sedation observer Eleanor Carver RN. MEDICATIONS: See [facility] PROCEDURE DESCRIPTION: The patient was placed supine on the fluoroscopy table and prepped and draped in the usual sterile fashion. Initial fluoroscopic examination demonstrates that the gastrostomy is projected over the expected location of the gastric remnant. Contrast was injected confirming rugal folds. The old catheter was removed over a Amplatz wire. The stoma length was measured at 3.25 cm. A new low-profile gastrostomy was placed into the stomach. Contrast was injected confirming position within the stomach. The balloon was inflated with 5 mL dilute contrast. The patient tolerated the procedure well The procedure was performed by Dr Encinas. FINDINGS: Gastrostomy in good position Procedure Note Eagle Encinas MD - 07/02/2023 PROCEDURE: Fluoro-guided percutaneous gastrostomy exchange. July 02, 2023 INDICATION: Gastrostomy exchange. Catheter fell out Sat. Tractmaintained by . ATTENDING (OPERATING PHYSICIAN): Ce CONSENT: After a detailed discussion of the procedure, risks, benefits andalternative treatment options, informed consent was obtained. TIME OUT: A time out procedure was performed. The patient's identificationwas verified. Informed consent with agreement of procedure, site andposition was obtained. All necessary equipment was available prior toprocedure. CONTRAST: IV Optiray 320. COMPLICATIONS: None. ANESTHESIA: Local lidocaine. IV Versed. IV Fentanyl. SEDATION TIME: Start to end: [id number]. Qualified nurse sedation observerEleanor Carver RN. MEDICATIONS: See [facility] PROCEDURE DESCRIPTION: The patient was placed supine on the fluoroscopytable and prepped and draped in the usual sterile fashion. Initialfluoroscopic examination demonstrates that the gastrostomy is projectedover the expected location of the gastric remnant. Contrast was injectedconfirming rugal folds. The old catheter was removed over a Amplatz wire.The stoma length was measured at 3.25 cm. A new low-profile gastrostomywas placed into the stomach. Contrast was injected confirming positionwithin the stomach. The balloon was inflated with 5 mL dilute contrast.The patient tolerated the procedure well The procedure was performed by Dr Encinas. FINDINGS: Gastrostomy in good position IMPRESSION IMPRESSION: Successful percutaneous placement of a low-profile gastrostomy catheter. Eagle WILLIAM [facility] documented in this encounter Administered Medications Inactive Administered Medications - up to 3 most recent administrations Medication Order MAR Action Action Date Dose Rate Site isolyte-S pH 7.4 infusion Intravenous, at 10 mL/hr, Plasma-LYTE 148, isolyte-S, and isolyte-S pH 7.4 are considered equivalent - including for MAR barcode scanning., CONTINUOUS, Starting on Fri07/02/23 at 1430, Until Fri07/02/23 at 1954 New Bag 07/02/2023 2:21 PM EDT 10 mL /hr documented in this encounter Active and Recently Administered Medications Times are shown in EDT. Continuous Medication Order 06/30/2023 07/01/2023 07/02/2023 isolyte-S pH 7.4 infusion Intravenous, at 10 mL/hr, Plasma-LYTE 148, isolyte-S, and isolyte-S pH 7.4 are considered equivalent - including for MAR barcode scanning., CONTINUOUS, Starting on Fri07/02/23 at 1430, Until Fri07/02/23 at 1954 1421 (New Bag - Prov ider: Sylvia Wright RN) PRN Medication Order 06/30/2023 07/01/2023 07/02/2023 fentaNYL (PF) inj (CANCELED) ONCE PRN INTRA PROCEDURE, Starting on Fri07/02/23 at 1451, Until Fri07/02/23 at 1508, Intra-Op 1451 (Given - Provid er: Eleanor Eaton, RN) Ioversol (Optiray 320) inj (CANCELED) ONCE PRN INTRA PROCEDURE, Starting on Fri07/02/23 at 1500, Until Fri07/02/23 at 1508, Intra-Op 1500 (Given - Provid er: Eagle Encinas MD) midazolam (Versed) 2 MG/2ML inj (CANCELED) ONCE PRN INTRA PROCEDURE, Starting on Fri07/02/23 at 1448, Until Fri07/02/23 at 1508, Intra-Op 1448 (Given - Provid er: Eleanor Eaton RN) documented in this encounter Advance Directives [...] the patient have Health Care Power of Certified Alcohol And Drug Counselor? No Care Teams Ampoule Filler And Sealer Relationship Specialty Start Date End Date Kailey Adam MD [email or web address] [address] PCP - General Family Medicine 10/20/18 documented as of this encounter
--- OUTSIDE RECORDS SUMMARY | 2023-08-27 23:16 | External Medical Summary | Summary of Care ---
Author Name Unknown Organization [facility] Address [address] [place] [address] Phone [phone] Care Team Providers Care Metal Punch Press Operator Name Role Phone Kailey Adam MD Primary Care Provider Encounter Details Date Type Department Care Team (Late st Contact Info) Description 07/03/2023 Documentation Radiology, [address] [id number] Eleanor Eaton, RN Allergies Active Allergy Reactions Criticality Noted Date [...] MOUTH THREE TIMES DAILY 0 06/07/2019 Active Multivitamin Adult Oral Tablet Take 1 [...] 62 mL/hour x24 hours (6 cartons daily) 57912 mL 12 01/31/2022 Active Ondansetron 8 MG Oral Tablet Disintegrating (Zofran) Place 1 Tablet under the tongue in the morning and 1 Tablet at noon and 1 Tablet in the evening. 0 04/22/2022 Active SSD 1 % External Cream APPLY TOPICALLY TWICE DAILY 0 12/12/2022 Active buPROPion HCl ER (SR) 150 MG Oral Tablet Extended Release 12 Hour (Wellbutrin SR) Take 1 Tablet by mouth in the morning. 0 Active documented as of this encounter (statuses [...] Smokeless Tobacco: Never Comments:2-4 cigarettes a mo h Alcohol Use Standard Drinks/Week Comments No 0 [...] No 05/27/2021 documented as of this encounter Nursing Notes * Eleanor Eaton, RN - 07/03/2023 10:43 AM EDT Amount of fentanyl given during gastrostomy tube insertion yesterday, 07/02/23 @ 1450 updated to reflect the amount actually given. Patient received 100 mcg of fentanyl as part of her sedation. Original charting states that patient received 50 mcg. This was an error. Spoke to Haile Baptiste from inpatient pharmacy who is aware of this issue. documented in this encounter Plan of Treatment Upcoming Encounters Date Type Department Care Team (Late st Contact Info) Description 08/06/2023 4:00 PM EDT Telemedicine Nutrition & Weight Management, [place] [address] [place] [address] Yeni Corley MD [address] [place] [address] 08/19/2023 8:20 AM EDT Telemedicine Nutrition & Weight Management, [place] [address] [place] [address] Kay Valle RDN [address] [place] [address] Health Maintenance Due Date Last Done Comments [...] this encounter Medical Devices Implanted Type Area Certified Solid Waste Facility Operator Device Identifier Shelf Expiration Date Model / Serial / Lot Cath Drainage 12fr [id number] - [id number] Implanted:Qty: 1 on 01/26/2021 at [facility] [employer] : INTRV RAD 11/21/2023 G119 75 / / [id number] Cath [employer] - [id number] Implanted:Qty: 1 on 01/26/2021 at [facility] [employer] : VASCULAR INC [id number] 11/14/2023 [id number] / / [id number] Stent Axios [id number] - [id number] Implanted:Qty: 1 on 05/28/2021 by Judah Hutchinson MD at ENDOSCOPY [facility] [place] [employer] : ENDOSCOPY 11/14/2021 [id number] / / documented as of this encounter [...] the patient have Health Care Power of Pediatric Audiologist? No Care Teams Metal Punch Press Operator Relationship Specialty Start Date End Date Kailey Adam MD [address] [address] PCP - General Family Medicine 10/20/18 documented as of this encounter
--- OUTSIDE RECORDS SUMMARY | 2023-08-27 23:16 | External Medical Summary ---
Author Name Unknown Address Unknown Organization K[facility] [address] [place] [address] Laboratory Report Ordering Provider Test Date Status RENATA CASILLAS 08/20/2023 12:15:00 Final Observation Date Value Abnormality Reference (Units ) Status BUN 08/20/2023 12:15:00 6 6-20 (mg/dL) Final Creatinine 08/20/2023 12:15:00 0.5 0.5-1.0 (mg/dL) Final Glomerular filtration rate/1.73 sq M.predicted [Volume Rate/Area] in Serum, Plasma or Blood by Creatinine-based formula (CKD-EPI) 08/20/2023 12:15:00 >90 >=60 (mL/min) Final eGFR is calculated based on the CKD-EPI 2020 equation Sodium 08/20/2023 12:15:00 141 135-146 (m mol/L) Final Potassium 08/20/2023 12:15:00 4.3 3.5-5.1 (m mol/L) Final Cl 08/20/2023 12:15:00 107 98-107 (mm ol/L) Final CO2 08/20/2023 12:15:00 26 22-32 (mmo l/L) Final Anion gap 08/20/2023 12:15:00 8 7-15 (mmol /L) Final Glucose 08/20/2023 12:15:00 80 70-120 (mg /dL) Final Albumin 08/20/2023 12:15:00 3.4 Below low normal 3.8 -5.0 (g/dL) Final AST (Aspartate aminotransferase) 08/20/2023 12:15:00 21 10-35 (U/L) Fin al Alk Phos 08/20/2023 12:15:00 161 Above high normal 35 -130 (U/L) Final Bilirubin, Total 08/20/2023 12:15:00 <0.2 <=1 .2 (mg/dL) Final Calcium 08/20/2023 12:15:00 8.7 8.4-10.2 ( mg/dL) Final Protein 08/20/2023 12:15:00 5.6 Below low normal 6.0 -8.3 (g/dL) Final ALT (Alanine aminotransferase) 08/20/2023 12:15:00 12 10-35 (U/L) Phu patel Performing Location [facility] [facility] [address]
--- OUTSIDE RECORDS SUMMARY | 2023-08-27 23:16 | External Medical Summary | Summary of Care ---
Author Name Unknown Organization [facility] Address [address] [place] [address] Phone [phone] Care Team Providers Care Livestock Farm Workers Name Role Phone Kailey Adam MD Primary Care Provider Reason for Visit * Reason Onset Date Comments Scheduling 07/04/2023 Encounter Details Date Type Department Care Team (Late st Contact Info) Description 07/04/2023 Telephone Interventional Radiology, [address] [place] [address] Eagle Encinas MD [address] [place] [address] Scheduling Allergies Active Allergy Reactions Criticality Noted Date Comments Blue Dyes (Parenteral) Edema airway High 07/13/2013 Codeine Hives 06/17/2013 Hydrocodone-Acetaminophen Anaphylaxis High 4 documented as of this encounter (statuses as of 07/04/2023) Medications Medication Sig Dispensed Refills Start Date [...] 62 mL/hour x24 hours (6 cartons daily) 13857 mL 12 01/31/2022 Active Ondansetron 8 MG [...] as of this encounter (statuses as of 07/04/2023) Active Problems Problem Noted Date Diagnosed Date [...] as of this encounter (statuses as of 07/04/2023) Resolved Problems Problem Noted Date Diagnosed Date Resolved Date Encounter for feeding tube placement 01/29/2021 01/29/2021 On total parenteral nutrition (TPN) 01/12/2021 01/29/2021 documented as of this encounter (statuses as of 07/04/2023) Immunizations Name Administration Dates Next Due 07/19/2015, [...] encounter Miscellaneous Notes * Telephone Encounter - Juliette Rojas OSA - 07/04/2023 2:00 PM EDT Called patient to schedule Gastrostomy tube exchange. No answer. Left message for patient to returncall. documented in this encounter Plan of Treatment Upcoming Encounters Date Type Department Care Team (Late st Contact Info) Description 08/06/2023 4:00 PM EDT Telemedicine Nutrition & Weight Management, [place] [address] [place] [address] Yeni Corley MD [address] [place] [address] 08/19/2023 8:20 AM EDT Telemedicine Nutrition & Weight Management, [place] [address] [place] [address] Kay Valle RDN [address] [place] [address] Health Maintenance Due Date Last Done Comments [...] this encounter Medical Devices Implanted Type Area Arabic Translator Device Identifier Shelf Expiration Date Model / Serial / Lot Cath Drainage 12fr [id number] - [id number] Implanted:Qty: 1 on 01/26/[address] [facility] [employer] : INTRV RAD 11/21/2023 G119 75 / / [id number] Cath [employer] - [id number] Implanted:Qty: 1 on 01/26/[address] [facility] COOK : VASCULAR INC [id number] 11/14/2023 [id number] / / [id number] Stent Axios [id number] - [id number] Implanted:Qty: 1 on 05/28/2021 by Judah Hutchinson MD at ENDOSCOPY [facility] [employer] : ENDOSCOPY 11/14/2021 [id number] / / documented as of this encounter [...] the patient have Health Care Power of Rod Pointer? No Care Teams Livestock Farm Workers Relationship Specialty Start Date End Date Kailey Adam MD [address] [place] [address] PCP - General Family Medicine 10/20/18 documented as of this encounter
--- OUTSIDE RECORDS SUMMARY | 2023-08-27 23:16 | External Medical Summary | Summary of Care ---
Author Name Unknown Organization [facility] Address [address] [place] [address] Phone [phone] Care Team Providers Care Load Haul Dump Operator Name Role Phone Kailey Adam MD Primary Care Provider Reason for Visit * Reason Onset Date Comments Scheduling 06/17/2023 Gastrostomy tube exchange Encounter Details Date Type Department Care Team ([facility] st Contact Info) Description 06/17/2023 Telephone Radiology, [address] [address] Eleanor Eaton, RN Scheduling (Gastrostomy tube exchange) Allergies Active Allergy Reactions Criticality Noted Date Comments Blue Dyes (Parenteral) Edema airway High 07/13/2013 Codeine Hives 06/17/2013 Hydrocodone-Acetaminophen Anaphylaxis High 4 documented as of this encounter (statuses as of 06/17/2023) Medications Medication Sig Dispensed Refills Start Date [...] 62 mL/hour x24 hours (6 cartons daily) 41418 mL 12 01/31/2022 Active Ondansetron 8 MG Oral Tablet Disintegrating (Zofran) Place 1 Tablet under the tongue in the morning and 1 Tablet at noon and 1 Tablet in the evening. 0 04/22/2022 Active SSD 1 % External Cream APPLY TOPICALLY TWICE DAILY 0 12/12/2022 Active documented as of this encounter (statuses as of 06/17/2023) Active Problems Problem Noted Date Diagnosed Date [...] as of this encounter (statuses as of 06/17/2023) Resolved Problems Problem Noted Date Diagnosed Date Resolved Date Encounter for feeding tube placement 01/29/2021 01/29/2021 On total parenteral nutrition (TPN) 01/12/2021 01/29/2021 documented as of this encounter (statuses as of 06/17/2023) Immunizations Name Administration Dates Next Due 07/19/2015, 6,05/03/2014,05/03/19 15,02/21/2014,02/21/2014,01/24/2014,01/24,01/24/2014,11/17/2013,11/17/2013,,10/04/2013,09/14/2013,09/14/2013 Seasonal Influenza, PF, 6 M & above, IM , (FluLaval or Fluzone) 05/31/2021,01/29/2021(Deferred: Patient Refused - provider made aware) documented as of this encounter Social History Tobacco Use Types Packs/Day Years Used Date Smoking Tobacco: Former Cigarettes 20 0 01/03/2001 - 01/03/2021 Smokeless Tobacco: Never Comments:2-4 cigarettes a mo [facility] Alcohol Use Standard Drinks/Week Comments No 0 [...] and stop drinking 2 hoursprior to procedure. -Personnel Psychologist required Location and check-in instructions Verbalizes understanding [...] AM EST Telemedicine Nutrition & Weight Management, [place] [address] [place] [address] Yeni Corley MD [address] [place] [address] 08/19/2023 8:20 AM EDT Telemedicine Nutrition & Weight Management, [place] [address] [place] [address] Kay Valle RDN [address] [place], [place] [id number] Health Maintenance Due Date Last Done Comments [...] this encounter Medical Devices Implanted Type Area Trade Manager Device Identifier Shelf Expiration Date Model / Serial / Lot Cath Drainage 12fr [id number] - [id number] Implanted:Qty: 1 on 01/26/2021 at [facility] : INTRV RAD 11/21/2023 G119 75 / / [id number] Cath [employer] - [id number] Implanted:Qty: 1 on 01/26/2021 at [facility] : VASCULAR INC [id number] 11/14/2023 [id number] / / [id number] Stent Axios [id number] - [id number] Implanted:Qty: 1 on 05/28/2021 by Judah Hutchinson MD at ENDOSCOPY [facility] [place] : ENDOSCOPY 11/14/2021 [id number] / / documented as of this encounter [...] the patient have Health Care Power of Foundry Superintendant? No Care Teams Load Haul Dump Operator Relationship Specialty Start Date End Date Kailey Adam MD [address] [address] PCP - General Family Medicine 10/20/18 documented as of this encounter
--- OUTSIDE RECORDS SUMMARY | 2023-08-27 23:16 | External Medical Summary | Summary of Care ---
Author Name Unknown Organization [facility] Address [address] [place] [place] [place] [address] Phone [phone] Care Team Providers Care Technical Sales Advisor Name Role Phone Kailey Adam MD Primary Care Provider Encounter Details Date Type Department Care Team (Late st Contact Info) Description 08/19/2023 Orders Only PATIENT PORTAL DO NOT DELETE THIS DEPT USED BY NOLBERTO GOMEZ [id number] Allergies Active Allergy Reactions Criticality Noted Date Comments Blue Dyes (Parenteral) Edema airway High 07/13/2013 Codeine Hives 06/17/2013 Hydrocodone-Acetaminophen Anaphylaxis High 4 documented as of this encounter (statuses as of 08/19/2023) Medications Medication Sig Dispensed Refills Start Date [...] 62 mL/hour x24 hours (6 cartons daily) 26376 mL 12 01/31/2022 Active Ondansetron 8 MG [...] as of this encounter (statuses as of 08/19/2023) Active Problems Problem Noted Date Diagnosed Date [...] as of this encounter (statuses as of 08/19/2023) Resolved Problems Problem Noted Date Diagnosed Date Resolved Date Encounter for feeding tube placement 01/29/2021 01/29/2021 On total parenteral nutrition (TPN) 01/12/2021 01/29/2021 documented as of this encounter (statuses as of 08/19/2023) Immunizations Name Administration Dates Next Due 07/19/2015, [...] Department Care Team (Latest Contact Info) Description 08/20/2023 7:05 AM EDT Laboratory Lab Mobile Phlebotomy [facility] [address] [facility] [place] [address] [facility], Gml Mobile Home Draw [address] [facility] [place] [address] 08/21/2023 3:20 PM EDT [facility] [address] [place] [address] Yeni Corley MD [address] [place] [address] 08/22/2023 11:00 AM EDT Hospital Encounter OR [facility], Operating Room, [facility] - 4th Floor [address] [place] [address] Eagle Encinas MD [address] [place] [address] 08/22/2023 11:00 AM EDT - 08/22/2023 11:40 AM EDT Surgery OR [facility], Operating Room, [facility] - 4th Floor [address] [place] [address] Eagle Encinas MD [address] [place] [address] PERCUTANEOUS REPLACE GASTROSTOMY OR CECOSTOMY TUBE WITH FLUORO 08/28/2023 2:20 PM EDT [facility] [address] [place] [address] Bri Valleah WALLY Kuhn [address] [place] [address] 09/01/2023 1:00 PM EDT Telemedicine Palliative Medicine, [facility] [address] [facility] 5th [place] [address] Amaya Campoverde MD [address] [place] [address] Scheduled Procedures Name Priority Associated Diagnoses Date/Ti me PERCUTANEOUS REPLACE GASTROSTOMY OR CECOSTOMY TUBE WITH FLUORO On tube feeding diet 08/22/2023 11:00 AM EDT Health Maintenance Due Date Last [...] Vaccine (1 - 2022-2 4 season) 2022 TSH 03/13/2023 03/13/2022, 01/03/2021, 11/17/2014 Influenza Vaccine (FLU shot) (Season Ended) 2023 05/31/2021 Lipid Panel 05/09/2026 05/09/2021, 01/05/2021, 11/17/2014 GARDASIL-HPV [...] this encounter Medical Devices Implanted Type Area Dip Guider Stoves Device Identifier Shelf Expiration Date Model / Serial / Lot Cath Drainage 12fr 659379 - [id number] Implanted:Qty: 1 on 01/26/2021 at [facility] [employer] : INTRV RAD 11/21/2023 G119 75 / / [id number] Cath [employer] - [id number] Implanted:Qty: 1 on 01/26/2021 at [facility] [employer] : VASCULAR INC [id number] 11/14/2023 [id number] / / [id number] Stent Axios [id number] - [id number] Implanted:Qty: 1 on 05/28/2021 by Judah Hutchinson MD at [facility]OSCOPY [facility] [place] [employer] : ENDOSCOPY 11/14/2021 [id number] / / documented as of this encounter [...] the patient have Health Care Power of Detailer Pharmaceuticals? No Care Teams Technical Sales Advisor Relationship Specialty Start Date End Date Kailey Adam MD [address] [place] [address] PCP - General Family Medicine 10/20/18 documented as of this encounter
--- OUTSIDE RECORDS SUMMARY | 2023-08-27 23:16 | External Medical Summary | Summary of Care ---
Author Name Unknown Organization [facility] Address [address] [place] [address] Phone [phone] Care Team Providers Care Clinic Lead Name Role Phone Kailey Adam MD Primary Care Provider Reason for Visit * Reason Onset Date Comments Palliative Care Follow-up 08/04/2023 Encounter Details Date Type Department Care Team (Late st Contact Info) Description 08/04/2023 Telephone Palliative Medicine, [address] 5th [place] [address] Amaya Campoverde MD [address] [place] [address] Palliative Care Follow-up Allergies Active Allergy Reactions Criticality Noted Date Comments Blue Dyes (Parenteral) Edema airway High 07/13/2013 Codeine Hives 06/17/2013 Hydrocodone-Acetaminophen Anaphylaxis High 4 documented as of this encounter (statuses as of 08/05/2023) Medications Medication Sig Dispensed Refills Start Date [...] 62 mL/hour x24 hours (6 cartons daily) 84033 mL 12 01/31/2022 Active Ondansetron 8 MG [...] as of this encounter (statuses as of 08/05/2023) Active Problems Problem Noted Date Diagnosed Date [...] as of this encounter (statuses as of 08/05/2023) Resolved Problems Problem Noted Date Diagnosed Date Resolved Date Encounter for feeding tube placement 01/29/2021 01/29/2021 On total parenteral nutrition (TPN) 01/12/2021 01/29/2021 documented as of this encounter (statuses as of 08/05/2023) Immunizations Name Administration Dates Next Due 07/19/2015, [...] encounter Miscellaneous Notes * Telephone Encounter - Lucia Ngo LPN - 08/05/2023 11:01 AM EDT Patient has been called multiple times and multiple letters sent to schedule with palliative * Telephone Encounter - Lucia Ngo LPN - 08/04/2023 8:51 AM EDT Referral received Patient is homebound Referral is for GOC discussion, possibly a 1 time visit only Requesting video visit Call to patient No answer Left message requesting return call to [phone] documented in this encounter Plan of Treatment Upcoming Encounters Date Type Department Care Team (Latest Contact Info) Description 08/06/2023 4:00 PM EDT Telemedicine Nutrition & Weight Management, [address] [address] Yeni Corley MD [address] [place] [address] 08/19/2023 8:20 AM EDT [facility] [address] [place] [address] Kay Valle RDN [address] [place] [address] 08/22/2023 11:00 AM EDT Hospital Encounter OR [facility], Operating Room, [place] - 4th Floor [address] [place] [address] Eagle Encinas MD [address] [place] [address] 08/22/2023 11:00 AM EDT - 08/22/2023 11:40 AM EDT Surgery OR [facility], Operating Room, [place] - 4th Floor [address] [place] [address] Eagle Encinas MD [address] [place] [address] PERCUTANEOUS REPLACE GASTROSTOMY OR CECOSTOMY TUBE WITH FLUORO Scheduled Procedures Name Priority Associated Diagnoses Date/Ti [...] Vaccine ( - 2022-2 4 season) 2022 TSH 03/13/2023 [...] this encounter Medical Devices Implanted Type Area Metal Furrer Device Identifier Shelf Expiration Date Model / Serial / Lot Cath Drainage 12fr 141100 - [id number] Implanted:Qty: 1 on 01/26/2021 at [facility] [employer] : INTRV RAD 11/21/2023 G119 75 / / [id number] Cath [employer] - [id number] Implanted:Qty: 1 on 01/26/2021 at [facility] COOK : VASCULAR INC [id number] 11/14/2023 [id number] / / [id number] Stent Axios [id number] - [id number] Implanted:Qty: 1 on 05/28/2021 by Judah Hutchinson MD at ENDOSCOPY [facility] [employer] : ENDOSCOPY 11/14/2021 [id number] / / documented as of this encounter [...] the patient have Health Care Power of Brass Molder Helper? No Care Teams Clinic Lead Relationship Specialty Start Date End Date Kailey Adam MD [address] [facility] [facility] [address] PCP - General Family Medicine 10/20/18 documented as of this encounter
--- OUTSIDE RECORDS SUMMARY | 2023-08-27 23:16 | External Medical Summary ---
Author Name Unknown Address Unknown Organization : Laboratory Report Ordering Provider Test Date Status ADALI YAN 07/02/2023 14:19:43 Final Observation Date Value Abnormality Reference (Units ) Status Glucose Point of Care 07/02/2023 14:19:43 74 70-120 (mg/dL) Final Performing Location
--- OUTSIDE RECORDS SUMMARY | 2023-08-27 23:16 | External Medical Summary | Summary of Care ---
Author Name Unknown Organization [facility] Address [address] [place] [address] Phone [phone] Care Team Providers Care Motorcycle Subassembly Repairer Name Role Phone Kailey Adam MD Primary Care Provider Reason for Visit * Reason Onset Date Comments Scheduling 07/04/2023 Encounter Details Date Type Department Care Team (Late st Contact Info) Description 07/04/2023 Telephone Interventional Radiology, [address] [place] [address] Eagle Encinas MD [address] [place] [address] Scheduling Allergies Active Allergy Reactions [...] 62 mL/hour x24 hours (6 cartons daily) 85381 mL 12 01/31/2022 Active Ondansetron 8 MG [...] Encounter - Juliette Rojas OSA - 07/04/2023 2:45 PM EDT Patient had called back to schedule the Gastrostomy Tube Exchange for 08/14 at [facility] She was asked about her sedation and only wanted cons sed not Mac, since that makes her sleepy longer and had mentioned she felt bad for her actions for the last procedure. Patient identified by: name Person taught: Patient METHOD: Lecture-telephone interview PATIENT INSTRUCTIONS GIVEN: - General Preoperative Instructions Reviewed - NPO Instructions Reviewed, pt to stop eating 8 hours prior to procedure and stop drinking 2 hoursprior to procedure. -Security Public Safety Officer required Location and check-in instructions Verbalizes understanding of education: Yes Procedure date at time of Imaging Encounter: 08/14 What procedure is patient having? Gastrostomy Tube Exchange Laterality confirmed as Not Applicable Does the patient have a yellow bar? did not The Patient was given the opportunity to ask questions concerning the procedure. Signature: PRITI Coronado 07/04/2023 * Telephone Encounter - Juliette Rojas OSA - 07/04/2023 2:00 PM EDT Called patient to schedule Gastrostomy tube exchange. No answer. Left message for patient to returncall. documented in this encounter Plan of Treatment Upcoming Encounters Date Type Department Care Team (Late st Contact Info) Description 08/06/2023 4:00 PM EDT Telemedicine Nutrition & Weight Management, [place] [address] [place] [address] Yeni Corley MD [address] [place] [address] 08/19/2023 8:20 AM EDT Telemedicine Nutrition & Weight Management, [place] [address] [place] [address] Kay Valle RDN [address] [place] [address] Health Maintenance Due Date Last Done Comments [...] this encounter Medical Devices Implanted Type Area Tube Drawing Supervisor Device Identifier Shelf Expiration Date Model / Serial / Lot Cath Drainage 12fr 681136 - [id number] Implanted:Qty: 1 on 01/26/2021 at [facility] [employer] : INTRV RAD 11/21/2023 G119 75 / / [id number] Cath [employer] - [id number] Implanted:Qty: 1 on 01/26/2021 at [facility] [employer]OOK : VASCULAR INC [id number] 11/14/2023 [id number] / / [id number] Stent Axios [id number] - [id number] Implanted:Qty: 1 on 05/28/2021 by Judah Hutchinson MD at ENDOSCOPY [facility] [employer] : ENDOSCOPY 11/14/2021 [id number] / / documented as of this encounter [...] the patient have Health Care Power of Mandate Retail Service Merchandiser? No Care Teams Motorcycle Subassembly Repairer Relationship Specialty Start Date End Date Kailey Adam MD [address] [email or web address] [address] PCP - General Family Medicine 10/20/18 documented as of this encounter
--- OUTSIDE RECORDS SUMMARY | 2023-08-27 23:16 | External Medical Summary | Summary of Care ---
Author Name Unknown Organization [facility] Address [address] [place] [address] Phone [phone] Care Team Providers Care Development Mechanic Name Role Phone Kailey Adam MD Primary Care Provider Reason for Visit * Reason Onset Date Comments Home Tube Feeding 05/23/2023 Encounter Details Date Type Department Care Team (Late st Contact Info) Description 05/23/2023 Telephone Nutrition & Weight Management, [facility] [address] [place] [address] Yeni Corley MD [address] [place] [address] Home Tube Feeding Allergies Active Allergy Reactions Criticality Noted Date Comments Blue Dyes (Parenteral) Edema airway High 07/13/2013 Codeine Hives 06/17/2013 Hydrocodone-Acetaminophen Anaphylaxis High 4 documented as of this encounter (statuses as of 07/24/2023) Medications Medication Sig Dispensed Refills Start Date [...] 62 mL/hour x24 hours (6 cartons daily) 00652 mL 12 01/31/2022 Active Ondansetron 8 MG Oral Tablet Disintegrating (Zofran) Place 1 Tablet under the tongue in the morning and 1 Tablet at noon and 1 Tablet in the evening. 0 04/22/2022 Active SSD 1 % External Cream APPLY TOPICALLY TWICE DAILY 0 12/12/2022 Active documented as of this encounter (statuses as of 07/24/2023) Active Problems Problem Noted Date Diagnosed Date [...] as of this encounter (statuses as of 07/24/2023) Resolved Problems Problem Noted Date Diagnosed Date Resolved Date Encounter for feeding tube placement 01/29/2021 01/29/2021 On total parenteral nutrition (TPN) 01/12/2021 01/29/2021 documented as of this encounter (statuses as of 07/24/2023) Immunizations Name Administration Dates Next Due 07/19/2015, [...] encounter Miscellaneous Notes * Telephone Encounter - Yeni Corley MD - 05/23/2023 1:[address] Mo and Dr. Carter, Our team met/spoke with Leyla today. She is wanting to switch her PTEG to a traditional G-tube, to be able to do bolus feeds rather thancontinuous to allow her to be more independent for her quality of life. Her nutrition status is improved and stable compared to where she started. Our team does not have aproblem with her switching the PTEG to a G-tube. We counseled her that the ultimate decision would be up to IR to know if that would be a possible procedure or not given her anatomy. I am reaching out to see if your team would be able to discuss with Leyla if the tube transition/switch is possible and how to go about the next steps for her. Her preference is to have the procedure completed at [place], since it is closer to her home. Please let us know if you need us to help with anything for this process. Thank you very much in advance. -Yeni documented in this encounter Plan of Treatment Upcoming Encounters Date Type Department Care Team (Latest Contact Info) Description 08/06/2023 4:00 PM EDT Telemedicine Nutrition & Weight Management, [place] [address] [place] [address] Yeni Corley MD [address] [place] [address] 08/19/2023 8:20 AM EDT Telemedicine Nutrition & Weight Management, [place] [address] [place] [address] Kay Valle RDN [address] [place] [address] 08/22/2023 11:00 AM EDT Hospital Encounter OR [facility], Operating Room, [facility] - 4th Floor [address] [place] [address] Eagle Encinas MD [address] [place] [address] 08/22/2023 11:00 AM EDT - 08/22/2023 11:40 AM EDT Surgery OR [facility], Operating Room, [facility] - 4th Floor [address] [place] [address] Eagle Encinas MD [address] [place] [address] PERCUTANEOUS REPLACE GASTROSTOMY OR CECOSTOMY TUBE WITH [...] this encounter Medical Devices Implanted Type Area Horse Doctor Device Identifier Shelf Expiration Date Model / Serial / Lot Cath Drainage 12fr [id number] - [id number] Implanted:Qty: 1 on 01/26/2021 at [facility] [employer] : INTRV RAD 11/21/2023 [id number] / / [id number] [employer] - [id number] Implanted:Qty: 1 on 01/26/2021 at [facility] [employer] : [employer] [id number] 11/14/2023 [id number] / / [id number] Stent Axios [id number] - [id number] Implanted:Qty: 1 on 05/28/2021 by Judah Hutchinson MD at ENDOSCOPY [facility] [employer] : ENDOSCOPY 11/14/2021 [id number] / / documented as of this encounter [...] the patient have Health Care Power of Brain Picker? No Care Teams Development Mechanic Relationship Specialty Start Date End Date Kailey Adam MD [address] [place] [address] PCP - General Family Medicine 10/20/18 documented as of this encounter
--- OUTSIDE RECORDS SUMMARY | 2023-08-27 23:16 | External Medical Summary | Summary of Care ---
Author Name Unknown Organization [facility] Address [address] [place] [address] Phone [phone] Care Team Providers Care Senior Information Systems Architect Name Role Phone Kailey Adam MD Primary Care Provider Reason for Visit * Reason Comments Home Tube Feeding Encounter Details Date Type Department Care Team (Latest Contact Info) Description 05/23/2023 10:20 AM EST [facility] [address] [place], [place] [address] Kay Valle RDN [address] [place], [place] [id number] On tube feeding diet*; Intestinal postoperative nonabsorption; H/O gastric bypass Allergies Active Allergy Reactions Criticality Noted Date Comments Blue Dyes (Parenteral) Edema airway High 07/13/2013 Codeine Hives 06/17/2013 Hydrocodone-Acetaminophen Anaphylaxis High 4 documented as of this encounter (statuses as of 05/23/2023) Medications Medication Sig Dispensed Refills Start Date [...] 62 mL/hour x24 hours (6 cartons daily) 62309 mL 12 01/31/2022 Active Ondansetron 8 MG Oral Tablet Disintegrating (Zofran) Place 1 Tablet under the tongue in the morning and 1 Tablet at noon and 1 Tablet in the evening. 0 04/22/2022 Active SSD 1 % External Cream APPLY TOPICALLY TWICE DAILY 0 12/12/2022 Active documented as of this encounter (statuses as of 05/23/2023) Active Problems Problem Noted Date Diagnosed Date [...] as of this encounter (statuses as of 05/23/2023) Resolved Problems Problem Noted Date Diagnosed Date Resolved Date Encounter for feeding tube placement 01/29/2021 01/29/2021 On total parenteral nutrition (TPN) 01/12/2021 01/29/2021 documented as of this encounter (statuses as of 05/23/2023) Immunizations Name Administration Dates Next Due 07/19/2015, 6,05/03/2014,05/03/19 15,02/21/2014,02/21/2014,01/24/2014,01/24,01/24/2014,11/17/2013,11/17/2013,,10/04/2013,09/14/2013,09/14/2013 Seasonal Influenza, PF, 6 M & above, IM , (FluLaval or Fluzone) 05/31/2021,01/29/2021(Deferred: Patient Refused - provider made aware) documented as of this encounter Social History Tobacco Use Types Packs/Day Years Used Date Smoking Tobacco: Former Cigarettes 20 Q uit: 01/03/2021 Smokeless Tobacco: Never Comments:2-4 cigarettes a [...] as of this encounter Progress Notes * Kay Valle RDN - 05/23/2023 10:20 AM EST HOME TUBE FEEDING NUTRITION FOLLOW-UP Nutrition and Weight Management [facility] Name: Leyla Pichardo [facility] Date: 05/23/2023 Time: 10:26 AM Patient was identified by name and date. After connecting to the patient via telephone, the patient was identified by name and date of . Patient was then informed that this was a telephone call only visit. The patient agreed to participate. 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 Presents today for nutrition evaluation and nutrition support monitoring. 05/23/23 telemedicine visit: Met in conjunction with Dr. Corley. Ankita reports she's tolerating continuous feeds - 45-50 mL/hr. Reports mostly getting in 4-5 cartons Peptamen 1.5 daily. States her weight is up to 128 lb and she no longer is supplementing with Ensure. Still not able to take anything substantial or consistent PO. She is edentulous and cannot chew anything - even bread. Drinking Gatorade, broth, miso soup for addit ional hydration. Reports current tube clogs often and will "back-up" when it's closer to exchange timeframe. Denies N/V - except when tube is older and clogging more often. Reports good bm - uses stool softeners daily. States she's weaned off Gabapentin for ~1 month now. Feels more mentally clear. Reports with less anxiety and improved memory, her nerve pain is more manageable. Overall Ankita reports life stressors and inability to appropriately care for herself with current tube. Would like to explore option of G-tube so she can gravity or bolus feed. has cancer and is too weak to provide the care he used to for her. Receiving help from an aide 20-25 hrs/week. ADLs difficult with pump and IV pole - thinks she would be able to work with PT more if off pump. Reportsher shower is on the 2nd level and she's not able to get upstairs. Showering once a month because of this. States that if transitioning to gastric feedings is not possible, she's not sure she wants to have this tube exchanged and continue living this way. Would like to see palliative care again. 01/03/23 telemedicine visit: Leyla was available via phone today. Jena feedings; meeting goals based on wt gain- Weight continues to increase. Will follow trends - does not want to gain excessive wt Return w/Dr Corley- Pt requests order for supplies- current supplies not correct- needs Kangaroo connector - screw in - Will d/w dr Corley 10/30/21 telemedicine visit: Overall nausea continues to be improved. Described being at a 9/10 previously, but now is a 2/10 toa 0/10. She is sitting up independently and ambulating to the bathroom with help. Hoping to be ableto go to the bathroom and to walk to and from the car in the future. Reports being in a lot of paintoday. Reports a lot of social issues at her home. Her has cancer. PMH: Past Medical History: Diagnosis Date Chiari malformation Diarrhea Gastric bypass status for obesity Headache(784.0) Hx of gastric bypass Hypoglycemia Hypothyroid Insomnia PSH: Past Surgical History: Procedure Laterality Date EGD, FLEXIBLE, DIAGNOSTIC N/A 01/10/2021 ESOPHAGOGASTRODUODENOSCOPY (EGD), FLEXIBLE, TRANSORAL, DIAGNOSTIC performed by Marily Downs [facility] EGD, FLEXIBLE, DIAGNOSTIC N/A 09/06/2021 ESOPHAGOGASTRODUODENOSCOPY (EGD), FLEXIBLE, TRANSORAL, DIAGNOSTIC performed by Judah Hutchinson MD at ENDOSCOPY [facility] EGD, W/ENDOSCOPIC US N/A 05/28/2021 ESOPHAGOGASTRODUODENOSCOPY (EGD), FLEXIBLE, TRANSORAL, ENDOSCOPIC ULTRASOUND performed by Judah Brenner MD at ENDOSCOPY [facility] GASTRIC BYPASS FOR OBESITY IR GASTROINTESTINAL OSTOMY 01/26/2021 IR GASTROINTESTINAL OSTOMY 05/29/2021 IR GASTROINTESTINAL OSTOMY 09/19/2021 IR GASTROINTESTINAL OSTOMY 09/13/2022 IR GASTROINTESTINAL OSTOMY 12/16/2022 IR TUBE REPLACEMENT GASTROSTOMY PERCUTANEOUS OR CECOSTOMY N/A 02/15/2022 PERCUTANEOUS REPLACE GASTROSTOMY OR CECOSTOMY TUBE WITH FLUORO performed by Juan Antonio Carter MD at OR [facility] IR TUBE REPLACEMENT GASTROSTOMY PERCUTANEOUS OR CECOSTOMY N/A 05/22/2022 PERCUTANEOUS REPLACE GASTROSTOMY OR CECOSTOMY TUBE WITH FLUORO performed by Aashish Morin DO at OR [facility] IR TUBE REPLACEMENT GASTROSTOMY PERCUTANEOUS OR CECOSTOMY Left 03/19/2023 PERCUTANEOUS REPLACE GASTROSTOMY OR CECOSTOMY TUBE WITH FLUORO performed by Bryant Mo DO at OR [facility] Barriers to Learning: None Special Education Needs: None Social Demographics: Lives in [place] with her [place]. Has 9 children who live outside of her home. 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 has cancer and is terminal. Food/Nutrition-Related History Oral Diet Recall: Insufficient. -Edentulous Current Tube Feeding Regimen: 4-5 cartons Peptamen 1.5 at 45-50 mL/hr continuously (6976-9998 mL formula, 7309-1817 Kcals, 68-85 gm protein, 768-960 mL free water) -30 mL free water flush at least BID Adult Energy Intake: No significant decrease in energy intake Home Infusion Company: [employer] Phone number: [phone] Fax number: [phone] Pertinent Medications (current): Current Outpatient Medications Medication Sig Dispense Refill [...] 62 mL/hour x24 hours (6 cartons daily) 00763 mL 12 Ondansetron 8 MG Oral Tablet Disintegrating (Zofran) Place 1 Tablet under the tongue in the morningand 1 Tablet at noon and 1 Tablet in the evening. SSD 1 % External Cream APPLY TOPICALLY TWICE DAILY No current facility-administered medications for this visit. Administration method: PO Current Vitamins/Minerals/Supplements: Thistle, folic acid, MVI, Magnesium (400 mg daily), B-12 injection weekly Nutrition-Focused Physical Findings: nutrition-focused physical exam deferred d/t telephone encounter Digestive system: Digestive: Edentulous, Mastication, impaired Enteral Access: transesophageal jejunostomy catheter Placed: 01/26/21; replaced 03/19/23 by IR Nerves and cognition: Awake, alert and Oriented Anthropometrics Measurements Height: 1.651 m reported Weight: 128 lb reported BMI: Body mass index is 21.3 kg/m. IBW based on BMI 21.7 kg/m = 59.1 kg (130 lb) Weight History: previously 140-150 lb (not since 2014); ~120-130 lb since tube placement Lowest weight: 38.6 kg (85 lb) (12/2020) Highest weight: >300 lb pre-bariatric surgery Favorable 12% gain x1 year; stable x6 months Wt Readings from Last 15 Encounters: 05/23/23 58.1 kg (128 lb) 05/23/23 58.1 kg (128 lb) 03/19/23 56.7 kg (125 lb) 01/03/23 56.7 kg (125 lb) 05/22/22 50.8 kg (112 lb) 02/15/22 49.9 kg (110 lb 0.2 oz) 09/06/21 49.9 kg (110 lb 1.6 oz) 07/20/21 46.3 kg (102 lb) 05/27/21 51.7 kg (114 lb) 04/04/21 48.1 kg (106 lb) 03/16/21 48.1 kg (106 lb) 03/12/21 48.1 kg (106 lb) 12/27/20 38.6 kg (85 lb) 06/23/19 50.8 kg (112 lb) 11/05/18 50.8 kg (112 lb) Biochemical Data, Medical Tests and Procedures Reviewed. Latest Reference Range & Units 01/05/21 07:26 03/13/22 10:19 Vitamin A (Retinol) 38 - 98 mcg/dL 46 ZINC 60 - 130 mcg/dL 63 110 COPPER 70 - 175 mcg/dL 107 118 PTH 15 - 65 pg/mL 53 25-Hydroxy Vitamin D >19 ng/mL 51 37 Latest Reference Range & Units 06/25/19 07:05 01/03/21 20:24 03/13/22 10:19 Iron 33 - 151 ug/dL 56 54 56 Iron Binding Capacity 250 - 425 ug/dL 268 173 (L) 244 (L) Transferrin Saturation Percent 15 - 55 % 21 31 23 Ferritin 13 - 150 ng/mL 67.1 187 (H) Vitamin B12 232 - 1,245 pg/mL 842 895 1,285 (H) Folic Acid >4.5 ng/mL 13.7 >20.0 Component Latest Ref Rng 01/05/2021 03/13/2022 ALPHA-TOCOPHEROL 5.7 - 19.9 mg/L 15.1 [id number] <=4.3 mg/L <1.0 Vitamin B1 (Thiamine),B 78 - 185 nmol/L 160 Vitamin K 130 - 1500 pg/mL 436 SELENIUM 63 - 160 mcg/L 112 Latest Reference Range & Units 01/05/21 07:26 Hemoglobin A1C 4.0 - 5.6 % 4.5 Insulin 3 - 25 uU/mL 4 NUTRITION DIAGNOSIS Altered GI function related to RYBG and subsequent JAMIL surgeries as evidenced by inability to tolerate solids, frequent regurgitation; need for enteral nutrition support. Chewing (masticatory) difficulty related to complete extractions as evidenced by edentulous, difficulty tolerating solid foods. NUTRITION INTERVENTION: Enteral nutrition support Nutrition Justification of Enteral Feeds Adequate nutrition impossible by diet adjustment and/or oral supplements Tube feedings required for sufficient nutrients to maintain weight and strength Patient's condition warrants tube feedings for a long and indefinite duration Enteral feeding is the sole source of nutrition Nutrition Justification for Enteral Feeding Pump: Administration rate less than 100 mL/hr, Jejunostomy tube used for feeding Nutrition Prescription Energy: 25-35 Kcals/kg (current weight 58.1 kg) = 0356-7807 Kcals/day Protein: 1.2-1.4 gm protein/kg (58.1 kg) = 70-81 gm protein/day Fluid: 30 mL/kg (58.1 kg) = 1740 mL/day Tube Feeding Prescription 5 cartons Peptamen 1.5 at 50 mL/hr (1250 mL formula, 1875 Kcals, 85 gm protein, 960 mL free water) -Additional ~780 mL water needed to maintain hydration Goals: - Patient will maintain weight (~130 lb). - Patient will receive adequate nutrition. - Patient will meet hydration needs. Expected Compliance: Expect compliance with recommended home enteral nutrition therapy. Recommendations to Ordering Provider: Continue current medical nutrition therapy. Check into adjusting tube to G/J vs G-tube. NUTRITION MONITORING AND EVALUATION: Plan for Return Appointment: 1-2 months with provider; 2-[address] Minutes of MNT: 30 min (23-37 min) Time In: 10:26 AM Time Out: 10:56 AM Kay Valle MS, WALLY, LDN Clinical Dietitian Phone | [phone] [facility] Kay Valle RDN NUTRITION & WEIGHT MANAGEMENT, [place] documented in this encounter Plan of Treatment Health Maintenance Due Date Last Done Comments Hepatitis B (1 of 3 - 3-dose series) 1966 COVID-19 Vaccine (#1) 1966 HIV Screening 1981 Hepatitis C Screening 1984 DTaP,Tdap,and Td Vaccines (1 - Tdap) 1985 Mammogram 2006 Cologuard 2011 Colonoscopy 2011 Colorectal Cancer Screening 2011 Fecal Occult Blood Test 2011 Sigmoidoscopy 2011 Zoster Vaccines (1 of 2) 2016 Depression Screening 07/18/2016 07/19/2015 Influenza Vaccine (FLU shot) (#1) 2022 05/31/2021 [...] this encounter Medical Devices Implanted Type Area Junior Qa Analyst Device Identifier Shelf Expiration Date Model / Serial / Lot [facility] - [id number] Implanted:Qty: 1 on 01/26/2021 at [facility] [employer] : [employer]ULAR [employer] [id number] 11/14/2023 [id number] / / [id number] Stent Axios [id number] - [id number] Implanted:Qty: 1 on 05/28/2021 by Judah Hutchinson MD at ENDOSCOPY [facility] [employer] : ENDOSCOPY 11/14/2021 [id number] / / documented as of this encounter Visit Diagnoses Diagnosis On tube feeding diet- Primary 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 No Care Teams Senior Information Systems Architect Relationship Specialty Start Date End Date Kailey Adam MD [address] [place] [address] PCP - General Family Medicine 10/20/18 documented as of this encounter
--- OUTSIDE RECORDS SUMMARY | 2023-08-27 23:16 | External Medical Summary ---
Author Name Unknown Address Unknown Organization [id number]:LAB[facility]ORY [facility] - [address] [place] [address] Laboratory Report Ordering Provider Test Date Status RENATA CASILLAS 08/20/2023 12:15:00 Final Observation Date Value Abnormality Reference (Units ) Status TSH 08/20/2023 12:15:00 4.87 Above high normal 0. 27-4.20 (uIU/mL) Final Performing Location LABORATORY [facility] - [address] [place] [address]
--- OUTSIDE RECORDS SUMMARY | 2023-08-27 23:17 | External Medical Summary | Summary of Care ---
Author Name Unknown Organization [facility] Address [address] [place] [address] Phone [phone] Care Team Providers Care Supervisor Riprap Placing Name Role Phone Kailey Adam MD Primary Care Provider Reason for Visit * Reason Onset Date Comments Advice 05/20/2023 Tube feeds Encounter Details Date Type Department Care Team ([facility] st Contact Info) Description 05/20/2023 Telephone Radiology, [address] [address] Eleanor Eaton, diver tender (Tube feeds) Allergies Active Allergy Reactions Criticality Noted Date Comments Blue Dyes (Parenteral) Edema airway High 07/13/2013 Codeine Hives 06/17/2013 Hydrocodone-Acetaminophen Anaphylaxis High 4 documented as of this encounter (statuses as of 05/20/2023) Medications Medication Sig Dispensed Refills Start Date [...] 62 mL/hour x24 hours (6 cartons daily) 54358 mL 12 01/31/2022 Active Ondansetron 8 MG Oral Tablet Disintegrating (Zofran) Place 1 Tablet under the tongue in the morning and 1 Tablet at noon and 1 Tablet in the evening. 0 04/22/2022 Active SSD 1 % External Cream APPLY TOPICALLY TWICE DAILY 0 12/12/2022 Active documented as of this encounter (statuses as of 05/20/2023) Active Problems Problem Noted Date Diagnosed Date [...] as of this encounter (statuses as of 05/20/2023) Resolved Problems Problem Noted Date Diagnosed Date Resolved Date Encounter for feeding tube placement 01/29/2021 01/29/2021 On total parenteral nutrition (TPN) 01/12/2021 01/29/2021 documented as of this encounter (statuses as of 05/20/2023) Immunizations Name Administration Dates Next Due 07/19/2015, [...] Telephone Encounter - Eleanor Eaton RN - 05/20/2023 3:47 PM EST Patient called in to IR discuss her current gastrostomy tube. Patient states that her condition is greatly improving and she is able to walk from the front of her house to the back of her house. She also states that she is currently 125-130 lb and is concerned that she is gaining too much weight. Leyla does not want "to be hooked up to a bag 11/11" anymore wants to be able to do intermittent feedings so she can be more independent. Advised patient to speak to her Nutrition provider about these concerns. Patient asked that I send a message to Dr. Corley to inform. Message sent. documented in this encounter Plan of Treatment [...] this encounter Medical Devices Implanted Type Area Ginger Farmer Device Identifier Shelf Expiration Date Model / Serial / Lot [employer] - [id number] Implanted:Qty: 1 on 01/26/2021 at [facility] [employer] : [employer] [id number] 11/14/2023 [id number] / / [id number] Stent [employer]xios [id number] - [id number] Implanted:Qty: 1 on 05/28/2021 by Judah Hutchinson MD at [facility] [employer] : ENDOSCOPY 11/14/2021 [id number] / / documented as of this encounter [...] the patient have Health Care Power of Entry Engineer? No Care Teams Supervisor Riprap Placing Relationship Specialty Start Date End Date Kailey Adam MD [address] [address] PCP - General Family Medicine 10/20/18 documented as of this encounter
--- OUTSIDE RECORDS SUMMARY | 2023-08-27 23:17 | External Medical Summary | Summary of Care ---
Author Name Unknown Organization [facility] Address [address] [place] [address] Phone [phone] Care Team Providers Care Cardroom Worker Name Role Phone Kailey Adam MD Primary Care Provider Reason for Visit * Reason Onset Date Comments Appointment 05/22/2023 Encounter Details Date Type Department Care Team (Late st Contact Info) Description 05/22/2023 Telephone Nutrition & Weight Management, [place] [address] [place] [phone] Yeni Corley MD [address] [place] [address] Appointment Allergies Active Allergy Reactions Criticality Noted Date Comments Blue Dyes (Parenteral) Edema airway High 07/13/2013 Codeine Hives 06/17/2013 Hydrocodone-Acetaminophen Anaphylaxis High 4 documented as of this encounter (statuses as of 05/22/2023) Medications Medication Sig Dispensed Refills Start Date [...] 62 mL/hour x24 hours (6 cartons daily) 64401 mL 12 01/31/2022 Active Ondansetron 8 MG Oral Tablet Disintegrating (Zofran) Place 1 Tablet under the tongue in the morning and 1 Tablet at noon and 1 Tablet in the evening. 0 04/22/2022 Active SSD 1 % External Cream APPLY TOPICALLY TWICE DAILY 0 12/12/2022 Active documented as of this encounter (statuses as of 05/22/2023) Active Problems Problem Noted Date Diagnosed Date [...] as of this encounter (statuses as of 05/22/2023) Resolved Problems Problem Noted Date Diagnosed Date Resolved Date Encounter for feeding tube placement 01/29/2021 01/29/2021 On total parenteral nutrition (TPN) 01/12/2021 01/29/2021 documented as of this encounter (statuses as of 05/22/2023) Immunizations Name Administration Dates Next Due 07/19/2015, [...] encounter Miscellaneous Notes * Telephone Encounter - Taryn Ji OSA - 05/22/2023 10:02 AM EST Please schedule this patient for the next malnutrition provider visit and also a dietitian visit vladimire can discuss weaning off of tube feeds. This patient has seen Dr. Corley before or you could put her on the fellows schedule Appt made 2.2.24 at 9:40 Barney and 10:20 Snow documented in this encounter Plan of Treatment Upcoming Encounters Date Type Department Care Team (Late st Contact Info) Description 05/23/2023 9:40 AM EST Telemedicine Nutrition & Weight Management, [place] [address] [place] [address] Yeni Corley MD [address] [place] [address] 05/23/2023 10:20 AM EST Telemedicine Nutrition & Weight Management, [place] [address] [place] [address] Kay Valle RDN [address] [place] [address] Health Maintenance Due Date Last Done Comments [...] this encounter Medical Devices Implanted Type Area Family And Consumer Education Teacher Device Identifier Shelf Expiration Date Model / Serial / Lot [facility] Sammy Felder - [id number] Implanted:Qty: 1 on 01/26/2021 at [facility] [employer] [id number] 11/14/2023 [id number] / / [id number] Stent Axios [id number] - [id number] Implanted:Qty: 1 on 05/28/2021 by Judah Hutchinson MD at ENDOSCOPY [facility] [place] [employer] : ENDOSCOPY 11/14/2021 [id number] / / documented as of this encounter [...] the patient have Health Care Power of Service Crew Leader? No Care Teams Cardroom Worker Relationship Specialty Start Date End Date Kailey Adam MD [address] [place] [address] PCP - General Family Medicine 10/20/18 documented as of this encounter
--- OUTSIDE RECORDS SUMMARY | 2023-08-27 23:17 | External Medical Summary | Summary of Care ---
Author Name Unknown Organization [facility] Address [address] [place] [address] Phone [phone] Care Team Providers Care Refinery Operator Helper Crude Unit Name Role Phone Kailey Adam MD Primary Care Provider Reason for Referral * Precert (Within 10 days (routine)) - Pending Review Specialty Diagnoses / Procedures Referred By Maryana dang Referred To Contact Radiology Diagnoses Gastrostomy in place (HCC) Procedures IR INTERVENTIONAL RADIOLOGY PROCEDURE IN OR IR GASTROINTESTINAL OSTOMY Juan Antonio Carter MD [address] [place] [address] Referral ID Status Reason Start Date Expiration Date V isits Requested Visits Authorized [id number] Pending Review 04/17/2023 999 999 Reason for Visit * Auth/Cert Specialty Diagnoses / Procedures Referred By Maryana dang Referred To Contact Diagnoses Gastrostomy in place (HCC) Gastrostomy in place (HCC) [Z93.1] Procedures IR TUBE REPLACEMENT GASTROSTOMY PERCUTANEOUS OR CECOSTOMY PERCUTANEOUS REPLACE GASTROSTOMY OR CECOSTOMY TUBE WITH FLUORO Referral ID Status Reason Start Date Expiration Date Visits Re quested Visits Authorized [id number] Encounter Details Date Type Department Care Team (Latest Contact Info) Description 03/19/2023 9:58 AM EST - 03/19/2023 12:03 PM EST Hospital Encounter OR [facility], Operating Room, Main [facility] - 4th Floor [address] [place] [address] Bryant Mo DO [address] [place] [address] Discharge Disposition: Home - Self Care Allergies Active Allergy Reactions Criticality Noted Date Comments Blue Dyes (Parenteral) Edema airway High 07/13/2013 Codeine Hives 06/17/2013 Hydrocodone-Acetaminophen Anaphylaxis High 4 documented as of this encounter (statuses as of 03/20/2023) Medications Medication Sig Dispensed Refills Start Date [...] 62 mL/hour x24 hours (6 cartons daily) 13106 mL 12 01/31/2022 Active Ondansetron 8 MG Oral Tablet Disintegrating (Zofran) Place 1 Tablet under the tongue in the morning and 1 Tablet at noon and 1 Tablet in the evening. 0 04/22/2022 Active SSD 1 % External Cream APPLY TOPICALLY TWICE DAILY 0 12/12/2022 Active documented as of this encounter (statuses as of 03/20/2023) Active Problems Problem Noted Date Diagnosed Date [...] as of this encounter (statuses as of 03/20/2023) Resolved Problems Problem Noted Date Diagnosed Date Resolved Date Encounter for feeding tube placement 01/29/2021 01/29/2021 On total parenteral nutrition (TPN) 01/12/2021 01/29/2021 documented as of this encounter (statuses as of 03/20/2023) Immunizations Name Administration Dates Next Due 07/19/2015, 6,05/03/2014,05/03/19 15,02/21/2014,02/21/2014,01/24/2014,01/24,01/24/2014,11/17/2013,11/17/2013,,10/04/2013,09/14/2013,09/14/2013 SEASONAL INFLUENZA, PF, 6 M & Above, IM , (FLULAVAL or FLUZONE) 05/31/2021,01/29/2021(Deferred: Patient Refused - provider made aware) [...] Sign Reading Time Taken Comments Blood Pressure 110/65 03/19/2023 11:56 AM EST Pulse 82 03/19/2023 11:56 AM EST Temperature 36.6 C (97.9 F) 03/19/2023 11:[address] Respiratory Rate 16 03/19/2023 11:56 AM EST Oxygen Saturation 95% 03/19/2023 11:56 AM EST Inhaled Oxygen Concentration - - Weight 56.7 kg (125 lb) 03/19/2023 10:09 AM EST Height 165.1 cm (5' 5") 03/19/2023 10:09 AM EST Body Mass Index 20.8 03/19/2023 10:09 AM EST documented in this encounter Functional Status [...] Discharge Instructions * Discharge Instr - AVS* Bryant Mo, - 03/19/2023 11:39 AM EST INTERVENTIONAL RADIOLOGY PATIENT INSTRUCTIONS - POST PROCEDURE [facility]-[address] [address] Name: Leyla Pichardo Location: [facility]/OR Date: 03/19/2023 Time: 11:38 AM Special Instructions: Gastrostomy or Gastro-Jejunostomy (G or G-J Tube) [...] If you do not hear from a material scheduler, call Interventional Radiology at [phone] during normal business hours: Friday through Friday 8 am to 4:30 pm to schedule an appointment. When to Call Interventional Radiology Call Interventional [...] feel you are having a medical emergency, [id number] for emergency assistance. Chest Pain Sudden, severe shortness of breath Rapid heart rate Sudden onset of weakness Coughing up blood See your referring physician for follow-up appointment. Do not smoke or use tobacco products in any way! If you feel suicidal or homicidal, please call the crisis hotline at [phone] ([phone]) MODERATE SEDATION You may have received medication [...] the Interventional Radiology physician unless otherwise directed. documented in this encounter Progress Notes * Bryant Mo DO - 03/19/2023 11:38 AM EST [address] [address] OUTPATIENT SURGERY DISCHARGE SUMMARY NOTE Name: Leyla Pichardo Location: OR [facility]/MD Date: 03/19/2023 Time: 11:38 AM Surgery Date: 03/19/2023 Procedure: Procedure(s): PERCUTANEOUS REPLACE GASTROSTOMY OR CECOSTOMY TUBE WITH FLUORO Left Surgeon: Surgeon(s): Bryant Mo DO Discharge Diagnosis: Routine g tube maintainence After examination of this patient, I have determined she is ready for discharge to home when the patient meets criteria. Discharge instructions were given to the patient. documented in this encounter H&P Notes * Bryant Mo DO - 03/19/2023 10:48 AM EST HISTORY & PHYSICAL - Interventional Radiology Service [address] [address] Name: Leyla Pichardo Location: OR [facility]/OR Date: 03/19/2023 Time: 10:48 AM CHIEF COMPLAINT: Routine g tube exchange HISTORY OF PRESENT ILLNESS: Need for routine g tube exchange Past Medical History: Diagnosis Date Chiari malformation Diarrhea Gastric bypass status for obesity Headache(784.0) Hx of gastric bypass Hypoglycemia Hypothyroid Insomnia Past Surgical History: Procedure Laterality Date EGD, FLEXIBLE, DIAGNOSTIC N/A 01/10/2021 ESOPHAGOGASTRODUODENOSCOPY (EGD), FLEXIBLE, TRANSORAL, DIAGNOSTIC performed by Marily Downs MD [facility] EGD, FLEXIBLE, DIAGNOSTIC N/A 09/06/2021 ESOPHAGOGASTRODUODENOSCOPY (EGD), FLEXIBLE, TRANSORAL, DIAGNOSTIC performed by Judah Hutchinson MD at [facility]COPY [facility] EGD, W/ENDOSCOPIC US N/A 05/28/2021 ESOPHAGOGASTRODUODENOSCOPY (EGD), FLEXIBLE, TRANSORAL, ENDOSCOPIC ULTRASOUND performed by Judah Brenner MD at ENDOSCOPY [facility] GASTRIC BYPASS FOR OBESITY IR GASTROINTESTINAL OSTOMY 01/26/2021 IR GASTROINTESTINAL OSTOMY 05/29/2021 IR GASTROINTESTINAL OSTOMY 09/19/2021 IR GASTROINTESTINAL OSTOMY 09/13/2022 IR GASTROINTESTINAL OSTOMY 12/16/2022 IR TUBE REPLACEMENT GASTROSTOMY PERCUTANEOUS OR CECOSTOMY N/A 02/15/2022 PERCUTANEOUS REPLACE GASTROSTOMY OR CECOSTOMY TUBE WITH FLUORO performed by Juan Antonio Carter MD at OR [facility] IR TUBE REPLACEMENT GASTROSTOMY PERCUTANEOUS OR CECOSTOMY N/A 05/22/2022 PERCUTANEOUS REPLACE GASTROSTOMY OR CECOSTOMY TUBE WITH FLUORO performed by Aashish Morin DO at OR [facility] Social History Socioeconomic History Marital status: Spouse name: Not on file Number of children: Not on file Years of education: Not on file Highest education level: Not on file Occupational History Not on file Tobacco Use Smoking status: Former Years: 20 Types: Cigarettes Quit date: 01/03/2021 Years since quittin.2 Smokeless tobacco: Never Tobacco comments: 2-4 cigarettes [...] Admin isolyte-S pH 7.4 infusion Intravenous Continuous Bryant Mo, 10 mL/hr at 03/19/23 1045 New Bag at 03/19/23 1045 REVIEW OF SYSTEMS: Constitutional: (-) fever chills sweats or weight loss Cardiovascular: (-) negative: no chest pain, dyspnea, syncope, or palpitations Pulmonary: (-) negative: no cough, wheezing, or shortness of breath OBJECTIVE: BP 115/75 | Pulse 46 | Temp 37.2 C (99 F) (Tympanic) | Resp 18 | Ht 1.651 m (5' 5") | Wt 56.7 kg (125 lb) | LMP (LMP Unknown) | SpO2 94% | BMI 20.80 kg/m | BSA 1.61 m PHYSICAL EXAM: Constitutional: no acute distress Chest: normal respiratory effort Abdomen: g tube in place LABS: CBC Results: PT INR Results: Results [...] 06:45 AM INFORMED CONSENT: Yes PRE-SEDATION ASSESSMENT: G Tube Exchange Level of sedation planned: Moderate Patient's allergies reviewed: Yes H&P Review / Interval Note Documentation: There is no H&P on file. G tube Difficulty with sedation / anesthesia: No Sleep apnea: No History of snoring: No History of difficult intubation: No Decreased ROM neck flexion/extension: No Tracheal deviation: No Decreased ability to open mouth / TMJ: No Loose teeth / dentures / partial: No Congenital deformities / abnormalities: No Dysphagia: No Mallampati Classification: II - soft palate, uvula, fauces visible Chest: Other (See Comments) Heart: Other (See Comments) Comments: Normal respiratory effort, bradycardia ASA Risk Stratification (Select One): ASA 2 - Mild systemic disease, no functional limitations The patient was identified and the procedure verified: Yes The patient was reevaluated immediately prior to the sedation: 03/19/2023 10:51 AM IMPRESSION/PLAN: Proceed with g tube exchange. Bryant Mo DO documented in this encounter Nursing Notes * Sylvia Wright RN - 03/19/2023 12:03 PM EST Patient insisted to be discharged and declined any further treatment or monitoring. Patient was stable and met discharge criteria. * Jairo Dailey RN - 03/19/2023 11:21 AM EST Pt condition was reassessed by Dr. Bryant Mo immediately prior to start of moderate sedation and procedure. documented in this encounter OR Notes * Operative Report Brief - Bryant Mo DO - 03/19/2023 11:33 AM EST PROCEDURE NOTE - Interventional Radiology [facility]-[address] [address] Name: Leyla Pichardo Location: OR [facility]/OR Date: 03/19/2023 Time: 11:33 AM PROCEDURE: G tube circular head saw operator: Dr. rByant Mo ASSISTANTS: None ANESTHESIA: conscious sedation COMPLICATIONS: none SPECIMEN: none ESTIMATED BLOOD LOSS: None FINDINGS: Success g tube exchange. documented in this encounter Plan of Treatment Upcoming Encounters Date Type Department Care Team (Late st Contact Info) Description 03/25/2023 11:40 AM EST [facility] [place] [address] [place] [address] Alton Ghotra MD [address] [place] [address] Scheduled Procedures Name Priority Associated Diagnoses Date/Ti me ESOPHAGOGASTRODUODENOSCOPY ( EGD), FLEXIBLE, TRANSORAL, ENDOSCOPIC ULTRASOUND Severe protein-calorie malnutrition (HCC) ENDOSCOPIC RETROGRADE CHOLANGIOPANCREATOGRAPHY (ERCP) DIAGNOSTIC Severe protein-calorie malnutrition (HCC) Health Maintenance Due Date Last Done Comments [...] this encounter Medical Devices Implanted Type Area Hand Router Operator Device Identifier Shelf Expiration Date Model / Serial / Lot Cath Chin Felder - [id number] Implanted:Qty: 1 on 01/26/2021 at [facility] [employer] [id number] 11/14/2023 [id number] / / [id number] Stent Axios [id number] - [id number] Implanted:Qty: 1 on 05/28/2021 by Judah Hutchinson MD at ENDOSCOPY [facility] [employer] : ENDOSCOPY 11/14/2021 [id number] / / documented as of this encounter Procedures Procedure Name Priority Date/Time Associated Diagnosis Comments IR INTERVENTIONAL RADIOLOGY PROCEDURE IN OR Routine 03/19/2023 11:36 AM EST Gastrostomy in place (HCC) documented in this encounter Results * IR INTERVENTIONAL RADIOLOGY PROCEDURE IN OR (03/19/2023 11:36 AM EST) 03/19/2023 12:1 1 PM EST Impressions [facility] RADIOLOGY - 03/19/2023 12:08 PM EST IMPRESSION: Successful gastrostomy catheter check and exchange. PLAN: Flush tube with 20-30 mL of water before and after each feeding and each medication. Medications should be in liquid form if possible and if not available in liquid form they should be finely crushed, mixed in warm water and administered individually. Routine maintenance change by IR in 3 months. Narrative [facility] RADIOLOGY - 03/19/2023 12:08 PM EST PROCEDURE: Gastrostomy catheter check and exchange. INDICATION: Routine maintenance. ATTENDING (OPERATING PHYSICIAN): Business Developer SUPPORTING PROVIDER (PARTS PULLER): None. CONSENT: After a detailed discussion of the procedure, risks, benefits and alternative treatment options, informed consent was obtained. TIME OUT: A time out procedure was performed. The patient's identification was verified. Informed consent with agreement of procedure, site and position was obtained. All necessary equipment was available prior to procedure. CONTRAST: IV Optiray 320 COMPLICATIONS: None. ANESTHESIA: IV moderate sedation with Versed and fentanyl SEDATION TIME: 5759-6554. Trained sedation observer Eleanor Eaton RN. MEDICATIONS: See [facility] PROCEDURE DESCRIPTION: The existing gastrostomy tube was injected with contrast and fluoroscopic images were obtained confirming the port was patent and in the proper location. The balloon was then deflated and the existing tube was removed over an Amplatz wire and exchanged for a new 14 Gibraltarian gastrostomy tube. Contrast injection confirmed position of the tip in the stomach. FINDINGS: Original gastrostomy catheter with patent lumen and in appropriate position.Newly exchanged gastrostomy catheter confirming the same. Procedure Note Bryant Mo, DO - 03/19/2023 PROCEDURE: Gastrostomy catheter check and exchange. INDICATION: Routine maintenance. ATTENDING (OPERATING PHYSICIAN): Business Developer SUPPORTING PROVIDER (PARTS PULLER): None. CONSENT: After a detailed discussion of the procedure, risks, benefits andalternative treatment options, informed consent was obtained. TIME OUT: A time out procedure was performed. The patient's identificationwas verified. Informed consent with agreement of procedure, site andposition was obtained. All necessary equipment was available prior toprocedure. CONTRAST: IV Optiray 320 COMPLICATIONS: None. ANESTHESIA: IV moderate sedation with Versed and fentanyl SEDATION TIME: 0513-6090. Trained sedation observer Eleanor Eaton RN. MEDICATIONS: See [facility] PROCEDURE DESCRIPTION: The existing gastrostomy tube was injected withcontrast and fluoroscopic images were obtained confirming the port waspatent and in the proper location. The balloon was then deflated and theexisting tube was removed over an Amplatz wire and exchanged for a new 14French gastrostomy tube. Contrast injection confirmed position of the tipin the stomach. FINDINGS: Original gastrostomy catheter with patent lumen and in appropriateposition.Newly exchanged gastrostomy catheter confirming the same. IMPRESSION IMPRESSION: Successful gastrostomy catheter check and exchange. PLAN: Flush tube with 20-30 mL of water before and after each feeding andeach medication. Medications should be in liquid form if possible and ifnot available in liquid form they should be finely crushed, mixed in warmwater and administered individually. Routine maintenance change by IR in 3months. Bryant Mo DO RAD SPECIAL PROC EDURES [facility] RADIOLOGY documented in this encounter Visit Diagnoses Diagnosis Gastrostomy in place (HCC) Gastrostomy status documented in this encounter Administered Medications Inactive Administered Medications - up to 3 most recent administrations Medication Order MAR Action Action Date Dose Rate Site ceFAZolin in dextrose (Ancef) ivpb 2 g 2 g, IV Piggyback, ONCE, 1 dose, On Fri03/19/23 at 1130 New Bag 03/19/2023 11:20 AM EST 2 g 100 mL/hr isolyte-S pH 7.4 infusion Intravenous, at 10 mL/hr, Plasma-LYTE 148, isolyte-S, and isolyte-S pH 7.4 are considered equivalent - including for MAR barcode scanning., CONTINUOUS, Starting on Fri03/19/23 at 1045, Until Fri03/19/23 at 1603, Pre-Op New Bag 03/19/2023 10:45 AM EST 10 mL/hr midazolam (Versed) 2 MG/2ML inj 1 mg 1 mg, IV Push, ONCE, On Fri03/19/23 at 1230, For 1 dose Given 03/19/2023 10:58 AM EST 1 mg documented in this encounter Active and Recently Administered Medications Times are shown in EST. Scheduled Medication Order 03/17/2023 03/18/2023 03/19/2023 ceFAZolin in dextrose (Ancef) ivpb 2 g (COMPLETED) 2 g, IV Piggyback, ONCE, 1 dose, On Fri03/19/23 at 1130 1120 (New Bag - Prov ider: Eleanor Eaton RN) midazolam (Versed) 2 MG/2ML inj 1 mg (COMPLETED) 1 mg, IV Push, ONCE, On Fri03/19/23 at 1230, For 1 dose 1058 (Given - Provid er: Eleanor Eaton RN) Continuous Medication Order 03/17/2023 03/18/2023 03/19/2023 isolyte-S pH 7.4 infusion Intravenous, at 10 mL/hr, Plasma-LYTE 148, isolyte-S, and isolyte-S pH 7.4 are considered equivalent - including for MAR barcode scanning., CONTINUOUS, Starting on Fri03/19/23 at 1045, Until Fri03/19/23 at 1603, Pre-Op 1045 (New Bag - Prov ider: G Mindi Tarik, RN) PRN Medication Order 03/17/2023 03/18/2023 03/19/2023 fentaNYL (PF) inj (CANCELED) ONCE PRN INTRA PROCEDURE, Starting on Fri03/19/23 at 1107, Until Fri03/19/23 at 1137, Intra-Op 1107 (Given - Provid er: Eleanor Eaton RN)1118 (Given - Provider: Eleanor Eaton RN) fentaNYL (PF) inj (CANCELED) ONCE PRN INTRA PROCEDURE, Starting on Fri03/19/23 at 1121, Until Fri03/19/23 at 1149, Intra-Op 1121 (Given - Provid er: Eleanor Eaton RN)1130 (Given - Provider: Eleanor Eaton RN) Iohexol (Omnipaque 240) inj (CANCELED) ONCE PRN INTRA PROCEDURE, Starting on Fri03/19/23 at 1129, Until Fri03/19/23 at 1137, Intra-Op 1129 (Given - Provid er: Bryant Mo DO) midazolam (Versed) 2 MG/2ML inj (CANCELED) ONCE PRN INTRA PROCEDURE, Starting on Fri03/19/23 at 1107, Until Fri03/19/23 at 1137, Intra-Op 1107 (Given - Provid er: Eleanor Eaton RN)1114 (Given - Provider: Eleanor Eaton RN)1117 (Given - Provider: Eleanor Eaton RN - Comment: given in same day surgery prior to entering OR) documented in this encounter Advance Directives Latest [...] the patient have Health Care Power of Detacher? No Care Teams Refinery Operator Helper Crude Unit Relationship Specialty Start Date End Date Kailey Adam MD [address] [place], [place] [address] PCP - General Family Medicine 10/20/18 documented as of this encounter
[2023-08-28] MEDS ORDERED: ONDANSETRON INJ 2 MG/ML 2 ML VIAL IV PRN (01:08)
[2023-08-28] MEDS ORDERED: ACETAMINOPHEN 325 MG TAB PO PRN (01:08)
[2023-08-28] MEDS ORDERED: bisacodyL 5 MG TABEC PO PRN (01:40)
[2023-08-28] MEDS: LACTATED RINGER'S 1,000 ML IV SCH (01:42)
[2023-08-28] MEDS ORDERED: LIDOCAINE 5% 1 PATCH TD PRN (01:48)
[2023-08-28] MEDS ORDERED: NALOXONE HCL 0.4 MG/1 ML VIAL/CARP IV PRN (01:53)
[2023-08-28 02:10] LABS: Base Excess VBG -2.4 mEq/L; HCO3 VBG 22 mmol/L; Oxygen Saturation VBG < 60.0 %; PCO2 VBG 34 mmHg (38-50); PO2 VBG 32 mmHg; pH VBG 7.41 (7.36-7.41)
[2023-08-28 02:15] LABS: Hemoglobin 12.7 g/dl (12.0-16.0); Mean Corpuscular Hemoglobin 31.3 pg (25.0-34.0); Mean Corpuscular Hgb Conc 33.4 g/dL (32.0-36.0); Mean Corpuscular Volume 93.6 fL (80.0-100.0); Mean Platelet Volume 10.4 fL (9.4-12.4); Platelet Count 262 K/uL (130-400); RDW Coefficient of Variation 12.9 % (11.5-14.5); RDW Standard Deviation 44.3 fL (36.4-46.3); Red Blood Count 4.06 M/uL (4.20-5.40); White Blood Count 5.57 K/ul (4.8-10.8)
[2023-08-28] MEDS: PEPTAMEN 1.5 CAL 1,000 ML BAG GT SCH (02:28)
[2023-08-28 03:09] LABS: Phosphorus 2.5 mg/dl (2.5-4.9)
[2023-08-28 03:21] LABS: Albumin Level 3.5 gm/dl (3.4-5.0); BUN Creatinine Ratio 5.1 (10-20); Bilirubin Direct 0.1 mg/dl (0-0.2); Bilirubin,Total 0.4 mg/dl (0.2-1.0); Calcium 8.3 mg/dl (8.6-10.3); Creatinine Clr Calc Pharmacy 122.6 ml/min; Est GFR (African American) 135.1 ml/min; Est GFR (Non-African American) 116.6 ml/min; Potassium 4.1 mmol/L (3.5-5.1); Total Protein 5.9 gm/dl (6.0-8.3)
[2023-08-28 03:23] LABS: Thyroid Stimulating Hormone 1.798 uIu/ml (0.300-4.500)
[2023-08-28] MEDS: CHECK fentaNYL PATCH PLACEMENT SCH (04:02)
[2023-08-28] MEDS: oxyCODONE HCL IR 5 MG TAB (IMMEDIATE RELEASE) PO PRN (05:59)
[2023-08-28] MEDS: LEVOTHYROXINE SODIUM 75 MCG TABLET PO SCH (05:59)
[2023-08-28] MEDS: FOLIC ACID 1 MG TAB PO SCH (07:57)
[2023-08-28] MEDS: PANTOprazole 40 MG TAB PO SCH (07:57)
[2023-08-28] MEDS: BACLOFEN 20 MG TAB PO SCH (07:57)
[2023-08-28] MEDS: fentaNYL 100 MCG/HR TDSY TD SCH (07:59)
[2023-08-28] MEDS: NYSTATIN CR 15 GM TUBE EXT SCH (07:59)
[2023-08-28] MEDS ORDERED: PEPTAMEN 1.5 CAL 1,000 ML BAG GT SCH ×2 (11:30→17:15)
[2023-08-28] MEDS: TUBE FEEDING WATER FLUSH GT SCH (11:51)
[2023-08-28] MEDS: oxyCODONE HCL IR 30 MG TAB (IMMEDIATE RELEASE) PO PRN (16:51)
--- NOTE | 2023-08-28 17:16 | Hospitalist Progress Note ---
Date of Service August 28, 2023 Assessment & Plan (1) Acute confusion: Plan: 58yo female with history of EDS, POTS, Chronic pain and Bipolar presenting with several days of generalized weakness, gait instability and confusion. Acute metabolic encephalopathy present on admission. Likely secondary to medications effects + dehydration. Patient is on multiple medications that are sedating including Xanax, Baclofen, Butalbital, Fentanyl, Oxycodone and Seroquel. In addition she has been taking quite a bit of Benadryl for treatment of a skin rash. Suspect some degree of anti-cholinergic toxicity contributing to patient's presenting symptoms - confusion, gait instability and weakness. She has had decreased liquid intake over the last few days as well. Appeared somewhat dry on exam Benadryl on hold. Patient took 250 mg of Benadryl in 1 day to treat a rash Patient seems euvolemic now. Will discontinue IV fluids If continues to do well, may be discharged tomorrow (2) Severe protein-calorie malnutrition: Plan: Patient with PEG tube in place. She receives Peptamen 3 cans TID. Follows with [facility] Nutrition -Nutrition consultation placed (3) Chronic pain: Plan: Patient with chronic pain. She is on Fentanyl patch as well as Oxycodone and Baclofen. She follows with Pain management -Continue Baclofen 20mg po QID -Continue Fentanyl patch - due to be changed tomorrow -Continue Oxycodone as written -Narcan PRN -Migraines - she is on Fioricet q 6 hours PRN. Per discussion with it seems like she is getting this scheduled. Will order for PRN PDMP independently reviewed. Patient receives her medications from [facility] in [place], [place] (4) Anxiety: Plan: Chronic. Patient is on Alprazolam 0.25mg po BID PRN anxiety -Will continue for now - cautious use of Benzos with her chronic longstanding opiates. In the long run patient may benefit from Hydroxyzine PRN (not currently due to concern for anticholinergic toxicity) or Buspirone PRN to help manage her anxiety Plan Hypothyroidism - chronic. last TSH on 08/20/23 elevated at 4.87 -Continue Synthroid -Check TSH with T4 reflex GERD - chronic. Stable. Patient on Omeprazole -Protonix while inpatient -Resume Omeprazole on DC Likely discharge tomorrow 08/28. Met with the and updated him. Admission and Anticipated Discharge Date Admission Date: August 27, 2023 Subjective Patient says that her mind was foggy and is starting to clear up. She is feeling better but she is not able to think straight yet. Nurse called me to come speak to her . I noticed that she was even clearer from a mentation standpoint. The agreed. Review of Systems Review of Systems: All systems reviewed & are unremarkable except as noted in Subjective Physical Exam Physical Exam: General: Awake, able to converse. Slightly confused. Cachectic with intercostal and bitemporal muscle wasting Heart: S1, S2/regular rate and rhythm, no murmur rubs or gallops Lungs: Clear to auscultation bilaterally. Normal effort Abdomen: Soft/nontender/nondistended. No hepatosplenomegaly. PEG tube in place Extremities: No clubbing/cyanosis. No edema Behavior: Appropriate, cooperative Results & Data Results & Data Vital Signs (Past 12 Hours) Vital Signs Temp Pulse Resp BP Pulse Ox O2 Del Method 08/28/23 14:30 36.9 C 75 16 126/86 98 Room Air 08/28/23 07:13 36.7 C 78 18 134/72 98 Room Air Laboratory Results Abnormal lab results 08/27/23 08/27/23 08/28/23 Range/Units 17:30 18:40 02:01 RBC 4.06 L (4.20-5.40) M/uL Lymph # (Auto) 1.14 L (1.20-3.40) K/uL VBG pCO2 34 L (38-50) mmHg Carbon Dioxide 20 L 20 L (21-32) mmol/L Anion Gap 16 H (3-11) BUN 3 L 2 L (6-23) mg/dl Creatinine 0.53 L 0.39 L (0.6-1.2) mg/dl BUN/Creatinine Ratio 5.7 L 5.1 L (10-20) Calcium 8.3 L (8.6-10.3) mg/dl Alkaline Phosphatase 159 H 125 H (34-104) U/L Ammonia 17.0 L (18-72) umol/L Total Protein 5.9 L D (6.0-8.3) gm/dl Urine Ketones 3+ H (Negative) Urine Opiates Screen Pos H (Neg) Urine Barbiturates Pos H (Neg) U Marijuana (THC) Screen Pos H (Neg) PG Care Time/CCT Total # of Minutes Spent Total Time Spent with Patient: Total time spent is greater than 50% in coordination of care (as documented) at patient's floor/unit and/or counseling patient: Coding Level of Care Code 49495 SUB INP/OBS CARE 2/35MIN Diagnoses Acute confusion R41.0 Severe protein-calorie malnutrition E43 Chronic pain G89.29 Anxiety F41.9
[2023-08-28] MEDS: QUEtiapine FUMARATE 25 MG TABLET PO PRN (23:00)
[2023-08-28] MEDS: ALPRAZolam 0.25 MG TABLET PO PRN (23:20)
[2023-08-29] MEDS: BUTALBITAL/ACETAMIN/CAFFEINE TAB PO PRN (08:32)
--- NOTE | 2023-08-29 13:28 | Hospitalist Progress Note ---
Date of Service August 29, 2023 Assessment & Plan (1) Acute confusion: Plan: 58yo female with history of EDS, POTS, Chronic pain and Bipolar presenting with several days of generalized weakness, gait instability and confusion. Acute metabolic encephalopathy present on admission. Likely secondary to medications effects + dehydration. Patient is on multiple medications that are sedating including Xanax, Baclofen, Butalbital, Fentanyl, Oxycodone and Seroquel. In addition she has been taking quite a bit of Benadryl for treatment of a skin rash. Suspect some degree of anti-cholinergic toxicity contributing to patient's presenting symptoms - confusion, gait instability and weakness. She has had decreased liquid intake over the last few days as well. Appeared somewhat dry on exam Benadryl on hold. Patient took 250 mg of Benadryl in 1 day to treat a rash Patient seems euvolemic now. Will discontinue IV fluids Will dc now (2) Severe protein-calorie malnutrition: Plan: Patient with PEG tube in place. She receives Peptamen 3 cans TID. Follows with [facility] Nutrition -Nutrition consultation placed (3) Chronic pain: Plan: Patient with chronic pain. She is on Fentanyl patch as well as Oxycodone and Baclofen. She follows with Pain management -Continue Baclofen 20mg po QID -Continue Fentanyl patch - due to be changed -Continue Oxycodone as written -Narcan PRN -Migraines - she is on Fioricet q [address] As per [address] Edwards discussion with it seems like she is getting this scheduled. Attempted to call to update x 2, no answer PDMP independently reviewed. Patient receives her medications from [facility] in [place], [place] (4) Anxiety: Plan: Chronic. Patient is on Alprazolam 0.25mg po BID PRN anxiety -Will continue for now - cautious use of Benzos with her chronic longstanding opiates. In the long run patient may benefit from Hydroxyzine PRN (not currently due to concern for anticholinergic toxicity) or Buspirone PRN to help manage her anxiety Plan Hypothyroidism - chronic. last TSH on 08/20/23 elevated at 4.87 -Continue Synthroid -Check TSH with T4 reflex GERD - chronic. Stable. Patient on Omeprazole -Protonix while inpatient -Resume Omeprazole on DC Likely discharge tomorrow 08/28. Met with the and updated him. Admission and Anticipated Discharge Date Admission Date: August 27, 2023 Subjective Pt tells me her mind is now totally clear and wants to go home Physical Exam Physical Exam: General: Awake, able to converse. Not confused. Cachectic with intercostal and bitemporal muscle wasting Heart: S1, S2/regular rate and rhythm, no murmur rubs or gallops Lungs: Clear to auscultation bilaterally. Normal effort Abdomen: Soft/nontender/nondistended. No hepatosplenomegaly. PEG tube in place Extremities: No clubbing/cyanosis. No edema Behavior: Appropriate, cooperative Skin rash resolved Results & Data Results & Data Vital Signs (Past 12 Hours) Vital Signs Temp Pulse Resp BP 08/29/23 07:46 36.9 C 74 19 121/65 PG Care Time/CCT Total # of Minutes Spent Total Time Spent with Patient: Total time spent is greater than 50% in coordination of care (as documented) at patient's floor/unit and/or counseling patient: Coding Diagnoses Acute confusion R41.0 Severe protein-calorie malnutrition E43 Chronic pain G89.29 Anxiety F41.9
--- NOTE | 2023-08-29 14:09 | Discharge Summary ---
Discharge Summary Date of Service August 29, 2023 Notes For Next Care Provider medication adjustment as per outpt physicians Admission HPI Per Admitting Provider Leyla Pichardo is a 58yo female with history of POTS, EDS, Bipolar and chronic pain presenting from home with her for two days of weakness, fatigue and increased confusion. Her symptoms started a little bit on the evening of 08/25/23 and progressively worsened over the last several days [employer] [address]. She has generalized weakness, gait instability and confusion. She has fallen several times at home - did hit the corner of her left eye. As per Dr. Edwards, her reports some nausea but no vomiting, diarrhea, chest pain, cough, SOB or urinary symptoms. He reports she has been eating well overall. She takes some things by mouth but has a G-tube in place and takes Peptamen. states they use three cans of Peptamen three times daily. She also drinks a lot of Gatorade - typically 8 bottles daily. She follows with Nutrition at [facility]. She had her G-tube replaced on 08/22/23. She has not been sleeping well - thinks that maybe she hasn't slept for several days. reports she has had some decrease in her fluid intake as well over the last two days - only taking 3 bottles of Gatorade daily instead of her usual 8/day. She and her have both had rashes recently - small dark spots on their skin. She has been taking quite a bit of Benadryl (25mg pills x 5 twice daily = 250mg of Benadryl daily) Today patient is fully alert and oriented. Attempted to call , checked with pt, who states he is at work and is unreachable Principal Dx & Hospital Course #1 = Principal Diagnosis (1) Acute confusion: Plan: 58yo female with history of EDS, POTS, Chronic pain and Bipolar presenting with several days of generalized weakness, gait instability and confusion. Acute metabolic encephalopathy present on admission. Likely secondary to medications effects + dehydration. Patient is on multiple medications that are sedating including Xanax, Baclofen, Butalbital, Fentanyl, Oxycodone and Seroquel. In addition she has been taking quite a bit of Benadryl for treatment of a skin rash. Suspect some degree of anti-cholinergic toxicity contributing to patient's presenting symptoms - confusion, gait instability and weakness. Pt states she is now back to her baseline status and wants to go home She has had decreased liquid intake over the last few days as well. Appeared somewhat dry on exam Benadryl on hold. Patient took 250 mg of Benadryl in 1 day to treat a rash Patient seems euvolemic now. Will discontinue IV fluids Pt doing well, will dc now (2) Severe protein-calorie malnutrition: (2) Severe protein-calorie malnutrition: Plan: Patient with PEG tube in place. She receives Peptamen 3 cans TID. Follows with [facility] Nutrition -Nutrition consultation placed, will resume on dc (3) Chronic pain: Patient with chronic pain. She is on Fentanyl patch as well as Oxycodone and Baclofen. She follows with Pain management -Continue Baclofen 20mg po QID -Continue Fentanyl patch - due to be changed tomorrow -Continue Oxycodone as written -Narcan PRN -Migraines - she is on Fioricet q 6 hours PRN. Per discussion with it seems like she is getting this scheduled. Will resume preadmit meds PDMP independently reviewed. Patient receives her medications from [facility] in [place], [place] (4) Anxiety: Chronic. Patient is on Alprazolam 0.25mg po BID PRN anxiety -Will continue for now - cautious use of Benzos with her chronic longstanding opiates. In the long run patient may benefit from Hydroxyzine PRN (not currently due to concern for anticholinergic toxicity) or Buspirone PRN to help manage her anxiety Discharge Exam General: Awake, able to converse. Full alert Cachectic with intercostal and bitemporal muscle wasting Heart: S1, S2/regular rate and rhythm, no murmur rubs or gallops Lungs: Clear to auscultation bilaterally. Normal effort Abdomen: Soft/nontender/nondistended. No hepatosplenomegaly. PEG tube in place Extremities: No clubbing/cyanosis. No edema Behavior: Appropriate, cooperative Updated Medication List Medication Instructions Recorded Confirmed Type alprazolam 0.5 mg tablet (Xanax) 0.25 mg (1/2 x 0.5 mg) PO BID PRN 10/08/18 08/27/23 Rx anxiety #10 tabs blood sugar diagnostic #100 ea 10/14/18 12/12/22 History lancets 30 gauge #100 ea 10/14/18 12/12/22 History neck collar ##1 12/12/18 09/11/22 History riwzzzhcvv-[id number]-dlbuojnh 1 tab PO Q6H PRN MIGRAINES 03/01/19 08/27/23 History 50 mg-325 mg-40 mg tablet lidocaine 5 % topical patch 2 patch topical .COMPLEX PRN Pain 03/01/19 08/27/23 History (Lidoderm) multivitamin (Daily Multi-Vitamin 1 tab PO TID 03/01/19 08/27/23 History tablet) fentanyl 100 mcg/hr transdermal 1 patch transdermal Q48H #15 ea 05/06/19 08/27/23 Rx patch gauze bandage 4" X 2.5 yard #5 ea 06/05/21 12/12/22 Rx (Rolled Gauze) miscellaneous medical supply 3 ea miscellaneous DAILY PRN 06/05/21 12/12/22 Rx personal hygiene #3 ea miscellaneous medical supply 100 ea miscellaneous PRN #100 ea 06/05/21 12/12/22 Rx miscellaneous medical supply 100 ea miscellaneous PRN 06/05/21 12/12/22 Rx incontinenience #100 ea non-adherent bandage 3" X 4" #10 ea 06/05/21 12/12/22 Rx transparent dressings 2" X 2 3/4" #100 ea 06/05/21 12/12/22 Rx (Tegaderm) syringe with needle 3 mL 25 x 5/8" #4 ea 06/22/21 12/12/22 Rx hydrocolloid dressing 42" X 42" #5 ea 06/27/21 12/12/22 Rx ondansetron 8 mg disintegrating 8 mg PO TID Nausea #90 tabs 04/24/22 08/27/23 Rx tablet baclofen 20 mg tablet 20 mg PO QID 05/28/22 08/27/23 History quetiapine 25 mg tablet 25 mg PO QAM PRN SLEEP 05/28/22 08/27/23 History folic acid 1 mg tablet 1 mg PO DAILY #30 tabs 06/18/23 08/27/23 Rx nystatin 100,000 unit/gram topical 1 applic topical BID #15 grams 07/30/23 08/27/23 Rx cream silver sulfadiazine 1 % topical 1 applic topical BID #20 grams 07/30/23 08/27/23 Rx cream miscellaneous medical supply 1 ea miscellaneous DAILY #1 ea 08/21/23 Rx miscellaneous medical supply 1 ea miscellaneous DAILY #1 ea 08/21/23 Rx miscellaneous medical supply 1 ea miscellaneous DAILY #1 ea 08/21/23 Rx miscellaneous medical supply 1 ea miscellaneous DAILY #1 ea 08/21/23 Rx nicotine (polacrilex) 4 mg buccal 4 mg buccal Q2H PRN nicotine 08/23/23 08/27/23 Rx lozenge cravings #72 ea bisacodyl 5 mg tablet,delayed 5 mg PO DAILY PRN Constipation 08/27/23 08/27/23 History release cyanocobalamin (vitamin B-12) 1,000 mcg subcut WK 08/27/23 08/27/23 History 1,000 mcg/mL injection solution levothyroxine 75 mcg tablet 75 mcg PO DAILY 08/27/23 08/27/23 History omeprazole 20 mg capsule,delayed 20 mg PO DAILY 08/27/23 08/27/23 History release oxycodone 15 mg tablet See Rx Instructions .Route .COMPLEX 08/27/23 08/27/23 History oxycodone 30 mg tablet See Rx Instructions .Route .COMPLEX 08/27/23 08/27/23 History quetiapine 50 mg tablet 50 mg PO PM PRN Sleep 08/27/23 08/27/23 History Hospital Stay Data Consultations 08/27/23 20:31 ED Decision to Admit Stat Diagnostic Imagining Performed 08/27/23 17:14 CT head/brain wo con Stat 08/27/23 17:16 CT neck [CT cervical spine wo con] Stat Pending Results Patient Have Any Pending Studies at Discharge: No Discharge Instructions Given to Patient (Per Discharging Provider) Pt needs follow with her regular providers for medication management Home Health Attestation I certify that this patient is under my care and that I, or a physicians assistant press operator working with me, had a face to-face encounter that meets the home health [id number] encounter requirements with this patient. The encounter with the patient was in whole, or in part, for the following medical condition, which is the primary reason for home health care (list medical condition): I certify that, based on my findings, the following services are medically necessary home health services: My clinical findings support the need for the above services because: Further, I certify that my clinical findings support that this patient is homebound (i.e. absences from home require considerable and taxing effort and are for medical reasons or mormonism services or infrequently or of short duration when for other reasons) because: Certification for Home Health Services: Based on the above findings, I certify that this patient is confined to the home and needs intermittent snf care, physical therapy and/or speech therapy or continues to need occupational therapy. The patient is under my care, and I have initiated the establishment of the plan of care. This patient will be followed by a physician who will periodically review the plan of care. Total Time Total Time Spent Total Time Spent (In Minutes): 45 Coding Level of Care Code 80504 IN/OBS DISCH 30 MIN/LESS Diagnoses Acute confusion R41.0 Severe protein-calorie malnutrition E43 Chronic pain G89.29 Anxiety F41.9 Time Spent (min) 45
--- NOTE | 2023-08-29 21:58 | Electrocardiogram Report ---
Test Reason : Blood Pressure : / mmHG Vent. Rate : 119 BPM Atrial Rate : 119 BPM P-R Int : 152 ms QRS Dur : 068 ms QT Int : 318 ms P-R-T Axes : 062 -45 008 degrees QTc Int : 447 ms Sinus tachycardia Left axis deviation Low voltage QRS Abnormal ECG When compared with ECG of 25-SEP-2018 11:35, Nonspecific T wave abnormality, improved in Inferior leads Nonspecific T wave abnormality, improved in Anterolateral leads Confirmed by Hayden Paige ([id number]) on 08/29/2023 9:57:30 PM Referred By: REFERRED SELF Confirmed By:Hayden Paige
[2023-09-01 19:52] LABS: Amobarbital, Urine Conf NEGATIVE ng/mL (<100); Butalbital, Urine 1280 ng/mL (<100); Codeine Urine NEGATIVE ng/mL (<50); Hydrocodone Urine NEGATIVE ng/mL (<50); Hydromor Urine NEGATIVE ng/mL (<50); Marijuana Quant, GCMS Urine 19 ng/mL (<5); Morphine Urine NEGATIVE ng/mL (<50); Norhydrocodone Conf Ur NEGATIVE ng/mL (<50); Noroxycodone Urine >10000 ng/mL (<50); Oxycodone Urine 1200 ng/mL (<50); Oxymorph Urine 3730 ng/mL (<50); Pentobarbital, Urine Conf NEGATIVE ng/mL (<100); Phenobarbital, Urine NEGATIVE ng/mL (<100); Secobarbital, Urine Conf NEGATIVE ng/mL (<100)
== END 2023-08-29 15:53 | disposition home health service (06) ==
LOC: ED 17:05 → 3E 21:39 → INTOOBSV 21:39 → SUATTDRO 21:39 → 3E 08-28 01:03